=== PATIENT | male | born 1950 | race Two or more races ===

== ENCOUNTER 2017-03-19 04:13 | Inpatient (IN) | payer BC, MEDICARE ==
[2017-03-19] MEDS ORDERED: ONDANSETRON 4 MG/2 ML VIAL IVP STA (04:37)
[2017-03-19] MEDS ORDERED: IPRATROPIUM-ALBUTEROL 3 ML NEB INHALATION STA (04:37)
--- NOTE | 2017-03-19 04:42 | ED ---
General Adult HPI - General Chief complaint: Shortness of Breath Stated complaint: SOB,dialysis pt Time Seen by Provider: 03/19/17 04:15 Source: patient, RN notes reviewed Mode of arrival: ambulatory Limitations: no limitations - History of Present Illness Initial comments: This is a 66-year-old male who presents emergency Department with past medical history significant for chronic renal failure and he does peritoneal dialysis at home. Patient states for the last 4 days he's been getting more more short of breath and feeling weaker and lost his appetite. Patient states she'll eat anything over the last 4 days. Patient denies any chest pain. Patient states he has had a low-grade fever highest being 100. Patient denies any abdominal pain patient denies any vomiting or diarrhea but does state that he is nauseated. Patient states he also was lightheaded and dizzy. Patient denies any headache patient denies numbness or focal weakness. Patient denies any recent injury or trauma. Patient denies any back pain. - Related Data Home Medications Medication Instructions Recorded Confirmed Arginine [l-Arginine] 3,000 mg PO BID 12/01/16 12/01/16 Ascorbic Acid [Vitamin C] 1,000 mg PO BID 12/01/16 12/01/16 Beta-Sitosterol 1 tab PO BID 12/01/16 Calcitriol [Rocaltrol] 0.5 mcg PO Q48H 12/01/16 12/01/16 Carvedilol [Coreg] 25 mg PO BID 12/01/16 12/01/16 Epoetin Anton [Procrit] 20,000 unit INJ DIRECTED 12/01/16 12/06/16 Ferrous Sulfate, Dried [Iron] 159 mg PO DAILY 12/01/16 12/01/16 Furosemide [Lasix] 40 mg PO Q48H 12/01/16 12/01/16 Glimepiride [Amaryl] 2 mg PO BID 12/01/16 12/01/16 Isosorbide Mononitrate ER [Imdur] 30 mg PO BID 12/01/16 12/01/16 Pygeum 1 tab PO BID 12/01/16 hydrALAZINE HCL [Hydralazine HCl] 50 mg PO TID 12/01/16 12/01/16 Previous Rx's Medication Instructions Recorded Hydrocodone/Acetaminophen [[place] 1 - 2 each PO Q4HR PRN #20 tab 12/06/16 5325] Allergies Allergy/AdvReac Type Severity Reaction Status Date / Time naproxen [From Naprosyn] Allergy Swelling Verified 03/19/17 04:23 IN FEET Jhpwbgz-Iew-Ulm Reductase Allergy Unknown Verified 03/19/17 04:23 Inhibitor Review of Systems ROS Statement: Those systems with pertinent positive or pertinent negative responses have been documented in the HPI. ROS Other: All systems not noted in ROS Statement are negative. Past Medical History Past Medical History: Blood Disorder, Diabetes Mellitus, Hyperlipidemia, Hypertension, Myocardial Infarction ([place]), Prostate Disorder, Renal Disease, Vascular Disorder Additional Past Medical History / Comment(s): ANEMIA. KIDNEY FUNCTION 13%. BPH. OFF PLAVIX FOR FEW MONTHS. PAD. HX INJ TO NECK PLAYING FOOTBALL. Last Myocardial Infarction Date:: 2007 History of Any Multi-Drug Resistant Organisms: None Reported Past Surgical History: Heart Catheterization With Stent, Tonsillectomy Additional Past Surgical History / Comment(s): HEART STENTS X3 01/2008. LT LEG (CLEANED OUT MY LEGS) ARTHRECTOMY X2. Past Anesthesia/Blood Transfusion Reactions: Motion Sickness Date of Last Stent Placement:: 01/2008 Past Psychological History: No Psychological Hx Reported Smoking Status: Former smoker Past Alcohol Use History: None Reported Past Drug Use History: None Reported - Past Family History Mother Family Medical History: Cancer Father Family Medical History: Myocardial Infarction ([place]), Pulmonary Embolus General Exam - General Exam Comments Initial Comments: GENERAL: Patient is well-developed and well-nourished. Patient is nontoxic and well- hydrated and is in mild distress. ENT: Neck is soft and supple. No significant lymphadenopathy is noted. Oropharynx is clear. Moist mucous membranes. EYES: The sclera were anicteric and conjunctiva were pink and moist. Extraocular movements were intact and pupils were equal round and reactive to light. Eyelids were unremarkable. PULMONARY: Wheezing more on the left than the right. Patient will crack on the right. CARDIOVASCULAR: There is a regular rate and rhythm without any murmurs gallops or rubs. ABDOMEN: Soft and nontender with normal bowel sounds. No palpable organomegaly was noted. There is no palpable pulsatile mass. SKIN: Skin is clear with no lesions or rashes and otherwise unremarkable. NEUROLOGIC: Patient is alert and oriented x3. Cranial nerves II through XII are grossly intact. Motor and sensory are also intact. Normal speech, volume and content. Symmetrical smile. MUSCULOSKELETAL: Normal extremities with adequate strength and full range of motion. No lower extremity swelling or edema. No calf tenderness. LYMPHATICS: No significant lymphadenopathy is noted PSYCHIATRIC: Normal psychiatric evaluation. Normal interpersonal interactions appears functionally intact in deals appropriately with others. No signs of depression. No signs of anxiety. Limitations: no limitations Course Vital Signs 03/19/17 03/19/17 03/19/17 04:17 04:41 04:54 Temperature 97.6 F Pulse Rate 77 73 74 Respiratory 20 Rate Blood Pressure 159/76 O2 Sat by Pulse 94 L Oximetry 03/19/17 05:55 Temperature Pulse Rate 72 Respiratory 20 Rate Blood Pressure 167/77 O2 Sat by Pulse 95 Oximetry Medical Decision Making - Medical Decision Making EKG shows sinus rhythm at 76 bpm CO interval is 218 QRS is 90 QT intervals 412 QTC is 463. Patient's EKG shows no ST segment elevation or depression or T wave abnormalities are noted X-ray showed an infiltrate in the right lower lobe. Started the patient on Levaquin. I spoke with Dr. Rasmussen he agreed to admit the patient admitted the patient I wrote admitting orders. - Lab Data Result diagrams: 03/19/17 04:30 03/19/17 04:30 Lab Results 03/19/17 03/19/17 03/19/17 Range/Units 04:30 04:30 04:30 WBC 15.1 H (3.8-10.6) k/uL RBC 4.31 (4.30-5.90) m/uL Hgb 12.8 L (13.0-17.5) gm/dL Hct 35.6 L (39.0-53.0) % MCV 82.7 (80.0-100.0) fL MCH 29.8 (25.0-35.0) pg MCHC 36.1 (31.0-37.0) g/dL RDW 14.0 (11.5-15.5) % Plt Count 223 (150-450) k/uL Neutrophils % 76 % Lymphocytes % 17 % Monocytes % 5 % Eosinophils % 1 % Basophils % 0 % Neutrophils # 11.4 H (1.3-7.7) k/uL Lymphocytes # 2.5 (1.0-4.8) k/uL Monocytes # 0.8 (0-1.0) k/uL Eosinophils # 0.2 (0-0.7) k/uL Basophils # 0.1 (0-0.2) k/uL PT (9.0-12.0) sec INR (<1.2) APTT (22.0-30.0) sec Sodium 125 L (137-145) mmol/L Potassium 3.0 L* (3.5-5.1) mmol/L Chloride 81 L (98-107) mmol/L Carbon Dioxide 28 (22-30) mmol/L Anion Gap 16 mmol/L BUN 78 H (9-20) mg/dL Creatinine 5.12 H* (0.66-1.25) mg/dL Est GFR (MDRD) Af Amer 14 (>60 ml/min/1.73 sqM) Est GFR (MDRD) Non-Af 11 (>60 ml/min/1.73 sqM) Glucose 86 (74-99) mg/dL Plasma Lactic Acid Jcarlos (0.7-2.0) mmol/L Calcium 9.1 (8.4-10.2) mg/dL Magnesium 2.7 H (1.6-2.3) mg/dL Total Bilirubin 1.0 (0.2-1.3) mg/dL AST 32 (17-59) U/L ALT 34 (21-72) U/L Alkaline Phosphatase 86 (38-126) U/L Total Creatine Kinase 73 (55-170) U/L CK-MB (CK-2) 2.6 H* (0.0-2.4) ng/mL CK-MB (CK-2) Rel Index 3.6 Troponin I 0.035 H* (0.000-0.034) ng/mL NT-Pro-B Natriuret Pep pg/mL Total Protein 6.9 (6.3-8.2) g/dL Albumin 4.0 (3.5-5.0) g/dL 03/19/17 03/19/17 03/19/17 Range/Units 04:30 04:30 04:45 WBC (3.8-10.6) k/uL RBC (4.30-5.90) m/uL Hgb (13.0-17.5) gm/dL Hct (39.0-53.0) % MCV (80.0-100.0) fL MCH (25.0-35.0) pg MCHC (31.0-37.0) g/dL RDW (11.5-15.5) % Plt Count (150-450) k/uL Neutrophils % % Lymphocytes % % Monocytes % % Eosinophils % % Basophils % % Neutrophils # (1.3-7.7) k/uL Lymphocytes # (1.0-4.8) k/uL Monocytes # (0-1.0) k/uL Eosinophils # (0-0.7) k/uL Basophils # (0-0.2) k/uL PT 9.3 (9.0-12.0) sec INR 0.9 (<1.2) APTT 23.7 (22.0-30.0) sec Sodium (137-145) mmol/L Potassium (3.5-5.1) mmol/L Chloride (98-107) mmol/L Carbon Dioxide (22-30) mmol/L Anion Gap mmol/L BUN (9-20) mg/dL Creatinine (0.66-1.25) mg/dL Est GFR (MDRD) Af Amer (>60 ml/min/1.73 sqM) Est GFR (MDRD) Non-Af (>60 ml/min/1.73 sqM) Glucose (74-99) mg/dL Plasma Lactic Acid Jcarlos 0.7 (0.7-2.0) mmol/L Calcium (8.4-10.2) mg/dL Magnesium (1.6-2.3) mg/dL Total Bilirubin (0.2-1.3) mg/dL AST (17-59) U/L ALT (21-72) U/L Alkaline Phosphatase (38-126) U/L Total Creatine Kinase (55-170) U/L CK-MB (CK-2) (0.0-2.4) ng/mL CK-MB (CK-2) Rel Index Troponin I (0.000-0.034) ng/mL NT-Pro-B Natriuret Pep 2610 pg/mL Total Protein (6.3-8.2) g/dL Albumin (3.5-5.0) g/dL Disposition Clinical Impression: Pneumonia, Influenza Disposition: ADMITTED IP TO THIS [facility] Time of Disposition: 05:32
[2017-03-19 04:46] LABS: Basophils # (A) 0.1 k/uL (0-0.2); Basophils % (A) 0 %; Eosinophils # (A) 0.2 k/uL (0-0.7); Eosinophils % (A) 1 %; HCT 35.6 % (39.0-53.0); HGB 12.8 gm/dL (13.0-17.5); Lymphocytes # (A) 2.5 k/uL (1.0-4.8); Lymphocytes % (A) 17 %; MCH 29.8 pg (25.0-35.0); MCHC 36.1 g/dL (31.0-37.0); MCV 82.7 fL (80.0-100.0); Mean Platelet Volume 8.5; Monocytes # (A) 0.8 k/uL (0-1.0); Monocytes % (A) 5 %; Neutrophils # (A) 11.4 k/uL (1.3-7.7); Neutrophils % (A) 76 %; Platelet Count 223 k/uL (150-450); RBC 4.31 m/uL (4.30-5.90); WBC 15.1 k/uL (3.8-10.6)
[2017-03-19 04:54] LABS: INR 0.9 (<1.2); Partial Thromboplastin Time 23.7 sec (22.0-30.0); Prothrombin Time 9.3 sec (9.0-12.0)
[2017-03-19 04:55] LABS: Calcium 9.1 mg/dL (8.4-10.2); Magnesium 2.7 mg/dL (1.6-2.3); Total Protein 6.9 g/dL (6.3-8.2)
--- NOTE | 2017-03-19 05:18 | XR ---
EXAM: XR Chest, 2 Views CLINICAL HISTORY: Reason: difficulty breathing TECHNIQUE: Frontal and lateral views of the chest. COMPARISON: No relevant prior studies available. FINDINGS: Lungs: Subsegmental linear changes involving the right lower lobe. Pleural space: Unremarkable. No pneumothorax. Heart: Unremarkable. No cardiomegaly. Mediastinum: Unremarkable. Bones/joints: Unremarkable. IMPRESSION: Subsegmental linear atelectasis right lower lobe. Infection in this region cannot entirely be excluded but is considered less likely.
[2017-03-19 05:21] LABS: Creatine Kinase MB 2.6 ng/mL (0.0-2.4); Troponin I 0.035 ng/mL (0.000-0.034)
[2017-03-19] MEDS ORDERED: LEVOFLOXACIN 750MG-D5W PMX 750 MG in DEXTROSE/WATER 1 150ML.BAG IVPB STA (05:30)
[2017-03-19] MEDS ORDERED: LEVOFLOXACIN 750MG-D5W PMX 750 MG in DEXTROSE/WATER 1 150ML.BAG IVPB SCH (05:30)
[2017-03-19] MEDS ORDERED: PNEUMONIA PROTOCOL UTILIZED 1 EACH MISC PO PRN (05:32)
[2017-03-19] MEDS ORDERED: MAG HYDROX/AL HYDROX/SIMETH 30 ML, HYOSCYAMINE ELIXIR 10 ML, CIMETIDINE HCL 300 MG, LID... PO STA ×4 (05:42)
[2017-03-19] MEDS ORDERED: PANTOPRAZOLE 40 MG/10 ML VIAL IVP STA (05:43)
[2017-03-19] MEDS ORDERED: OSELTAMIVIR 75 MG CAP PO STA (06:05)
[2017-03-19] MEDS ORDERED: ACETAMINOPHEN TAB 325 MG TAB PO PRN (06:06)
--- NOTE | 2017-03-19 10:30 | P.NPCON ---
History of Present Illness - Reason for Consult end stage renal disease - History of Present Illness Reason for consultation: End-stage renal disease History of present illness: Patient is a 66-year-old male seen in renal consultation for end-stage renal disease. He is maintained on peritoneal dialysis. Patient follows with Dr. Bradshaw as an outpatient. Patient presented to the hospital with generalized weakness along with poor oral intake which is going on for the last 4-5 days. He also admits to low-grade fever as well as chills. He denies any abdominal pain. Patient has no problems with peritoneal dialysis. Patient states his dialysate is clear. He does admit to nausea. Denies any significant vomiting or diarrhea. He is noted to be positive for influenza B. He's currently maintained on Tamiflu. He still feels quite weak. Denies edema. Hemodynamically stable. Patient states he did not get the flu shot as he doesn't care for it. Vital signs are stable. General: The patient appeared well nourished and normally developed. HEENT: Head exam is unremarkable. Neck is without jugular venous distension. LUNGS: Lungs are clear to auscultation and percussion. Breath sounds decreased. HEART: Rate and Rhythm are regular. First and second heart sounds normal. No murmurs, rubs or gallops. ABDOMEN: Abdominal exam reveals normal bowel sounds. Non-tender and non- distended. No evidence of peritonitis. EXTREMITITES: No clubbing, cyanosis, or edema. Past Medical History Past Medical History: Coronary Artery Disease (CAD), Chest Pain / Angina, Diabetes Mellitus, Hypertension, Myocardial Infarction ([place]), Pneumonia, Prostate Disorder, Renal Disease, Vascular Disorder Additional Past Medical History / Comment(s): Chronic renal failure on home peritoneal dialysis, renal function 13%, anemia, NIDDM type II, PAD, cervical injury r/t football with cervical pain. Last Myocardial Infarction Date:: 2007 History of Any Multi-Drug Resistant Organisms: None Reported Past Surgical History: Heart Catheterization With Stent, Tonsillectomy Additional Past Surgical History / Comment(s): 11/2016 Peritoneal catheter placed, PCI/stents X3 01/2008. LT LEG ARTHRECTOMY X2. Past Anesthesia/Blood Transfusion Reactions: No Reported Reaction, Motion Sickness Date of Last Stent Placement:: 01/2008 Smoking Status: Former smoker - Past Family History Mother Family Medical History: Cancer Additional Family Medical History / Comment(s): Mother had colon cancer. Father Family Medical History: Myocardial Infarction ([place]), Pulmonary Embolus Additional Family Medical History / Comment(s): Father had several MIs and of one at the age of 69yrs. Medications and Allergies Home Medications Medication Instructions Recorded Confirmed Type Calcitriol [Rocaltrol] 0.5 mcg PO MOFR 12/01/16 03/19/17 History Carvedilol [Coreg] 25 mg PO BID 12/01/16 03/19/17 History Glimepiride [Amaryl] 2 mg PO BID 12/01/16 03/19/17 History Isosorbide Mononitrate ER [Imdur] 30 mg PO BID 12/01/16 03/19/17 History hydrALAZINE HCL [Hydralazine HCl] 50 mg PO TID 12/01/16 03/19/17 History Multivitamins, Thera [Multivitamin 1 tab PO DAILY 03/19/17 03/19/17 History (formulary)] Allergies Allergy/AdvReac Type Severity Reaction Status Date / Time naproxen [From Naprosyn] Allergy Swelling Verified 03/19/17 07:20 IN FEET Pycxtfd-Fvh-Dtz Reductase Allergy Unknown Verified 03/19/17 07:20 Inhibitor Physical Exam Vitals: Vital Signs Temp Pulse Resp BP Pulse Ox 03/19/17 09:27 97.6 F 73 20 142/78 95 03/19/17 07:15 97.6 F 78 20 164/80 98 03/19/17 05:55 72 20 167/77 95 03/19/17 04:54 74 03/19/17 04:41 73 03/19/17 04:17 97.6 F 77 20 159/76 94 L Intake and Output 03/18/17 03/19/17 03/19/17 22:59 06:59 14:59 Intake Total 88 Balance 88 Intake: Amount of Fluid Infused ( 88 ml) Other: Weight 89.811 kg Results - Lab Results Most recent lab results Calcium 9.1 mg/dL (8.4-10.2) 03/19/17 04:30 Magnesium 2.7 mg/dL (1.6-2.3) H 03/19/17 04:30 03/19/17 04:30 03/19/17 04:30 Assessment and Plan Plan: Assessment: #1. End-stage renal disease maintained on peritoneal dialysis. #2. Hypovolemic hyponatremia. #3. Hypokalemia due to poor oral intake as well as losses from peritoneal dialysis. Magnesium replete. #4. Influenza B virus maintained on Tamiflu. #5. Diabetes mellitus. Plan: Start PD exchanges with 2 L every 6 hours 1.5% solution. Check phosphorus level. Replace potassium. 60 mEq today. Encouraged oral intake. Repeat electrolytes in the morning. Thank you for the consultation. I will continue to follow the patient is due during his hospital stay.
[2017-03-19] MEDS ORDERED: MAGNESIUM SULFATE-D5W PMX 1 GM in DEXTROSE/WATER 1 100ML.BAG IVPB ONE (10:36)
[2017-03-19] MEDS ORDERED: POTASSIUM CHLORIDE 20 MEQ in WATER FOR INJECTION 1 100ML.BAG IVPB STA (10:51)
[2017-03-19] MEDS: DIALYSIS (PERIT 1.5%) 1,500 ML 22.5 G/1,500 ML BAG INTRAPERIT SCH ×3 (11:32→23:53)
[2017-03-19] MEDS ORDERED: CALCITRIOL 0.25 MCG CAP PO SCH (12:00)
[2017-03-19] MEDS: POTASSIUM CHLORIDE 20 MEQ in SODIUM CHLORIDE 0.9% 100 ML IVPB SCH ×3 (12:04→14:38)
[2017-03-19] MEDS: OSELTAMIVIR 60 MG/10 ML ORAL SYRINGE PO SCH (12:07)
[2017-03-19] MEDS: hydrALAZINE HCL 50 MG TAB PO SCH ×2 (14:39→21:58)
[2017-03-19] MEDS: CARVEDILOL 12.5 MG TAB PO SCH (14:40)
[2017-03-19 15:40] VITALS: BMI 28.4
--- NOTE | 2017-03-19 17:51 | P.HPIM ---
History of Present Illness H&P Date: 03/19/17 Chief Complaint: short of breath and feeling weaker and lost his appetite. Mr. Chaparro is a 66 y/o male with the past medical history of reactive disease, diabetes mellitus, hypertension, prostate disorder, CK 80 on peritoneal dialysis coming in with a chief complaint of generalized weakness along with loss of appetite for the past 2-3 days. Patient states that it started off as a common cold, then he started to have cough that was dry. Complains of low- grade fever with some chills. He complains of some nausea but did not throw up and that is loss of appetite. Patient did not get his flu shot for this season. And he was tested positive for influenza B in the ER. Patient has been started on Tamiflu but denies taking the medication as he thinks it would not be as effective as his symptoms started more than 2-3 days back and now that he is getting better. Did have a chest x-ray which was showing Menghini or atelectasis of the right lower lobe infection industries it could not be excluded. So he was started on levofloxacin. He was seen by nephrology and his peritoneal dialysis has been initiated. Review of Systems REVIEW OF SYSTEMS: PSYCH: No Anxiety or depression NEURO: Generalized weakness but no focal weakness HEMATOLOGIC: No history of easy bleeding and bruising . No recent infections . RESPIRATORY: as per HPI INTEGUMENT: no rashes OPHTHALMOLOGIC: No blurry vision and no eye discharge : No dysuria or hematuria CARDIAC: Mild difficulty in breathing. No chest pain or palpitations. MUSCULOSKELETAL : Myalgia and fatigue GI: Loss of appetite No abdominal pain, Nausea or vomiting. No constipation or diarrhea. Past Medical History Past Medical History: Coronary Artery Disease (CAD), Chest Pain / Angina, Diabetes Mellitus, Hypertension, Myocardial Infarction ([place]), Pneumonia, Prostate Disorder, Renal Disease, Vascular Disorder Additional Past Medical History / Comment(s): Chronic renal failure on home peritoneal dialysis, renal function 13%, anemia, NIDDM type II, PAD, cervical injury r/t football with cervical pain. Last Myocardial Infarction Date:: 2007 History of Any Multi-Drug Resistant Organisms: None Reported Past Surgical History: Heart Catheterization With Stent, Tonsillectomy Additional Past Surgical History / Comment(s): 11/2016 Peritoneal catheter placed, PCI/stents X3 01/2008. LT LEG ARTHRECTOMY X2. Past Anesthesia/Blood Transfusion Reactions: No Reported Reaction, Motion Sickness Date of Last Stent Placement:: 01/2008 Past Psychological History: No Psychological Hx Reported Additional Psychological History / Comment(s): Pt resides with his spouse. He is independent. He performs his own peritoneal dialysis. He has a RN, named Farzana at [facility] which helps manage his dialysis [phone]. Smoking Status: Former smoker Past Alcohol Use History: None Reported Additional Past Alcohol Use History / Comment(s): Pt started smoking in 1963 and was a 3 PPD smoker, QUIT 2007. Past Drug Use History: None Reported - Past Family History Mother Family Medical History: Cancer Additional Family Medical History / Comment(s): Mother had colon cancer. Father Family Medical History: Myocardial Infarction ([place]), Pulmonary Embolus Additional Family Medical History / Comment(s): Father had several MIs and of one at the age of 69yrs. Medications and Allergies Home Medications Medication Instructions Recorded Confirmed Type Calcitriol [Rocaltrol] 0.5 mcg PO MOFR 12/01/16 03/19/17 History Carvedilol [Coreg] 25 mg PO BID 12/01/16 03/19/17 History Glimepiride [Amaryl] 2 mg PO BID 12/01/16 03/19/17 History Isosorbide Mononitrate ER [Imdur] 30 mg PO BID 12/01/16 03/19/17 History hydrALAZINE HCL [Hydralazine HCl] 50 mg PO TID 12/01/16 03/19/17 History Multivitamins, Thera [Multivitamin 1 tab PO DAILY 03/19/17 03/19/17 History (formulary)] Allergies Allergy/AdvReac Type Severity Reaction Status Date / Time naproxen [From Naprosyn] Allergy Swelling Verified 03/19/17 07:20 IN FEET Svubbbb-Rpg-Div Reductase Allergy Unknown Verified 03/19/17 07:20 Inhibitor Physical Exam Vitals: Vital Signs Temp Pulse Resp BP Pulse Ox 03/19/17 11:03 20 03/19/17 09:27 97.6 F 73 20 142/78 95 03/19/17 07:15 97.6 F 78 20 164/80 98 03/19/17 05:55 72 20 167/77 95 03/19/17 04:54 74 03/19/17 04:41 73 03/19/17 04:17 97.6 F 77 20 159/76 94 L Intake and Output 03/18/17 03/19/17 03/19/17 22:59 06:59 14:59 Intake Total 88 Balance 88 Intake: Amount of Fluid Infused ( 88 ml) Other: Weight 89.811 kg GENERAL EXAM GEN. APPEARANCE: sick appearing HEAD EXAM: atraumatic, normocephalic, normal inspection EYE EXAM: normal appearance, PERRL, EOMI. Absent: scleral icterus, conjunctival injection, periorbital swelling ENT EXAM: normal exam, mucous membranes moist NECK EXAM: normal inspection. Absent: tenderness, meningismus, full ROM, lymphadenopathy RESPIRATORY EXAM: Coarse Breath sounds bilaterally CARDIOVASCULAR EXAM: regular rate, normal rhythm, normal heart sounds. Absent : systolic murmur, diastolic murmur, rubs, gallop, clicks GI/ABDOMINAL EXAM: soft, normal bowel sounds. Absent: distended, tenderness, guarding, rebound, rigid EXTREMITIES EXAM: normal inspection, full ROM, normal capillary refill. Absent : tenderness, pedal edema, joint swelling, calf tenderness NEUROLOGICAL EXAM: alert, oriented X3, CN II-XII intact, no motor or sensory deficit PSYCHIATRIC EXAM: normal affect, normal mood SKIN EXAM: warm, dry, intact, normal color. Absent: rash Results CBC & Chem 7: 03/19/17 04:30 03/19/17 04:30 Labs: Abnormal Lab Results - Last 24 Hours (Table) 03/19/17 03/19/17 03/19/17 Range/Units 04:30 04:30 04:30 WBC 15.1 H (3.8-10.6) k/uL Hgb 12.8 L (13.0-17.5) gm/dL Hct 35.6 L (39.0-53.0) % Neutrophils # 11.4 H (1.3-7.7) k/uL Sodium 125 L (137-145) mmol/L Potassium 3.0 L* (3.5-5.1) mmol/L Chloride 81 L (98-107) mmol/L BUN 78 H (9-20) mg/dL Creatinine 5.12 H* (0.66-1.25) mg/dL Magnesium 2.7 H (1.6-2.3) mg/dL CK-MB (CK-2) 2.6 H* (0.0-2.4) ng/mL Troponin I 0.035 H* (0.000-0.034) ng/mL Influenza Type B (PCR) (Not Detectd) 03/19/17 Range/Units 05:35 WBC (3.8-10.6) k/uL Hgb (13.0-17.5) gm/dL Hct (39.0-53.0) % Neutrophils # (1.3-7.7) k/uL Sodium (137-145) mmol/L Potassium (3.5-5.1) mmol/L Chloride (98-107) mmol/L BUN (9-20) mg/dL Creatinine (0.66-1.25) mg/dL Magnesium (1.6-2.3) mg/dL CK-MB (CK-2) (0.0-2.4) ng/mL Troponin I (0.000-0.034) ng/mL Influenza Type B (PCR) Detected H (Not Detectd) Chest x-ray showing - right lower lobe infiltrate Thrombosis Risk Factor Assmnt - Choose All That Apply Any of the Below Risk Factors Present?: Yes Each Factor Represents 1 point: Obesity (BMI >25), Serious lung disease incl. pneumonia (< 1month) Other Risk Factors: Yes Each Risk Factor Represents 2 Points: Age 61-74 years Each Risk Factor Represents 3 Points: Family history of DVT/PE Other congenital or acquired thrombophilia - If yes, enter type in comment: No Thrombosis Risk Factor Assessment Total Risk Factor Score: 7 Thrombosis Risk Factor Assessment Level: High Risk Assessment and Plan Assessment: Right lower lobe pneumonia Influenza B ESRD on peritoneal dialysis Leukocytosis Hypokalemia Elevated troponins - most likely demand ischemia we will repeat troponins Type 2 diabetes mellitus [id number]-[id number] Coronary artery disease Hypertension Prostrated disorder Plan: Patient has been started on levofloxacin for his right lower lobe pneumonia. Patient refuses Tamiflu. Peritoneal dialysis as per nephrology recommendations. We'll resume his home medications and further recommendations to follow depending on the progress of the patient.
[2017-03-19] MEDS: ISOSORBIDE MONONITRATE ER 30 MG TAB.ER.24H PO SCH (21:58)
[2017-03-20] MEDS ORDERED: ONDANSETRON 4 MG/2 ML VIAL IVP PRN (00:05)
[2017-03-20] MEDS: DIALYSIS (PERIT 1.5%) 1,500 ML 22.5 G/1,500 ML BAG INTRAPERIT SCH ×3 (05:35→17:43)
[2017-03-20] MEDS: hydrALAZINE HCL 50 MG TAB PO SCH ×3 (08:06→20:37)
[2017-03-20] MEDS: CARVEDILOL 12.5 MG TAB PO SCH ×2 (08:06→15:03)
[2017-03-20] MEDS: ISOSORBIDE MONONITRATE ER 30 MG TAB.ER.24H PO SCH ×2 (08:06→20:37)
[2017-03-20] MEDS: OSELTAMIVIR 60 MG/10 ML ORAL SYRINGE PO SCH (08:08)
--- NOTE | 2017-03-20 08:52 | XR ---
EXAMINATION TYPE: XR chest 2V DATE OF EXAM: 03/20/2017 COMPARISON: 03/19/2017 HISTORY: Cough, congestion and shortness of breath TECHNIQUE: Frontal and lateral views of the chest are obtained. FINDINGS: There is redemonstration of a linear right lower lobe opacity, slightly progressed from the prior. Again this appears as atelectasis although pneumonia is possible. Remainder the lungs are rodríguez ar. No pleural effusion or pneumothorax. The cardiac silhouette size is within normal limits. The osseous structures are intact. Mild multilevel degenerative changes of the thoracic spine. IMPRESSION: Slight worsening of the right lower lobe linear opacities favored to represent atelectas is although pneumonia is possible in the appropriate clinical setting.
[2017-03-20 10:43] LABS: Calcium 8.9 mg/dL (8.4-10.2); Phosphorus 4.2 mg/dL (2.5-4.5); Potassium 3.7 mmol/L (3.5-5.1)
--- NOTE | 2017-03-20 11:10 | P.PN ---
Subjective Patient is seen in follow-up for end-stage renal disease. He is maintained on peritoneal dialysis. He is currently being treated for influenza B virus with Tamiflu. He's feeling better today. No vomiting or diarrhea. Oral intake is gradually improving. Denies chest pain or shortness of breath. Denies abdominal pain. Vital signs are stable. General: The patient appeared well nourished and normally developed. HEENT: Head exam is unremarkable. Neck is without jugular venous distension. LUNGS: Lungs are clear to auscultation and percussion. Breath sounds decreased. HEART: Rate and Rhythm are regular. First and second heart sounds normal. No murmurs, rubs or gallops. ABDOMEN: Abdominal exam reveals normal bowel sounds. Non-tender and non- distended. No evidence of peritonitis. EXTREMITITES: No clubbing, cyanosis, or edema. Objective - Vital Signs Vital signs: Vital Signs Temp 96.8 F L 03/20/17 07:00 Pulse 77 03/20/17 07:00 Resp 16 03/20/17 07:00 BP 136/70 03/20/17 07:00 Pulse Ox 95 03/20/17 07:00 Intake & Output 03/19/17 03/20/17 03/20/17 18:59 06:59 18:59 Intake Total 688 Balance 688 Weight 89.811 kg Intake: Amount of Fluid Infused ( 88 ml) Intake, IV Titration 300 Amount Magnesium Sulfate-D5w Pmx 100 1 gm In Dextrose/Water 1 100ml.bag @ 100 mls/hr IVPB ONCE ONE Rx#: [id number] Potassium Chloride 20 meq 100 In Sodium Chloride 0.9% 100 ml @ 55 mls/hr IVPB Q2HR HANNA Rx#:[id number] Potassium Chloride 20 meq 100 In Water For Injection 1 100ml.bag @ 50 mls/hr IVPB ONCE STA Rx#: [id number] Oral 300 Other: Voiding Method CAPD CAPD # Voids 0 1 2 # Bowel Movements 0 - Labs CBC & Chem 7: 03/19/17 04:30 03/20/17 08:48 Labs: Abnormal Lab Results - Last 24 Hours (Table) 03/19/17 03/20/17 Range/Units 11:58 08:48 Sodium 121 L (137-145) mmol/L Chloride 82 L (98-107) mmol/L BUN 67 H (9-20) mg/dL Creatinine 5.11 H* (0.66-1.25) mg/dL Glucose 153 H (74-99) mg/dL Troponin I 0.038 H* (0.000-0.034) ng/mL Microbiology - Last 24 Hours (Table) 03/19/17 16:53 Gram Stain - Preliminary Sputum 03/19/17 04:30 Blood Culture - Preliminary Blood No Growth after 24 hours Assessment and Plan Plan: Assessment: #1. End-stage renal disease maintained on peritoneal dialysis. #2. Hypovolemic hyponatremia. Antibiotics also mixed with D5W which will lower the sodium. #3. Hypokalemia due to poor oral intake as well as losses from peritoneal dialysis. Magnesium replete. Improved post replacement. #4. Influenza B virus maintained on Tamiflu. #5. Diabetes mellitus. Plan: Maintain PD exchanges with 2 L every 6 hours 1.5% solution. Encouraged oral intake. Add 1.2 L fluid restriction. Repeat electrolytes in the morning. Repeat sodium level at 5 PM today.
[2017-03-20 11:22] LABS: Basophils % (A) 0 %; Eosinophils # (A) 0.1 k/uL (0-0.7); Eosinophils % (A) 1 %; HCT 31.2 % (39.0-53.0); HGB 11.2 gm/dL (13.0-17.5); Hyperchromasia Slight; Lymphocytes # (A) 1.5 k/uL (1.0-4.8); Lymphocytes % (A) 15 %; MCH 29.6 pg (25.0-35.0); MCHC 35.7 g/dL (31.0-37.0); MCV 82.9 fL (80.0-100.0); Mean Platelet Volume 8.3; Monocytes # (A) 0.6 k/uL (0-1.0); Monocytes % (A) 6 %; Neutrophils # (A) 7.6 k/uL (1.3-7.7); Neutrophils % (A) 76 %; Platelet Count 207 k/uL (150-450); RBC 3.77 m/uL (4.30-5.90); RDW 13.2 % (11.5-15.5); WBC 9.9 k/uL (3.8-10.6)
[2017-03-20] MEDS: MULTIVITAMINS, THERA 1 EACH TAB PO SCH (11:44)
[2017-03-20] MEDS ORDERED: SODIUM CHLORIDE 0.9% 1,000 ML IV SCH (20:30)
--- NOTE | 2017-03-20 21:10 | PN ---
PROGRESS NOTE DATE OF SERVICE: 03/20/2017. BRIEF HISTORY: The patient is seen in his room. Claims that he is still having some shortness of breath, but would like to be discharged home. PHYSICAL EXAM: GENERAL: The patient is awake and alert. He does not seem to be in any acute distress. VITAL SIGNS: Temperature 96.8, pulse 77, respirations 16, blood pressure 136/70, O2 saturation 95%. HEENT: Atraumatic, normocephalic. Pupils equal and reactive to light. Extraocular movements are intact. Buccal mucosa is moist. NECK: Supple without any goiter or lymphadenopathy. JVD is negative. No carotid bruit heard. RESPIRATORY: Lungs positive bilateral wheezing with decreased breath sound in both bases. CARDIOVASCULAR: Heart is regular rate and rhythm without any murmurs or gallop rhythm. ABDOMEN/GI: Abdomen is soft, nontender, nondistended. No guarding or rigidity. Bowel sounds are positive. EXTREMITIES: No edema clubbing or cyanosis. NEUROLOGIC: Cranial nerves 2 through 12 grossly intact. No gross motor or sensory deficit. SKIN: Warm and dry and intact. MUSCULOSKELETAL: No gross joint deformities or tenderness or swelling. The patient moves all 4 extremities. LYMPHATIC: No palpable lymph nodes in axilla or cervical. LABS: CBC, white blood count of 15.1, hemoglobin of 12.8, hematocrit 35.6, and platelet count of 223,000. Chemical profile sodium 129, potassium 3.7, chloride 82, bicarb 24, BUN 67, creatinine 5.1, glucose 153. ASSESSMENT: 1. End-stage renal disease with peritoneal dialysis. 2. Hypoxemia secondary to community-acquired pneumonia. 3. Influenza B virus. 4. Hypovolemic hyponatremia. 5. Hypertension. 6. Diabetes mellitus type 2. 7. Hypertension. 8. Elevated troponin, most likely demand ischemia. PLAN: The patient is being followed by Nephrology. Remains on antibiotics. Peritoneal dialysis is in place. Will continue with levofloxacin. The patient refuses Tamiflu. Continue with DuoNebs and oxygen as needed. We will resume all home medications. Monitor electrolytes, renal function, I and Os. Nephrology following and placing recommendations for hyponatremia. The patient's hypokalemia was treated. Will repeat electrolytes and treat accordingly. MMODL / IJN: [id number] /
[2017-03-21] MEDS: DIALYSIS (PERIT 1.5%) 1,500 ML 22.5 G/1,500 ML BAG INTRAPERIT SCH ×3 (00:30→12:04)
[2017-03-21] MEDS ORDERED: LEVOFLOXACIN 500MG-D5W PMX 500 MG in DEXTROSE/WATER 1 100ML.BAG IVPB SCH (06:00)
[2017-03-21] MEDS: ISOSORBIDE MONONITRATE ER 30 MG TAB.ER.24H PO SCH (07:30)
[2017-03-21] MEDS: hydrALAZINE HCL 50 MG TAB PO SCH (07:30)
[2017-03-21] MEDS: OSELTAMIVIR 60 MG/10 ML ORAL SYRINGE PO SCH (07:30)
[2017-03-21] MEDS: CARVEDILOL 12.5 MG TAB PO SCH (07:30)
[2017-03-21 07:38] VITALS: BP 140/77; PULSE 73; RESP 16; TEMP 97.3
--- NOTE | 2017-03-21 10:24 | P.PN ---
Subjective Patient is seen in follow-up for end-stage renal disease. He is maintained on peritoneal dialysis. He is currently being treated for influenza B virus with Tamiflu. He's feeling better today. No vomiting or diarrhea. Oral intake is gradually improving. Denies drinking excessive amounts of water. Denies chest pain or shortness of breath. Denies abdominal pain. Sodium level was noted to be low at 121 yesterday. She was started on 0.9 saline to be run at 50 mL an hour. Vital signs are stable. General: The patient appeared well nourished and normally developed. HEENT: Head exam is unremarkable. Neck is without jugular venous distension. LUNGS: Lungs are clear to auscultation and percussion. Breath sounds decreased. HEART: Rate and Rhythm are regular. First and second heart sounds normal. No murmurs, rubs or gallops. ABDOMEN: Abdominal exam reveals normal bowel sounds. Non-tender and non- distended. No evidence of peritonitis. EXTREMITITES: No clubbing, cyanosis, or edema. Objective - Vital Signs Vital signs: Vital Signs Temp 97.3 F L 03/21/17 07:00 Pulse 73 03/21/17 07:00 Resp 16 03/21/17 07:00 BP 140/77 03/21/17 07:00 Pulse Ox 96 03/21/17 07:00 Intake & Output 03/20/17 03/21/17 03/21/17 18:59 06:59 18:59 Other: Voiding Method CAPD CAPD CAPD # Voids 2 2 - Labs CBC & Chem 7: 03/20/17 08:48 03/20/17 19:29 Labs: Abnormal Lab Results - Last 24 Hours (Table) 03/20/17 03/20/17 03/20/17 Range/Units 08:48 08:48 19:29 RBC 3.77 L (4.30-5.90) m/uL Hgb 11.2 L (13.0-17.5) gm/dL Hct 31.2 L (39.0-53.0) % Sodium 121 L 121 L (137-145) mmol/L Chloride 82 L (98-107) mmol/L BUN 67 H (9-20) mg/dL Creatinine 5.11 H* (0.66-1.25) mg/dL Glucose 153 H (74-99) mg/dL Microbiology - Last 24 Hours (Table) 03/19/17 04:30 Blood Culture - Preliminary Blood No Growth after 48 hours 03/19/17 16:53 Gram Stain - Preliminary Sputum Assessment and Plan Plan: Assessment: #1. End-stage renal disease maintained on peritoneal dialysis. #2. Hypovolemic hyponatremia. Antibiotics also mixed with D5W which will lower the sodium. #3. Hypokalemia due to poor oral intake as well as losses from peritoneal dialysis. Magnesium replete. Improved post replacement. #4. Influenza B virus maintained on Tamiflu. #5. Diabetes mellitus. Plan: Maintain PD exchanges with 2 L every 6 hours 1.5% solution. Encouraged oral intake. Maintain 1.2 L fluid restriction. Continue normal saline to be run at 50 mL an hour. Follow-up morning labs.
[2017-03-21 10:34] LABS: Basophils % (A) 0 %; Eosinophils # (A) 0.1 k/uL (0-0.7); Eosinophils % (A) 1 %; HCT 30.5 % (39.0-53.0); HGB 10.9 gm/dL (13.0-17.5); Lymphocytes # (A) 1.5 k/uL (1.0-4.8); Lymphocytes % (A) 16 %; MCH 30.5 pg (25.0-35.0); MCHC 35.7 g/dL (31.0-37.0); MCV 85.4 fL (80.0-100.0); Mean Platelet Volume 8.5; Monocytes # (A) 0.6 k/uL (0-1.0); Monocytes % (A) 6 %; Neutrophils # (A) 7.5 k/uL (1.3-7.7); Neutrophils % (A) 76 %; Platelet Count 217 k/uL (150-450); RBC 3.58 m/uL (4.30-5.90); RDW 14.2 % (11.5-15.5); WBC 9.9 k/uL (3.8-10.6)
[2017-03-21 10:44] LABS: Calcium 8.9 mg/dL (8.4-10.2); Potassium 3.5 mmol/L (3.5-5.1)
[2017-03-21] MEDS: MULTIVITAMINS, THERA 1 EACH TAB PO SCH (12:05)
--- NOTE | 2017-04-08 19:03 | DS ---
DISCHARGE SUMMARY DATE OF ADMISSION: 03/19/2017. ADMISSION DIAGNOSES: 1. Right lower lobe pneumonia, influenza B, end-stage renal disease/ hemodialysis. 2. Leukocytosis. 3. Hypokalemia. 4. Elevated troponin, most likely demand ischemia. 5. Diabetes type 2. 6. Coronary artery disease. 7. Hypertension. 8. Anxiety. BRIEF HISTORY: The patient is a 66-year-old male patient who presented to the ED with a complaint of generalized weakness and loss of appetite for 2-3 days complaining of low-grade fever with chills. The patient tested influenza B in the ER. He was started on Tamiflu. Chest x-ray was done in the ED, which showed right lower lobe pneumonia. The patient has past medical history significant of: 1. Diabetes mellitus. 2. Hypertension. 3. Myocardial infarction. 4. Chronic back disorder. 5. Chronic kidney disease/hemodialysis. 6. Peripheral vascular occlusive disease. HOME MEDICATION: Rocaltrol 0.5 Sunday, Sunday, Sunday. Coreg 25 mg b.i.d., Amaryl 2 mg b.i.d. , 30 mg b.i.d., hydralazine 50 mg t.i.d., multivitamin 1 daily, Naprosyn. PHYSICAL EXAMINATION: She was awake, alert, oriented x3. VITAL SIGNS: Temperature 97.6, pulse 97, respiration 20, blood pressure 169/76, O2 saturation 94%. HEENT: Atraumatic, normocephalic. Pupils equal and react to light. Extraocular movements intact. Buccal mucosa moist. NECK: Supple. No goiter, lymphadenopathy. JVD is negative. No carotid bruit heard. LUNGS: Coarse breath sounds bilaterally with rales, rhonchi, and wheezing. HEART: Regular rate and rhythm without murmur or gallop rhythm. ABDOMEN: Soft, nontender, nondistended. Bowel sounds positive. EXTREMITIES: No edema, clubbing, cyanosis. NEUROLOGICAL EXAMINATION: Cranial nerves 2-12 grossly intact. No focal sensory deficit. LABS ON ADMISSION: CBC: White blood count of 15.1, hemoglobin 12.8, hematocrit 35.6, and platelet count of 223. Chemical profile: Sodium 125, potassium 3.2, chloride 81, bicarb 28, BUN 78, creatinine 5.12 BRIEF HOSPITAL COURSE: The patient was admitted to the medical floor, was started on IV levofloxacin for pneumonia. The patient refused Tamiflu. Nephrology consultation was done prior to peritoneal dialysis. The patient's home medications were continued. There was improvement with above measures. Showed no new complications. His oxygenation improved and he is continued on DuoNeb. I and O's were monitored. The patient's hypokalemia was treated. He did not have any further complications. He was discharged on 2017 in a stable condition. DISCHARGE DIAGNOSES: 1. Pneumonia. 2. Hypokalemia. 3. Endstage renal disease on hemodialysis. DISCHARGE MEDICATIONS: 1. Levaquin 250 mg p.o. daily for 7 days. 2. Tamiflu 30 mg p.o. daily. 3. Rocaltrol 0.5 mg every Sunday and Sunday. 4. Coreg 25 mg b.i.d. 5. Amaryl 2 mg b.i.d. 6. Imdur 30 mg b.i.d. 7. Multivitamins 1 daily. 8. Hydralazine 60 mg t.i.d. Patient was advised to follow with primary care physician and Nephrology and was advised to take all medications. MMODL / IJN: [id number] / MTDD
== END 2017-03-21 15:10 | disposition home or self-care (01) | DRG 193 ==
LOC: EC 04:13 → 4MS4W 05:33
PROVIDERS: ADMIT Internal Medicine; ATTEND Internal Medicine
PROC: 3E1M39Z Irrigation of Peritoneal Cavity using Dialysate, Percutaneous Approach (ICD-10-PCS; principal; 2017-03-19)
DX: J10.00 Influenza due to other identified influenza virus with unspecified type of pneumonia (principal); N18.6 End stage renal disease; E11.22 Type 2 diabetes mellitus with diabetic chronic kidney disease; I12.0 Hypertensive chronic kidney disease with stage 5 chronic kidney disease or end stage renal disease; E87.1 Hypo-osmolality and hyponatremia; I24.8 Other forms of acute ischemic heart disease; J18.9 Pneumonia, unspecified organism; E87.6 Hypokalemia; E78.5 Hyperlipidemia, unspecified; R09.02 Hypoxemia; N40.0 Benign prostatic hyperplasia without lower urinary tract symptoms; M54.2 Cervicalgia; D64.9 Anemia, unspecified; I25.10 Atherosclerotic heart disease of native coronary artery without angina pectoris; I25.2 Old myocardial infarction; Z79.84 Long term (current) use of oral hypoglycemic drugs; Z79.899 Other long term (current) drug therapy; Z95.5 Presence of coronary angioplasty implant and graft; Z99.2 Dependence on renal dialysis; Z87.891 Personal history of nicotine dependence; Z88.8 Allergy status to other drugs, medicaments and biological substances
CPT/HCPCS: 36415; 71046; 80048; 80053; 82550; 82553; 83605; 83735; 83880; 84100; 84132; 84295; 84484; 85025; 85610; 85730; 87040; 87070; 87205; 87502; 93005; 94640; 96365; 96366; 96375; 99285

== ENCOUNTER 2020-08-02 08:24 | Day surgery (SDC) | payer MEDICARE ==
[2020-07-30 10:01] VITALS: BMI 30.2
[~2020-08-02 08:24] MED LIST: ACETAMINOPHEN TAB 500 MG TAB PO PRN; HEPARIN SODIUM,PORCINE/PF 5,000 UNIT/0.5 ML SYRINGE SQ PRN; LACTATED RINGERS 1,000 ML IV SCH; LIDOCAINE 1% (10MG/ML) FOR IV START INTRADERMA PRN; ONDANSETRON 4 MG/2 ML VIAL IVP ONE; fentaNYL (PF) 50 MCG/ML 2 ML AMP IV PRN
[2020-08-02 08:54] VITALS: TEMP 97.5
[2020-08-02 09:09] LABS: Glucose,Whole Blood 65 mg/dL (75-99)
[2020-08-02] MEDS ORDERED: DEXTROSE 50% SYRINGE 50 ML IVP ONE (09:10)
[2020-08-02 09:24] LABS: Glucose,Whole Blood 106 mg/dL (75-99)
--- NOTE | 2020-08-02 09:30 | P.GSHP ---
History of Present Illness H&P Date: 08/02/20 Chief Complaint: Renal failure 69-year-old male here today for peritoneal dialysis catheter removal. Patient had this catheter placed 2017. Recently had some issues with peritonitis and poor function. He has converting over to hemodialysis at this point. Past Medical History Past Medical History: Coronary Artery Disease (CAD), Chest Pain / Angina, Diabetes Mellitus, GERD/Reflux, Hypertension, Myocardial Infarction ([place]), Pneumonia, Prostate Disorder, Renal Disease, Vascular Disorder Additional Past Medical History / Comment(s): Chronic renal failure, anemia, PAD, cervical injury r/t football with chronic cervical pain. Last Myocardial Infarction Date:: 2007 History of Any Multi-Drug Resistant Organisms: None Reported Past Surgical History: Heart Catheterization With Stent, Tonsillectomy Additional Past Surgical History / Comment(s): Peritoneal Dialysis catheter placed, PCI/stents X3. Left leg Arthrectomy X2. Past Anesthesia/Blood Transfusion Reactions: No Reported Reaction, Motion Sickness Additional Past Anesthesia/Blood Transfusion Reaction / Comment(s): "Dizzy sometimes when wakes up from anesthesia". Date of Last Stent Placement:: 01/2008 Past Psychological History: No Psychological Hx Reported Smoking Status: Former smoker Past Alcohol Use History: None Reported Additional Past Alcohol Use History / Comment(s): Pt started smoking in 1963 and was a 3 PPD smoker, quit in 2007. Past Drug Use History: None Reported - Past Family History Mother Family Medical History: Cancer Additional Family Medical History / Comment(s): Colon cancer. Father Family Medical History: Myocardial Infarction ([place]), Pulmonary Embolus Additional Family Medical History / Comment(s): Father had several MIs and of one at the age of 69yrs. Medications and Allergies Home Medications Medication Instructions Recorded Confirmed Type Carvedilol [Coreg] 25 mg PO BID 12/01/16 07/30/20 History Glimepiride [Amaryl] 2 mg PO BID 12/01/16 07/30/20 History Isosorbide Mononitrate ER [Imdur] 60 mg PO BID 12/01/16 07/30/20 History hydrALAZINE HCL 50 mg PO TID 12/01/16 07/30/20 History Multivitamins, Thera [Multivitamin 1 tab PO DAILY 03/19/17 07/30/20 History (formulary)] Potassium Chloride 10 meq PO DAILY 07/30/20 07/30/20 History Tamsulosin [Flomax] 0.4 mg PO DAILY 07/30/20 07/30/20 History Zinc 50 mg PO Q48H 07/30/20 07/30/20 History Allergies Allergy/AdvReac Type Severity Reaction Status Date / Time naproxen [From Naprosyn] Allergy Swelling Verified 08/02/20 08:43 IN FEET Qapumfs-Rqq-Acs Reductase Allergy Unknown Verified 08/02/20 08:43 Inhibitor Surgical - Exam Vital Signs Temp Pulse Resp BP Pulse Ox 97.5 F L 72 16 175/82 95 08/02/20 08:53 08/02/20 08:53 08/02/20 08:53 08/02/20 08:53 08/02/20 08:53 Physical exam: General: Well-developed, well-nourished HEENT: Normocephalic, sclerae nonicteric Abdomen: Nontender, nondistended, left-sided peritoneal catheter in place Extremities: No edema Neuro: Alert and oriented Results - Labs Abnormal Lab Results - Last 24 Hours (Table) 08/02/20 08/02/20 Range/Units 08:58 09:23 POC Glucose (mg/dL) 65 L 106 H (75-99) mg/dL Assessment and Plan (1) Renal failure Narrative/Plan: Will proceed with peritoneal dialysis catheter removal at this time. Current Visit: Yes Status: Acute Code(s): N19 - UNSPECIFIED KIDNEY FAILURE SNOMED Code(s): 92775446
[2020-08-02] MEDS ORDERED: MIDAZOLAM 2 MG/2 ML VIAL ONE (09:45)
[2020-08-02] MEDS ORDERED: fentaNYL (PF) 50 MCG/ML 2 ML AMP ONE (09:45)
[2020-08-02] MEDS ORDERED: PROPOFOL 10 MG/ML 20 ML VIAL IV ONE (09:45)
[2020-08-02] MEDS ORDERED: BUPIVACAINE (PF) 0.25% 30 ML VIAL SQ ONE ×2 (10:12)
[2020-08-02] MEDS ORDERED: NALOXONE 0.4 MG/ML 1 ML VIAL IV PRN (10:36)
[2020-08-02 10:37] VITALS: RESP 14
--- NOTE | 2020-08-02 10:38 | P.OP ---
Date of Procedure: 08/02/20 Procedure(s) Performed: PREOPERATIVE DIAGNOSIS: Renal failure POSTOPERATIVE DIAGNOSIS: Same PROCEDURE: PD cath removal SURGEON: Luis Alfredo EBL: 2 mL ANESTHESIA: Sedation and local COMPLICATIONS: None OPERATIVE PROCEDURE: Patient was placed in the supine position. The abdomen was prepped and draped in usual sterile fashion. The previous paramedian incision was re-incised after localizing the skin. The subcutaneous tissues were divided using electrocautery. Blunt dissection around the cuff that was present at the fascia and peritoneum took place. The cuff was fully mobilized. The catheter was removed from the perineal cavity. The outer cuff was dissected from the saphenous fascia using electrocautery. The catheter was cut on the other side of that cuff and the catheter was removed. The fascial defect was closed using a single [id number] 0 Vicryl stitch. The subcutaneous tissues were closed using 3-0 Vicryl sutures and the skin using 4-0 Monocryl sutures. Skin glue and sterile dressings were applied. DISPOSITION: Stable to recovery room
[2020-08-02 10:51] VITALS: BP 157/73; PULSE 74
[2020-08-02 11:00] LABS: Glucose,Whole Blood 88 mg/dL (75-99)
[2020-08-02 11:11] LABS: Glucose,Whole Blood 87 mg/dL (75-99)
== END 2020-08-02 11:26 | disposition home or self-care (01) ==
LOC: OR 08:24
PROVIDERS: ATTEND Surgery
DX: Z49.02 Encounter for fitting and adjustment of peritoneal dialysis catheter (principal); I12.9 Hypertensive chronic kidney disease with stage 1 through stage 4 chronic kidney disease, or unspecified chronic kidney disease; E11.22 Type 2 diabetes mellitus with diabetic chronic kidney disease; N18.9 Chronic kidney disease, unspecified; K21.9 Gastro-esophageal reflux disease without esophagitis; I25.10 Atherosclerotic heart disease of native coronary artery without angina pectoris; I25.2 Old myocardial infarction; D63.1 Anemia in chronic kidney disease; M54.2 Cervicalgia; G89.29 Other chronic pain; Z87.891 Personal history of nicotine dependence; E11.51 Type 2 diabetes mellitus with diabetic peripheral angiopathy without gangrene; Z79.899 Other long term (current) drug therapy; Z88.6 Allergy status to analgesic agent; Z88.8 Allergy status to other drugs, medicaments and biological substances
CPT/HCPCS: 49422; J2250; J0690; J2405; J3010; J2704; J1644

== ENCOUNTER 2020-10-06 03:30 | Inpatient (IN) | payer MEDICARE ==
[2020-10-06] MEDS ORDERED: NALOXONE 0.4 MG/ML 1 ML VIAL IV PRN (03:36)
[2020-10-06] MEDS ORDERED: MORPHINE SULFATE 4 MG/ML SYRINGE IV PRN (03:39)
[2020-10-06] MEDS ORDERED: PNEUMONIA PROTOCOL UTILIZED 1 EACH MISC PO PRN (03:41)
[2020-10-06] MEDS ORDERED: ALBUTEROL NEBULIZED 2.5 MG/3 ML INHALATION PRN (03:41)
[2020-10-06] MEDS ORDERED: DEXTROSE 5%-0.45% NACL 1,000 ML IV SCH (03:45)
--- NOTE | 2020-10-06 03:46 | ED ---
SOB HPI - General Stated Complaint: SOB Time Seen by Provider: 10/06/20 03:35 Source: old records reviewed Mode of arrival: EMS Limitations: altered mental status, physical limitation - History of Present Illness Initial Comments: This is a 70-year-old male DF for evaluation patient presents today for evaluation as a transfer for severe shortness of breath breath with failure p atient is intubated and sedated, unable to provide history history obtained from EMS and patient's transport. MD Complaint: shortness of breath -: unknown Severity: severe Severity scale (1-10): 10 Quality: aching Consistency: constant Improves With: nothing Worsens With: nothing Known History Of: asthma, congestive heart failure, diabetes, recurrent pneumonia Context: recent URI, anxiety, recent illness Associated Symptoms: cough, sputum production, diaphoresis, nausea/vomiting Treatments Prior to Arrival: oxygen, bronchodilator, NIPPV, intubation - Related Data Home Medications Medication Instructions Recorded Confirmed Carvedilol [Coreg] 25 mg PO BID 12/01/16 07/30/20 Glimepiride [Amaryl] 2 mg PO BID 12/01/16 07/30/20 Isosorbide Mononitrate ER [Imdur] 60 mg PO BID 12/01/16 07/30/20 hydrALAZINE HCL 50 mg PO TID 12/01/16 07/30/20 Multivitamins, Thera [Multivitamin 1 tab PO DAILY 03/19/17 07/30/20 (formulary)] Potassium Chloride 10 meq PO DAILY 07/30/20 07/30/20 Tamsulosin [Flomax] 0.4 mg PO DAILY 07/30/20 07/30/20 Zinc 50 mg PO Q48H 07/30/20 07/30/20 Allergies Allergy/AdvReac Type Severity Reaction Status Date / Time ciprofloxacin [From Cipro] Allergy Unknown Verified 10/06/20 03:46 naproxen [From Naprosyn] Allergy Swelling Verified 10/06/20 03:46 IN FEET Ddalarp-Cwc-Mbf Reductase Allergy Unknown Verified 10/06/20 03:46 Inhibitor Review of Systems ROS Statement: Those systems with pertinent positive or pertinent negative responses have been documented in the HPI. ROS Other: All systems not noted in ROS Statement are negative. Past Medical History Past Medical History: Coronary Artery Disease (CAD), Chest Pain / Angina, Diabetes Mellitus, GERD/Reflux, Hypertension, Myocardial Infarction ([place]), Pneumonia, Prostate Disorder, Renal Disease, Vascular Disorder Additional Past Medical History / Comment(s): Chronic renal failure, anemia, PAD, cervical injury r/t football with chronic cervical pain. Last Myocardial Infarction Date:: 2007 History of Any Multi-Drug Resistant Organisms: None Reported Past Surgical History: Heart Catheterization With Stent, Tonsillectomy Additional Past Surgical History / Comment(s): Peritoneal Dialysis catheter placed, PCI/stents X3. Left leg Arthrectomy X2. Past Anesthesia/Blood Transfusion Reactions: No Reported Reaction, Motion Sickness Additional Past Anesthesia/Blood Transfusion Reaction / Comment(s): "Dizzy sometimes when wakes up from anesthesia". Date of Last Stent Placement:: 01/2008 Past Psychological History: No Psychological Hx Reported Smoking Status: Former smoker Past Alcohol Use History: None Reported Additional Past Alcohol Use History / Comment(s): Pt started smoking in 1963 and was a 3 PPD smoker, quit in 2007. Past Drug Use History: None Reported - Past Family History Mother Family Medical History: Cancer Additional Family Medical History / Comment(s): Colon cancer. Father Family Medical History: Myocardial Infarction ([place]), Pulmonary Embolus Additional Family Medical History / Comment(s): Father had several MIs and of one at the age of 69yrs. General Exam - General Exam Comments Initial Comments: Patient is intubated Patient is sedated Limitations: altered mental status, physical limitation General appearance: anxious, obtunded, in distress Head exam: Present: atraumatic, normocephalic, normal inspection Eye exam: Present: normal appearance, PERRL, EOMI. Absent: scleral icterus, conjunctival injection, periorbital swelling ENT exam: Present: normal exam, mucous membranes moist Neck exam: Present: normal inspection. Absent: tenderness, meningismus, lymphadenopathy Respiratory exam: Present: normal lung sounds bilaterally. Absent: respiratory distress, wheezes, rales, rhonchi, stridor Cardiovascular Exam: Present: regular rate, normal rhythm, normal heart sounds. Absent: systolic murmur, diastolic murmur, rubs, gallop, clicks GI/Abdominal exam: Present: soft, normal bowel sounds. Absent: distended, tenderness, guarding, rebound, rigid Extremities exam: Present: normal inspection, full ROM, normal capillary refill. Absent: tenderness, pedal edema, joint swelling, calf tenderness Back exam: Present: normal inspection Neurological exam: Present: alert, oriented X3, CN II-XII intact Psychiatric exam: Present: normal affect, normal mood Skin exam: Present: warm, dry, intact, normal color. Absent: rash Course Vital Signs 10/06/20 03:35 Temperature 97.1 F L Pulse Rate 78 Respiratory 14 Rate Blood Pressure 146/75 O2 Sat by Pulse 99 Oximetry - Reevaluation(s) Reevaluation #1: 10/06/20 03:43 Medical record is reviewed Reevaluation #2: 10/06/20 03:43 Transferring paperwork is thoroughly reviewed Reevaluation #3: 10/06/20 03:44 Did speak with transferring physician regarding patient - Consultations Consultation #1: Spoke with sound regarding admission, they're agreeable Consultation #2: Spoke with Dr. Whelan for ICU who does accept Critical Care Time Critical Care Time: Yes Total Critical Care Time: 31 Disposition Clinical Impression: Renal failure, Pneumonia, CKD (chronic kidney disease), CHF (congestive heart failure), Hypoxia, Respiratory failure, Pulmonary edema, Hyperkalemia Disposition: ADMITTED IP TO THIS HOSP Condition: Critical Is patient prescribed a controlled substance at d/c from ED?: No
--- NOTE | 2020-10-06 03:57 | XR ---
EXAMINATION TYPE: XR chest 1V portable DATE OF EXAM: 10/06/2020 COMPARISON: Today HISTORY: Respiratory failure. TECHNIQUE: Single view FINDINGS: There is bilateral pulmonary airspace infiltrates in the mid and lower lung montesinos. There i s right central venous catheter with tip in the superior vena cava. There are chest leads. There is s ome blunting of the costophrenic angles. There is nasogastric tube in the stomach. IMPRESSION: There is increasing pulmonary edema and the right lung compared to exam 3 hours ago. This could be developing RDS.
[2020-10-06] MEDS ORDERED: DEXTROSE 50% SYRINGE 50 ML IVP STA (04:10)
[2020-10-06] MEDS ORDERED: SODIUM BICARB 8.4% 50 ML SYR (1 MEQ/ML) IV STA (04:10)
[2020-10-06] MEDS ORDERED: INSULIN REGULAR 100 UNIT/ML VIAL (IV) IV ONE (04:10)
[2020-10-06] MEDS ORDERED: PROPOFOL 10 MG/ML 20 ML VIAL IV ONE (04:18)
[2020-10-06 05:05] LABS: Glucose,Whole Blood 415 mg/dL (75-99)
--- NOTE | 2020-10-06 05:47 | XR ---
EXAMINATION TYPE: XR chest 1V portable DATE OF EXAM: 10/06/2020 COMPARISON: 10/06/2020 HISTORY: Respiratory failure TECHNIQUE: Single view FINDINGS: The endotracheal tube is quite high in 14 cm from the paola. There is blunting of the cost ophrenic angles with infiltrate and atelectasis at the lung bases. There is no definite heart failure . There is right central venous catheter with tip in the superior vena cava. There is nasogastric tub e in the stomach. IMPRESSION: Endotracheal tube is too high. There is lower lobe pulmonary infiltrates and pleural flui d unchanged. Heart failure not excluded. Heart and lungs unchanged.
--- NOTE | 2020-10-06 06:12 | XR ---
EXAMINATION TYPE: XR chest 1V portable DATE OF EXAM: 10/06/2020 COMPARISON: Today HISTORY: Tube placement TECHNIQUE: Single view FINDINGS: Endotracheal tube is in good position 4 cm from the paola. There is some pulmonary vascula r congestion. There is infiltrate and pleural fluid at both lung bases. There is nasogastric tube in the stomach. There is right central venous catheter with tip in the superior vena cava. No pneumothor ax. IMPRESSION: Infiltrates and pleural fluid unchanged. Endotracheal tube in good position. Congestive h eart failure is possible.
[2020-10-06 06:27] LABS: ABG Base Excess 0.1 mmol/L; ABG HCO3 27 mmol/L (21-25); ABG PCO2 59 mmHg (35-45); ABG PH 7.27 (7.35-7.45); ABG PO2 80 mmHg (83-108); ABG TCO2 29 mmol/L (19-24); Allen Test Performed? Yes
--- NOTE | 2020-10-06 06:42 | P.HPIM ---
History of Present Illness H&P Date: 10/06/20 Chief Complaint: worsening SOB 70 year old male with complex past medical history with ESRD MWF HD, DM , CAD , HTN patient is intubated and unable to provide any meaningful history history obtained from ED physician and transferring records from [facility] reviewed it seems that patient presented to [facility] for worsening SOB , he was dignosed with CHF and possible penumonia and was transferred to our facility for further care. 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 The left the office and patient had some food to eat and then had worsening shortness of breath became more confused for which his to come to the hospital at [facility] he was found hypoxic hypercapnic and somnolent he was intubated and given breathing treatments and steroids and started on IV antibiotics for possible pneumonia patient also has end-stage renal disease on hemodialysis Sunday Blood work showed leukocytosis, hemoglobin around 12, potassium 5.7, hyponatr emia. Review of Systems ROS unobtainable: due to endotracheal tube Past Medical History Past Medical History: Coronary Artery Disease (CAD), Chest Pain / Angina, Diabetes Mellitus, GERD/Reflux, Hypertension, Myocardial Infarction ([place]), Pneumonia, Prostate Disorder, Renal Disease, Vascular Disorder Additional Past Medical History / Comment(s): Chronic renal failure, anemia, PAD, cervical injury r/t football with chronic cervical pain. Last Myocardial Infarction Date:: 2007 History of Any Multi-Drug Resistant Organisms: None Reported Past Surgical History: Heart Catheterization With Stent, Tonsillectomy Additional Past Surgical History / Comment(s): Peritoneal Dialysis catheter placed, PCI/stents X3. Left leg Arthrectomy X2. Past Anesthesia/Blood Transfusion Reactions: No Reported Reaction, Motion Sickness Additional Past Anesthesia/Blood Transfusion Reaction / Comment(s): "Dizzy sometimes when wakes up from anesthesia". Date of Last Stent Placement:: 01/2008 Past Psychological History: No Psychological Hx Reported Smoking Status: Former smoker Past Alcohol Use History: None Reported Additional Past Alcohol Use History / Comment(s): Pt started smoking in 1963 and was a 3 PPD smoker, quit in 2007. Past Drug Use History: None Reported - Past Family History Mother Family Medical History: Unable to Obtain, Cancer Additional Family Medical History / Comment(s): Colon cancer. Father Family Medical History: Unable to Obtain, Myocardial Infarction ([place]), Pulmonary Embolus Additional Family Medical History / Comment(s): Father had several MIs and of one at the age of 69yrs. Medications and Allergies Home Medications Medication Instructions Recorded Confirmed Type Carvedilol [Coreg] 25 mg PO BID 12/01/16 07/30/20 History Glimepiride [Amaryl] 2 mg PO BID 12/01/16 07/30/20 History Isosorbide Mononitrate ER [Imdur] 60 mg PO BID 12/01/16 07/30/20 History hydrALAZINE HCL 50 mg PO TID 12/01/16 07/30/20 History Multivitamins, Thera [Multivitamin 1 tab PO DAILY 03/19/17 07/30/20 History (formulary)] Potassium Chloride 10 meq PO DAILY 07/30/20 07/30/20 History Tamsulosin [Flomax] 0.4 mg PO DAILY 07/30/20 07/30/20 History Zinc 50 mg PO Q48H 07/30/20 07/30/20 History Allergies Allergy/AdvReac Type Severity Reaction Status Date / Time ciprofloxacin [From Cipro] Allergy Unknown Verified 10/06/20 03:46 naproxen [From Naprosyn] Allergy Swelling Verified 10/06/20 03:46 IN FEET Bimrslp-Usd-Zsu Reductase Allergy Unknown Verified 10/06/20 03:46 Inhibitor Physical Exam Vitals: Vital Signs Temp Pulse Resp BP Pulse Ox 10/06/20 05:00 97.6 F 74 16 113/61 100 10/06/20 04:55 97.3 F L 69 16 113/69 100 10/06/20 03:40 18 10/06/20 03:35 97.1 F L 78 14 146/75 99 Intake and Output 10/05/20 10/05/20 10/06/20 14:59 22:59 06:59 Intake Total 66.437 Output Total 0 Balance 66.437 Intake: Intake, IV Titration 66.437 Amount Dextrose 5%-0.45% NaCl 1, 60 000 ml @ 60 mls/hr IV . [id number] HANNA Rx#:[id number] propofoL 1,000 mg In 6.437 Empty Bag 1 bag @ Titrate IV .Q0M HANNA Rx#: [id number] Output: Urine 0 Other: Weight 99.79 kg Constitutional: intubated and sedated Eyes: Anicteric sclerae, moist conjunctiva, Pupils equal round reactive to light ENMT: NC/AT Neck: no masses No carotid bruits No thyromegaly Lungs: coarse breath sounds with inspiratory rales Clear to percussion Patient is intubated and sedated Cardiovascular: Heart regular in rate and rhythm, No murmurs, gallops, or rubs + bilateral peripheral edema Abdominal: Soft Nontender, no guarding, rebound or rigidity Abdomen moving with respiration Normoactive bowel sounds No hepatomegaly, No splenomegaly No palpable mass No abdominal wall hernia noted Skin: Normal temperature, tone, texture, turgor Extremities: Bilateral edema of the legs Pedal pulses intact and symmetrical Radial pulses intact and symmetrical Psychiatric: intubated and sedated Neuro unable to assess , intubated and sedated Lymphatics: no palpable cervical or supraclavicular , or inguinal lymph nodes Results Labs: Abnormal Lab Results - Last 24 Hours (Table) 10/06/20 10/06/20 Range/Units 05:04 06:20 ABG pH 7.27 L (7.35-7.45) ABG pCO2 59 H (35-45) mmHg ABG pO2 80 L (83-108) mmHg ABG HCO3 27 H (21-25) mmol/L ABG Total CO2 29 H (19-24) mmol/L POC Glucose (mg/dL) 415 H (75-99) mg/dL Assessment and Plan Assessment: acute hypoxic and hypercapnic respiratory failure acute CHF exacerbation ESRD on hemodialysis Sunday hyperkalemia DM CAD plan patient intubated and sedated ventilator care ICU admission 10 u IV insulin plus D50% for hyperkalemia nephro consult for hemodialysis pulmonary consult 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
[2020-10-06] MEDS ORDERED: VANCOMYCIN IV PER PHARMACY 1 EACH MISC MISCELLANE PRN (06:58)
[2020-10-06] MEDS ORDERED: INSULIN ASPART (NovoLOG) 100 UNIT/ML VIAL SQ SCH (07:30)
[2020-10-06] MEDS ORDERED: VANCOMYCIN 1,500 MG in SODIUM CHLORIDE 0.9% 250 ML IVPB ONE (07:30)
[2020-10-06 07:48] LABS: Basophils % (A) 0 %; Eosinophils % (A) 0 %; HCT 38.2 % (39.0-53.0); HGB 11.9 gm/dL (13.0-17.5); Hypochromasia Moderate; Lymphocytes # (A) 0.4 k/uL (1.0-4.8); Lymphocytes % (A) 4 %; MCH 29.9 pg (25.0-35.0); MCHC 31.2 g/dL (31.0-37.0); MCV 95.6 fL (80.0-100.0); Mean Platelet Volume 9.5; Monocytes # (A) 0.3 k/uL (0-1.0); Monocytes % (A) 3 %; Neutrophils # (A) 9.6 k/uL (1.3-7.7); Neutrophils % (A) 92 %; Platelet Count 133 k/uL (150-450); RBC 3.99 m/uL (4.30-5.90); RDW 15.9 % (11.5-15.5); WBC 10.4 k/uL (3.8-10.6)
[2020-10-06 07:59] LABS: Albumin 3.6 g/dL (3.5-5.0); Calcium 9.4 mg/dL (8.4-10.2); Potassium 5.4 mmol/L (3.5-5.1); Total Bilirubin 0.8 mg/dL (0.2-1.3); Total Protein 6.2 g/dL (6.3-8.2)
[2020-10-06] MEDS ORDERED: IPRATROPIUM-ALBUTEROL 3 ML NEB INHALATION SCH (08:00)
[2020-10-06] MEDS ORDERED: PIPERACILLIN-TAZOBACTAM 3.375 GM in SODIUM CHLORIDE 0.9% 100 ML IVPB SCH (08:00)
[2020-10-06] MEDS ORDERED: CISATRACURIUM 2 MG/ML 5 ML VIAL IV ONE (08:31)
[2020-10-06] MEDS ORDERED: ENOXAPARIN 40 MG/0.4 ML SYRINGE SQ SCH (09:00)
[2020-10-06] MEDS: PANTOPRAZOLE 40 MG/10 ML VIAL IV SCH (09:27)
[2020-10-06 09:31] LABS: Glucose,Whole Blood 267 mg/dL (75-99)
[2020-10-06] MEDS: INSULIN ASPART (NovoLOG) 100 UNIT/ML VIAL SQ SCH ×2 (09:31→15:09)
--- NOTE | 2020-10-06 09:40 | P.CNPUL ---
History of Present Illness Consult date: 10/06/20 Requesting physician: Fadi Sanders Reason for consult: hypoxemia, abnormal CXR/CT (Fluid volume overload) Chief complaint: Shortness of breath History of present illness: This is a 70-year-old male patient who has a history of end stage renal disease receiving hemodialysis Sunday, coronary artery disease with previous stent placement, diabetes mellitus, gastroesophageal reflux disease, hypertension, peripheral arterial disease with prior stent placements and atherectomy to the left lower extremity. Yesterday the patient had developed significant shortness of breath and was actually seen in the [facility] with acute respiratory failure requiring intubation and mechanical ventilatory support. He was subsequently transferred here to our emergency room and did require reintubation based on tube placement. Chest x-ray reveals evidence of fluid volume overload. White count 10.4. Hemoglobin 11.9. Platelet count 133. Sodium 130. Potassium 5.4. Bicarb 21. BUN 64. Creatinine 6.29. Glucose 349. ProBNP 55,400. The patient is seen in consultation in the ICU and he remains intubated on mechanical ventilator current settings assist-control 14, tidal volume 500, FiO2 100% and a PEEP of 7. Morning blood gases revealed a pO2 of 80, pCO2 59, pH 7.27. He is sedated on propofol at 45 mcg/kg/m. He has D5.45 at 60 ML's per hour. He was initiated on vancomycin, azithromycin, Zosyn. He is on bronchodilators. Lovenox for DVT prophylaxis. Review of Systems ROS unobtainable: due to endotracheal tube Past Medical History Past Medical History: Coronary Artery Disease (CAD), Chest Pain / Angina, Diabetes Mellitus, GERD/Reflux, Hypertension, Myocardial Infarction ([place]), Pn eumonia, Prostate Disorder, Renal Disease, Vascular Disorder Additional Past Medical History / Comment(s): Chronic renal failure, anemia, PAD, cervical injury r/t football with chronic cervical pain. Last Myocardial Infarction Date:: 2007 History of Any Multi-Drug Resistant Organisms: None Reported Past Surgical History: Heart Catheterization With Stent, Tonsillectomy Additional Past Surgical History / Comment(s): Peritoneal Dialysis catheter placed, PCI/stents X3. Left leg Arthrectomy X2. Past Anesthesia/Blood Transfusion Reactions: No Reported Reaction, Motion Sickness Additional Past Anesthesia/Blood Transfusion Reaction / Comment(s): "Dizzy sometimes when wakes up from anesthesia". Date of Last Stent Placement:: 01/2008 Past Psychological History: No Psychological Hx Reported Smoking Status: Former smoker Past Alcohol Use History: None Reported Additional Past Alcohol Use History / Comment(s): Pt started smoking in 1963 and was a 3 PPD smoker, quit in 2007. Past Drug Use History: None Reported - Past Family History Mother Family Medical History: Unable to Obtain, Cancer Additional Family Medical History / Comment(s): Colon cancer. Father Family Medical History: Unable to Obtain, Myocardial Infarction ([place]), Pulmonary Embolus Additional Family Medical History / Comment(s): Father had several MIs and of one at the age of 69yrs. Medications and Allergies Home Medications Medication Instructions Recorded Confirmed Type Carvedilol [Coreg] 25 mg PO BID 12/01/16 10/06/20 History Glimepiride [Amaryl] 2 mg PO QAM 12/01/16 10/06/20 History Isosorbide Mononitrate ER [Imdur] 60 mg PO BID 12/01/16 10/06/20 History hydrALAZINE HCL 50 mg PO TID 12/01/16 10/06/20 History Tamsulosin [Flomax] 0.4 mg PO DAILY 07/30/20 10/06/20 History Arginine [l-Arginine] 500 mg PO DAILY 10/06/20 10/06/20 History Dialyvite + Zinc 1 tab PO DAILY 10/06/20 10/06/20 History Furosemide [Lasix] 40 mg PO DAILY 10/06/20 10/06/20 History Glimepiride [Amaryl] 1 mg PO HS 10/06/20 10/06/20 History Potassium Chloride [Klor-Con 20] 20 meq PO DAILY 10/06/20 10/06/20 History Renaplex-D 1 tab PO DIRECTED 10/06/20 10/06/20 History Sodium Bicarbonate Tab 650 mg PO TID 10/06/20 10/06/20 History calcitrioL [Calcitriol] 0.5 mcg PO Q48H 10/06/20 10/06/20 History Allergies Allergy/AdvReac Type Severity Reaction Status Date / Time ciprofloxacin [From Cipro] Allergy Unknown Verified 10/06/20 09:18 naproxen [From Naprosyn] Allergy Swelling Verified 10/06/20 09:18 IN FEET nifedipine [From Procardia] Allergy Unknown Verified 10/06/20 09:18 Eogtgok-Kky-Fwh Reductase Allergy Unknown Verified 10/06/20 09:18 Inhibitor Physical Exam Vitals: Vital Signs Temp Pulse Resp BP Pulse Ox 10/06/20 07:00 59 L 14 129/73 100 10/06/20 06:30 66 10 L 133/70 100 10/06/20 06:00 75 14 150/81 98 10/06/20 05:00 97.6 F 74 16 113/61 100 10/06/20 04:55 97.3 F L 69 16 113/69 100 10/06/20 03:40 18 10/06/20 03:35 97.1 F L 78 14 146/75 99 Intake and Output 10/05/20 10/06/20 10/06/20 22:59 06:59 14:59 Intake Total 126.437 125.365 Output Total 0 0 Balance 126.437 125.365 Intake: Intake, IV Titration 126.437 125.365 Amount Dextrose 5%-0.45% NaCl 1, 120 60 000 ml @ 60 mls/hr IV . [id number] HANNA Rx#:[id number] propofoL 1,000 mg In 6.437 65.365 Empty Bag 1 bag @ Titrate IV .Q0M HANNA Rx#: [id number] Output: Urine 0 0 Other: Voiding Method Indwelling Catheter Indwelling Catheter Weight 99.79 kg GENERAL EXAM: Intubated, sedated 70-year-old gentleman, appears comfortable in no apparent distress. HEAD: Normocephalic. EYES: Sluggish reaction of pupils, equal size. NOSE: Clear with pink turbinates. THROAT: Oral endotracheal and gastric tube secured in place. No erythema or exudates. NECK: No masses, no JVD. Left IJ triple-lumen catheter placed CHEST: No chest wall deformity. LUNGS: Equal air entry with crackles in the bilateral bases CVS: S1 and S2 normal with no audible murmur, regular rhythm. ABDOMEN: No hepatosplenomegaly, normal bowel sounds, no guarding or rigidity. SPINE: No scoliosis or deformity SKIN: No rashes CENTRAL NERVOUS SYSTEM: Sedated, tone is normal in all 4 extremities. EXTREMITIES: Right radial arterial line placed. There is peripheral edema. No clubbing, no cyanosis. Peripheral pulses are intact. Results - Laboratory Findings CBC and BMP: 10/06/20 06:07 10/06/20 06:07 ABG ABG pH 7.27 (7.35-7.45) L 10/06/20 06:20 ABG pCO2 59 mmHg (35-45) H 10/06/20 06:20 ABG pO2 80 mmHg (83-108) L 10/06/20 06:20 ABG O2 Saturation 95.0 % (94-97) 10/06/20 06:20 Abnormal lab findings: Abnormal Labs 10/06/20 10/06/20 10/06/20 05:04 06:07 06:07 RBC 3.99 L Hgb 11.9 L Hct 38.2 L RDW 15.9 H Plt Count 133 L Neutrophils # 9.6 H Lymphocytes # 0.4 L ABG pH ABG pCO2 ABG pO2 ABG HCO3 ABG Total CO2 Sodium 130 L Potassium 5.4 H Chloride 94 L Carbon Dioxide 21 L BUN 64 H Creatinine 6.29 H Glucose 349 H POC Glucose (mg/dL) 415 H Total Protein 6.2 L 10/06/20 06:20 RBC Hgb Hct RDW Plt Count Neutrophils # Lymphocytes # ABG pH 7.27 L ABG pCO2 59 H ABG pO2 80 L ABG HCO3 27 H ABG Total CO2 29 H Sodium Potassium Chloride Carbon Dioxide BUN Creatinine Glucose POC Glucose (mg/dL) Total Protein - Diagnostic Findings Chest x-ray: image reviewed Assessment and Plan Assessment: 1 Acute hypoxemic respiratory failure secondary to acute fluid volume overload, congestive heart failure, echocardiogram pending 2 End stage renal disease receiving hemodialysis Sunday, compliant with treatment 3 History of coronary artery disease with previous stent placement, myocardial infarction 4 Diabetes mellitus 5 Hypertension 6 Peripheral arterial disease with previous stent placement, atherectomy of the left lower extremity 7 History of heavy tobacco dependence up to 3 packs per day however quit in 2007 Plan: The patient was seen and evaluated by Dr. Whelan Chest x-ray, ABGs and labs reviewed Increase respiratory rate to 20 Decrease tidal volume 450 Increase PEEP to 12 and titrate down the FiO2 as tolerated Discontinue vancomycin and azithromycin Obtain pro-calcitonin level Dietary consult for tube feeding recommendations Left IJ triple-lumen catheter placed, right radial arterial line placed Plan is for hemodialysis today Echocardiogram pending We will continue to follow and make further recommendations based on his clinical status I, the cosigning physician, performed a history & physical examination of the patient. Lungs sounds with crackles in the bilateral bases. Maintaining good O2 saturations in the 90s on 100% FiO2 via the mechanical ventilator. I discussed the assessment and plan of care with my nurse practitioner, Ashley Robin. I attest to the above consultation as dictated by her. Time with Patient: Greater than 30
--- NOTE | 2020-10-06 09:50 | XR ---
EXAMINATION TYPE: XR chest 1V portable DATE OF EXAM: 10/06/2020 COMPARISON: Chest x-ray 10/06/2020 HISTORY: Central line placement TECHNIQUE: Single frontal view of the chest is obtained. FINDINGS: There has been interval placement of a left jugular central venous catheter, distal tip ov erlying the superior vena cava. No evident pneumothorax. There is improvement in lung aeration, volum e status, visualization of the hemidiaphragms. IMPRESSION: No evident complication status post central venous catheter placement.
[2020-10-06] MEDS: IPRATROPIUM-ALBUTEROL 3 ML NEB INHALATION SCH ×3 (11:13→20:33)
--- NOTE | 2020-10-06 11:41 | P.PN ---
Subjective Progress Note Date: 10/06/20 Principal diagnosis: shortness of breath Patient is a 70 year-old male with a history of diabetes mellitus 2 insulin- dependent, ESRD n HS m/w/f, CAD, and multiple other comorbid conditions who was transferred here from [place] due to CHF with possible pneumonia and shortness of breath. He required intubation. He was noted to have an elevated potassium was treated medically for this. Critical care, nephrology, and cardiology were consulted. He underwent urgent dialysis on the morning of 10/06/20. Chest x-ray: Increased pulmonary edema right lung. Patient seen and examined at bedside. He is currently intubated and sedated. Per nursing patient received intravenous catheter this morning but no other acute events. General: ill appearing, moderate distress, appears older than stated age Derm: warm, dry Head: atraumatic, normocephalic, symmetric Eyes: PERRL, no lid lag, anicteric sclera Mouth: no lip lesion, mucus membranes moist Cardiovascular: S1S2 reg, no murmur, positive posterior tibial pulse bilateral, Lungs: Course bs bilateral, no rhonchi, no rales , no accessory muscle use, on vent Abdominal: soft, nontender to palpation, no guarding, no appreciable organomegaly Ext: no gross muscle atrophy, no edema, no contractures Neuro: sedated on vent, no withdrawal to pain at this time Psych: sedated on vent Acute exacerbation of congestive heart failure, unknown if new or old -Await echo -Fluid optimization with hemodialysis -Cardiology consultation once echo is back -Not chronically on RAYSHAWN inhibitor but will resume Coreg - conitnue zosyn until PNA ruled out, repeat CXR in AM. End-stage renal disease on hemodialysis Sunday/Sunday/Sunday -HD today -Nephrology recommendations -Resume calcitriol and sodium bicarb -Nephrology recommendations Diabetes mellitus type 2 -Hold oral medications -Sliding-scale insulin -Follow blood sugars Coronary artery disease -Insinuated Imdur, beta roberto, not chronically on statin secondary to intolerance Obesity with BMI 29.8 Outpatient structured weight loss Hyperkalemia, improved DVT prophylaxis: Lovenox Discussed with: nursing Anticipated discharge: undetermined Anticipated discharge place: undetermined A total of 35 minutes was spent on the care of this complex patient more than 50% of the time was spent in counseling and care coordination. Objective - Vital Signs Vital signs: Vital Signs Temp 98 F 10/06/20 08:00 Pulse 54 L 10/06/20 11:00 Resp 20 10/06/20 11:00 BP 135/76 10/06/20 09:00 Pulse Ox 100 10/06/20 11:00 Intake & Output 10/05/20 10/06/20 10/06/20 18:59 06:59 18:59 Intake Total 126.437 365.365 Output Total 0 0 Balance 126.437 365.365 Weight 99.79 kg 99.79 kg Intake: IV 240 Dextrose 5%-0.45% NaCl 1, 240 000 ml @ 60 mls/hr IV . [id number] HANNA Rx#:[id number] Intake, IV Titration 126.437 125.365 Amount Dextrose 5%-0.45% NaCl 1, 120 60 000 ml @ 60 mls/hr IV . [id number] HANNA Rx#:[id number] propofoL 1,000 mg In 6.437 65.365 Empty Bag 1 bag @ Titrate IV .Q0M HANNA Rx#: [id number] Output: Urine 0 0 Other: Voiding Method Indwelling Catheter Indwelling Catheter ABP, PAP, CO, CI - Last Documented Arterial Blood Pressure 103/55 - Labs CBC & Chem 7: 10/06/20 06:07 10/06/20 06:07 Labs: Abnormal Lab Results - Last 24 Hours (Table) 10/06/20 10/06/20 10/06/20 Range/Units 05:04 06:07 06:07 RBC 3.99 L (4.30-5.90) m/uL Hgb 11.9 L (13.0-17.5) gm/dL Hct 38.2 L (39.0-53.0) % RDW 15.9 H (11.5-15.5) % Plt Count 133 L (150-450) k/uL Neutrophils # 9.6 H (1.3-7.7) k/uL Lymphocytes # 0.4 L (1.0-4.8) k/uL ABG pH (7.35-7.45) ABG pCO2 (35-45) mmHg ABG pO2 (83-108) mmHg ABG HCO3 (21-25) mmol/L ABG Total CO2 (19-24) mmol/L Sodium 130 L (137-145) mmol/L Potassium 5.4 H (3.5-5.1) mmol/L Chloride 94 L (98-107) mmol/L Carbon Dioxide 21 L (22-30) mmol/L BUN 64 H (9-20) mg/dL Creatinine 6.29 H (0.66-1.25) mg/dL Glucose 349 H (74-99) mg/dL POC Glucose (mg/dL) 415 H (75-99) mg/dL Total Protein 6.2 L (6.3-8.2) g/dL 10/06/20 10/06/20 Range/Units 06:20 09:30 RBC (4.30-5.90) m/uL Hgb (13.0-17.5) gm/dL Hct (39.0-53.0) % RDW (11.5-15.5) % Plt Count (150-450) k/uL Neutrophils # (1.3-7.7) k/uL Lymphocytes # (1.0-4.8) k/uL ABG pH 7.27 L (7.35-7.45) ABG pCO2 59 H (35-45) mmHg ABG pO2 80 L (83-108) mmHg ABG HCO3 27 H (21-25) mmol/L ABG Total CO2 29 H (19-24) mmol/L Sodium (137-145) mmol/L Potassium (3.5-5.1) mmol/L Chloride (98-107) mmol/L Carbon Dioxide (22-30) mmol/L BUN (9-20) mg/dL Creatinine (0.66-1.25) mg/dL Glucose (74-99) mg/dL POC Glucose (mg/dL) 267 H (75-99) mg/dL Total Protein (6.3-8.2) g/dL
[2020-10-06 12:00] LABS: Glucose,Whole Blood 181 mg/dL (75-99)
--- NOTE | 2020-10-06 13:18 | ECHOF ---
Referral Reason:new CHF MEASUREMENTS -------- HEIGHT: 182.9 cm WEIGHT: 99.8 kg BP: 133/70 RVIDd: 2.8 cm (< 3.3) IVSd: 1.5 cm (0.6 - 1.1) LVIDd: 4.9 cm (3.9 - 5.3) LVPWd: 1.5 cm (0.6 - 1.1) IVSs: 1.7 cm LVIDs: 4.2 cm LVPWs: 1.4 cm LA Diam: 3.5 cm (2.7 - 3.8) LAESV Index (A-L): 27.96 ml/m Ao Diam: 3.1 cm (2.0 - 3.7) AV Cusp: 1.7 cm (1.5 - 2.6) MV EXCURSION: 10.065 mm (> 18.000) MV EF SLOPE: 22 mm/s (70 - 150) EPSS: 1.8 cm MV E Edwardo: 0.81 m/s MV DecT: 185 ms MV A Edwardo: 0.64 m/s MV E/A Ratio: 1.28 RAP: 15.00 mmHg RVSP: 30.81 mmHg TAPSE: 19.13 mm FINDINGS -------- Sinus rhythm. This was a technically difficult study with suboptimal views. The left ventricular size is normal. There is moderate concentric left ventricular hypertrophy. O verall left ventricular systolic function is severely impaired with, an EF between 25 - 30 %. Basal inferior LV wall motion is hypokinetic. Basal inferoseptal LV wall motion is hypokinetic. Mid anterior LV wall motion is hypokinetic. Apical anterior LV wall motion is hypokinetic. Apical l ateral LV wall motion is hypokinetic. The right ventricle is normal in size. Normal LA size by volume 22+/-6 ml/m2. The right atrium is normal in size. 5 ml of Lumason was utilized for enhancement of images. Interatrial and interventricular septum intact. There is mild aortic valve sclerosis. Mild mitral regurgitation is present. Trace tricuspid regurgitation present. Right ventricular systolic pressure is normal at < 35 mmHg. The pulmonic valve was not well visualized. The aortic root size is normal. The inferior vena cava is dilated with no significant inspiratory collapse which is consistent estima gayle right atrial pressure of >15 mmHg. There is no pericardial effusion. Pleural Effusion with Fibrin. CONCLUSIONS -------- 1. The left ventricular size is normal. 2. There is moderate concentric left ventricular hypertrophy. 3. Overall left ventricular systolic function is severely impaired with, an EF between 25 - 30 %. 4. Basal inferior LV wall motion is hypokinetic. 5. Basal inferoseptal LV wall motion is hypokinetic. 6. Mid anterior LV wall motion is hypokinetic. 7. Apical anterior LV wall motion is hypokinetic. 8. Apical lateral LV wall motion is hypokinetic. 9. 5 ml of Lumason was utilized for enhancement of images. 10. There is mild aortic valve sclerosis. 11. Mild mitral regurgitation is present. 12. Trace tricuspid regurgitation present. 13. The inferior vena cava is dilated with no significant inspiratory collapse which is consistent es timated right atrial pressure of >15 mmHg. 14. There is no pericardial effusion. 15. Pleural Effusion with Fibrin. FIRER LOW PRESSURE: Christine Soto RDCS
--- NOTE | 2020-10-06 14:54 | CONS ---
CONSULTATION REASON FOR CONSULT: End-stage renal disease. HISTORY OF PRESENT ILLNESS: The patient is a 70-year-old male with end-stage renal disease maintained on hemodialysis on a Sunday, Sunday, Sunday schedule. Patient had apparently been on peritoneal dialysis and was switched over to hemodialysis. He is usually quite compliant and has not missed treatments previously. The patient did have an outpatient treatment on Sunday without any events. He presented to [facility] with shortness of breath and was eventually intubated at [place]. The patient was transferred to [place] subsequently. His cardiac enzymes are not elevated. Blood pressure is not low. Patient does not have any obvious infection. He is maintained on empiric antibiotics for now. Chest x-ray is suggestive of fluid overload. Patient is currently being dialyzed. PAST MEDICAL HISTORY: End-stage renal disease, CKD mineral bone disorder, anemia of chronic disease, hypertension, coronary artery disease, type 2 diabetes, gastroesophageal reflux disease, BPH, a cervical pain from cervical injury previously. PAST SURGICAL HISTORY: Cardiac catheterization PT catheter placement removal, IJ PermCath placement, left leg arterectomy, coronary stents. SOCIAL HISTORY: The patient is a former smoker. No history of drug abuse or alcohol abuse. MEDICATIONS: Medications prior to admission include Coreg Amaryl, Imdur, multivitamins, hydralazine Flomax, potassium, zinc. ALLERGIES: Include Cipro, Naprosyn, statins. EXAMINATION: Patient is currently on the vent. He is sedated. FiO2 is at 80%. Blood pressure 129/73, heart rate 59 per minute he is afebrile. Examination of the heart S1, S2. Examination of the lungs, bilateral breath sounds are heard. Abdomen is soft. Examination of lower extremities shows a no significant edema. GEOCHEMISTRY TEACHER exam cannot be performed. LAB: 1. Show sodium 130, potassium 5.4, chloride 94, CO2 is 21, BUN 64 serum creatinine 6.29, hemoglobin 11.9 g/dL. ASSESSMENT: 1. End-stage renal disease, on hemodialysis on a Sunday, Sunday, Sunday schedule. 2. Gastroesophageal reflux disease. 3. Acute hypoxic respiratory failure currently on the vent. Etiology for fluid overload. Rule out pneumonia. 4. Volume overload. The patient will be dialyzed today. We will arrange for treatment again tomorrow. 5. CKD mineral bone disorder. Continue with Rocaltrol. PLAN: Hemodialysis today and then again in a.m. I will discontinue the sodium bicarb for now. Expect improvement in acidosis with the dialysis. MMODL / IJN: [id number] /
[2020-10-06 15:05] LABS: Glucose,Whole Blood 159 mg/dL (75-99)
--- NOTE | 2020-10-06 15:33 | PCN ---
PROCEDURE NOTE PROCEDURE PERFORMED: Left internal jugular triple-lumen catheter. TRIPLE LUMEN CATHETER PLACEMENT: CASE MANAGEMENT SPECIALIST: Dr. Whelan and Dr. Robin Indication: Hemodynamic monitoring/Intravenous access. A time-out was completed verifying correct patient, procedure, site, positioning, and implant(s) or special equipment if applicable. The patient was placed in a dependent position appropriate for triple lumen catheter placement based on the vein to be cannulated. The patient's left neck was prepped and draped in sterile fashion. 1% Lidocaine was used to anesthetize the surrounding skin area. A triple lumen 9F Cordis catheter was introduced into the internal jugular vein using Seldinger technique. The catheter was threaded smoothly over the guide wire and appropriate blood return was obtained. Each lumen of the catheter was evacuated of air and flushed with sterile saline. The catheter was then sutured in place to the skin and a sterile dressing applied. Perfusion to the extremity distal to the point of catheter insertion was checked and found to be adequate. There was no immediate complication. There was informed consent and universal timeout. We used a posterior approach. There was no immediate complication. There was good blood return from all 3 ports. The catheter was sutured in place. Sterile dressing was applied by the nurse. A chest x-ray was obtained. The tip of catheter was seen in the area of the right atrium. Again no immediate complication. MMODL / IJN: [id number] /
--- NOTE | 2020-10-06 15:37 | PCN ---
PROCEDURE NOTE DATE OF SERVICE: 10/06/2020. ARTERIAL LINE PLACEMENT: Indications: Hemodynamic monitoring. PREOP DIAGNOSIS: Hemodynamic monitoring, hypotension. POSTOP DIAGNOSIS: Hemodynamic monitoring, hypotension. DESCRIPTION OF PROCEDURE: A time-out was completed verifying correct patient, procedure, site, positioning, and implant(s) or special equipment if applicable. Amol's test was performed to ensure adequate perfusion. The patient's right wrist was prepped and draped in sterile fashion. 1% Lidocaine was used to anesthetize the area. An 18G Arrow arterial line was introduced into the radial artery. The catheter was threaded over the guide wire and the needle was removed with appropriate pulsatile blood return. Blood loss was minimal. The catheter was then sutured in place to the skin and a sterile dressing applied. Perfusion to the extremity distal to the point of catheter insertion was checked and found to be adequate. The patient tolerated the procedure well and there were no complications. MMODL / IJN: [id number] /
[2020-10-06] MEDS ORDERED: SODIUM BICARBONATE TAB 650 MG TAB PO SCH (16:00)
[2020-10-06] MEDS: carvediloL 12.5 MG TAB PO SCH (20:49)
[2020-10-06] MEDS: hydrALAZINE HCL 50 MG TAB PO SCH (20:49)
[2020-10-06] MEDS: PIPERACILLIN-TAZOBACTAM 3.375 GM in SODIUM CHLORIDE 0.9% 100 ML IVPB SCH (20:49)
[2020-10-06 22:50] LABS: Prothrombin Time 11.1 sec (9.0-12.0)
[2020-10-07] MEDS: IPRATROPIUM-ALBUTEROL 3 ML NEB INHALATION SCH ×6 (00:07→20:47)
[2020-10-07 00:13] LABS: Glucose,Whole Blood 163 mg/dL (75-99)
[2020-10-07] MEDS: INSULIN ASPART (NovoLOG) 100 UNIT/ML VIAL SQ SCH ×5 (00:18→20:15)
[2020-10-07 04:36] LABS: Albumin 3.2 g/dL (3.5-5.0); Calcium 9.2 mg/dL (8.4-10.2); Magnesium 2.3 mg/dL (1.6-2.3); Phosphorus 5.4 mg/dL (2.5-4.5); Potassium 4.3 mmol/L (3.5-5.1); Total Bilirubin 0.5 mg/dL (0.2-1.3); Total Protein 5.5 g/dL (6.3-8.2)
[2020-10-07 04:38] LABS: Anisocytosis Slight; Basophils % (A) 0 %; Eosinophils % (A) 0 %; HCT 34.2 % (39.0-53.0); HGB 11.1 gm/dL (13.0-17.5); Hypochromasia Slight; Lymphocytes # (A) 1.1 k/uL (1.0-4.8); Lymphocytes % (A) 11 %; MCH 29.7 pg (25.0-35.0); MCHC 32.4 g/dL (31.0-37.0); MCV 91.7 fL (80.0-100.0); Mean Platelet Volume 11.3; Monocytes # (A) 0.4 k/uL (0-1.0); Monocytes % (A) 5 %; Neutrophils # (A) 7.7 k/uL (1.3-7.7); Neutrophils % (A) 82 %; Platelet Count 110 k/uL (150-450); RBC 3.73 m/uL (4.30-5.90); RDW 16.5 % (11.5-15.5); WBC 9.3 k/uL (3.8-10.6)
[2020-10-07 05:14] LABS: Glucose,Whole Blood 158 mg/dL (75-99)
[2020-10-07 05:20] LABS: ABG Base Excess 3.4 mmol/L; ABG HCO3 28 mmol/L (21-25); ABG PCO2 42 mmHg (35-45); ABG PH 7.43 (7.35-7.45); ABG PO2 175 mmHg (83-108); ABG TCO2 29 mmol/L (19-24); Allen Test Performed? Yes
--- NOTE | 2020-10-07 05:54 | XR ---
EXAMINATION TYPE: XR chest 1V portable DATE OF EXAM: 10/07/2020 CLINICAL HISTORY: Difficulty breathing progress study. TECHNIQUE: Single AP portable upright view of the chest is obtained. COMPARISON: Chest x-ray from one day earlier and older studies. FINDINGS: Stable right internal jugular large-bore dialysis catheter. Stable left internal jugular c entral venous catheter. Stable endotracheal and orogastric tubes. Background chronic parenchymal changes without new focal airspace opacity or pneumothorax seen bilate rally. Cardiac silhouette size stable and within normal limits without obstructive change aortic knob . Osseous structures are intact. IMPRESSION: Chronic parenchymal changes without new acute pulmonary process. No significant change fr om one day earlier.
[2020-10-07] MEDS: carvediloL 12.5 MG TAB PO SCH ×2 (06:27→18:49)
[2020-10-07] MEDS: PANTOPRAZOLE 40 MG/10 ML VIAL IV SCH (08:44)
[2020-10-07] MEDS: ENOXAPARIN 30 MG/0.3 ML SYRINGE SQ SCH (08:44)
[2020-10-07] MEDS: hydrALAZINE HCL 50 MG TAB PO SCH ×3 (08:45→21:43)
[2020-10-07] MEDS: PIPERACILLIN-TAZOBACTAM 3.375 GM in SODIUM CHLORIDE 0.9% 100 ML IVPB SCH (08:45)
[2020-10-07] MEDS ORDERED: AZITHROMYCIN 500 MG in SODIUM CHLORIDE 0.9% 250 ML IVPB SCH (09:00)
[2020-10-07] MEDS ORDERED: VANCOMYCIN 1,500 MG in SODIUM CHLORIDE 0.9% 250 ML IVPB ONE (09:00)
--- NOTE | 2020-10-07 09:52 | P.PN ---
Subjective Progress Note Date: 10/07/20 Principal diagnosis: Acute hypoxemic respiratory failure secondary to acute fluid volume overload, congestive heart failure This is a 70-year-old male patient who has a history of end stage renal disease receiving hemodialysis Sunday, coronary artery disease with previous stent placement, diabetes mellitus, gastroesophageal reflux disease, hypertension, peripheral arterial disease with prior stent placements and atherectomy to the left lower extremity. Yesterday the patient had developed significant shortness of breath and was actually seen in the [facility] with acute respiratory failure requiring intubation and mechanical ventilatory support. He was subsequently transferred here to our emergency room and did require reintubation based on tube placement. Chest x-ray reveals evidence of fluid volume overload. White count 10.4. Hemoglobin 11.9. Platelet count 133. Sodium 130. Potassium 5.4. Bicarb 21. BUN 64. Creatinine 6.29. Glucose 349. ProBNP 55,400. The patient is seen in consultation in the ICU and he remains intubated on mechanical ventilator current settings assist-control 14, tidal volume 500, FiO2 100% and a PEEP of 7. Morning blood gases revealed a pO2 of 80, pCO2 59, pH 7.27. He is sedated on propofol at 45 mcg/kg/m. He has D5.45 at 60 ML's per hour. He was initiated on vancomycin, azithromycin, Zosyn. He is on bronchodilators. Lovenox for DVT prophylaxis. The patient is seen today 10/07/2020 in follow-up in the intensive care unit. He remains intubated on mechanical ventilator. Assist-control mode. Respiratory rate of 20, tidal volume 450, FiO2 40% and a PEEP of 12. Morning blood gases revealed a pO2 of 175, pCO2 42, pH 7.42. He is sedated on propofol at 40 mcg/kg/m. His 0.9 normal sitting at KVO. Nepro tube feedings at 20 miles per hour with a goal of 33. He did receive hemodialysis yesterday with 2 L removed. He is currently receiving hemodialysis today with a goal of 2-3 L removed. X-ray is stable with some chronic background parenchymal changes without any new airspace opacities or pneumothorax. Sputum culture pending. Blood cultures reveal no growth to date. White count 9.3. Hemoglobin 11.1. Platelet count 110,000. Sodium 131. Distant 4.3. Creatinine 4.38. AST 26. ALT 20. Pro-calcitonin 1.18. Lipase 948. He remains on DuoNeb inhalations and Zosyn. Lovenox for DVT prophylaxis. Echocardiogram does reveal severely impaired left ventricular systolic function with an ejection fraction 25-30%. Some global hypokinesia. Objective - Vital Signs Vital signs: Vital Signs Temp 97.9 F 10/07/20 04:00 Pulse 51 L 10/07/20 08:00 Resp 20 10/07/20 08:00 BP 108/56 10/07/20 08:00 Pulse Ox 99 10/07/20 08:00 Intake & Output 10/06/20 10/07/20 10/07/20 18:59 06:59 18:59 Intake Total 1265.365 918.714 132.882 Output Total 2300 0 0 Balance -1034.635 918.714 132.882 Weight 99.79 kg 96.5 kg Intake: IV 660 280 20 Dextrose 5%-0.45% NaCl 1, 660 60 000 ml @ 60 mls/hr IV . [id number] [facility]ANNA Rx#:[id number] KVO 120 20 Piperacillin-Tazobactam 3 100 .375 gm In Sodium Chloride 0.9% 100 ml @ 25 mls/hr IVPB Q8HR [facility]ANNA Rx# :[id number] Intake, IV Titration 225.365 273.714 52.882 Amount Dextrose 5%-0.45% NaCl 1, 60 000 ml @ 60 mls/hr IV . [id number] [facility]ANNA Rx#:[id number] propofoL 1,000 mg In 165.365 273.714 52.882 Empty Bag 1 bag @ Titrate IV .Q0M HANNA Rx#: [id number] Tube Feeding 50 230 60 Hemodialysis 300 Other 30 135 Output: Urine 0 0 0 Hemodialysis 2300 Other: Voiding Method Indwelling Catheter Indwelling Catheter Indwelling Catheter ABP, PAP, CO, CI - Last Documented Arterial Blood Pressure 90/54 - Exam GENERAL EXAM: Intubated, sedated 70-year-old gentleman, appears comfortable in no apparent distress. HEAD: Normocephalic. EYES: Sluggish reaction of pupils, equal size. NOSE: Clear with pink turbinates. THROAT: Oral endotracheal and gastric tube secured in place. No erythema or exudates. NECK: No masses, no JVD. Left IJ triple-lumen catheter placed CHEST: No chest wall deformity. LUNGS: Equal air entry with crackles in the bilateral bases CVS: S1 and S2 normal with no audible murmur, regular rhythm. ABDOMEN: No hepatosplenomegaly, normal bowel sounds, no guarding or rigidity. SPINE: No scoliosis or deformity SKIN: No rashes CENTRAL NERVOUS SYSTEM: Sedated, tone is normal in all 4 extremities. EXTREMITIES: Right radial arterial line placed. There is peripheral edema. No clubbing, no cyanosis. Peripheral pulses are intact. - Labs CBC & Chem 7: 10/07/20 04:15 10/07/20 04:15 Labs: Abnormal Lab Results - Last 24 Hours (Table) 10/06/20 10/06/20 10/06/20 Range/Units 06:07 11:59 15:03 RBC (4.30-5.90) m/uL Hgb (13.0-17.5) gm/dL Hct (39.0-53.0) % RDW (11.5-15.5) % Plt Count (150-450) k/uL ABG pO2 (83-108) mmHg ABG HCO3 (21-25) mmol/L ABG Total CO2 (19-24) mmol/L ABG O2 Saturation (94-97) % Sodium (137-145) mmol/L Chloride (98-107) mmol/L BUN (9-20) mg/dL Creatinine (0.66-1.25) mg/dL Glucose (74-99) mg/dL POC Glucose (mg/dL) 181 H 159 H (75-99) mg/dL Phosphorus (2.5-4.5) mg/dL Total Protein (6.3-8.2) g/dL Albumin (3.5-5.0) g/dL Lipase (23-300) U/L Procalcitonin 1.18 H (0.02-0.09) ng/mL 10/07/20 10/07/20 10/07/20 Range/Units 00:11 04:15 04:15 RBC 3.73 L (4.30-5.90) m/uL Hgb 11.1 L (13.0-17.5) gm/dL Hct 34.2 L (39.0-53.0) % RDW 16.5 H (11.5-15.5) % Plt Count 110 L (150-450) k/uL ABG pO2 (83-108) mmHg ABG HCO3 (21-25) mmol/L ABG Total CO2 (19-24) mmol/L ABG O2 Saturation (94-97) % Sodium 131 L (137-145) mmol/L Chloride 97 L (98-107) mmol/L BUN 41 H (9-20) mg/dL Creatinine 4.38 H (0.66-1.25) mg/dL Glucose 158 H (74-99) mg/dL POC Glucose (mg/dL) 163 H (75-99) mg/dL Phosphorus 5.4 H (2.5-4.5) mg/dL Total Protein 5.5 L (6.3-8.2) g/dL Albumin 3.2 L (3.5-5.0) g/dL Lipase 948 H (23-300) U/L Procalcitonin (0.02-0.09) ng/mL 10/07/20 10/07/20 Range/Units 05:03 05:12 RBC (4.30-5.90) m/uL Hgb (13.0-17.5) gm/dL Hct (39.0-53.0) % RDW (11.5-15.5) % Plt Count (150-450) k/uL ABG pO2 175 H (83-108) mmHg ABG HCO3 28 H (21-25) mmol/L ABG Total CO2 29 H (19-24) mmol/L ABG O2 Saturation 100.0 H (94-97) % Sodium (137-145) mmol/L Chloride (98-107) mmol/L BUN (9-20) mg/dL Creatinine (0.66-1.25) mg/dL Glucose (74-99) mg/dL POC Glucose (mg/dL) 158 H (75-99) mg/dL Phosphorus (2.5-4.5) mg/dL Total Protein (6.3-8.2) g/dL Albumin (3.5-5.0) g/dL Lipase (23-300) U/L Procalcitonin (0.02-0.09) ng/mL Microbiology - Last 24 Hours (Table) 10/06/20 06:05 Gram Stain - Preliminary Sputum Sputum Culture - Preliminary 10/06/20 04:15 Blood Culture - Preliminary Blood No Growth after 24 hours 10/06/20 04:05 Blood Culture - Preliminary Blood No Growth after 24 hours Assessment and Plan Assessment: 1 Acute hypoxemic respiratory failure secondary to acute fluid volume overload, acute exacerbation of systolic congestive heart failure. Severely impaired left ventricular systolic function with ejection fraction 25-30%. 2 End stage renal disease receiving hemodialysis Sunday, compliant with treatment 3 History of coronary artery disease with previous stent placement, myocardial infarction 4 Diabetes mellitus 5 Hypertension 6 Peripheral arterial disease with previous stent placement, atherectomy of the left lower extremity 7 History of heavy tobacco dependence up to 3 packs per day however quit in 2007 Plan: The patient was seen and evaluated by Dr. Whelan Echocardiogram, chest x-ray, ABGs and labs reviewed FiO2 decreased to 35%. PEEP decreased to 8. Remains on tube feedings for nutritional support Plan for daily interruption of sedation after hemodialysis today We will continue to follow and make further recommendations based on his clinica l status Critical care time 38 minutes I, the cosigning physician, performed a history & physical examination of the patient. Lungs sounds with crackles in the bilateral bases. Maintaining good O2 saturations in the 90s on 35 % FiO2 via the mechanical ventilator. I discussed the assessment and plan of care with my nurse practitioner, Ashley Robin. I attest to the above note as dictated by her.
[2020-10-07 11:40] LABS: Glucose,Whole Blood 127 mg/dL (75-99)
[2020-10-07] MEDS ORDERED: hydrALAZINE HCL 20 MG/ML 1 ML VIAL IVP STA (14:02)
--- NOTE | 2020-10-07 14:13 | PN ---
PROGRESS NOTE Patient is seen for followup for end-stage renal disease. He was admitted to the hospital with acute hypoxic respiratory failure and has been on the vent. X-ray shows evidence of volume overload. Patient was dialyzed yesterday. We had 2.3 L of fluid removed. We are dialyzing him again today with plans for about 1-2 L as tolerated. FiO2 is down to 35%. There are plans for possible extubation today. PHYSICAL EXAMINATION: On examination today, patient is on the vent. Blood pressure 131/65, heart rate 52 per minute, he is afebrile. Examination of the heart S1, S2. Examination of the lungs, bilateral breath sounds are heard. Abdomen is soft. Examination of lower extremities shows trace edema. 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 LAB: Show sodium 131, potassium 4.3, chloride 97, BUN 41, creatinine 4.38, hemoglobin 11.1 g/dL. ASSESSMENT: 1. End-stage renal disease, on hemodialysis on a Sunday, Sunday, Sunday schedule. 2. Volume overload status post dialysis yesterday and today. We will dialyze the patient again tomorrow as it is his regular outpatient scheduled day. 3. Acute hypoxic respiratory failure secondary to congestive heart failure exacerbation and volume overload. 4. Chronic kidney disease mineral bone disorder. 5. Recent switch from peritoneal dialysis to hemodialysis. PLAN: Hemodialysis today and we will plan for a treatment tomorrow if there is evidence of volume overload. Otherwise, the patient will be dialyzed on Sunday. MMODL / IJN: [id number] /
--- NOTE | 2020-10-07 16:42 | P.PN ---
Subjective Progress Note Date: 10/07/20 (delayed charting seen at 0130) Principal diagnosis: shortness of breath Patient is a 70 year-old male with a history of diabetes mellitus 2 insulin- dependent, ESRD n HS m/w/f, CAD, and multiple other comorbid conditions who was transferred here from [place] due to CHF with possible pneumonia and shortness of breath. He required intubation. He was noted to have an elevated potassium was treated medically for this. Critical care, nephrology, and cardiology were consulted. He had triple lumen an arterial line placed on 10/06/20. He underwent urgent dialysis on the morning of 10/06/20. He again underwent dialysis on the morning of 10/07/20. He was able to be extubated in the afternoon. Chest x-ray: Increased pulmonary edema right lung. Patient seen and examined at bedside. He denies any shortness of breath, nausea, vomiting. He reports he has been applying Naveed wraps to his leg and that he has had a wound on the bottom of his left heel for quite some time. General: ill appearing, no distress, appears older than stated age Derm: warm, dry, small 0.75 cm lesion left heel with drainage, warmth, erythema and good granulation tissue present, hemosiderin this positive noted bilateral legs with thick yellow plaquing, onychomycoses Head: atraumatic, normocephalic, symmetric Eyes: PERRL, no lid lag, anicteric sclera Mouth: no lip lesion, mucus membranes moist Cardiovascular: S1S2 reg, no murmur, positive posterior tibial pulse bilateral, Lungs: Course bs bilateral, no rhonchi, no rales , no accessory muscle use, on vent Abdominal: soft, nontender to palpation, no guarding, no appreciable organomegaly Ext: no gross muscle atrophy, no edema, no contractures Neuro: Moving all 4 extremities independently, cranial nerves II through XII grossly intact, no focal neuro deficits Psych: Alert, oriented, appropriate affect Acute exacerbation of congestive heart failure, EF 25-30% -Fluid optimization with hemodialysis -Cardiology consultation -Not chronically on NAVEED inhibitor, will not start with recent hyperkalemia - Coreg - stop zosyn infection ruled out End-stage renal disease on hemodialysis Sunday/Sunday/Sunday -HD 10/06 and 10/07 -Nephrology recommendations -Resume calcitriol Diabetes mellitus type 2 -Hold oral medications -Sliding-scale insulin -Follow blood sugars Coronary artery disease -Insinuated Imdur, beta roberto, not chronically on statin secondary to intolerance HTN, accelerated - hydralazine - coreg - follow BP Obesity with BMI 29.8 Outpatient structured weight loss Hyperkalemia, improved DVT prophylaxis: Lovenox Discussed with: nursing Anticipated discharge: 2-[address]: Home A total of 35 minutes was spent on the care of this complex patient more than 50% of the time was spent in counseling and care coordination. Objective - Vital Signs Vital signs: Vital Signs Temp 97.6 F 10/07/20 12:44 Pulse 82 10/07/20 16:00 Resp 23 10/07/20 14:00 BP 166/74 10/07/20 14:00 Pulse Ox 98 10/07/20 14:00 Intake & Output 10/06/20 10/07/20 10/07/20 18:59 06:59 18:59 Intake Total 1265.365 918.714 212.882 Output Total 2300 0 1999 Balance -1034.635 918.714 -1787.118 Weight 99.79 kg 96.5 kg Intake: IV 660 280 70 Dextrose 5%-0.45% NaCl 1, 660 60 000 ml @ 60 mls/hr IV . [id number] [facility] Rx#:[id number] KVO 120 70 Piperacillin-Tazobactam 3 100 .375 gm In Sodium Chloride 0.9% 100 ml @ 25 mls/hr IVPB Q8HR [facility] Rx# :[id number] Intake, IV Titration 225.365 273.714 52.882 Amount Dextrose 5%-0.45% NaCl 1, 60 000 ml @ 60 mls/hr IV . [id number] [facility] Rx#:[id number] propofoL 1,000 mg In 165.365 273.714 52.882 Empty Bag 1 bag @ Titrate IV .Q0M [facility]ANNA Rx#: [id number] Tube Feeding 50 230 90 Hemodialysis 300 Other 30 135 Output: Urine 0 0 0 Hemodialysis 2300 2000 Other: Voiding Method Indwelling Catheter Indwelling Catheter Indwelling Catheter ABP, PAP, CO, CI - Last Documented Arterial Blood Pressure 189/65 - Labs CBC & Chem 7: 10/07/20 04:15 10/07/20 04:15 Labs: Abnormal Lab Results - Last 24 Hours (Table) 10/07/20 10/07/20 10/07/20 Range/Units 00:11 04:15 04:15 RBC 3.73 L (4.30-5.90) m/uL Hgb 11.1 L (13.0-17.5) gm/dL Hct 34.2 L (39.0-53.0) % RDW 16.5 H (11.5-15.5) % Plt Count 110 L (150-450) k/uL ABG pO2 (83-108) mmHg ABG HCO3 (21-25) mmol/L ABG Total CO2 (19-24) mmol/L ABG O2 Saturation (94-97) % Sodium 131 L (137-145) mmol/L Chloride 97 L (98-107) mmol/L BUN 41 H (9-20) mg/dL Creatinine 4.38 H (0.66-1.25) mg/dL Glucose 158 H (74-99) mg/dL POC Glucose (mg/dL) 163 H (75-99) mg/dL Phosphorus 5.4 H (2.5-4.5) mg/dL Total Protein 5.5 L (6.3-8.2) g/dL Albumin 3.2 L (3.5-5.0) g/dL Lipase 948 H (23-300) U/L 10/07/20 10/07/20 10/07/20 Range/Units 05:03 05:12 11:38 RBC (4.30-5.90) m/uL Hgb (13.0-17.5) gm/dL Hct (39.0-53.0) % RDW (11.5-15.5) % Plt Count (150-450) k/uL ABG pO2 175 H (83-108) mmHg ABG HCO3 28 H (21-25) mmol/L ABG Total CO2 29 H (19-24) mmol/L ABG O2 Saturation 100.0 H (94-97) % Sodium (137-145) mmol/L Chloride (98-107) mmol/L BUN (9-20) mg/dL Creatinine (0.66-1.25) mg/dL Glucose (74-99) mg/dL POC Glucose (mg/dL) 158 H 127 H (75-99) mg/dL Phosphorus (2.5-4.5) mg/dL Total Protein (6.3-8.2) g/dL Albumin (3.5-5.0) g/dL Lipase (23-300) U/L Microbiology - Last 24 Hours (Table) 10/06/20 06:05 Gram Stain - Preliminary Sputum Sputum Culture - Preliminary 10/06/20 04:15 Blood Culture - Preliminary Blood No Growth after 24 hours 10/06/20 04:05 Blood Culture - Preliminary Blood No Growth after 24 hours
[2020-10-07 18:47] LABS: Glucose,Whole Blood 124 mg/dL (75-99)
[2020-10-07] MEDS ORDERED: ARTIFICIAL TEARS-HYPROMELLOSE DROPS 15 ML BTL BOTH EYES PRN (19:08)
[2020-10-07 20:15] LABS: Glucose,Whole Blood 150 mg/dL (75-99)
[2020-10-07] MEDS: AMMONIUM LACTATE 12% LOTION 225 GM BTL TOPICAL SCH (20:16)
[2020-10-08 04:22] LABS: Anisocytosis Slight; HCT 34.6 % (39.0-53.0); HGB 11.5 gm/dL (13.0-17.5); Hypochromasia Slight; MCH 30.5 pg (25.0-35.0); MCHC 33.2 g/dL (31.0-37.0); MCV 91.8 fL (80.0-100.0); Mean Platelet Volume 10.6; Platelet Count 138 k/uL (150-450); RBC 3.77 m/uL (4.30-5.90); RDW 16.6 % (11.5-15.5)
[2020-10-08 04:39] LABS: Calcium 9.4 mg/dL (8.4-10.2)
[2020-10-08 06:28] LABS: Glucose,Whole Blood 109 mg/dL (75-99)
[2020-10-08] MEDS: INSULIN ASPART (NovoLOG) 100 UNIT/ML VIAL SQ SCH ×4 (06:31→22:00)
[2020-10-08] MEDS: carvediloL 12.5 MG TAB PO SCH ×2 (06:32→16:46)
--- NOTE | 2020-10-08 06:39 | XR ---
EXAMINATION TYPE: XR chest 1V portable DATE OF EXAM: 10/08/2020 CLINICAL HISTORY: Difficulty breathing progress study. TECHNIQUE: Single AP portable upright view of the chest is obtained. COMPARISON: Chest x-ray from one day earlier and older studies. FINDINGS: Stable right internal jugular large-bore dialysis catheter. Stable left internal jugular c entral venous catheter. Interval extubation with removal of endotracheal and orogastric tubes. Background chronic parenchymal changes with increasing bibasilar opacities. Cardiac silhouette size s table and within normal limits with atherosclerotic change thoracic aorta redemonstrated. Osseous str uctures are intact. IMPRESSION: Interval extubation. Worsening bibasilar acute atelectasis and/or developing infiltrates with small to tiny bilateral pleural effusions noted.
[2020-10-08] MEDS: IPRATROPIUM-ALBUTEROL 3 ML NEB INHALATION SCH (07:40)
[2020-10-08] MEDS ORDERED: ACETAMINOPHEN TAB 325 MG TAB PO PRN (10:25)
--- NOTE | 2020-10-08 10:49 | P.PN ---
Subjective Progress Note Date: 10/08/20 Principal diagnosis: Acute hypoxemic respiratory failure secondary to acute fluid volume overload, congestive heart failure This is a 70-year-old male patient who has a history of end stage renal disease receiving hemodialysis Sunday, coronary artery disease with previous stent placement, diabetes mellitus, gastroesophageal reflux disease, hypertension, peripheral arterial disease with prior stent placements and atherectomy to the left lower extremity. Yesterday the patient had developed significant shortness of breath and was actually seen in the [facility] with acute respiratory failure requiring intubation and mechanical ventilatory support. He was subsequently transferred here to our emergency room and did require reintubation based on tube placement. Chest x-ray reveals evidence of fluid volume overload. White count 10.4. Hemoglobin 11.9. Platelet count 133. Sodium 130. Potassium 5.4. Bicarb 21. BUN 64. Creatinine 6.29. Glucose 349. ProBNP 55,400. The patient is seen in consultation in the ICU and he remains intubated on mechanical ventilator current settings assist-control 14, tidal volume 500, FiO2 100% and a PEEP of 7. Morning blood gases revealed a pO2 of 80, pCO2 59, pH 7.27. He is sedated on propofol at 45 mcg/kg/m. He has D5.45 at 60 ML's per hour. He was initiated on vancomycin, azithromycin, Zosyn. He is on bronchodilators. Lovenox for DVT prophylaxis. The patient is seen today 10/07/2020 in follow-up in the intensive care unit. He remains intubated on mechanical ventilator. Assist-control mode. Respiratory rate of 20, tidal volume 450, FiO2 40% and a PEEP of 12. Morning blood gases revealed a pO2 of 175, pCO2 42, pH 7.42. He is sedated on propofol at 40 mcg/kg/m. His 0.9 normal sitting at KVO. Nepro tube feedings at 20 miles per hour with a goal of 33. He did receive hemodialysis yesterday with 2 L removed. He is currently receiving hemodialysis today with a goal of 2-3 L removed. X-ray is stable with some chronic background parenchymal changes without any new airspace opacities or pneumothorax. Sputum culture pending. Blood cultures reveal no growth to date. White count 9.3. Hemoglobin 11.1. Platelet count 110,000. Sodium 131. Distant 4.3. Creatinine 4.38. AST 26. ALT 20. Pro-calcitonin 1.18. Lipase 948. He remains on DuoNeb inhalations and Zosyn. Lovenox for DVT prophylaxis. Echocardiogram does reveal severely impaired left ventricular systolic function with an ejection fraction 25-30%. Some global hypokinesia. The patient is seen today 10/08/2020 in follow-up in the intensive care unit. He is currently sitting up in a chair at the bedside. Awake and alert in no acute distress. Successfully extubated yesterday and currently on room air. 0 .9 normal saline at KVO. He receive hemodialysis again yesterday with another 2 L removed. Chest x-ray showing tiny bilateral effusions with some atelectasis at the bases. Blood cultures reveal no growth. Sputum culture pending. White count 13.0. Hemoglobin 11.5. Platelet count 138. Sodium 134. Potassium 4.0. Creatinine 4.08. Glucose 126. Objective - Vital Signs Vital signs: Vital Signs Temp 97.8 F 10/08/20 08:00 Pulse 81 10/08/20 09:00 Resp 24 10/08/20 09:00 BP 153/77 10/08/20 09:00 Pulse Ox 90 L 10/08/20 09:00 Intake & Output 10/07/20 10/08/20 10/08/20 18:59 06:59 18:59 Intake Total 362.882 810 30 Output Total 2000 0 0 Balance -1637.118 810 30 Weight 90.6 kg Intake: IV 120 110 30 KVO 120 110 30 Intake, IV Titration 52.882 Amount propofoL 1,000 mg In 52.882 Empty Bag 1 bag @ Titrate IV .Q0M [facility] Rx#: [id number] Oral 100 700 Tube Feeding 90 Output: Urine 0 0 0 Hemodialysis 1999 Other: Voiding Method Indwelling Catheter Urinal ABP, PAP, CO, CI - Last Documented Arterial Blood Pressure 166/59 - Exam GENERAL EXAM: Awake, alert pleasant 70-year-old gentleman, appears comfortable in no apparent distress. HEAD: Normocephalic. EYES: Sluggish reaction of pupils, equal size. NOSE: Clear with pink turbinates. THROAT: Oral endotracheal and gastric tube secured in place. No erythema or exudates. NECK: No masses, no JVD. Left IJ triple-lumen catheter placed CHEST: No chest wall deformity. LUNGS: Equal air entry with crackles in the bilateral bases CVS: S1 and S2 normal with no audible murmur, regular rhythm. ABDOMEN: No hepatosplenomegaly, normal bowel sounds, no guarding or rigidity. SPINE: No scoliosis or deformity SKIN: No rashes CENTRAL NERVOUS SYSTEM: Sedated, tone is normal in all 4 extremities. EXTREMITIES: Right radial arterial line placed. There is peripheral edema. No clubbing, no cyanosis. Peripheral pulses are intact. - Labs CBC & Chem 7: 10/08/20 04:12 10/08/20 04:12 Labs: Abnormal Lab Results - Last 24 Hours (Table) 10/07/20 10/07/20 10/07/20 Range/Units 11:38 18:45 20:13 WBC (3.8-10.6) k/uL RBC (4.30-5.90) m/uL Hgb (13.0-17.5) gm/dL Hct (39.0-53.0) % RDW (11.5-15.5) % Plt Count (150-450) k/uL Sodium (137-145) mmol/L BUN (9-20) mg/dL Creatinine (0.66-1.25) mg/dL Glucose (74-99) mg/dL POC Glucose (mg/dL) 127 H 124 H 150 H (75-99) mg/dL 10/08/20 10/08/20 10/08/20 Range/Units 04:12 04:12 06:26 WBC 13.0 H (3.8-10.6) k/uL RBC 3.77 L (4.30-5.90) m/uL Hgb 11.5 L (13.0-17.5) gm/dL Hct 34.6 L (39.0-53.0) % RDW 16.6 H (11.5-15.5) % Plt Count 138 L (150-450) k/uL Sodium 134 L (137-145) mmol/L BUN 31 H (9-20) mg/dL Creatinine 4.08 H (0.66-1.25) mg/dL Glucose 126 H (74-99) mg/dL POC Glucose (mg/dL) 109 H (75-99) mg/dL Microbiology - Last 24 Hours (Table) 10/06/20 04:15 Blood Culture - Preliminary Blood No Growth after 48 hours 10/06/20 04:05 Blood Culture - Preliminary Blood No Growth after 48 hours 10/06/20 06:05 Gram Stain - Preliminary Sputum Sputum Culture - Preliminary Assessment and Plan Assessment: 1 Acute hypoxemic respiratory failure secondary to acute fluid volume overload, acute exacerbation of systolic congestive heart failure. Severely impaired left ventricular systolic function with ejection fraction 25-30%. 2 End stage renal disease receiving hemodialysis Sunday, compliant with treatment 3 History of coronary artery disease with previous stent placement, myocardial infarction 4 Diabetes mellitus 5 Hypertension 6 Peripheral arterial disease with previous stent placement, atherectomy of the left lower extremity 7 History of heavy tobacco dependence up to 3 packs per day however quit in 2007 Plan: The patient was seen and evaluated by Dr. Whelan Chest x-ray and labs reviewed Stable from the pulmonary and critical care standpoint On room air oxygen Discontinue arterial line, DC central line Could be transferred out of the ICU today We will continue to follow I, the cosigning physician, performed a history & physical examination of the patient. Lungs sounds with crackles in the bilateral bases. Maintaining good O2 saturations in the 90s on room air. I discussed the assessment and plan of care with my nurse practitioner, Ashley Robin. I attest to the above note as dictated by her.
[2020-10-08 11:43] VITALS: BMI 27.1
[2020-10-08] MEDS: AMMONIUM LACTATE 12% LOTION 225 GM BTL TOPICAL SCH ×2 (11:44→21:52)
[2020-10-08] MEDS: hydrALAZINE HCL 25 MG TAB PO SCH ×3 (11:45→21:49)
[2020-10-08] MEDS: EZETIMIBE 10 MG TAB PO SCH (11:45)
[2020-10-08] MEDS: ASPIRIN 81 MG PO SCH (11:46)
[2020-10-08] MEDS: ISOSORBIDE MONONITRATE ER 30 MG TAB.ER.24H PO SCH (11:47)
[2020-10-08] MEDS: HYDROcodone/APAP 5-325MG 1 EACH TAB PO PRN ×2 (11:47→21:49)
[2020-10-08] MEDS: ENOXAPARIN 30 MG/0.3 ML SYRINGE SQ SCH (11:48)
[2020-10-08 12:23] LABS: Chol/HDL Ratio 5.12; LDL Cholesterol,Calculated 59.6 mg/dL (0.0-131.0); VLDL Calculation 47.4 mg/dL (5.00-40.00)
[2020-10-08 12:50] LABS: Glucose,Whole Blood 114 mg/dL (75-99)
--- NOTE | 2020-10-08 13:54 | P.PN ---
Subjective Progress Note Date: 10/08/20 (delayed charting seen at 1045) Principal diagnosis: shortness of breath Patient is a 70 year-old male with a history of diabetes mellitus 2 insulin- dependent, ESRD n HS m/w/f, CAD, and multiple other comorbid conditions who was transferred here from [place] due to CHF with possible pneumonia and shortness of breath. He required intubation. He was noted to have an elevated potassium was treated medically initially. Critical care, nephrology, and cardiology were consulted. He had triple lumen an arterial line placed on 10/06/20. He underwent urgent dialysis on the morning of 10/06/20. He again underwent dialysis on the morning of 10/07/20. He was able to be extubated in the afternoon of 10/08. Echo came back with ER 35-30% and cardio was consulted Chest x-ray: Increased pulmonary edema right lung. Patient seen and examined at bedside. States he is feeling fairly well, complaining of back pain. Denies any nausea, vomiting, shortness of breath. General: ill appearing, no distress, appears older than stated age Derm: warm, dry, small 0.75 cm lesion left heel with drainage, warmth, erythema and good granulation tissue present, hemosiderin this positive noted bilateral legs with thick yellow plaquing, onychomycoses Head: atraumatic, normocephalic, symmetric Eyes: PERRL, no lid lag, anicteric sclera Mouth: no lip lesion, mucus membranes moist Cardiovascular: S1S2 reg, no murmur, positive posterior tibial pulse bilateral, Lungs: Course bs bilateral, no rhonchi, no rales , no accessory muscle use, on vent Abdominal: soft, nontender to palpation, no guarding, no appreciable organomegaly Ext: no gross muscle atrophy, no edema, no contractures Neuro: Moving all 4 extremities independently, cranial nerves II through XII grossly intact, no focal neuro deficits Psych: Alert, oriented, appropriate affect Acute exacerbation of congestive heart failure, EF 25-30% -Fluid optimization with hemodialysis today and again tomorrow. -Cardiology recommendations appreciated -Not chronically on RAYSHAWN inhibitor, will not start with recent hyperkalemia - Coreg - stop zosyn infection ruled out. White blood cell count increased slightly on 10/08, chest x-ray with no signs of infiltrate. We'll repeat CBC and monitor for fever profile. End-stage renal disease on hemodialysis Sunday/Sunday/Sunday -HD 10/06, 812, 813, and plans for 10/09. -Nephrology recommendations - calcitriol Diabetes mellitus type 2 -Hold oral medications -Sliding-scale insulin -Follow blood sugars -A1c pending. Coronary artery disease -Insinuated Imdur, beta roberto, not chronically on statin secondary to intolerance HTN, accelerated - hydralazine - coreg - follow BP Obesity with BMI 29.8 Outpatient structured weight loss Hyperkalemia, improved DVT prophylaxis: Lovenox Discussed with: nursing Anticipated discharge: 2-[address]: Home A total of 35 minutes was spent on the care of this complex patient more than 50% of the time was spent in counseling and care coordination. Objective - Vital Signs Vital signs: Vital Signs Temp 97.8 F 10/08/20 13:39 Pulse 87 10/08/20 13:39 Resp 18 10/08/20 13:39 BP 172/60 10/08/20 13:39 Pulse Ox 90 L 10/08/20 09:00 Intake & Output 10/07/20 10/08/20 10/08/20 18:59 06:59 18:59 Intake Total 362.882 810 30 Output Total 2000 0 3000 Balance -1637.118 810 -2970 Weight 90.6 kg Intake: IV 120 110 30 KVO 120 110 30 Intake, IV Titration 52.882 Amount propofoL 1,000 mg In 52.882 Empty Bag 1 bag @ Titrate IV .Q0M [facility] Rx#: [id number] Oral 100 700 Tube Feeding 90 Output: Urine 0 0 0 Hemodialysis 2000 3000 Other: Voiding Method Indwelling Catheter Urinal ABP, PAP, CO, CI - Last Documented Arterial Blood Pressure 166/59 - Labs CBC & Chem 7: 10/08/20 04:12 10/08/20 04:12 Labs: Abnormal Lab Results - Last 24 Hours (Table) 10/07/20 10/07/20 10/08/20 Range/Units 18:45 20:13 04:12 WBC 13.0 H (3.8-10.6) k/uL RBC 3.77 L (4.30-5.90) m/uL Hgb 11.5 L (13.0-17.5) gm/dL Hct 34.6 L (39.0-53.0) % RDW 16.6 H (11.5-15.5) % Plt Count 138 L (150-450) k/uL Sodium (137-145) mmol/L BUN (9-20) mg/dL Creatinine (0.66-1.25) mg/dL Glucose (74-99) mg/dL POC Glucose (mg/dL) 124 H 150 H (75-99) mg/dL Triglycerides (0.0-149.0) mg/dL VLDL Cholesterol, Calc (5.00-40.00) mg/dL HDL Cholesterol (40.0-60.0) mg/dL 10/08/20 10/08/20 10/08/20 Range/Units 04:12 04:12 06:26 WBC (3.8-10.6) k/uL RBC (4.30-5.90) m/uL Hgb (13.0-17.5) gm/dL Hct (39.0-53.0) % RDW (11.5-15.5) % Plt Count (150-450) k/uL Sodium 134 L (137-145) mmol/L BUN 31 H (9-20) mg/dL Creatinine 4.08 H (0.66-1.25) mg/dL Glucose 126 H (74-99) mg/dL POC Glucose (mg/dL) 109 H (75-99) mg/dL Triglycerides 237.0 H (0.0-149.0) mg/dL VLDL Cholesterol, Calc 47.40 H (5.00-40.00) mg/dL HDL Cholesterol 26.0 L (40.0-60.0) mg/dL 10/08/20 Range/Units 12:47 WBC (3.8-10.6) k/uL RBC (4.30-5.90) m/uL Hgb (13.0-17.5) gm/dL Hct (39.0-53.0) % RDW (11.5-15.5) % Plt Count (150-450) k/uL Sodium (137-145) mmol/L BUN (9-20) mg/dL Creatinine (0.66-1.25) mg/dL Glucose (74-99) mg/dL POC Glucose (mg/dL) 114 H (75-99) mg/dL Triglycerides (0.0-149.0) mg/dL VLDL Cholesterol, Calc (5.00-40.00) mg/dL HDL Cholesterol (40.0-60.0) mg/dL Microbiology - Last 24 Hours (Table) 10/06/20 06:05 Gram Stain - Final Sputum Sputum Culture - Final 10/06/20 04:15 Blood Culture - Preliminary Blood No Growth after 48 hours 10/06/20 04:05 Blood Culture - Preliminary Blood No Growth after 48 hours
--- NOTE | 2020-10-08 14:02 | PN ---
PROGRESS NOTE Patient is seen for followup for end-stage renal disease. He is currently seen on hemodialysis, tolerating his treatment well. The patient was extubated yesterday. He is doing fairly well. He is awake and alert, oriented x3. PHYSICAL EXAMINATION: On examination today, blood pressure 153/77, heart rate 81 per minute. He is afebrile. EXAMINATION OF THE HEART: S1 and S2. EXAMINATION OF LUNGS: Bilateral breath sounds are heard. ABDOMEN: Soft, nontender. LOWER EXTREMITIES: Examination of lower extremities shows edema 2+ to 3+ bilaterally with some erythema of the skin noted bilaterally. 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 LABS: Labs show sodium 134, potassium 4.0, chloride 98, BUN 31, creatinine 4.0, hemoglobin 11.5 g/dL. ASSESSMENT: 1. End-stage renal disease, on hemodialysis on a Sunday, Sunday, Sunday schedule. Recently changed from PD to hemodialysis. 2. Volume overload, currently improved. 3. Acute hypoxic respiratory failure secondary to volume overload, now extubated and doing better. 4. Chronic kidney disease mineral bone disorder. 5. Hypertension, partly volume-sensitive. PLAN: Hemodialysis today. We will increase the UF to 3 to 3.5 liters and repeat dialysis again tomorrow. Continue current dose of Rocaltrol. Continue current antihypertensive regimen. MMODL / IJN: [id number] /
--- NOTE | 2020-10-08 15:18 | CONS ---
CONSULTATION Mr. Chaparro is a 70-year-old male who was transferred to our hospital from [facility] with symptoms of respiratory failure. The patient has a history of end-stage renal disease, on hemodialysis, history of coronary artery disease, status post stenting, and a myocardial infarction about 8 years ago. He is not sure where and what artery was addressed at that time. According to him, he has not followed with a glove stitcher since. He had progressive symptoms of dyspnea requiring mechanical ventilation, and he was transferred to [facility]. At this time he is extubated. He is sitting up in the chair. According to the patient, he has some dyspnea on exertion, worse recently. He had fast food prior to the event. He has not missed any of his dialysis. He has chronic peripheral edema but no clear PND. No dizziness. No palpitations. He had an echocardiogram performed following his admission that revealed a severely impaired left ventricular systolic function with an ejection fraction of 25% to 30% with segmental wall motion abnormality and mild mitral with trace tricuspid regurgitation. The patient does not recall a prior history of CHF or knowledge of his ejection fraction, although according to him he had an echocardiogram done recently. He does not know the results or what was done. He denies any chest discomfort. According to him, he had no further cardiac event since the initial presentation. His coronary risk factors are remarkable for the history of hypertension. He stopped smoking at the time of his myocardial infarction. He has a history of diabetes. His lipid profile is not available. MEDICATIONS: His medications as an outpatient include hydralazine 50 mg 3 times a day, Flomax, sodium bicarb, RenaPlex, potassium, isosorbide mononitrate 60 mg twice a day, Amaryl, Lasix 40 mg daily, and Coreg 25 mg twice a day. REVIEW OF SYSTEMS: RESPIRATORY SYSTEM: He had dyspnea on exertion. No recent wheezing or cough. GI SYSTEM: No recent GI bleeding. No peptic ulcer disease. SYSTEM: No dysuria or hematuria. He has minimal urinary output. He is on hemodialysis and was on peritoneal dialysis before. NERVOUS SYSTEM: No stroke or seizure. PHYSICAL EXAMINATION: He is a 70-year-old male, alert, oriented, in no apparent distress, sitting up in the chair. Blood pressure running in the 160s to 170 with a heart rate in the 70s. HEAD: Normocephalic. EYES: Sclerae anicteric. NECK: Good carotid upstroke. IJ catheter noted. LUNGS: Few crackles and rales at the bases. HEART: Regular rate and rhythm. S1, S2. No S3, with systolic ejection murmur 2/6 heard at the left upper sternal border. No diastolic murmur or rub. ABDOMEN: Soft, nontender. Positive bowel sounds. No organomegaly. EXTREMITIES: Chronic skin changes with 1+ edema noted. Dressing noted on the leg. LAB DATA: Lab data revealed BUN and creatinine of 31 and 4.08, potassium 4.0, hemoglobin of 11.5. On admission his NT-proBNP was 55,400. His chest x-ray shows his dialysis catheter. There is a small pleural effusion with mild congestion; has improved compared to his admission. IMPRESSION: 1. Respiratory failure with fluid overload and evidence of congestive heart failure with systolic dysfunction. The duration of his cardiomyopathy is unclear. There are no symptoms of acute ischemic event on presentation. Some of his symptoms could have been exacerbated by salt intake. 2. End-stage renal disease, on hemodialysis. 3. Prior history of peripheral vascular disease with stent of his lower extremities. 4. Status post coronary stenting following the myocardial infarction 8 years ago. 5. History of hypertension. 6. History of diabetes mellitus. 7. Remote history of smoking. RECOMMENDATIONS: From the cardiac standpoint, I will try to obtain his prior record. I will start him on aspirin. Will continue on carvedilol. I will increase the dose of his hydralazine. I will add to his regimen Zetia. Depending on his progress, further recommendations will be made. Thank you for this consult. Will follow with you. MMODL / IJN: [id number] / SOPHIA
[2020-10-08 15:52] LABS: Hemoglobin A1C 4.6 % (4.0-6.0)
[2020-10-08 16:41] LABS: Glucose,Whole Blood 132 mg/dL (75-99)
[2020-10-08 21:58] LABS: Glucose,Whole Blood 155 mg/dL (75-99)
[2020-10-09 04:09] LABS: Anisocytosis Slight; Basophils % (A) 0 %; Eosinophils # (A) 0.1 k/uL (0-0.7); Eosinophils % (A) 2 %; HCT 34.2 % (39.0-53.0); HGB 11.3 gm/dL (13.0-17.5); Hypochromasia Slight; Lymphocytes # (A) 1.3 k/uL (1.0-4.8); Lymphocytes % (A) 14 %; MCH 30.4 pg (25.0-35.0); Mean Platelet Volume 10.6; Monocytes # (A) 0.5 k/uL (0-1.0); Monocytes % (A) 6 %; Neutrophils # (A) 6.8 k/uL (1.3-7.7); Neutrophils % (A) 76 %; Platelet Count 132 k/uL (150-450); RBC 3.71 m/uL (4.30-5.90); RDW 16.4 % (11.5-15.5)
[2020-10-09 04:24] LABS: Calcium 9.3 mg/dL (8.4-10.2); Potassium 3.8 mmol/L (3.5-5.1)
[2020-10-09 07:02] LABS: Glucose,Whole Blood 118 mg/dL (75-99)
[2020-10-09] MEDS ORDERED: PANTOPRAZOLE 40 MG TABLET PO SCH (07:30)
[2020-10-09] MEDS: INSULIN ASPART (NovoLOG) 100 UNIT/ML VIAL SQ SCH ×3 (07:43→17:57)
[2020-10-09] MEDS: ASPIRIN 81 MG PO SCH (08:02)
[2020-10-09] MEDS: ISOSORBIDE MONONITRATE ER 30 MG TAB.ER.24H PO SCH (08:02)
[2020-10-09] MEDS: ENOXAPARIN 30 MG/0.3 ML SYRINGE SQ SCH (08:02)
[2020-10-09] MEDS: carvediloL 12.5 MG TAB PO SCH ×2 (08:02→17:57)
[2020-10-09] MEDS: EZETIMIBE 10 MG TAB PO SCH (08:02)
[2020-10-09] MEDS: hydrALAZINE HCL 25 MG TAB PO SCH ×2 (08:02→17:56)
[2020-10-09] MEDS: AMMONIUM LACTATE 12% LOTION 225 GM BTL TOPICAL SCH (08:03)
--- NOTE | 2020-10-09 08:09 | P.PN ---
Subjective Patient is seen in follow-up for end-stage renal disease. Currently sitting up in chair. No chest pain or shortness of breath. Hemodynamically stable. Vital signs are stable. General: The patient appeared well nourished and normally developed. HEENT: Head exam is unremarkable. Neck is without jugular venous distension. LUNGS: Breath sounds decreased. HEART: Rate and Rhythm are regular. ABDOMEN: Soft, no distention. EXTREMITITES: Chronic changes noted. 1+ edema. Objective - Vital Signs Vital signs: Vital Signs Temp 97.9 F 10/09/20 02:00 Pulse 76 10/09/20 02:00 Resp 18 10/09/20 02:00 BP 148/64 10/09/20 02:00 Pulse Ox 97 10/08/20 20:00 Intake & Output 10/08/20 10/09/20 10/09/20 18:59 06:59 18:59 Intake Total 150 Output Total 3000 0 Balance -2850 0 Weight 90.6 kg 89.1 kg Intake: IV 30 KVO 30 Oral 120 Output: Urine 0 0 Hemodialysis 3000 ABP, PAP, CO, CI - Last Documented Arterial Blood Pressure 166/59 - Labs CBC & Chem 7: 10/09/20 03:58 10/09/20 03:58 Labs: Abnormal Lab Results - Last 24 Hours (Table) 10/08/20 10/08/20 10/08/20 Range/Units 04:12 12:47 16:40 RBC (4.30-5.90) m/uL Hgb (13.0-17.5) gm/dL Hct (39.0-53.0) % RDW (11.5-15.5) % Plt Count (150-450) k/uL Sodium (137-145) mmol/L BUN (9-20) mg/dL Creatinine (0.66-1.25) mg/dL Glucose (74-99) mg/dL POC Glucose (mg/dL) 114 H 132 H (75-99) mg/dL Triglycerides 237.0 H (0.0-149.0) mg/dL VLDL Cholesterol, Calc 47.40 H (5.00-40.00) mg/dL HDL Cholesterol 26.0 L (40.0-60.0) mg/dL 10/08/20 10/09/20 10/09/20 Range/Units 21:56 03:58 03:58 RBC 3.71 L (4.30-5.90) m/uL Hgb 11.3 L (13.0-17.5) gm/dL Hct 34.2 L (39.0-53.0) % RDW 16.4 H (11.5-15.5) % Plt Count 132 L (150-450) k/uL Sodium 135 L (137-145) mmol/L BUN 21 H (9-20) mg/dL Creatinine 3.47 H (0.66-1.25) mg/dL Glucose 122 H (74-99) mg/dL POC Glucose (mg/dL) 155 H (75-99) mg/dL Triglycerides (0.0-149.0) mg/dL VLDL Cholesterol, Calc (5.00-40.00) mg/dL HDL Cholesterol (40.0-60.0) mg/dL 10/09/20 Range/Units 07:00 RBC (4.30-5.90) m/uL Hgb (13.0-17.5) gm/dL Hct (39.0-53.0) % RDW (11.5-15.5) % Plt Count (150-450) k/uL Sodium (137-145) mmol/L BUN (9-20) mg/dL Creatinine (0.66-1.25) mg/dL Glucose (74-99) mg/dL POC Glucose (mg/dL) 118 H (75-99) mg/dL Triglycerides (0.0-149.0) mg/dL VLDL Cholesterol, Calc (5.00-40.00) mg/dL HDL Cholesterol (40.0-60.0) mg/dL Microbiology - Last 24 Hours (Table) 10/06/20 04:15 Blood Culture - Preliminary Blood No Growth after 72 hours 10/06/20 04:05 Blood Culture - Preliminary Blood No Growth after 72 hours 10/06/20 06:05 Gram Stain - Final Sputum Sputum Culture - Final Assessment and Plan Plan: Assessment: 1. End-stage renal disease maintained on hemodialysis on Sunday schedule a permacath. 2. Volume overload. Improved with ultrafiltration. 3. Acute on chronic systolic CHF with ejection fraction of 25-30%. 4. Chronic kidney disease mineral bone disease maintained on calcitriol. 5. Hypertension with chronic kidney disease. Stable. Plan: Hemodialysis today mostly for ultrafiltration. Possible discharge after dialysis today.
--- NOTE | 2020-10-09 09:29 | P.PN ---
Subjective HISTORY OF PRESENTING ILLNESS Patient is a pleasant 70-year-old male with a history of end-stage renal disease on hemodialysis, coronary artery disease status post TX approximately 8 years ago, hypertension, PAD status post stenting of his lower extremities, hyperlipidemia, diabetes mellitus and remote history of smoking and new diagnosis of cardiomyopathy ejection fraction 25-30%. Patient presented with fairly acute onset of shortness breath and required mechanical ventilation and underwent hemodialysis with fluid removal with improvement in his symptoms. He denies any chest pain or pressure. He was initially admitted in the hospital an d initial troponin 0.03. We will check a repeat to ensure no coronary event however has not been having a chest pain or pressure. He is scheduled to undergo hemodialysis today with more fluid taken off. He admits to chronic lower extremity edema and chronic orthopnea. He has been walking around and feels close to his baseline. His hydralazine was increased yesterday and blood pressures have been predominantly in the 110s to 120s systolics. He admits he does not make much urine. REVIEW OF SYSTEMS At the time of my exam: CONSTITUTIONAL: Denies fever or chills. CARDIOVASCULAR: Denies chest pain, shortness of breath, orthopnea, PND or palpitations. RESPIRATORY: Denies cough. GASTROINTESTINAL: Denies abdominal pain, diarrhea, constipation, nausea or vomiting. MUSCULOSKELETAL: Denies myalgias. NEUROLOGIC: Denies numbness, tingling or weakness. ENDOCRINE: Denies fatigue, weight change, polydipsia or polyurina. GENITOURINARY: Denies burning, hematuria or urgency with micturation. HEMATOLOGIC: Denies history of anemia or bleeding. PHYSICAL EXAMINATION Vital signs reviewed. CONSTITUTIONAL: No apparent distress. HEENT: Head is normocephalic. Pupils are equal, round. Sclerae anicteric. Mucous membranes of the mouth are moist. No JVD. No carotid bruit. CHEST EXAMINATION: Lungs are clear to auscultation. No chest wall tenderness is noted on palpation or with deep breathing. HEART EXAMINATION: Regular rate and rhythm. S1, S2 heard. No murmurs, gallops or rub. ABDOMEN: Soft, nontender. Positive bowel sounds. EXTREMITIES: 2+ peripheral pulses, no lower extremity edema and no calf tenderness. NEUROLOGIC EXAMINATION: Patient is awake, alert and oriented x3. ASSESSMENT 1. Acute on chronic systolic heart failure with ejection fraction 25-30% 2. Coronary artery disease with history of TX approximately 8 years ago 3. Minimally elevated troponins, initially 0.03, likely type II mechanism from hypoxia and end-stage renal disease 4. Essential hypertension 5. End-stage renal disease 6. Cardiomyopathy ejection fraction 25-30%, unclear review 7. Previous tobacco abuse 8. PAD PLAN Patient has been doing well with hemodialysis and increased fluid removal. Suspect majority of his presentation is related to volume overload from his end- stage renal disease. He does have cardiomyopathy though and unclear if this is new or old. He is not exhibiting any angina-type symptoms however we will check repeat troponin to ensure no elevation and no silent ischemia, acute coronary syndrome his presentation. If troponin is flat, further ischemic workup may be performed as an outpatient. Continue to optimize heart failure regimen as able. Patient has not been on any RAYSHAWN inhibitor or ARB and may consider changing hydralazine to RAYSHAWN inhibitor however he has been tolerating this regimen well and this may have been from prior hyperkalemia. Continue with current regimen. If troponin flat, patient may be discharged home from cardiology standpoint with outpatient follow-up in 1 week. Objective - Vital Signs Vital signs: Vital Signs Temp 97.9 F 10/09/20 02:00 Pulse 76 10/09/20 02:00 Resp 18 10/09/20 02:00 BP 148/64 10/09/20 02:00 Pulse Ox 97 10/08/20 20:00 Intake & Output 10/08/20 10/09/20 10/09/20 18:59 06:59 18:59 Intake Total 150 Output Total 3000 0 Balance -2850 0 Weight 90.6 kg 89.1 kg Intake: IV 30 KVO 30 Oral 120 Output: Urine 0 0 Hemodialysis 3000 ABP, PAP, CO, CI - Last Documented Arterial Blood Pressure 166/59 - Labs CBC & Chem 7: 10/09/20 03:58 10/09/20 03:58 Labs: Abnormal Lab Results - Last 24 Hours (Table) 10/08/20 10/08/20 10/08/20 Range/Units 04:12 12:47 16:40 RBC (4.30-5.90) m/uL Hgb (13.0-17.5) gm/dL Hct (39.0-53.0) % RDW (11.5-15.5) % Plt Count (150-450) k/uL Sodium (137-145) mmol/L BUN (9-20) mg/dL Creatinine (0.66-1.25) mg/dL Glucose (74-99) mg/dL POC Glucose (mg/dL) 114 H 132 H (75-99) mg/dL Triglycerides 237.0 H (0.0-149.0) mg/dL VLDL Cholesterol, Calc 47.40 H (5.00-40.00) mg/dL HDL Cholesterol 26.0 L (40.0-60.0) mg/dL 10/08/20 10/09/20 10/09/20 Range/Units 21:56 03:58 03:58 RBC 3.71 L (4.30-5.90) m/uL Hgb 11.3 L (13.0-17.5) gm/dL Hct 34.2 L (39.0-53.0) % RDW 16.4 H (11.5-15.5) % Plt Count 132 L (150-450) k/uL Sodium 135 L (137-145) mmol/L BUN 21 H (9-20) mg/dL Creatinine 3.47 H (0.66-1.25) mg/dL Glucose 122 H (74-99) mg/dL POC Glucose (mg/dL) 155 H (75-99) mg/dL Triglycerides (0.0-149.0) mg/dL VLDL Cholesterol, Calc (5.00-40.00) mg/dL HDL Cholesterol (40.0-60.0) mg/dL 10/09/20 Range/Units 07:00 RBC (4.30-5.90) m/uL Hgb (13.0-17.5) gm/dL Hct (39.0-53.0) % RDW (11.5-15.5) % Plt Count (150-450) k/uL Sodium (137-145) mmol/L BUN (9-20) mg/dL Creatinine (0.66-1.25) mg/dL Glucose (74-99) mg/dL POC Glucose (mg/dL) 118 H (75-99) mg/dL Triglycerides (0.0-149.0) mg/dL VLDL Cholesterol, Calc (5.00-40.00) mg/dL HDL Cholesterol (40.0-60.0) mg/dL Microbiology - Last 24 Hours (Table) 10/06/20 04:15 Blood Culture - Preliminary Blood No Growth after 72 hours 10/06/20 04:05 Blood Culture - Preliminary Blood No Growth after 72 hours 10/06/20 06:05 Gram Stain - Final Sputum Sputum Culture - Final
[2020-10-09 09:41] VITALS: TEMP 97.6
--- NOTE | 2020-10-09 12:18 | P.PN ---
Subjective Progress Note Date: 10/09/20 Principal diagnosis: Acute hypoxemic respiratory failure secondary to acute fluid volume overload, congestive heart failure This is a 70-year-old male patient who has a history of end stage renal disease receiving hemodialysis Sunday, coronary artery disease with previous stent placement, diabetes mellitus, gastroesophageal reflux disease, hypertension, peripheral arterial disease with prior stent placements and atherectomy to the left lower extremity. Yesterday the patient had developed significant shortness of breath and was actually seen in the [facility] with acute respiratory failure requiring intubation and mechanical ventilatory support. He was subsequently transferred here to our emergency room and did require reintubation based on tube placement. Chest x-ray reveals evidence of fluid volume overload. White count 10.4. Hemoglobin 11.9. Platelet count 133. Sodium 130. Potassium 5.4. Bicarb 21. BUN 64. Creatinine 6.29. Glucose 349. ProBNP 55,400. The patient is seen in consultation in the ICU and he remains intubated on mechanical ventilator current settings assist-control 14, tidal volume 500, FiO2 100% and a PEEP of 7. Morning blood gases revealed a pO2 of 80, pCO2 59, pH 7.27. He is sedated on propofol at 45 mcg/kg/m. He has D5.45 at 60 ML's per hour. He was initiated on vancomycin, azithromycin, Zosyn. He is on bronchodilators. Lovenox for DVT prophylaxis. The patient is seen today 10/07/2020 in follow-up in the intensive care unit. He remains intubated on mechanical ventilator. Assist-control mode. Respiratory rate of 20, tidal volume 450, FiO2 40% and a PEEP of 12. Morning blood gases revealed a pO2 of 175, pCO2 42, pH 7.42. He is sedated on propofol at 40 mcg/kg/m. His 0.9 normal sitting at KVO. Nepro tube feedings at 20 miles per hour with a goal of 33. He did receive hemodialysis yesterday with 2 L removed. He is currently receiving hemodialysis today with a goal of 2-3 L removed. X-ray is stable with some chronic background parenchymal changes without any new airspace opacities or pneumothorax. Sputum culture pending. Blood cultures reveal no growth to date. White count 9.3. Hemoglobin 11.1. Platelet count 110,000. Sodium 131. Distant 4.3. Creatinine 4.38. AST 26. ALT 20. Pro-calcitonin 1.18. Lipase 948. He remains on DuoNeb inhalations and Zosyn. Lovenox for DVT prophylaxis. Echocardiogram does reveal severely impaired left ventricular systolic function with an ejection fraction 25-30%. Some global hypokinesia. The patient is seen today 10/08/2020 in follow-up in the intensive care unit. He is currently sitting up in a chair at the bedside. Awake and alert in no acute distress. Successfully extubated yesterday and currently on room air. 0 .9 normal saline at KVO. He receive hemodialysis again yesterday with another 2 L removed. Chest x-ray showing tiny bilateral effusions with some atelectasis at the bases. Blood cultures reveal no growth. Sputum culture pending. White count 13.0. Hemoglobin 11.5. Platelet count 138. Sodium 134. Potassium 4.0. Creatinine 4.08. Glucose 126. The patient is seen today 10/09/2020 and follow-up in the intensive care unit. He is currently resting comfortably in bed. Awake and alert in no acute distress. On room air oxygen. No IV fluids. He is receiving hemodialysis today. No worsening shortness of breath, cough or congestion. White count 9.0. Hemoglobin 11.3. Sodium 135. Potassium 3.8. Creatinine 3.47. Troponin 0.122. Objective - Vital Signs Vital signs: Vital Signs Temp 97.6 F 10/09/20 08:00 Pulse 77 10/09/20 08:00 Resp 17 10/09/20 08:00 BP 163/78 10/09/20 08:00 Pulse Ox 98 10/09/20 08:00 Intake & Output 10/08/20 10/09/20 10/09/20 18:59 06:59 18:59 Intake Total 150 Output Total 3000 0 Balance -2850 0 Weight 90.6 kg 89.1 kg Intake: IV 30 KVO 30 Oral 120 Output: Urine 0 0 Hemodialysis 3000 ABP, PAP, CO, CI - Last Documented Arterial Blood Pressure 166/59 - Exam GENERAL EXAM: Awake, alert pleasant 70-year-old gentleman, on room air, appears comfortable in no apparent distress. HEAD: Normocephalic. EYES: Sluggish reaction of pupils, equal size. NOSE: Clear with pink turbinates. THROAT: Oral endotracheal and gastric tube secured in place. No erythema or exudates. NECK: No masses, no JVD. Left IJ triple-lumen catheter placed CHEST: No chest wall deformity. LUNGS: Equal air entry with crackles in the bilateral bases CVS: S1 and S2 normal with no audible murmur, regular rhythm. ABDOMEN: No hepatosplenomegaly, normal bowel sounds, no guarding or rigidity. SPINE: No scoliosis or deformity SKIN: No rashes CENTRAL NERVOUS SYSTEM: Sedated, tone is normal in all 4 extremities. EXTREMITIES: Right radial arterial line placed. There is peripheral edema. No clubbing, no cyanosis. Peripheral pulses are intact. - Labs CBC & Chem 7: 10/09/20 03:58 10/09/20 03:58 Labs: Abnormal Lab Results - Last 24 Hours (Table) 10/08/20 10/08/20 10/08/20 Range/Units 04:12 12:47 16:40 RBC (4.30-5.90) m/uL Hgb (13.0-17.5) gm/dL Hct (39.0-53.0) % RDW (11.5-15.5) % Plt Count (150-450) k/uL Sodium (137-145) mmol/L BUN (9-20) mg/dL Creatinine (0.66-1.25) mg/dL Glucose (74-99) mg/dL POC Glucose (mg/dL) 114 H 132 H (75-99) mg/dL Troponin I (0.000-0.034) ng/mL Triglycerides 237.0 H (0.0-149.0) mg/dL VLDL Cholesterol, Calc 47.40 H (5.00-40.00) mg/dL HDL Cholesterol 26.0 L (40.0-60.0) mg/dL 10/08/20 10/09/20 10/09/20 Range/Units 21:56 03:58 03:58 RBC 3.71 L (4.30-5.90) m/uL Hgb 11.3 L (13.0-17.5) gm/dL Hct 34.2 L (39.0-53.0) % RDW 16.4 H (11.5-15.5) % Plt Count 132 L (150-450) k/uL Sodium 135 L (137-145) mmol/L BUN 21 H (9-20) mg/dL Creatinine 3.47 H (0.66-1.25) mg/dL Glucose 122 H (74-99) mg/dL POC Glucose (mg/dL) 155 H (75-99) mg/dL Troponin I (0.000-0.034) ng/mL Triglycerides (0.0-149.0) mg/dL VLDL Cholesterol, Calc (5.00-40.00) mg/dL HDL Cholesterol (40.0-60.0) mg/dL 10/09/20 10/09/20 Range/Units 03:58 07:00 RBC (4.30-5.90) m/uL Hgb (13.0-17.5) gm/dL Hct (39.0-53.0) % RDW (11.5-15.5) % Plt Count (150-450) k/uL Sodium (137-145) mmol/L BUN (9-20) mg/dL Creatinine (0.66-1.25) mg/dL Glucose (74-99) mg/dL POC Glucose (mg/dL) 118 H (75-99) mg/dL Troponin I 0.122 H* (0.000-0.034) ng/mL Triglycerides (0.0-149.0) mg/dL VLDL Cholesterol, Calc (5.00-40.00) mg/dL HDL Cholesterol (40.0-60.0) mg/dL Microbiology - Last 24 Hours (Table) 10/06/20 04:15 Blood Culture - Preliminary Blood No Growth after 72 hours 10/06/20 04:05 Blood Culture - Preliminary Blood No Growth after 72 hours 10/06/20 06:05 Gram Stain - Final Sputum Sputum Culture - Final Assessment and Plan Assessment: 1 Acute hypoxemic respiratory failure secondary to acute fluid volume overload, acute exacerbation of systolic congestive heart failure. Severely impaired left ventricular systolic function with ejection fraction 25-30%. 2 End stage renal disease receiving hemodialysis Sunday, compliant with treatment 3 History of coronary artery disease with previous stent placement, myocardial infarction 4 Diabetes mellitus 5 Hypertension 6 Peripheral arterial disease with previous stent placement, atherectomy of the left lower extremity 7 History of heavy tobacco dependence up to 3 packs per day however quit in 2007 Plan: The patient was seen and evaluated by Dr. Cleopatra Lira from the pulmonary and critical care standpoint On room air oxygen Possibly home today after dialysis I, the cosigning physician, performed a history & physical examination of the patient. Lungs sounds with crackles in the bilateral bases. Maintaining good O2 saturations in the 90s on room air. I discussed the assessment and plan of care with my nurse practitioner, Ashley Robin. I attest to the above note as dictated by her.
[2020-10-09 12:37] VITALS: BP 133/70
[2020-10-09 17:44] VITALS: PULSE 78; RESP 16
[2020-10-09 17:54] LABS: Glucose,Whole Blood 154 mg/dL (75-99)
--- NOTE | 2020-10-09 18:48 | P.DS ---
Providers Date of admission: 10/06/20 03:37 Expected date of discharge: 10/09/20 Attending physician: Fadi Sanders MD Consults: 10/06/20 03:36 Consult Physician Routine Consulting Provider: Mariano Whelan Consult Reason/Comments: icu Do you want consulting provider notified?: Yes Consult Physician Routine Consulting Provider: Perla Winters Consult Reason/Comments: ckd Do you want consulting provider notified?: Yes 10/07/20 16:35 Consult Physician Routine Consulting Provider: Jarett Fournier Consult Reason/Comments: CHF, hypokanesis Do you want consulting provider notified?: Yes Primary care physician: Landon Bradshaw Hospital Course: Discharge Diagnosis: Acute exacerbation of systolic heart failure End-stage renal disease Hyperkalemia Diabetes mellitus type 2 Coronary artery disease Hypertension Obesity Hospital Course: Patient is a 70 year-old male with a history of diabetes mellitus 2 insulin- dependent, ESRD n HS m/w/f, CAD, and multiple other comorbid conditions who was transferred here from [place] due to CHF with possible pneumonia and shortness of breath. He required intubation. He was noted to have an elevated potassium was treated medically initially. Critical care, nephrology, and cardiology were consulted. He had triple lumen an arterial line placed on 10/06/20. He u nderwent urgent dialysis on the morning of 10/06/20. He again underwent dialysis on the morning of 10/07/20. He was able to be extubated in the afternoon of 10/08. Patient was diuresed again on 10/09 Echo came back with ER 35-30% and cardio was consulted. Per cardiology patient can follow up outpatient. At the time of discharge patient was satting well on room air. Patient was cleared for discharge by cardiology and nephrology. Patient was told to follow-up with his cad intern in 1-2 days. Patient instructed to restrict his fluid intake to 1.5 L. Patient is also counseled on a low-salt diet. Patient seen and examined at bedside.[] Vital signs reviewed and stable. General: [non toxic], [no distress], [appears at stated age] Derm: [warm], [dry] Head: [atraumatic], [normocephalic], [symmetric] Eyes: [EOMI], [no lid lag], [anicteric sclera] Mouth: [no lip lesion], [mucus membranes moist] Cardiovascular: [S1S2 reg], [no murmur], [positive posterior tibial pulse bilateral], Lungs: [CTA bilateral], [no rhonchi, no rales] , [no accessory muscle use] Abdominal: [soft], [ nontender to palpation], [no guarding], [no appreciable organomegaly] Ext: [no gross muscle atrophy], [no edema], [no contractures] Neuro: [ CN II-XI grossly intact], [no focal neuro deficits] Psych: [Alert], [oriented], [appropriate affect] A total of [32] minutes of time were spent preparing this complex discharge summary . Patient Condition at Discharge: Critical Plan - Discharge Summary New Discharge Prescriptions: New hydrALAZINE HCL [Apresoline] 75 mg PO TID #90 tab Aspirin 81 mg PO DAILY #30 chew Ezetimibe [Zetia] 10 mg PO DAILY #30 tab Continue Isosorbide Mononitrate ER [Imdur] 60 mg PO BID Carvedilol [Coreg] 25 mg PO BID Renaplex-D 1 tab PO DIRECTED Arginine [l-Arginine] 500 mg PO DAILY Glimepiride [Amaryl] 2 mg PO QAM #30 tab Tamsulosin [Flomax] 0.4 mg PO DAILY calcitrioL [Calcitriol] 0.5 mcg PO Q48H Dialyvite + Zinc 1 tab PO DAILY Discontinued hydrALAZINE HCL 50 mg PO TID Sodium Bicarbonate Tab 650 mg PO TID Furosemide [Lasix] 40 mg PO DAILY Potassium Chloride [Klor-Con 20] 20 meq PO DAILY Glimepiride [Amaryl] 1 mg PO HS Discharge Medication List Carvedilol [Coreg] 25 mg PO BID 12/01/16 [History] Isosorbide Mononitrate ER [Imdur] 60 mg PO BID 12/01/16 [History] Tamsulosin [Flomax] 0.4 mg PO DAILY 07/30/20 [History] Arginine [l-Arginine] 500 mg PO DAILY 10/06/20 [History] Dialyvite + Zinc 1 tab PO DAILY 10/06/20 [History] Renaplex-D 1 tab PO DIRECTED 10/06/20 [History] calcitrioL [Calcitriol] 0.5 mcg PO Q48H 10/06/20 [History] Aspirin 81 mg PO DAILY #30 chew 10/09/20 [Rx] Ezetimibe [Zetia] 10 mg PO DAILY #30 tab 10/09/20 [Rx] Glimepiride [Amaryl] 2 mg PO QAM #30 tab 10/09/20 [Rx] hydrALAZINE HCL [Apresoline] 75 mg PO TID #90 tab 10/09/20 [Rx] Follow up Appointment(s)/Referral(s): Jarett Fournier DO [STAFF PHYSICIAN] - 1 Week (Office closed due to being a weekend and after hours, patient and spouse told about importance of following up with cardiology assos within one week.) Juan Luis [facility], [NON-STAFF] - 1-2 Days Landon Bradshaw MD [Primary Care Provider] - 1-2 Days Patient Instructions/Handouts: Heart Failure (ER) Discharge Disposition: HOME SELF-CARE
== END 2020-10-09 18:37 | disposition home or self-care (01) | DRG 291 ==
LOC: EC 03:30 → 2SICU 03:37
PROVIDERS: ADMIT Internal Medicine; ATTEND Internal Medicine
PROC: 5A1D70Z Performance of Urinary Filtration, Intermittent, Less than 6 Hours Per Day (ICD-10-PCS; 2020-10-06)
PROC: 02HV33Z Insertion of Infusion Device into Superior Vena Cava, Percutaneous Approach (ICD-10-PCS; 2020-10-06)
PROC: B5181ZA Fluoroscopy of Superior Vena Cava using Low Osmolar Contrast, Guidance (ICD-10-PCS; 2020-10-06)
PROC: B548ZZA Ultrasonography of Superior Vena Cava, Guidance (ICD-10-PCS; 2020-10-06)
PROC: 4A133B1 Monitoring of Arterial Pressure, Peripheral, Percutaneous Approach (ICD-10-PCS; 2020-10-06)
PROC: 4A133J1 Monitoring of Arterial Pulse, Peripheral, Percutaneous Approach (ICD-10-PCS; 2020-10-06)
PROC: 5A1D70Z Performance of Urinary Filtration, Intermittent, Less than 6 Hours Per Day (ICD-10-PCS; 2020-10-07)
PROC: 5A1935Z Respiratory Ventilation, Less than 24 Consecutive Hours (ICD-10-PCS; principal; 2020-10-08)
PROC: 0BH17EZ Insertion of Endotracheal Airway into Trachea, Via Natural or Artificial Opening (ICD-10-PCS; 2020-10-08)
PROC: 5A1D70Z Performance of Urinary Filtration, Intermittent, Less than 6 Hours Per Day (ICD-10-PCS; 2020-10-09)
DX: I13.2 Hypertensive heart and chronic kidney disease with heart failure and with stage 5 chronic kidney disease, or end stage renal disease (principal); J96.01 Acute respiratory failure with hypoxia; N18.6 End stage renal disease; J18.9 Pneumonia, unspecified organism; I50.23 Acute on chronic systolic (congestive) heart failure; J96.02 Acute respiratory failure with hypercapnia; E87.1 Hypo-osmolality and hyponatremia; J98.11 Atelectasis; I42.9 Cardiomyopathy, unspecified; E87.5 Hyperkalemia; E66.9 Obesity, unspecified; I25.10 Atherosclerotic heart disease of native coronary artery without angina pectoris; D63.8 Anemia in other chronic diseases classified elsewhere; N40.0 Benign prostatic hyperplasia without lower urinary tract symptoms; E11.22 Type 2 diabetes mellitus with diabetic chronic kidney disease; E11.51 Type 2 diabetes mellitus with diabetic peripheral angiopathy without gangrene; Z99.2 Dependence on renal dialysis; Z20.822 Contact with and (suspected) exposure to COVID-19; E87.70 Fluid overload, unspecified; J45.909 Unspecified asthma, uncomplicated; E83.9 Disorder of mineral metabolism, unspecified; I25.2 Old myocardial infarction; B35.1 Tinea unguium; E78.5 Hyperlipidemia, unspecified; K21.9 Gastro-esophageal reflux disease without esophagitis; Z68.29 Body mass index [BMI] 29.0-29.9, adult; M54.2 Cervicalgia; Z87.891 Personal history of nicotine dependence; Z80.0 Family history of malignant neoplasm of digestive organs; Z79.899 Other long term (current) drug therapy; Z79.84 Long term (current) use of oral hypoglycemic drugs; Z95.5 Presence of coronary angioplasty implant and graft; Z88.5 Allergy status to narcotic agent; Z88.1 Allergy status to other antibiotic agents; Z87.01 Personal history of pneumonia (recurrent)
CPT/HCPCS: 36600; 71045; 80048; 80053; 80061; 82805; 83036; 83690; 83735; 83880; 84100; 84145; 84484; 85025; 85027; 85610; 87040; 87070; 87205; 90935; 93306; 94002; 94003; 94640; 96374; 96375; 99291

== ENCOUNTER 2020-11-10 10:19 | Day surgery (SDC) | payer MEDICARE ==
[2020-11-05 11:21] VITALS: BMI 29.1
[~2020-11-10 10:19] MED LIST changes: -ACETAMINOPHEN TAB 500 MG TAB PO PRN; +ALPRAZolam 0.25 MG TAB PO PRN; +ALPRAZolam 0.5 MG TAB PO PRN; -HEPARIN SODIUM,PORCINE/PF 5,000 UNIT/0.5 ML SYRINGE SQ PRN; -LACTATED RINGERS 1,000 ML IV SCH; -LIDOCAINE 1% (10MG/ML) FOR IV START INTRADERMA PRN; +NITROGLYCERIN SL TABS 0.4 MG TAB SUBLINGUAL PRN; -ONDANSETRON 4 MG/2 ML VIAL IVP ONE; +SODIUM CHLORIDE 0.9% 1,000 ML in EMPTY BAG 1 BAG IV ONE; -fentaNYL (PF) 50 MCG/ML 2 ML AMP IV PRN
[2020-11-10] MEDS ORDERED: ASPIRIN 81 MG ONE (10:40)
[2020-11-10 10:44] VITALS: RESP 18; TEMP 98.4
[2020-11-10 10:49] LABS: Glucose,Whole Blood 72 mg/dL (75-99)
[2020-11-10 10:52] LABS: Anisocytosis Slight; Basophils # (A) 0.1 k/uL (0-0.2); Basophils % (A) 1 %; Eosinophils # (A) 0.2 k/uL (0-0.7); Eosinophils % (A) 3 %; HCT 37.1 % (39.0-53.0); HGB 12.5 gm/dL (13.0-17.5); Lymphocytes # (A) 1.3 k/uL (1.0-4.8); Lymphocytes % (A) 19 %; MCH 30.8 pg (25.0-35.0); MCHC 33.7 g/dL (31.0-37.0); MCV 91.4 fL (80.0-100.0); Mean Platelet Volume 8.9; Monocytes # (A) 0.4 k/uL (0-1.0); Monocytes % (A) 6 %; Neutrophils # (A) 4.9 k/uL (1.3-7.7); Neutrophils % (A) 68 %; Platelet Count 147 k/uL (150-450); RBC 4.06 m/uL (4.30-5.90); RDW 18.7 % (11.5-15.5); WBC 7.1 k/uL (3.8-10.6)
[2020-11-10 11:25] LABS: Calcium 9.7 mg/dL (8.4-10.2); Potassium 4.4 mmol/L (3.5-5.1)
[2020-11-10] MEDS ORDERED: HEPARIN SODIUM 1,000 UN/ML (10ML VL) ONE (12:28)
[2020-11-10] MEDS ORDERED: VERAPAMIL 2.5 MG/ML 2 ML AMP ONE (12:28)
[2020-11-10] MEDS ORDERED: fentaNYL (PF) 50 MCG/ML 2 ML AMP ONE (12:28)
[2020-11-10] MEDS ORDERED: LIDOCAINE 1% INJ 10MG/ML (20 ML MDV) ONE (12:29)
[2020-11-10] MEDS ORDERED: MIDAZOLAM 2 MG/2 ML VIAL IV ONE (12:51)
[2020-11-10] MEDS ORDERED: fentaNYL (PF) 50 MCG/ML 2 ML AMP IV ONE (12:51)
[2020-11-10] MEDS ORDERED: LIDOCAINE 1% INJ 10MG/ML (20 ML MDV) SQ ONE (12:55)
[2020-11-10] MEDS ORDERED: VERAPAMIL SYRINGE (5 MG/10 ML) INTRAARTER ONE (12:57)
[2020-11-10] MEDS ORDERED: HEPARIN SODIUM 1,000 UN/ML (10ML VL) IV ONE (12:59)
[2020-11-10] MEDS ORDERED: IOPAMIDOL-370 125ML BTL INJ ONE (13:31)
[2020-11-10 16:31] VITALS: BP 164/85
[2020-11-10 17:09] VITALS: PULSE 74
--- NOTE | 2020-11-10 20:35 | P.CARDCATH ---
Description of Procedure: PROCEDURES PERFORMED: Left heart catheterization, bilateral coronary angiography INDICATION: Cardiomyopathy, CAD, preoperative evaluation HISTORY: Patient is a pleasant 70 year old male with history of HTN, CAD, ischemic cardiomyopathy, ESRD previously on PD recently on HD. He had previous hospitalization for heart failure and was found to have worsened EF 30-35% and heart failure symptoms. He has increased diuresis and has felt better however is not able to do much activity. He is able to walk up a flight of stairs now without any angina or dyspnea, improved since diuresis. Given cardiomyopathy, history of CAD and need for future AV fistula surgery for HD, heart catheterization was recommended. CONSENT:I have discussed the risks, benefits and alternative therapies for the above-mentioned procedure and for both sedation/analgesia as well as necessary blood product administration, if indicated, as they pertain to this patient. The patient has indicated understanding and acceptance of the risks and procedures discussed. PROCEDURE: After the risks, benefits and alternatives of the above mentioned procedure explained in detail with the patient, informed consent was obtained. Patient was taken to the catheterization lab and prepped and draped in usual fashion. 1% lidocaine was used to anesthetize the right radial artery. A 6- Grenadian sheath was placed in the right radial artery using modified Seldinger technique. Left coronary angiography was performed with a 5-Grenadian JL 3.5 catheter and right coronary angiography was performed with a 6-Grenadian AR2 catheter in various views. A 5-Grenadian FR5 catheter was inserted into the left ventricle and pressure measurements were obtained. The right radial sheath was removed and a TR band was placed with hemostasis achieved. The patient tolerated the procedure well. Patient was transported back to the post catheterization holding area in stable condition. Conscious Sedation: Patient was monitored under the direct supervision of vision of myself for conscious sedation using Versed and fentanyl for a total duration of 38 minutes HEMODYNAMICS: Ao: 143/76 LV: 141/3, LVEDP 17mmHg SELECTIVE CORONARY ARTERIOGRAPHY: LEFT MAIN: The left main is a large caliber vessel which bifurcates into the LAD and circumflex. There is no significant stenosis. LEFT ANTERIOR DESCENDING CORONARY ARTERY: LAD is a large caliber vessel which wraps around to the apex. There is diffuse proximal calcified 40-50% stenosis, followed by a proximal to mid LAD stent which has mild 20-30% instent stenosis. Diagonal 1 has 60-70% "pinching" at the ostium where the mid LAD stent has been placed. Diagonal 2 is moderate caliber and has 30% stenosis. The mid to distal LAD after diagonal 2 has a tandem 60-70% stenosis. There are extensive left to right collaterals. LEFT CIRCUMFLEX CORONARY ARTERY: Left circumflex is a moderate caliber vessel. There is a ostial circumflex 40-50% stenosis and has an approximately 130 degree takeoff. There is heavy mid circumflex calcification with 20-30% diffuse stenosis. There is a more focal mid to distal circumflex 70-80% stenosis which gives off 2 small caliber OM branches and has left to right collaterals. RIGHT CORONARY ARTERY: The right coronary artery is a large caliber vessel which gives off a PDA and PLV branch and is the dominant vessel. There is 100% stenosis just after the conus takeoff and appears to be an approximately 10-15mm BARK FITTER and then is a large caliber vessel in the mid with competitive flow to the mid RCA. There is diffuse calcification of the mid RCA and what appears to be prior stenting of the mid to distal RCA. FINAL IMPRESSION: 1. CAD as described above with 40-50% proximal LAD, 60-70% mid to distal LAD, 70-80% mid to distal circumflex, 100% RCA stenosis with left to right collaterals. 2. Mildly elevated left sided filling pressures PLAN: 1. Aggressive risk factor modification per most recent ACC/AHA guidelines. 2. Patient was having more heart failure symptoms and angiography does not reveal any critical lesions with short BARK FITTER segment which is well collateralized. Given need for AV fistula placement discussed case with vascular surgeon who discussed ability to place AV fistula without deep sedation and without general anesthesia. Patient now able to do 4 Mets of activity without dyspnea and majority of symptoms appear related to heart failure. Therefore no intervention at this point to allow for needed surgery and then may consider PCI BARK FITTER RCA or circumflex or LAD if continues to have heart failure or angina type symptoms. 3. Follow-up in the office in 1-2 weeks.
== END 2020-11-10 17:08 | disposition home or self-care (01) ==
LOC: CATHCVL 10:19
PROVIDERS: ATTEND Internal Medicine
DX: I25.10 Atherosclerotic heart disease of native coronary artery without angina pectoris (principal); I42.9 Cardiomyopathy, unspecified
CPT/HCPCS: 93458; 80048; 85025; 87635; C1894; J2250; J2001; J3010; J1644; Q9967

== ENCOUNTER 2021-02-03 11:09 | Day surgery (SDC) | payer MEDICARE ==
[2021-02-01 09:37] VITALS: BMI 28.8
[~2021-02-03 11:09] MED LIST changes: -ALPRAZolam 0.25 MG TAB PO PRN; -ALPRAZolam 0.5 MG TAB PO PRN; +DEXAMETHASONE SOD PHOSPHATE 4 MG/ML 1 ML VIAL IV ONE; +LACTATED RINGERS 1,000 ML IV SCH; +LIDOCAINE 1% (10MG/ML) FOR IV START INTRADERMA PRN; +MORPHINE SULFATE 2 MG/ML SYRINGE IV PRN; -NITROGLYCERIN SL TABS 0.4 MG TAB SUBLINGUAL PRN; +ONDANSETRON 4 MG/2 ML VIAL IVP PRN; -SODIUM CHLORIDE 0.9% 1,000 ML in EMPTY BAG 1 BAG IV ONE
[2021-02-03 11:32] VITALS: TEMP 97.6
[2021-02-03 11:43] LABS: Glucose,Whole Blood 114 mg/dL (75-99)
[2021-02-03] MEDS ORDERED: SODIUM CHLORIDE 0.9% 1,000 ML IV ONE (11:46)
[2021-02-03] MEDS ORDERED: MIDAZOLAM 2 MG/2 ML VIAL IVP ONE (11:54)
--- NOTE | 2021-02-03 13:02 | P.HPIHPCON ---
History of Present Illness H&P Date: 02/03/21 Arian is a 70-year-old male with end-stage renal disease currently getting dialysis via a right chest wall catheter who has been evaluated for creation of a fistula. His left upper extremity ultrasound initially showed a marginal size distal forearm cephalic vein at 2.0 mm with an antecubital of 3.2 mm. Given these findings he was initially boarded for a left brachial cephalic vein AV fistula. My evaluation currently at the bedside after a block, his distal forearm cephalic vein is very plump and of appropriate size visualize all the way through his forearm. Given these findings and the appropriate further sizing of the vessel in the more proximal arm we will plan to create a radioceph alic fistula in his left arm. This was discussed with he and his at the bedside they seemingly understand and are willing to proceed as such Consent for Procedure: I have explained the operation/procedure to the patient, including the risks, benefits, side effects, alternative therapies (including not receiving the proposed treatment or service), the likelihood of the patient achieving his/her goals, and potential recuperation problems for the procedure/sedation/analgesia, as well as any blood products, if indicated. I also explained to the patient the risks, benefits and side effects of the alternatives, as well as the risks related to not receiving the proposed procedure, care, treatment, or services. Past Medical History Past Medical History: Coronary Artery Disease (CAD), Chest Pain / Angina, Diabetes Mellitus, Hypertension, Myocardial Infarction ([place]), Pneumonia, Prostate Disorder, Renal Disease, Vascular Disorder Additional Past Medical History / Comment(s): Chronic renal failure, anemia, cervical injury r/t football with chronic cervical pain.HEMODYALSIS TUES,THURS AND SAT Last Myocardial Infarction Date:: 2007 History of Any Multi-Drug Resistant Organisms: None Reported Past Surgical History: Heart Catheterization With Stent, Tonsillectomy Additional Past Surgical History / Comment(s): Peritoneal Dialysis catheter placed, AND REMOVED HEART CATH -stents X3. Left leg Arthrectomy X2. Getting hemo dialysis at this time. Past Anesthesia/Blood Transfusion Reactions: No Reported Reaction, Motion Sickness Additional Past Anesthesia/Blood Transfusion Reaction / Comment(s): "Dizzy sometimes when wakes up from anesthesia". Date of Last Stent Placement:: 01/2008 Smoking Status: Former smoker - Past Family History Mother Family Medical History: Cancer Additional Family Medical History / Comment(s): Colon cancer. Father Family Medical History: Myocardial Infarction ([place]), Pulmonary Embolus Additional Family Medical History / Comment(s): Father had several MIs and of one at the age of 69yrs. Medications and Allergies Home Medications Medication Instructions Recorded Confirmed Type Carvedilol [Coreg] 25 mg PO BID 12/01/16 02/01/21 History Isosorbide Mononitrate ER [Imdur] 30 - 60 mg PO BID 12/01/16 02/01/21 History Tamsulosin [Flomax] 0.4 mg PO DAILY 07/30/20 02/01/21 History Renaplex-D 1 tab PO Q48H 10/06/20 02/01/21 History Glimepiride [Amaryl] 2 mg PO BID 11/05/20 02/01/21 History Vit B Complx C/Folic Acid/Zinc 1 each PO TUTHSA 11/05/20 02/01/21 History [Renaplex Tablet] Zinc Oxide/Herbal No.303 [Livetrol 15 mg PO Q48H 11/05/20 02/01/21 History Capsule] hydrALAZINE HCL [Apresoline] 50 mg PO BID 11/05/20 02/01/21 History Allergies Allergy/AdvReac Type Severity Reaction Status Date / Time ciprofloxacin [From Cipro] Allergy Unknown Verified 02/01/21 09:10 ezetimibe [From Zetia] Allergy Swelling Verified 02/01/21 09:10 naproxen [From Naprosyn] Allergy Swelling Verified 02/01/21 09:10 IN FEET nifedipine [From Procardia] Allergy Unknown Verified 02/01/21 09:10 Ycuneco-VLI-EfD Reductase Allergy Unknown Verified 02/01/21 09:10 Inhibitor [Vsioaik-Vwg-Wkg Reductase Inhibitor] Surgical - Exam Vital Signs Temp Pulse Resp BP Pulse Ox 97.6 F 66 18 194/87 99 02/03/21 11:31 02/03/21 11:31 02/03/21 11:31 02/03/21 11:31 02/03/21 11:31 Gen. is a pleasant and cooperative male in no acute distress. Heart is regular. Lungs are clear bilaterally. Abdomen soft, nontender nondistended. Right chest wall catheter intact. Left upper extremity clean and dry. Palpable radial pulse. Adequate appearing cephalic vein visually Results - Labs Abnormal Lab Results - Last 24 Hours (Table) 02/03/21 Range/Units 11:40 POC Glucose (mg/dL) 114 H (75-99) mg/dL Assessment and Plan Assessment: End-stage renal disease Plan: Plan for left upper extremity radiocephalic fistula under regional with sedation. All questions are answered. Patient seemingly understands and willing to proceed as such
[2021-02-03] MEDS ORDERED: PROPOFOL 10 MG/ML 20 ML VIAL IV ONE (13:05)
[2021-02-03] MEDS ORDERED: ROPIVACAINE 5 MG/ML 30 ML VIAL ONE (13:05)
[2021-02-03] MEDS ORDERED: .fentaNYL (PF) 50 MCG/ML 2 ML AMP ONE (13:05)
[2021-02-03] MEDS ORDERED: MIDAZOLAM 2 MG/2 ML VIAL ONE (13:05)
[2021-02-03] MEDS ORDERED: HEPARIN SODIUM,PORCINE 5,000 UNIT/ML 1 ML VIAL ONE (13:05)
[2021-02-03] MEDS ORDERED: BUPIVACAINE (PF) 0.5% 30 ML VIAL SQ ONE (13:36)
[2021-02-03] MEDS ORDERED: THROMBIN (BOVINE) 5,000 UNIT VIAL TOPICAL ONE (13:37)
[2021-02-03] MEDS ORDERED: GELATIN SPONGE,ABSORB (LARGE) 1 EACH SPONGE MISCELLANE ONE (13:37)
--- NOTE | 2021-02-03 14:52 | P.OP ---
Date of Procedure: 02/03/21 Description of Procedure: Preoperative diagnosis: End-stage renal disease Postoperative diagnosis: Same Procedure: Left upper extremity radiocephalic fistula creation Surgeon: Anika David D.O. Asst.: Pamella Mercado EBL: 15 mL IV fluids: See records Urine output: Not measured Drains: None Complications: None immediately apparent Condition: Stable to recovery Operative indication and findings: Patient is a 70-year-old male with end-stage renal disease and dialysis via chest wall catheter. Initial preoperative mapping showed a slightly smaller size cephalic vein in the wrist however at the visualized portion today after the block it was very plump inadequate to the entire arm therefore was decided to undergo a radiocephalic fistula. Risks and benefits were discussed. He seemingly understood and were willing to proceed. Procedure in detail: [The patient was taken to the operative suite and placed in supine position. The left upper extremity is prepped and draped in usual sterile fashion. A preprocedure timeout was performed, all parties were in agreement. At a point between the radial artery and the cephalic vein incision was made. Is carried down through the subcutaneous tissue to the level of the radial artery. The radial artery was identified and encircled proximally and distally with vessel loops. Attention was then turned towards the cephalic vein. Blunt dissection was performed to the level of cephalic vein. It was dissected free for a certain length and subsequently ligated distally. It was then dilated and flushed with heparinized saline and it was marked. Heparin was given. Flow was occluded through the radial artery. An arteriotomy was performed. The anastomosis was created using 7-0 Prolene. Prior to completion anastomosis the vein was allowed to back bleed as well as the artery. The anastomosis was then completed. Inflow was flushed and then through the fistula prior to releasing flow to the rest of the hand. There is multiphasic signal proximally and distally to the anastomosis and through the fistula. There was adequate thrill throughout the mid arm. The area was then copiously irrigated. Hemostasis was achieved with electrocautery and thrombin and Gelfoam. The deep dermal sutures of 3-0 Vicryl were used to approximate followed by running 4-0 Monocryl in subcu tissue and fashion. The patient was taken back to recovery in stable condition having tolerated the procedure well. Plan - Discharge Summary Discharge Rx Participant: Yes New Discharge Prescriptions: No Action Isosorbide Mononitrate ER [Imdur] 30 - 60 mg PO BID Carvedilol [Coreg] 25 mg PO BID Renaplex-D 1 tab PO Q48H Vit B Complx C/Folic Acid/Zinc [Renaplex Tablet] 1 each PO TUTHSA hydrALAZINE HCL [Apresoline] 50 mg PO BID Glimepiride [Amaryl] 2 mg PO BID Tamsulosin [Flomax] 0.4 mg PO DAILY Zinc Oxide/Herbal No.303 [Livetrol Capsule] 15 mg PO Q48H Discharge Medication List Carvedilol [Coreg] 25 mg PO BID 12/01/16 [History] Isosorbide Mononitrate ER [Imdur] 30 - 60 mg PO BID 12/01/16 [History] Tamsulosin [Flomax] 0.4 mg PO DAILY 07/30/20 [History] Renaplex-D 1 tab PO Q48H 10/06/20 [History] Glimepiride [Amaryl] 2 mg PO BID 11/05/20 [History] Vit B Complx C/Folic Acid/Zinc [Renaplex Tablet] 1 each PO TUTHSA 11/05/20 [History] Zinc Oxide/Herbal No.303 [Livetrol Capsule] 15 mg PO Q48H 11/05/20 [History] hydrALAZINE HCL [Apresoline] 50 mg PO BID 11/05/20 [History] Follow up Appointment(s)/Referral(s): Anika David DO [STAFF PHYSICIAN] - 1 Week Activity/Diet/Wound Care/Special Instructions: May shower starting tomorrow. Resume home medications. Iife-qay-[id number] medications for pain control. No heavy lifting or driving for 48 hours. Otherwise may resume regular activity Discharge Disposition: HOME SELF-CARE
[2021-02-03 15:30] VITALS: BP 166/81; PULSE 75; RESP 16
--- NOTE | 2021-02-03 18:47 | P.ANPRN ---
Procedure Note - Anesthesia - Nerve Block Performed Left Supraclavicular Single Time Out Performed: Yes Date of Procedure: 02/03/21 Procedure Start Time: 11:54 Procedure Stop Time: 12:00 Location of Patient: PreOp Indication: Acute Post-Operative Pain, Requested by Surgeon Sedation Type: Sedate with meaningful contact maintained Preparation: Sterile Prep Position: Supine Needle Types: Pajunk Needle Gauge: 21 Ultrasound used to visualize needle placement: Yes Ultrasound used to observe medication spread: Yes Blood Aspirated: No Pain Paresthesia on Injection Noted: No Resistance on Injection: Normal Image Stored and Saved: Yes Events: Uneventful and Well Tolerated (ropi .5% 20cc)
== END 2021-02-03 15:53 | disposition home or self-care (01) ==
LOC: OR 11:09 → EDSTATUS 12:10 → OR 15:53
PROVIDERS: ATTEND Surgery
DX: N18.6 End stage renal disease (principal); I25.119 Atherosclerotic heart disease of native coronary artery with unspecified angina pectoris; I12.9 Hypertensive chronic kidney disease with stage 1 through stage 4 chronic kidney disease, or unspecified chronic kidney disease; E11.22 Type 2 diabetes mellitus with diabetic chronic kidney disease; N18.9 Chronic kidney disease, unspecified; D63.1 Anemia in chronic kidney disease; N42.9 Disorder of prostate, unspecified; I25.2 Old myocardial infarction; Z99.2 Dependence on renal dialysis; Z98.890 Other specified postprocedural states; Z87.891 Personal history of nicotine dependence; Z97.2 Presence of dental prosthetic device (complete) (partial); Z80.0 Family history of malignant neoplasm of digestive organs; Z82.49 Family history of ischemic heart disease and other diseases of the circulatory system; Z79.84 Long term (current) use of oral hypoglycemic drugs; Z79.899 Other long term (current) drug therapy; Z88.1 Allergy status to other antibiotic agents; Z88.8 Allergy status to other drugs, medicaments and biological substances
CPT/HCPCS: 36821; 64415; 76942; J2250; J1644; J1100; J0690; J2405; J3010; J2795; J2704

== ENCOUNTER 2021-07-06 10:25 | Day surgery (SDC) | payer MEDICARE ==
[2021-07-05 14:09] VITALS: BMI 29.3
[2021-07-06] MEDS ORDERED: SODIUM CHLORIDE 0.9% 500 ML 500 ML IV SCH (11:00)
[2021-07-06 11:20] LABS: Glucose,Whole Blood 128 mg/dL (75-99)
[2021-07-06 11:29] VITALS: RESP 16; TEMP 98.1
[2021-07-06 11:33] LABS: Basophils # (A) 0.1 k/uL (0-0.2); Basophils % (A) 1 %; Eosinophils # (A) 0.2 k/uL (0-0.7); Eosinophils % (A) 2 %; HCT 36.2 % (39.0-53.0); HGB 12.1 gm/dL (13.0-17.5); Lymphocytes # (A) 2.3 k/uL (1.0-4.8); Lymphocytes % (A) 25 %; MCH 34.4 pg (25.0-35.0); MCHC 33.5 g/dL (31.0-37.0); MCV 102.8 fL (80.0-100.0); Macrocytosis Slight; Mean Platelet Volume 9.3; Monocytes # (A) 0.5 k/uL (0-1.0); Monocytes % (A) 6 %; Neutrophils # (A) 5.8 k/uL (1.3-7.7); Neutrophils % (A) 63 %; Platelet Count 165 k/uL (150-450); RBC 3.52 m/uL (4.30-5.90); RDW 15.8 % (11.5-15.5); WBC 9.2 k/uL (3.8-10.6)
[2021-07-06 11:38] LABS: Calcium 9.6 mg/dL (8.4-10.2); Potassium 4.5 mmol/L (3.5-5.1)
--- NOTE | 2021-07-06 13:17 | P.HPIHPCON ---
History of Present Illness H&P Date: 07/06/21 Arian is a 70-year-old male with end-stage renal disease getting dialysis via a right internal jugular tunneled catheter. He had a left radiocephalic fistula created. Multiple attempts have been made to try to axis this however there are issues with that in the size of the vessel proximally is small. Given these findings he was offered a fistulogram with possible intervention. Consent for Procedure: I have explained the operation/procedure to the patient, including the risks, benefits, side effects, alternative therapies (including not receiving the proposed treatment or service), the likelihood of the patient achieving his/her goals, and potential recuperation problems for the procedure/sedation/analgesia, as well as any blood products, if indicated. I also explained to the patient the risks, benefits and side effects of the alternatives, as well as the risks related to not receiving the proposed procedure, care, treatment, or services. Past Medical History Past Medical History: Coronary Artery Disease (CAD), Chest Pain / Angina, Diabetes Mellitus, Dialysis, Hypertension, Myocardial Infarction ([place]), Renal Disease, Vascular Disorder Additional Past Medical History / Comment(s): Chronic renal failure, anemia, hx cervical injury r/t football injury with cervical pain. hemodialysis on , AND SUN , hx migraines, Last Myocardial Infarction Date:: 2007 History of Any Multi-Drug Resistant Organisms: None Reported Past Surgical History: Heart Catheterization With Stent, Tonsillectomy Additional Past Surgical History / Comment(s): Peritoneal Dialysis catheter placed/later removed, cardiac stents X3. Left leg Arthrectomy X2. rt side of neck for hemodialysis, fistula in left arm(not working), isadora cataracts Past Anesthesia/Blood Transfusion Reactions: Previous Problems w/ Anesthesia, Motion Sickness Additional Past Anesthesia/Blood Transfusion Reaction / Comment(s): "Dizzy sometimes when wakes up from anesthesia". Date of Last Stent Placement:: 01/2008 Smoking Status: Former smoker - Past Family History Mother Family Medical History: Cancer Additional Family Medical History / Comment(s): Colon cancer. Father Family Medical History: Myocardial Infarction ([place]), Pulmonary Embolus Additional Family Medical History / Comment(s): Father had several MIs and of one at the age of 69yrs. Medications and Allergies Home Medications Medication Instructions Recorded Confirmed Type Carvedilol [Coreg] 25 mg PO BID PRN 12/01/16 07/06/21 History Isosorbide Mononitrate ER [Imdur] 30 mg PO BID PRN 12/01/16 07/05/21 History Tamsulosin [Flomax] 0.4 mg PO DAILY 07/30/20 07/06/21 History Glimepiride [Amaryl] 2 mg PO BID 11/05/20 07/06/21 History Vit B Complx C/Folic Acid/Zinc 1 each PO TUTHSA 11/05/20 07/06/21 History [Renaplex Tablet] Vitamin E(Dose Unknown) 1 tab PO DAILY 07/05/21 07/06/21 History Allergies Allergy/AdvReac Type Severity Reaction Status Date / Time ciprofloxacin [From Cipro] Allergy Unknown Verified 07/05/21 13:56 ezetimibe [From Zetia] Allergy Swelling Verified 07/05/21 13:56 naproxen [From Naprosyn] Allergy Swelling Verified 07/05/21 13:56 IN FEET nifedipine [From Procardia] Allergy Unknown Verified 07/05/21 13:56 Pdxomqn-MIN-KnL Reductase Allergy Unknown Verified 07/05/21 13:56 Inhibitor [Shhapms-Knr-Ycy Reductase Inhibitor] Surgical - Exam Vital Signs Temp Pulse Resp BP Pulse Ox 98.1 F 88 16 143/65 98 07/06/21 11:27 07/06/21 11:27 07/06/21 11:27 07/06/21 11:27 07/06/21 11:27 Genitals a pleasant cooperative male in no acute distress. H ENT is normal cephalic. Artery appears regular. Lungs are clear. Abdomen soft. Left upper extremity radiocephalic fistula with a good palpable thrill proximally, diminished flow distally, possible large branching. Results - Labs 07/06/21 11:05 07/06/21 11:05 Abnormal Lab Results - Last 24 Hours (Table) 07/06/21 07/06/21 07/06/21 Range/Units 11:05 11:05 11:05 RBC 3.52 L (4.30-5.90) m/uL Hgb 12.1 L (13.0-17.5) gm/dL Hct 36.2 L (39.0-53.0) % MCV 102.8 H (80.0-100.0) fL RDW 15.8 H (11.5-15.5) % Chloride 96 L (98-107) mmol/L BUN 40 H (9-20) mg/dL Creatinine 6.15 H (0.66-1.25) mg/dL Glucose 127 H (74-99) mg/dL POC Glucose (mg/dL) 128 H (75-99) mg/dL Diabetes panel 07/06/21 Range/Units 11:05 Sodium 137 (137-145) mmol/L Potassium 4.5 (3.5-5.1) mmol/L Chloride 96 L (98-107) mmol/L Carbon Dioxide 27 (22-30) mmol/L BUN 40 H (9-20) mg/dL Creatinine 6.15 H (0.66-1.25) mg/dL Glucose 127 H (74-99) mg/dL Calcium 9.6 (8.4-10.2) mg/dL Calcium panel 07/06/21 Range/Units 11:05 Calcium 9.6 (8.4-10.2) mg/dL Pituitary panel 07/06/21 Range/Units 11:05 Sodium 137 (137-145) mmol/L Potassium 4.5 (3.5-5.1) mmol/L Chloride 96 L (98-107) mmol/L Carbon Dioxide 27 (22-30) mmol/L BUN 40 H (9-20) mg/dL Creatinine 6.15 H (0.66-1.25) mg/dL Glucose 127 H (74-99) mg/dL Calcium 9.6 (8.4-10.2) mg/dL Adrenal panel 07/06/21 Range/Units 11:05 Sodium 137 (137-145) mmol/L Potassium 4.5 (3.5-5.1) mmol/L Chloride 96 L (98-107) mmol/L Carbon Dioxide 27 (22-30) mmol/L BUN 40 H (9-20) mg/dL Creatinine 6.15 H (0.66-1.25) mg/dL Glucose 127 H (74-99) mg/dL Calcium 9.6 (8.4-10.2) mg/dL Assessment and Plan Assessment: End-stage renal disease, non-maturing fistula fistula Plan: Plan today to go forward with fistulogram. Wrist and benefits were discussed. They seemingly understand and are willing to proceed. May possibly need OR for branch ligation if deemed necessary.
[2021-07-06] MEDS ORDERED: fentaNYL (PF) 50 MCG/ML 2 ML AMP ONE (14:10)
[2021-07-06] MEDS ORDERED: fentaNYL (PF) 50 MCG/ML 2 ML AMP IV ONE (14:18)
[2021-07-06] MEDS ORDERED: MIDAZOLAM 2 MG/2 ML VIAL IV ONE (14:18)
[2021-07-06] MEDS ORDERED: LIDOCAINE 1% PF 10 MG/ML (5 ML AMP) SQ ONE (14:19)
--- NOTE | 2021-07-06 15:36 | P.OP ---
Date of Procedure: 07/06/21 Description of Procedure: Preoperative diagnosis: End-stage renal disease, difficulty with dialysis access Postoperative diagnosis: Same Procedure: [Ultrasound-guided left cephalic vein access Left upper extremity fistula gram 20 minutes moderate conscious sedation] Surgeon: Anika David D.O. EBL: [Less than 5 mL] IV fluids: [See records] Urine output: [Not measured] Drains: [None] Complications: [None immediately apparent] Condition: [Stable to recovery] Operative indication and findings: The patient is a 70-year-old male with end- stage renal disease is currently been getting dialysis via a tunneled right internal jugular catheter. He had creation of a left radiocephalic fistula. At that time multiple attempts were to use however there seems to be some difficulty with continuing access per the dialysis center. There is some area with size not being greater than 6 mm and for this plans to go forward with a fistula gram. Wrist and benefits were discussed.[] Procedure in detail: [Patient was taken to the specials and placed in supine position. Left upper extremity was prepped and draped in usual sterile fashion. A preprocedure timeout was performed, all parties are in agreement. Using ultrasound cephalic vein was identified. The skin overlying was anesthetized 1% lidocaine plain. Seldinger technique was used to place a 4-Ukrainian micro-access sheath. An angiogram was performed. The cephalic vein branched into 2 vessels at the mid forearm and then rejoined at the level of the upper arm. Visualized portions of the venous system more distally showed no areas of obvious stenosis. The perforating vein was identified as well. Multiple venograms were performed with compression at the medial and lateral segments of the cephalic vein both of which appeared to show adequate flow. Again the continuation of the perforating vein was identified. Compression was then held at the level of the sheath in a retrograde image was performed. It is appear to be some area of non-maturation of the proximal vein itself. There is no evidence of obvious stenosis, just a smaller appearing vein. At this point the sheath was removed and pressure was held until hemostasis was adequate. 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 at that time would likely consider a balloon angioplasty of the inflow if there continues to be visualization of no improvement maturation.] Plan - Discharge Summary Discharge Rx Participant: No New Discharge Prescriptions: No Action Isosorbide Mononitrate ER [Imdur] 30 mg PO BID PRN PRN Reason: Blood Pressure - High Carvedilol [Coreg] 25 mg PO BID PRN PRN Reason: Blood Pressure - High Vit B Complx C/Folic Acid/Zinc [Renaplex Tablet] 1 each PO TUTHSA Glimepiride [Amaryl] 2 mg PO BID Tamsulosin [Flomax] 0.4 mg PO DAILY Vitamin E(Dose Unknown) 1 tab PO DAILY Discharge Medication List Carvedilol [Coreg] 25 mg PO BID PRN 12/01/16 [History] Isosorbide Mononitrate ER [Imdur] 30 mg PO BID PRN 12/01/16 [History] Tamsulosin [Flomax] 0.4 mg PO DAILY 07/30/20 [History] Glimepiride [Amaryl] 2 mg PO BID 11/05/20 [History] Vit B Complx C/Folic Acid/Zinc [Renaplex Tablet] 1 each PO TUTHSA 11/05/20 [History] Vitamin E(Dose Unknown) 1 tab PO DAILY 07/05/21 [History] Follow up Appointment(s)/Referral(s): Anika David DO [STAFF PHYSICIAN] - 07/20/21 8:45 am Patient Instructions/Handouts: Moderate Sedation (DC), Fistulogram (DC) Activity/Diet/Wound Care/Special Instructions: No driving today due to sedation given. Resume normal activity tomorrow. Ok to use fistula left arm (try smaller needles). Report any difficulty in use @ appt with Dr. David.
--- NOTE | 2021-07-06 15:54 | IR ---
EXAMINATION TYPE: IR fistula/abscess/sinus tract DATE OF EXAM: 07/06/2021 COMPARISON: NONE HISTORY: Fluoroscopy time. Fluoroscopy was provided to the referring clinician.
[2021-07-06 16:35] VITALS: BP 126/59; PULSE 82
== END 2021-07-06 16:00 | disposition home or self-care (01) ==
LOC: CATHCVL 10:25
PROVIDERS: ATTEND Surgery
DX: T82.898A Other specified complication of vascular prosthetic devices, implants and grafts, initial encounter (principal); I25.10 Atherosclerotic heart disease of native coronary artery without angina pectoris; I12.0 Hypertensive chronic kidney disease with stage 5 chronic kidney disease or end stage renal disease; E11.22 Type 2 diabetes mellitus with diabetic chronic kidney disease; N18.6 End stage renal disease; D63.1 Anemia in chronic kidney disease; Z99.2 Dependence on renal dialysis; M54.2 Cervicalgia; Z95.5 Presence of coronary angioplasty implant and graft; Z98.42 Cataract extraction status, left eye; Z98.41 Cataract extraction status, right eye; Z98.890 Other specified postprocedural states; Z87.891 Personal history of nicotine dependence; Z80.0 Family history of malignant neoplasm of digestive organs; Z82.49 Family history of ischemic heart disease and other diseases of the circulatory system; Z79.84 Long term (current) use of oral hypoglycemic drugs; Z79.899 Other long term (current) drug therapy; Z88.6 Allergy status to analgesic agent; Z88.1 Allergy status to other antibiotic agents; Z88.8 Allergy status to other drugs, medicaments and biological substances
CPT/HCPCS: 76080; 76937; 80048; 85025; C1769 ×3; C1894; J2250; J2001; J3010

== ENCOUNTER 2021-08-17 11:04 | Day surgery (SDC) | payer MEDICARE ==
[~2021-08-17 11:04] MED LIST changes: -DEXAMETHASONE SOD PHOSPHATE 4 MG/ML 1 ML VIAL IV ONE; -LACTATED RINGERS 1,000 ML IV SCH; -LIDOCAINE 1% (10MG/ML) FOR IV START INTRADERMA PRN; -MORPHINE SULFATE 2 MG/ML SYRINGE IV PRN; -ONDANSETRON 4 MG/2 ML VIAL IVP PRN; +SODIUM CHLORIDE 0.9% 1,000 ML IV SCH
[2021-08-17 11:53] LABS: Glucose,Whole Blood 99 mg/dL (70-110)
[2021-08-17 11:57] VITALS: RESP 16; TEMP 98.1
[2021-08-17 12:23] LABS: Calcium 9.3 mg/dL (8.4-10.2); Potassium 4.4 mmol/L (3.5-5.1)
[2021-08-17 12:25] LABS: Basophils # (A) 0.1 k/uL (0-0.2); Basophils % (A) 1 %; Eosinophils # (A) 0.2 k/uL (0-0.7); Eosinophils % (A) 1 %; HCT 38.5 % (39.0-53.0); HGB 13.1 gm/dL (13.0-17.5); Lymphocytes # (A) 1.7 k/uL (1.0-4.8); Lymphocytes % (A) 14 %; MCV 99.9 fL (80.0-100.0); Mean Platelet Volume 9.6; Monocytes # (A) 0.7 k/uL (0-1.0); Monocytes % (A) 6 %; Neutrophils # (A) 8.9 k/uL (1.3-7.7); Neutrophils % (A) 75 %; Platelet Count 147 k/uL (150-450); RBC 3.86 m/uL (4.30-5.90); RDW 14.2 % (11.5-15.5); WBC 11.9 k/uL (3.8-10.6)
[2021-08-17] MEDS ORDERED: IV FLUID CONTINUATION 900 ML IV ONE (12:41)
[2021-08-17] MEDS ORDERED: LIDOCAINE 1% INJ 10MG/ML (5 ML VIAL-PF) SQ ONE (12:43)
[2021-08-17] MEDS ORDERED: MIDAZOLAM 2 MG/2 ML VIAL IV ONE (12:44)
[2021-08-17] MEDS ORDERED: fentaNYL (PF) 50 MCG/ML 2 ML AMP IV ONE ×2 (12:44)
[2021-08-17] MEDS ORDERED: IOPAMIDOL-250 100ML BTL INTRAARTER ONE (13:50)
--- NOTE | 2021-08-17 14:16 | P.OP ---
Date of Procedure: 08/17/21 Description of Procedure: Preoperative diagnosis: End-stage renal disease, non-maturing fistula Postoperative diagnosis: Same Procedure: [#1 ultrasound guided left cephalic vein access #2 left upper extremity fistulogram #3 left percutaneous transluminal balloon angioplasty 4 x 20 balloon at the radial arterial anastomosis #4 venous coil embolization with 5, 6, 8 mm 35 coils #5 moderate Sedation time 63 minutes] Surgeon: Anika David D.O. EBL: [Less than 10 mL] IV fluids: [See records] Urine output: [Not measured] Drains: [None] Complications: [None immediately apparent] Condition: [Stable to recovery] Operative indication and findings: [Patient is a 71-year-old male in today for evaluation and follow-up of his left upper extremity radiocephalic fistula that has been having issues with maturing. They have started to try to use it and are tolerating a buttonhole technique however the sizing is not improving. Previous imaging shows large collateral branches are for the patient is here today for a fistulogram and intervention. Risks and benefits were discussed. He seemingly understood] Procedure in detail: [Patient was taken to the special suite and placed in supine position. The left upper extremity prepped and draped in usual sterile fashion. A preprocedure timeout was performed, all parties are in agreement. Using ultrasound, the cephalic vein at the lateral forearm was identified. The skin overlying was anesthetized 1% lidocaine plain. Using a micro-access needle the vein was accessed and using Seldinger technique a 6-Macedonian sheath was placed. Catheters and wires were then used to access the proximal graft in the area of the anastomosis. The fistulogram and performed revealing some degree of narrowing at the anastomosis was smaller appearing vessel at this area. Catheters and wires disease crossed and the radial artery and a confirmation angiogram was performed. A 4 x 20 balloon was insufflated at the level of the anastomosis and shortly thereafter with improvement of the visualized portion of the lumen. The catheter was withdrawn into the vein and serial images were performed elucidating larger branches. The branches were accessed and standard delivery of 035 coils were performed. 3 separate branches were coil embolized the first 2 were branches off the cephalic vein using 5 and 6 mm coil. Last was one of the large outflow branches of the cephalic vein where the vein itself bifurcated and rejoined up in the more proximal arm. This appeared was successfully was a good thrill at the level of the wrist at the conclusion of the procedure. The sheaths were removed and the pressure was held until hemostasis is adequate.] Plan - Discharge Summary Discharge Rx Participant: No New Discharge Prescriptions: No Action Isosorbide Mononitrate ER [Imdur] 30 mg PO BID PRN PRN Reason: BP OVER 150/90 carvediloL [Coreg] 25 mg PO BID PRN PRN Reason: BP OVER 150/90 Vit B Complx C/Folic Acid/Zinc [Renaplex Tablet] 1 each PO TUTHSA Glimepiride [Amaryl] 2 mg PO AC-BID Tamsulosin [Flomax] 0.4 mg PO DAILY Vitamin E [Vitamin E (1000 Iu = 450 MG)] 1 cap PO DAILY Discharge Medication List Isosorbide Mononitrate ER [Imdur] 30 mg PO BID PRN 12/01/16 [History] carvediloL [Coreg] 25 mg PO BID PRN 12/01/16 [History] Tamsulosin [Flomax] 0.4 mg PO DAILY 07/30/20 [History] Glimepiride [Amaryl] 2 mg PO AC-BID 11/05/20 [History] Vit B Complx C/Folic Acid/Zinc [Renaplex Tablet] 1 each PO TUTHSA 11/05/20 [History] Vitamin E [Vitamin E (1000 Iu = 450 MG)] 1 cap PO DAILY 08/16/21 [History] Follow up Appointment(s)/Referral(s): Anika David DO [STAFF PHYSICIAN] - 2 Weeks (August 31 at 9:30am) Activity/Diet/Wound Care/Special Instructions: May be that as previous, do not utilize the fistula for 2 weeks. Utilize tunneled catheter at this time. Follow-up in the office. Resume all home medications. Resume home activity. Discharge Disposition: HOME SELF-CARE
--- NOTE | 2021-08-17 14:18 | IR ---
EXAMINATION TYPE: IR fistula/abscess/sinus tract DATE OF EXAM: 08/17/2021 COMPARISON: NONE HISTORY: Fluoroscopy time. Fluoroscopy was provided to the referring clinician.
[2021-08-17 15:45] VITALS: BP 146/65; PULSE 83
== END 2021-08-17 16:01 | disposition home or self-care (01) ==
LOC: CATHCVL 11:04
PROVIDERS: ATTEND Surgery
DX: T82.898A Other specified complication of vascular prosthetic devices, implants and grafts, initial encounter (principal); N18.6 End stage renal disease; Y84.1 Kidney dialysis as the cause of abnormal reaction of the patient, or of later complication, without mention of misadventure at the time of the procedure; N40.0 Benign prostatic hyperplasia without lower urinary tract symptoms; Z88.6 Allergy status to analgesic agent; Z88.8 Allergy status to other drugs, medicaments and biological substances; Z88.0 Allergy status to penicillin; Z79.899 Other long term (current) drug therapy; Z79.84 Long term (current) use of oral hypoglycemic drugs; F17.200 Nicotine dependence, unspecified, uncomplicated
CPT/HCPCS: 36902; 36909; 36907; 80048; 85025; C1894; C1769 ×4; C1725; J2250; J2001; J3010; Q9966

== ENCOUNTER 2021-09-06 21:02 | Inpatient (IN) | payer MEDICARE ==
[2021-09-06] MEDS ORDERED: NITROGLYCERIN OINT 1 INCH/GM PACKET TOPICAL STA (21:36)
--- NOTE | 2021-09-06 22:02 | ED ---
SOB HPI - General Chief Complaint: Shortness of Breath Stated Complaint: Shortness of Breath Time Seen by Provider: 09/06/21 21:09 Source: patient Mode of arrival: EMS Limitations: no limitations - History of Present Illness Initial Comments: This patient is 71-year-old man who arrives here as a transfer from [facility]. The patient states that today he had been at his dialysis session and then sometime around noon or so he began feeling very short of breath. He reportedly was hypertensive. He became in distress and EMS transported him to [facility]. He was treated with BiPAP and nitroglycerin drip and then was feeling better. Transfer was arranged here with the expectation of admission. Review of the studies from the other facility reveal mild elevation of troponin at 0.040, and a repeat draw approximate 3 hours later that was 0.199. Elevated WBC at 17.4. Potassium noted to be 3.5. BUN 57. Creatinine 6.6. BNP 53190 Complaint: shortness of breath -: hour(s) Severity: mild Quality: other (Chest tightness) Consistency: now resolved Improves With: oxygen Worsens With: lying flat Known History Of: other (Dialysis patient) Associated Symptoms: diaphoresis Treatments Prior to Arrival: oxygen, NIPPV, nitroglycerin - Related Data Home Oxygen Therapy: No Home Medications Medication Instructions Recorded Confirmed Isosorbide Mononitrate ER [Imdur] 30 mg PO DAILY PRN 12/01/16 09/06/21 carvediloL [Coreg] 25 mg PO BID PRN 12/01/16 09/06/21 Tamsulosin [Flomax] 0.4 mg PO DAILY 07/30/20 09/06/21 Glimepiride [Amaryl] 2 mg PO BID-W/MEALS 11/05/20 09/06/21 Acetylcysteine [Nac] 500 mg PO DAILY 09/06/21 09/06/21 Cod Liver Oil 1 cap PO DAILY 09/06/21 09/06/21 Isosorbide Mononitrate ER [Imdur] 60 mg PO BID PRN 09/06/21 09/06/21 Lidocaine-Prilocaine Cream [Emla 1 applic TOPICAL TUTHSA PRN 09/06/21 09/06/21 Cream 2.5%/2.5%] Multivitamins, Thera [Multivitamin 1 tab PO DAILY 09/06/21 09/06/21 (formulary)] Renaplex-D 1 tab PO TUTHSA 09/06/21 09/06/21 Vitamin E 400 unit PO DAILY 09/06/21 09/06/21 clindamycin HCL [Cleocin] 300 mg PO TID 09/06/21 09/06/21 hydrALAZINE HCL [Apresoline] 25 mg PO TID PRN 09/06/21 09/06/21 hydrALAZINE HCL [Apresoline] 50 mg PO QID PRN 09/06/21 09/06/21 Allergies Allergy/AdvReac Type Severity Reaction Status Date / Time ciprofloxacin [From Cipro] Allergy Unknown Verified 09/06/21 23:39 ezetimibe [From Zetia] Allergy Swelling Verified 09/06/21 23:39 naproxen [From Naprosyn] Allergy Swelling Verified 09/06/21 23:39 IN FEET nifedipine [From Procardia] Allergy Unknown Verified 09/06/21 23:39 Srfprgk-KAT-KxS Reductase Allergy Unknown Verified 09/06/21 23:39 Inhibitor [Mtwltus-Ptp-Mon Reductase Inhibitor] Review of Systems ROS Statement: Those systems with pertinent positive or pertinent negative responses have been documented in the HPI. ROS Other: All systems not noted in ROS Statement are negative. Constitutional: Denies: fever, chills Respiratory: Reports: dyspnea. Denies: cough, wheezes Cardiovascular: Denies: chest pain, palpitations, edema Gastrointestinal: Denies: abdominal pain, nausea, vomiting Genitourinary: Denies: dysuria, hematuria Musculoskeletal: Denies: back pain Skin: Denies: rash Neurological: Denies: headache, weakness, numbness Past Medical History Past Medical History: Coronary Artery Disease (CAD), Chest Pain / Angina, Diabetes Mellitus, Dialysis, Hypertension, Myocardial Infarction ([place]), Renal Disease, Vascular Disorder Additional Past Medical History / Comment(s): Chronic renal failure: Hemodialysis on , AND SUN. Anemia. hx cervical injury r/t football injury with cervical pain. migraines. Last Myocardial Infarction Date:: 2007 History of Any Multi-Drug Resistant Organisms: None Reported Past Surgical History: Heart Catheterization With Stent, Tonsillectomy Additional Past Surgical History / Comment(s): HAS FISTULA FOR HEMO DIALYSIS. Peritoneal Dialysis catheter placed/later removed, cardiac stents X3. Left leg Arthrectomy X2. rt side of neck for hemodialysis, fistula in left arm(not working). Roc cataracts WITH LENS Past Anesthesia/Blood Transfusion Reactions: Previous Problems w/ Anesthesia, Motion Sickness Additional Past Anesthesia/Blood Transfusion Reaction / Comment(s): "Dizzy sometimes when wakes up from anesthesia". Date of Last Stent Placement:: 01/2008 Past Psychological History: No Psychological Hx Reported Smoking Status: Former smoker Past Alcohol Use History: None Reported Past Drug Use History: None Reported - Past Family History Mother Family Medical History: Cancer Additional Family Medical History / Comment(s): Colon cancer. Father Family Medical History: Myocardial Infarction ([place]), Pulmonary Embolus Additional Family Medical History / Comment(s): Father had several MIs and of one at the age of 69yrs. General Exam Limitations: no limitations General appearance: alert, in no apparent distress Head exam: Present: atraumatic, normocephalic Eye exam: Present: normal appearance. Absent: scleral icterus, conjunctival injection Neck exam: Present: normal inspection Respiratory exam: Present: normal lung sounds bilaterally. Absent: respiratory distress, wheezes, rales, rhonchi, stridor Cardiovascular Exam: Present: regular rate, normal rhythm, normal heart sounds. Absent: systolic murmur, diastolic murmur, rubs, gallop GI/Abdominal exam: Present: soft. Absent: distended, tenderness, guarding, rebound, rigid, mass Extremities exam: Present: normal inspection, normal capillary refill. Absent: pedal edema, calf tenderness Back exam: Present: normal inspection. Absent: CVA tenderness (R), CVA tenderness (L) Neurological exam: Present: alert Skin exam: Present: warm, dry, intact, normal color. Absent: rash Course Vital Signs 09/06/21 09/06/21 21:21 23:06 Temperature 97.6 F Pulse Rate 81 84 Respiratory 24 26 H Rate Blood Pressure 140/82 135/80 O2 Sat by Pulse 100 96 Oximetry Medical Decision Making - Lab Data Result diagrams: 09/06/21 22:50 09/06/21 22:50 Lab Results 09/06/21 09/06/21 09/06/21 Range/Units 22:50 22:50 22:50 WBC 11.1 H (3.8-10.6) k/uL RBC 3.11 L (4.30-5.90) m/uL Hgb 10.2 L (13.0-17.5) gm/dL Hct 30.1 L (39.0-53.0) % MCV 96.9 (80.0-100.0) fL MCH 32.8 (25.0-35.0) pg MCHC 33.9 (31.0-37.0) g/dL RDW 13.9 (11.5-15.5) % Plt Count 191 (150-450) k/uL MPV 9.2 Neutrophils % 79 % Lymphocytes % 13 % Monocytes % 5 % Eosinophils % 1 % Basophils % 1 % Neutrophils # 8.7 H (1.3-7.7) k/uL Lymphocytes # 1.5 (1.0-4.8) k/uL Monocytes # 0.6 (0-1.0) k/uL Eosinophils # 0.1 (0-0.7) k/uL Basophils # 0.1 (0-0.2) k/uL Sodium 134 L (137-145) mmol/L Potassium 4.3 (3.5-5.1) mmol/L Chloride 93 L (98-107) mmol/L Carbon Dioxide 27 (22-30) mmol/L Anion Gap 14 mmol/L BUN 67 H (9-20) mg/dL Creatinine 7.55 H* (0.66-1.25) mg/dL Est GFR (CKD-EPI)AfAm 8 (>60 ml/min/1.73 sqM) Est GFR (CKD-EPI)NonAf 7 (>60 ml/min/1.73 sqM) Glucose 143 H (74-99) mg/dL Calcium 9.1 (8.4-10.2) mg/dL Total Bilirubin 0.5 (0.2-1.3) mg/dL AST 25 (17-59) U/L ALT 14 (4-49) U/L Alkaline Phosphatase 98 (38-126) U/L Troponin I 0.714 H* (0.000-0.034) ng/mL NT-Pro-B Natriuret Pep pg/mL Total Protein 6.4 (6.3-8.2) g/dL Albumin 3.9 (3.5-5.0) g/dL 09/06/21 Range/Units 22:50 WBC (3.8-10.6) k/uL RBC (4.30-5.90) m/uL Hgb (13.0-17.5) gm/dL Hct (39.0-53.0) % MCV (80.0-100.0) fL MCH (25.0-35.0) pg MCHC (31.0-37.0) g/dL RDW (11.5-15.5) % Plt Count (150-450) k/uL MPV Neutrophils % % Lymphocytes % % Monocytes % % Eosinophils % % Basophils % % Neutrophils # (1.3-7.7) k/uL Lymphocytes # (1.0-4.8) k/uL Monocytes # (0-1.0) k/uL Eosinophils # (0-0.7) k/uL Basophils # (0-0.2) k/uL Sodium (137-145) mmol/L Potassium (3.5-5.1) mmol/L Chloride (98-107) mmol/L Carbon Dioxide (22-30) mmol/L Anion Gap mmol/L BUN (9-20) mg/dL Creatinine (0.66-1.25) mg/dL Est GFR (CKD-EPI)AfAm (>60 ml/min/1.73 sqM) Est GFR (CKD-EPI)NonAf (>60 ml/min/1.73 sqM) Glucose (74-99) mg/dL Calcium (8.4-10.2) mg/dL Total Bilirubin (0.2-1.3) mg/dL AST (17-59) U/L ALT (4-49) U/L Alkaline Phosphatase (38-126) U/L Troponin I (0.000-0.034) ng/mL NT-Pro-B Natriuret Pep 51042 pg/mL Total Protein (6.3-8.2) g/dL Albumin (3.5-5.0) g/dL - EKG Data -: EKG Interpreted by Pa EKG shows normal: sinus rhythm, axis (Normal), intervals (NJ interval 224 ms prolonged consistent with first-degree AV block. QRS duration 106 ms, QTC 448 ms, both normal.) Rate: normal (Rate 80 bpm) Interpretation: other (Possible old inferior infarct.) Disposition Clinical Impression: NSTEMI (non-ST elevated myocardial infarction) Disposition: ADMITTED IP TO THIS HOSP Condition: Good Is patient prescribed a controlled substance at d/c from ED?: No Referrals: None,Stated [Primary Care Provider] - 1-2 days
--- NOTE | 2021-09-06 22:04 | XR ---
EXAMINATION TYPE: XR chest 1V portable DATE OF EXAM: 09/06/2021 COMPARISON: NONE HISTORY: Short of breath TECHNIQUE: Single view FINDINGS: Heart is normal. There is some airspace infiltrate right lower lobe. No heart failure. Ther e is right central venous catheter with tip in the superior vena cava. No definite pleural effusion. There are some mild interstitial infiltrate left lung base. IMPRESSION: Right lower lobe pneumonia increased compared to exam earlier today. No heart failure see n.
[2021-09-06 23:07] LABS: Basophils # (A) 0.1 k/uL (0-0.2); Basophils % (A) 1 %; Eosinophils # (A) 0.1 k/uL (0-0.7); Eosinophils % (A) 1 %; HCT 30.1 % (39.0-53.0); HGB 10.2 gm/dL (13.0-17.5); Lymphocytes # (A) 1.5 k/uL (1.0-4.8); Lymphocytes % (A) 13 %; MCH 32.8 pg (25.0-35.0); MCHC 33.9 g/dL (31.0-37.0); MCV 96.9 fL (80.0-100.0); Mean Platelet Volume 9.2; Monocytes # (A) 0.6 k/uL (0-1.0); Monocytes % (A) 5 %; Neutrophils # (A) 8.7 k/uL (1.3-7.7); Neutrophils % (A) 79 %; Platelet Count 191 k/uL (150-450); RBC 3.11 m/uL (4.30-5.90); RDW 13.9 % (11.5-15.5); WBC 11.1 k/uL (3.8-10.6)
[2021-09-06 23:23] LABS: Albumin 3.9 g/dL (3.5-5.0); Calcium 9.1 mg/dL (8.4-10.2); Potassium 4.3 mmol/L (3.5-5.1); Total Bilirubin 0.5 mg/dL (0.2-1.3); Total Protein 6.4 g/dL (6.3-8.2)
[2021-09-07] MEDS: NITROGLYCERIN OINT 1 INCH/GM PACKET TOPICAL SCH ×2 (00:19→06:23)
[2021-09-07] MEDS ORDERED: carvediloL 12.5 MG TAB PO PRN (07:10)
[2021-09-07] MEDS: INSULIN ASPART (NovoLOG) 100 UNIT/ML VIAL SQ SCH ×2 (07:16→13:00)
[2021-09-07] MEDS ORDERED: ASPIRIN 325 MG TAB PO SCH (09:00)
[2021-09-07] MEDS ORDERED: TAMSULOSIN 0.4 MG CAP.ER.24H PO SCH (09:00)
[2021-09-07] MEDS ORDERED: hydrALAZINE HCL 50 MG TAB PO PRN (10:21)
[2021-09-07] MEDS ORDERED: hydrALAZINE HCL 25 MG TAB PO PRN (10:21)
--- NOTE | 2021-09-07 10:26 | P.HPIM ---
History of Present Illness 71-year-old pleasant male was transferred from [facility] where he present to [facility]. Patient denied any chest pain. Patient the patient was found to be pretty high at the hospital although his blood pressure remained fairly stable around 160 systolic here. Patient did undergo dialysis yesterday but only had 2 hours of dialysis. Patient has some pulmonary edema and will undergo hemodialysis today. Patient denied any chest pain had mildly elevated troponins but stable at around 0.7-0.5. Patient does have leukocytosis denied any fever chills denied any cough. Patient chest x-ray is read as infilt rate in the right upper lobe and lower lobe of the lung. Although patient appears to have pulmonary edema rather than pneumonia. Patient also has infected third toe with the wounds in the webspace between third and fourth toes for which patient takes antibiotics and wound care is following the patient. Patient does note the antibiotic he takes for that. Patient was already evaluated by cardiology then recommended hemodialysis and patient can be discharged after that. Patient doesn't have any more shortness of breath at this time patient was on Ventimask yesterday. REVIEW OF SYSTEMS: CONSTITUTIONAL: No fever, no malaise, no fatigue. HEENT: No recent visual problems or hearing problems. Denied any sore throat. CARDIOVASCULAR: No chest pain, orthopnea, PND, no palpitations, no syncope. PULMONARY: no cough, no hemoptysis. GASTROINTESTINAL: No diarrhea, no nausea, no vomiting, no abdominal pain. NEUROLOGICAL: No headaches, no weakness, no numbness. HEMATOLOGICAL: Denies any bleeding or petechiae. GENITOURINARY: Denies any burning micturition, frequency, or urgency. MUSCULOSKELETAL/RHEUMATOLOGICAL: Denies any joint pain, swelling, or any muscle pain. ENDOCRINE: Denies any polyuria or polydipsia. The rest of the 14-point review of systems is negative. PHYSICAL EXAMINATION: GENERAL: The patient is alert and oriented x3, not in any acute distress. Well developed, well nourished. HEENT: Pupils are round and equally reacting to light. EOMI. No scleral icterus. No conjunctival pallor. Normocephalic, atraumatic. No pharyngeal erythema. No thyromegaly. CARDIOVASCULAR: S1 and S2 present. No murmurs, rubs, or gallops. PULMONARY: Chest is clear to auscultation, no wheezing or crackles. ABDOMEN: Soft, nontender, nondistended, normoactive bowel sounds. No palpable organomegaly. MUSCULOSKELETAL: No joint swelling or deformity. EXTREMITIES: No cyanosis, clubbing, or pedal edema. NEUROLOGICAL: Gross neurological examination did not reveal any focal deficits. SKIN: No rashes. Assessment and plan -Shortness of breath secondary to pulmonary edema patient will undergo hemodialysis today after that patient will be discharged -Hypertension, hypertensive urgency expected to improve with hemodialysis. Patient blood pressure improved significantly at this time -Right lower extremity wound in the third toe for which patient is on antibiotics which she'll continue patient will follow with vascular surgery and creatinine -End-stage renal disease dialysis dependent patient will undergo hemodialysis today -Benign prostatic hypertrophy -Type 2 diabetes mellitus for which patient is on glimepiride which she will continue, blood sugars are well controlled at this time. -Coronary artery disease -Peripheral vascular disease Past Medical History Past Medical History: Coronary Artery Disease (CAD), Chest Pain / Angina, Diabetes Mellitus, Dialysis, Hypertension, Myocardial Infarction ([place]), Renal Disease, Vascular Disorder Additional Past Medical History / Comment(s): Chronic renal failure: Hemodialysis on , AND SUN. Anemia. hx cervical injury r/t football injury with cervical pain. migraines. Last Myocardial Infarction Date:: 2007 History of Any Multi-Drug Resistant Organisms: None Reported Past Surgical History: Heart Catheterization With Stent, Tonsillectomy Additional Past Surgical History / Comment(s): HAS FISTULA FOR HEMO DIALYSIS. Peritoneal Dialysis catheter placed/later removed, cardiac stents X3. Left leg Arthrectomy X2. rt side of neck for hemodialysis, fistula in left arm(not working). Roc cataracts WITH LENS Past Anesthesia/Blood Transfusion Reactions: Previous Problems w/ Anesthesia, Motion Sickness Additional Past Anesthesia/Blood Transfusion Reaction / Comment(s): "Dizzy sometimes when wakes up from anesthesia". Date of Last Stent Placement:: 01/2008 Past Psychological History: No Psychological Hx Reported Additional Psychological History / Comment(s): . Smoking Status: Former smoker Past Alcohol Use History: None Reported Additional Past Alcohol Use History / Comment(s): quit 2007 Past Drug Use History: None Reported - Past Family History Mother Family Medical History: Cancer Additional Family Medical History / Comment(s): Colon cancer. Father Family Medical History: Myocardial Infarction ([place]), Pulmonary Embolus Additional Family Medical History / Comment(s): Father had several MIs and of one at the age of 69yrs. Medications and Allergies Home Medications Medication Instructions Recorded Confirmed Type Isosorbide Mononitrate ER [Imdur] 30 mg PO DAILY PRN 12/01/16 09/06/21 History carvediloL [Coreg] 25 mg PO BID PRN 12/01/16 09/06/21 History Tamsulosin [Flomax] 0.4 mg PO DAILY 07/30/20 09/06/21 History Glimepiride [Amaryl] 2 mg PO BID-W/MEALS 11/05/20 09/06/21 History Acetylcysteine [Nac] 500 mg PO DAILY 09/06/21 09/06/21 History Cod Liver Oil 1 cap PO DAILY 09/06/21 09/06/21 History Isosorbide Mononitrate ER [Imdur] 60 mg PO BID PRN 09/06/21 09/06/21 History Lidocaine-Prilocaine Cream [Emla 1 applic TOPICAL TUTHSA PRN 09/06/21 09/06/21 History Cream 2.5%/2.5%] Multivitamins, Thera [Multivitamin 1 tab PO DAILY 09/06/21 09/06/21 History (formulary)] Renaplex-D 1 tab PO TUTHSA 09/06/21 09/06/21 History Vitamin E 400 unit PO DAILY 09/06/21 09/06/21 History clindamycin HCL [Cleocin] 300 mg PO TID 09/06/21 09/06/21 History hydrALAZINE HCL [Apresoline] 25 mg PO TID PRN 09/06/21 09/06/21 History hydrALAZINE HCL [Apresoline] 50 mg PO QID PRN 09/06/21 09/06/21 History Allergies Allergy/AdvReac Type Severity Reaction Status Date / Time ciprofloxacin [From Cipro] Allergy Unknown Verified 09/06/21 23:39 ezetimibe [From Zetia] Allergy Swelling Verified 09/06/21 23:39 naproxen [From Naprosyn] Allergy Swelling Verified 09/06/21 23:39 IN FEET nifedipine [From Procardia] Allergy Unknown Verified 09/06/21 23:39 Gfvsiey-RDA-KuG Reductase Allergy Unknown Verified 09/06/21 23:39 Inhibitor [Vwxfhik-Adw-Ntg Reductase Inhibitor] Physical Exam Vitals: Vital Signs Temp Pulse Resp BP Pulse Ox 09/07/21 07:49 97.8 F 89 16 172/93 97 09/07/21 07:17 98 09/07/21 06:25 90 24 161/88 96 09/07/21 02:05 79 20 143/82 99 09/06/21 23:06 84 26 H 135/80 96 09/06/21 21:21 97.6 F 81 24 140/82 100 Intake and Output 09/06/21 09/07/21 09/07/21 22:59 06:59 14:59 Other: Weight 90.718 kg 90.718 kg Results CBC & Chem 7: 09/06/21 22:50 09/06/21 22:50 Labs: Abnormal Lab Results - Last 24 Hours (Table) 09/06/21 09/06/21 09/06/21 Range/Units 22:50 22:50 22:50 WBC 11.1 H (3.8-10.6) k/uL RBC 3.11 L (4.30-5.90) m/uL Hgb 10.2 L (13.0-17.5) gm/dL Hct 30.1 L (39.0-53.0) % Neutrophils # 8.7 H (1.3-7.7) k/uL Sodium 134 L (137-145) mmol/L Chloride 93 L (98-107) mmol/L BUN 67 H (9-20) mg/dL Creatinine 7.55 H* (0.66-1.25) mg/dL Glucose 143 H (74-99) mg/dL Troponin I 0.714 H* (0.000-0.034) ng/mL 09/07/21 09/07/21 Range/Units 02:38 07:19 WBC (3.8-10.6) k/uL RBC (4.30-5.90) m/uL Hgb (13.0-17.5) gm/dL Hct (39.0-53.0) % Neutrophils # (1.3-7.7) k/uL Sodium (137-145) mmol/L Chloride (98-107) mmol/L BUN (9-20) mg/dL Creatinine (0.66-1.25) mg/dL Glucose (74-99) mg/dL Troponin I 0.748 H* 0.507 H* (0.000-0.034) ng/mL Thrombosis Risk Factor Assmnt - Choose All That Apply Any of the Below Risk Factors Present?: Yes Each Factor Represents 1 point: Swollen legs (current) Other Risk Factors: Yes Each Risk Factor Represents 2 Points: Age 61-74 years Thrombosis Risk Factor Assessment Total Risk Factor Score: 3 Thrombosis Risk Factor Assessment Level: Moderate Risk
--- NOTE | 2021-09-07 10:29 | P.DS ---
Providers Date of admission: 09/06/21 23:10 Attending physician: Magy Rosenbaum Consults: 09/06/21 23:10 Consult Physician Routine Consulting Provider: Bari Beckman Consult Reason/Comments: CHF. Elevated troponin Do you want consulting provider notified?: Yes 09/06/21 23:33 Consult Physician Routine Consulting Provider: Perla Winters Consult Reason/Comments: Dialysis patient Do you want consulting provider notified?: Yes Primary care physician: Stated None Hospital Course: Refer to my history of present illness for further details Patient Condition at Discharge: Good Plan - Discharge Summary Discharge Rx Participant: No New Discharge Prescriptions: No Action Isosorbide Mononitrate ER [Imdur] 30 mg PO DAILY PRN PRN Reason: HIGH BLOOD PRESSURE carvediloL [Coreg] 25 mg PO BID PRN PRN Reason: HIGH BLOOD PRESSURE Glimepiride [Amaryl] 2 mg PO BID-W/MEALS Cod Liver Oil 1 cap PO DAILY Renaplex-D 1 tab PO TUTHSA Lidocaine-Prilocaine Cream [Emla Cream 2.5%/2.5%] 1 applic TOPICAL TUTHSA PRN PRN Reason: DIALYSIS Isosorbide Mononitrate ER [Imdur] 60 mg PO BID PRN PRN Reason: HIGH BLOOD PRESSURE hydrALAZINE HCL [Apresoline] 50 mg PO QID PRN PRN Reason: HIGH BLOOD PRESSURE Tamsulosin [Flomax] 0.4 mg PO DAILY Vitamin E 400 unit PO DAILY Multivitamins, Thera [Multivitamin (formulary)] 1 tab PO DAILY hydrALAZINE HCL [Apresoline] 25 mg PO TID PRN PRN Reason: HIGH BLOOD PRESSURE clindamycin HCL [Cleocin] 300 mg PO TID Acetylcysteine [Nac] 500 mg PO DAILY Discharge Medication List Isosorbide Mononitrate ER [Imdur] 30 mg PO DAILY PRN 12/01/16 [History] carvediloL [Coreg] 25 mg PO BID PRN 12/01/16 [History] Tamsulosin [Flomax] 0.4 mg PO DAILY 07/30/20 [History] Glimepiride [Amaryl] 2 mg PO BID-W/MEALS 11/05/20 [History] Acetylcysteine [Nac] 500 mg PO DAILY 09/06/21 [History] Cod Liver Oil 1 cap PO DAILY 09/06/21 [History] Isosorbide Mononitrate ER [Imdur] 60 mg PO BID PRN 09/06/21 [History] Lidocaine-Prilocaine Cream [Emla Cream 2.5%/2.5%] 1 applic TOPICAL TUTHSA PRN 09/06/21 [History] Multivitamins, Thera [Multivitamin (formulary)] 1 tab PO DAILY 09/06/21 [History] Renaplex-D 1 tab PO TUTHSA 09/06/21 [History] Vitamin E 400 unit PO DAILY 09/06/21 [History] clindamycin HCL [Cleocin] 300 mg PO TID 09/06/21 [History] hydrALAZINE HCL [Apresoline] 25 mg PO TID PRN 09/06/21 [History] hydrALAZINE HCL [Apresoline] 50 mg PO QID PRN 09/06/21 [History] Follow up Appointment(s)/Referral(s): None,Stated [Primary Care Provider] - 1-2 days
[2021-09-07] MEDS ORDERED: CLINDAMYCIN 150 MG CAP PO SCH (10:30)
--- NOTE | 2021-09-07 11:17 | P.CONS ---
History of Present Illness - Reason for Consult Consult date: 09/07/21 wound care - History of Present Illness This is a 71-year-old patient being seen in the ER for a nonhealing ulceration to the right foot fourth digit. Patient has 2 ulcerations one to the dorsal aspect of the fourth digit and one to the lateral aspect of the fourth digit. Ulcerations have fat layer exposure, significant amount of slough and nonviable tissue present to both, the periwound shows maceration. Minimal granulation noted within the wound beds. The dorsum of the right foot has erythema noted. Patient states that he did not have any trauma to the toe resulting in an open ulceration. He is scheduled to come to the wound care center in a week. He has not put any dressings to the site. Patient states that it doesn't drain significantly. Patient states that he has had this happen in the past and it j ust went away on its own. Patient's past medical history significant for coronary artery disease, diabetes mellitus, chronic kidney disease with dialysis, hypertension, myocardial infarction, peripheral vascular disease. Review Of Systems: Constitutional: No fever, no chills, no night sweats. No weight change. No weakness, fatigue or lethargy. No daytime sleepiness. Integumentary:reports wounds, no lesions. No rash or pruritus. No unusual bruising. No change in hair or nails. Physical exam: General Appearance: Alert, cooperative, no distress, appears stated age. Skin: See HPI all other Skin color, texture, tugor normal, no rashes or lesions. Neurologic: Alert oriented x3 Assessment: 1. Nonhealing ulceration of the right foot fourth digit with fat layer exposure 2. Diabetic foot ulcer Plan: 1.Apply honey gel, dry gauze, rolled gauze and secure with paper tape. Change Sunday. Patient is scheduled in the wound care center on 09/16 at 8 AM. Thank you for the consultation any questions contact the wound care center DNP note has been reviewed and discussed with Dr. Ramirez and the impression and plan of care has been directed as dictated. Past Medical History Past Medical History: Coronary Artery Disease (CAD), Chest Pain / Angina, Diabetes Mellitus, Dialysis, Hypertension, Myocardial Infarction ([place]), Renal Disease, Vascular Disorder Additional Past Medical History / Comment(s): Chronic renal failure: Hemodialysis on , AND SAT. Anemia. hx cervical injury r/t football injury with cervical pain. migraines. Last Myocardial Infarction Date:: 2007 History of Any Multi-Drug Resistant Organisms: None Reported Past Surgical History: Heart Catheterization With Stent, Tonsillectomy Additional Past Surgical History / Comment(s): HAS FISTULA FOR HEMO DIALYSIS. Peritoneal Dialysis catheter placed/later removed, cardiac stents X3. Left leg Arthrectomy X2. rt side of neck for hemodialysis, fistula in left arm(not working). Roc cataracts WITH LENS Past Anesthesia/Blood Transfusion Reactions: Previous Problems w/ Anesthesia, Motion Sickness Additional Past Anesthesia/Blood Transfusion Reaction / Comm: "Dizzy sometimes when wakes up from anesthesia". Date of Last Stent Placement:: 01/2008 Past Psychological History: No Psychological Hx Reported Additional Psychological History / Comment(s): . Smoking Status: Former smoker Past Alcohol Use History: None Reported Additional Past Alcohol Use History / Comment(s): quit 2007 Past Drug Use History: None Reported - Past Family History Mother Family Medical History: Cancer Additional Family Medical History / Comment(s): Colon cancer. Father Family Medical History: Myocardial Infarction ([place]), Pulmonary Embolus Additional Family Medical History / Comment(s): Father had several MIs and of one at the age of 69yrs. Medications and Allergies Home Medications Medication Instructions Recorded Confirmed Type Isosorbide Mononitrate ER [Imdur] 30 mg PO DAILY PRN 12/01/16 09/06/21 History carvediloL [Coreg] 25 mg PO BID PRN 12/01/16 09/06/21 History Tamsulosin [Flomax] 0.4 mg PO DAILY 07/30/20 09/06/21 History Glimepiride [Amaryl] 2 mg PO BID-W/MEALS 11/05/20 09/06/21 History Acetylcysteine [Nac] 500 mg PO DAILY 09/06/21 09/06/21 History Cod Liver Oil 1 cap PO DAILY 09/06/21 09/06/21 History Isosorbide Mononitrate ER [Imdur] 60 mg PO BID PRN 09/06/21 09/06/21 History Lidocaine-Prilocaine Cream [Emla 1 applic TOPICAL TUTHSA PRN 09/06/21 09/06/21 History Cream 2.5%/2.5%] Multivitamins, Thera [Multivitamin 1 tab PO DAILY 09/06/21 09/06/21 History (formulary)] Renaplex-D 1 tab PO TUTHSA 09/06/21 09/06/21 History Vitamin E 400 unit PO DAILY 09/06/21 09/06/21 History clindamycin HCL [Cleocin] 300 mg PO TID 09/06/21 09/06/21 History hydrALAZINE HCL [Apresoline] 25 mg PO TID PRN 09/06/21 09/06/21 History hydrALAZINE HCL [Apresoline] 50 mg PO QID PRN 09/06/21 09/06/21 History Allergies Allergy/AdvReac Type Severity Reaction Status Date / Time ciprofloxacin [From Cipro] Allergy Unknown Verified 09/06/21 23:39 ezetimibe [From Zetia] Allergy Swelling Verified 09/06/21 23:39 naproxen [From Naprosyn] Allergy Swelling Verified 09/06/21 23:39 IN FEET nifedipine [From Procardia] Allergy Unknown Verified 09/06/21 23:39 Fxdzfjm-THB-CfU Reductase Allergy Unknown Verified 09/06/21 23:39 Inhibitor [Lyicngz-Ujd-Cqq Reductase Inhibitor] Physical Exam Vitals: Vital Signs Temp Pulse Resp BP Pulse Ox 09/07/21 07:49 97.8 F 89 16 172/93 97 09/07/21 07:17 98 09/07/21 06:25 90 24 161/88 96 09/07/21 02:05 79 20 143/82 99 09/06/21 23:06 84 26 H 135/80 96 09/06/21 21:21 97.6 F 81 24 140/82 100 Intake and Output 09/06/21 09/07/21 09/07/21 22:59 06:59 14:59 Other: Weight 90.718 kg 90.718 kg Results CBC & Chem 7: 09/06/21 22:50 09/06/21 22:50 Labs: Abnormal Lab Results - Last 24 Hours (Table) 09/06/21 09/06/21 09/06/21 Range/Units 22:50 22:50 22:50 WBC 11.1 H (3.8-10.6) k/uL RBC 3.11 L (4.30-5.90) m/uL Hgb 10.2 L (13.0-17.5) gm/dL Hct 30.1 L (39.0-53.0) % Neutrophils # 8.7 H (1.3-7.7) k/uL Sodium 134 L (137-145) mmol/L Chloride 93 L (98-107) mmol/L BUN 67 H (9-20) mg/dL Creatinine 7.55 H* (0.66-1.25) mg/dL Glucose 143 H (74-99) mg/dL Troponin I 0.714 H* (0.000-0.034) ng/mL 09/07/21 09/07/21 Range/Units 02:38 07:19 WBC (3.8-10.6) k/uL RBC (4.30-5.90) m/uL Hgb (13.0-17.5) gm/dL Hct (39.0-53.0) % Neutrophils # (1.3-7.7) k/uL Sodium (137-145) mmol/L Chloride (98-107) mmol/L BUN (9-20) mg/dL Creatinine (0.66-1.25) mg/dL Glucose (74-99) mg/dL Troponin I 0.748 H* 0.507 H* (0.000-0.034) ng/mL Assessment and Plan (1) Non-pressure chronic ulcer of other part of right foot with fat layer exposed Current Visit: Yes Status: Acute Code(s): L97.512 - NON-PRS CHRONIC ULCER OTH PRT RIGHT FOOT W FAT LAYER EXPOSED SNOMED Code(s): 840198735 (2) Diabetes mellitus with foot ulcer Current Visit: Yes Status: Acute Code(s): E11.621 - TYPE 2 DIABETES MELLITUS WITH FOOT ULCER; L97.509 - NON-PRESSURE CHRONIC ULCER OTH PRT UNSP FOOT W UNSP SEVERITY SNOMED Code(s): 16015885
--- NOTE | 2021-09-07 12:14 | XR ---
EXAMINATION TYPE: XR foot limited RT DATE OF EXAM: 09/07/2021 CLINICAL HISTORY: Osteomyelitis fourth digit right foot TECHNIQUE: Frontal, lateral and oblique images of the right foot are obtained. COMPARISON: None. FINDINGS: There is cortical irregularity involving the head of the fourth proximal phalanx. The findi ngs are suspicious for osteomyelitis. No additional bony destructive process seen. Vascular desiccati on is noted. IMPRESSION: Findings felt to reflect osteomyelitis noted. Correlate clinically.
[2021-09-07 12:22] VITALS: BMI 28.7
[2021-09-07 13:00] LABS: Glucose,Whole Blood 146 mg/dL (70-110)
[2021-09-07 13:02] VITALS: PULSE 70; RESP 18
--- NOTE | 2021-09-07 14:47 | P.NPCON ---
History of Present Illness - Reason for Consult end stage renal disease - History of Present Illness Patient is a 71-year-old male with end-stage renal disease maintained on hemodialysis on a Sunday schedule. Patient was admitted to the hospital from dialysis yesterday due to shortness of breath. He was noted to have extremely elevated blood pressures. Patient also complained of some chest discomfort. No chest pain currently No history of fever cough nausea vomiting or diarrhea Chest x-ray shows evidence of CHF and volume overload Troponin is mildly elevated. No plans for intervention from cardiology standpoint. Patient has an infected wound in the right foot for which he has been on antibiotics. He does follow with vascular surgery. Review of Systems As per HPI, other systems negative Past Medical History Past Medical History: Coronary Artery Disease (CAD), Chest Pain / Angina, Diabetes Mellitus, Dialysis, Hypertension, Myocardial Infarction ([place]), Renal Disease, Vascular Disorder Additional Past Medical History / Comment(s): Chronic renal failure: Hemodialysis on , AND SUN. Anemia. hx cervical injury r/t football injury with cervical pain. migraines. Last Myocardial Infarction Date:: 2007 History of Any Multi-Drug Resistant Organisms: None Reported Past Surgical History: Heart Catheterization With Stent, Tonsillectomy Additional Past Surgical History / Comment(s): HAS FISTULA FOR HEMO DIALYSIS. Peritoneal Dialysis catheter placed/later removed, cardiac stents X3. Left leg Arthrectomy X2. rt side of neck for hemodialysis, fistula in left arm(not working). Roc cataracts WITH LENS Past Anesthesia/Blood Transfusion Reactions: Previous Problems w/ Anesthesia, Motion Sickness Additional Past Anesthesia/Blood Transfusion Reaction / Comment(s): "Dizzy sometimes when wakes up from anesthesia". Date of Last Stent Placement:: 01/2008 Past Psychological History: No Psychological Hx Reported Additional Psychological History / Comment(s): . Smoking Status: Former smoker Past Alcohol Use History: None Reported Additional Past Alcohol Use History / Comment(s): quit 2007 Past Drug Use History: None Reported - Past Family History Mother Family Medical History: Cancer Additional Family Medical History / Comment(s): Colon cancer. Father Family Medical History: Myocardial Infarction ([place]), Pulmonary Embolus Additional Family Medical History / Comment(s): Father had several MIs and of one at the age of 69yrs. Medications and Allergies Home Medications Medication Instructions Recorded Confirmed Type Isosorbide Mononitrate ER [Imdur] 30 mg PO DAILY PRN 12/01/16 09/06/21 History carvediloL [Coreg] 25 mg PO BID PRN 12/01/16 09/06/21 History Tamsulosin [Flomax] 0.4 mg PO DAILY 07/30/20 09/06/21 History Glimepiride [Amaryl] 2 mg PO BID-W/MEALS 11/05/20 09/06/21 History Acetylcysteine [Nac] 500 mg PO DAILY 09/06/21 09/06/21 History Cod Liver Oil 1 cap PO DAILY 09/06/21 09/06/21 History Isosorbide Mononitrate ER [Imdur] 60 mg PO BID PRN 09/06/21 09/06/21 History Lidocaine-Prilocaine Cream [Emla 1 applic TOPICAL TUTHSA PRN 09/06/21 09/06/21 History Cream 2.5%/2.5%] Multivitamins, Thera [Multivitamin 1 tab PO DAILY 09/06/21 09/06/21 History (formulary)] Renaplex-D 1 tab PO TUTHSA 09/06/21 09/06/21 History Vitamin E 400 unit PO DAILY 09/06/21 09/06/21 History clindamycin HCL [Cleocin] 300 mg PO TID 09/06/21 09/06/21 History hydrALAZINE HCL [Apresoline] 25 mg PO TID PRN 09/06/21 09/06/21 History hydrALAZINE HCL [Apresoline] 50 mg PO QID PRN 09/06/21 09/06/21 History Allergies Allergy/AdvReac Type Severity Reaction Status Date / Time ciprofloxacin [From Cipro] Allergy Unknown Verified 09/06/21 23:39 ezetimibe [From Zetia] Allergy Swelling Verified 09/06/21 23:39 naproxen [From Naprosyn] Allergy Swelling Verified 09/06/21 23:39 IN FEET nifedipine [From Procardia] Allergy Unknown Verified 09/06/21 23:39 Cncysrt-CGC-HtW Reductase Allergy Unknown Verified 09/06/21 23:39 Inhibitor [Rshigsf-Hku-Vol Reductase Inhibitor] Physical Exam Vitals: Vital Signs Temp Pulse Resp BP Pulse Ox 09/07/21 13:00 70 18 09/07/21 07:49 97.8 F 89 16 172/93 97 09/07/21 07:17 98 09/07/21 06:25 90 24 161/88 96 09/07/21 02:05 79 20 143/82 99 09/06/21 23:06 84 26 H 135/80 96 09/06/21 21:21 97.6 F 81 24 140/82 100 Intake and Output 09/06/21 09/07/21 09/07/21 22:59 06:59 14:59 Other: Weight 90.718 kg 90.718 kg 90.718 kg Patient is comfortable awake, not in any acute distress Alert oriented 3 Examination of the heart S1 and S2 Examination lungs bilateral breath sounds are heard [place] abdomen is soft nontender Examination lower extremities shows 1+ edema bilaterally right foot shows evidence of ulcer between the third and fourth toes. [employer] exam grossly intact Results - Lab Results Most recent lab results Calcium 9.1 mg/dL (8.4-10.2) 09/06/21 22:50 09/06/21 22:50 09/06/21 22:50 Assessment and Plan Assessment: 1. End-stage renal disease on hemodialysis on a Sunday schedule via left arm AV fistula 2. Volume overload 3. Dyspnea secondary to volume overload 4. Uncontrolled hypertension associated with volume overload 5. Right lower extremity wound being followed by vascular surgery and status post antibiotics. Plan: Hemodialysis today with goal UF 2-3 L as tolerated. Patient can be discharged from nephrology standpoint post hemodialysis. He will follow-up as outpatient for his treatment tomorrow.
[2021-09-07 16:32] VITALS: BP 163/87; TEMP 98.1
--- NOTE | 2021-09-07 19:41 | CONS ---
CONSULTATION The patient is a 71-year-old gentleman with end-stage renal disease on hemodialysis. He was transferred from [facility]. Apparently he was having his hemodialysis in [place] and was found to be hypertensive and troponin was mildly elevated at 0.04 and three hours later it was 0.1. They felt concerned and transferred him here. After arrival his blood pressure was normal. His troponin is 0.7. The patient is resting comfortably without symptoms. His initial troponin was 0.7, repeat one is 0.5. He has no chest pain. He is resting comfortably without symptoms. His last ejection fraction on echocardiogram was in the 25-30% range. In October of 2020 the patient had a heart catheterization which revealed a 40-50% LAD disease, 60-70% mid LAD disease and also distal circumflex disease. Stenosis of RCA was 100% with [id number] collaterals. The patient does have what seems to be CAD with a combination of ischemic and nonischemic cardiomyopathy. He has been doing fairly well on medical therapy. He is resting comfortably at the time of my evaluation. PAST MEDICAL HISTORY: 1. End-stage renal disease, on hemodialysis. 2. CAD with multivessel disease but advised medical therapy after cardiac cath in October of last year. 3. Hypertension. 4. Ischemic cardiomyopathy with ejection fraction in the 25-30% range. 5. History of type 2 diabetes, on insulin/oral agents. PHYSICAL EXAMINATION: On examination, blood pressure is 140/80, pulse rate is about 80 per minute, regular. HEENT unremarkable. Fundus was not examined by me. Neck is supple. There is JVD 1 cm. No carotid bruit. Heart exam reveals S1, S2 with a short systolic murmur. Lungs reveal bilateral fine rales. Abdomen is soft, nontender. Lower extremities reveal diminished pulses. Mild edema. Central nervous system grossly no focal deficits. EKG revealed a sinus mechanism with nonspecific inferolateral ST and T-wave changes. His previous EKG also had some nonspecific ST-T changes. IMPRESSION: 1. Elevated troponin, probably related to multiple factors including CAD. The patient is on dialysis, end-stage renal disease. 2. End-stage renal disease on dialysis. 3. Diabetes mellitus. 4. Hypertension. 5. Ischemic cardiomyopathy. RECOMMENDATIONS: I am recommending no aggressive intervention from a cardiac standpoint. I would recommend that we proceed with dialysis that was interrupted and had only for two hours yesterday. I would proceed with dialysis, that will help his breathing and also help his blood pressure come down. We will resume all his cardiac medications. No aggressive intervention from a cardiac standpoint. I would recommend that we place him on subcu heparin 5000 q.12 hours. I discussed my thoughts in detail with the patient. Thank you very much for the consult. JAMIE / EDIL: [id number] /
[2021-09-07] MEDS ORDERED: HEPARIN SODIUM,PORCINE/PF 5,000 UNIT/0.5 ML SYRINGE SQ SCH (21:00)
[2021-09-08] MEDS ORDERED: NON FORMULARY DRUG (Acetylcysteine [Nac] 500 MG Capsule) PO SCH (09:00)
--- NOTE | 2021-09-13 05:05 | CDI ---
Documentation Clarification Form Date: 09/09/2021 08:42:00 AM From: Jimena Thacker Admit Date: 09/06/2021 11:10:00 PM Patient Name: Arian Chaparro Visit Number: [id number] Discharge Date: 09/07/2021 04:45:00 PM ATTENTION: The Clinical Documentation Specialists (CDI) and [facility] Coding Staff appreciate your assistance in clarifying documentation. Please respond to the clarification below the line at the bottom and electronically sign. The CDI & [facility] Coding staff will review the response and follow-up if needed. Please note: Queries are made part of the Legal Health Record. If you have any questions, please contact the author of this message via ITS. Dr. Tomi Naylor The patients principal diagnosis the diagnosis that was chiefly responsible for the admission - has not been clearly identified and clarification is requested. The patient presented with SOB. Chest tightness, diaphoresis, elevated troponins. Nephrology documents volume overload. ER documents hypertensive urgency. H and P documents pulmonary edema. Please clarify the acute reason for patient's admit. History/Risk factors: chronic ESRD on dialysis Clinical Indicators: Lab findings: elevated troponins Radiology findings: No heart failure Vital Signs: 97.6 F, 81 bpm, 24, 140/82, 100% 2 NC Treatment: Hemodialysis Consults: Nephrology Volume overload, Cardiology elevated troponins, Dr. Ramirez [employer] CLERK chronic ulcer right foot In your professional opinion, can you please clarify which acute diagnosis, after study, was the reason chiefly responsible for the admission? [ x ] Volume Overload [ ] Pulmonary Edema [ ] hypertensive urgency [ ] Other, please specify [ ] Unable to determine MTDD
== END 2021-09-07 16:45 | disposition home or self-care (01) | DRG 640 ==
LOC: EC 21:02 → 3SCARD 23:10
PROVIDERS: ADMIT Hospitalist; ATTEND Hospitalist
PROC: 5A1D70Z Performance of Urinary Filtration, Intermittent, Less than 6 Hours Per Day (ICD-10-PCS; principal; 2021-09-07)
DX: E87.79 Other fluid overload (principal); N18.6 End stage renal disease; J81.1 Chronic pulmonary edema; I42.8 Other cardiomyopathies; I12.0 Hypertensive chronic kidney disease with stage 5 chronic kidney disease or end stage renal disease; I16.0 Hypertensive urgency; E11.22 Type 2 diabetes mellitus with diabetic chronic kidney disease; E11.51 Type 2 diabetes mellitus with diabetic peripheral angiopathy without gangrene; E11.621 Type 2 diabetes mellitus with foot ulcer; R77.8 Other specified abnormalities of plasma proteins; I25.10 Atherosclerotic heart disease of native coronary artery without angina pectoris; I25.2 Old myocardial infarction; S14.109S Unspecified injury at unspecified level of cervical spinal cord, sequela; I25.5 Ischemic cardiomyopathy; I50.9 Heart failure, unspecified; L97.512 Non-pressure chronic ulcer of other part of right foot with fat layer exposed; N40.0 Benign prostatic hyperplasia without lower urinary tract symptoms; Z79.4 Long term (current) use of insulin; Z79.84 Long term (current) use of oral hypoglycemic drugs; Z79.899 Other long term (current) drug therapy; Z87.891 Personal history of nicotine dependence; Z95.5 Presence of coronary angioplasty implant and graft; Z99.2 Dependence on renal dialysis; M54.2 Cervicalgia; G89.29 Other chronic pain; Z88.6 Allergy status to analgesic agent; Z88.1 Allergy status to other antibiotic agents; Z88.8 Allergy status to other drugs, medicaments and biological substances; Z83.2 Family history of diseases of the blood and blood-forming organs and certain disorders involving the immune mechanism; Z80.0 Family history of malignant neoplasm of digestive organs
CPT/HCPCS: 36415; 71045; 80053; 80061; 83880; 84484; 85025; 90935; 93005; 94760; 99285

== ENCOUNTER 2021-11-09 05:59 | Day surgery (SDC) | payer MEDICARE ==
[~2021-11-09 05:59] MED LIST changes: -SODIUM CHLORIDE 0.9% 1,000 ML IV SCH; +SODIUM CHLORIDE 0.9% 1,000 ML in EMPTY BAG 1 BAG IV ONE
[2021-11-09 07:08] LABS: Glucose,Whole Blood 114 mg/dL (70-110)
[2021-11-09 07:26] LABS: Basophils % (A) 1 %; Eosinophils # (A) 0.2 k/uL (0-0.7); Eosinophils % (A) 4 %; HCT 27.4 % (39.0-53.0); Lymphocytes # (A) 1.2 k/uL (1.0-4.8); Lymphocytes % (A) 23 %; MCH 32.9 pg (25.0-35.0); MCV 99.9 fL (80.0-100.0); Macrocytosis Slight; Mean Platelet Volume 9.1; Monocytes # (A) 0.3 k/uL (0-1.0); Monocytes % (A) 6 %; Neutrophils # (A) 3.5 k/uL (1.3-7.7); Neutrophils % (A) 65 %; Platelet Count 129 k/uL (150-450); RBC 2.74 m/uL (4.30-5.90); RDW 14.5 % (11.5-15.5); WBC 5.3 k/uL (3.8-10.6)
[2021-11-09 07:32] LABS: Calcium 9.1 mg/dL (8.4-10.2); Potassium 4.4 mmol/L (3.5-5.1)
[2021-11-09 07:35] VITALS: RESP 16; TEMP 98
[2021-11-09] MEDS ORDERED: SODIUM CHLORIDE 0.9% 1,000 ML IV ONE (07:38)
[2021-11-09] MEDS ORDERED: MIDAZOLAM 2 MG/2 ML VIAL IV ONE (08:00)
[2021-11-09] MEDS ORDERED: LIDOCAINE 1% INJ 10MG/ML (30 ML VIAL-PF) SQ ONE (08:05)
[2021-11-09] MEDS ORDERED: VERAPAMIL SYRINGE (5 MG/10 ML) INTRAARTER ONE (08:06)
[2021-11-09] MEDS ORDERED: IOPAMIDOL-250 100ML BTL INTRAARTER ONE (08:41)
[2021-11-09 13:03] VITALS: BP 101/59; PULSE 73
--- NOTE | 2021-11-09 15:08 | P.OP ---
Date of Procedure: 11/09/21 Description of Procedure: Preoperative diagnosis: [Peripheral arterial disease, nonhealing right lower extremity wound, end-stage renal disease, cardiac disease] Postoperative diagnosis: Same Procedure: [#1 ultrasound guided right radial artery access #2 aortogram with runoffs #3 33 minutes of moderate conscious sedation] Surgeon: Anika David D.O. EBL: [Less than 5 mL] IV fluids: [See records] Urine output: [Not measured] Drains: [None] Complications: [None immediately apparent] Condition: Stable to recovery[] Operative indication and findings: The patient is a 71-year-old male with multiple medical comorbidities including a nonhealing right lower extremity wound. He also has currently a LifeVest that he is wearing. He is uncertain of the plan going forward regarding his cardiac issue. At this time we discussed going forward with an angiogram as a diagnostic procedure to evaluate for p ossibilities for revascularization once his cardiac issues are further evaluated. Risks and benefits were discussed. He seemingly understood and was willing to proceed[] Procedure in detail: [The patient was taken to the operative suite and placed in supine position. Bilateral groins and right wrist were prepped and draped in usual sterile fashion. A preprocedure timeout was performed and all parties were in agreement. Using ultrasound, the right radial artery was identified. The skin overlying was anesthetized 1% lidocaine plain. Using ultrasound access was obtained of the radial artery. Seldinger technique was used to place a #sheath and verapamil was instilled. catheters and wires were used access aorta. An aortogram was performed showing patent visualized portions of the celiac and superior mesenteric artery. Renal arteries are visualized however no significant filling of the parenchyma. There is heavy dense calcification of the bilateral iliac system. Iliac arteries appear patent without significant disease. The catheter was advanced and the runoffs were performed. The heavy dense calcification throughout was again visualized. Bilateral common femoral arteries appear patent without significant areas of stenosis again with high- grade calcification disease. The profundus arteries are significantly calcified without significant disease. The superficial femoral artery on the right is patent again with dense calcifications but no obvious areas of occlusion. On the left, the superficial femoral artery appears densely calcified with intermittent areas of high-grade stenosis or occlusion. Popliteal artery. Patent bilaterally. On the right the below-knee popliteal artery appears patent. The anterior tibial artery has a high-grade stenosis proximally and reconstitutes however dwindles and occludes in the proximal portion. The tibial peroneal trunk appears to have a short segment occlusion with reconstitution. The peroneal artery appears patent to the mid calf. The posterior tibial artery occludes shortly after its takeoff. There are multiple large collateral vessels. On the left the below-knee popliteal artery appears patent. The anterior tibial artery occludes shortly after its takeoff. The tibial peroneal trunk has disease however the peroneal and posterior tibial artery appear patent down past the midcalf. The posterior tibial artery appears patent at the level of the ankle. On the right, no named vessels are visualized past the mid calf. Plan - Discharge Summary Discharge Rx Participant: No New Discharge Prescriptions: No Action Isosorbide Mononitrate ER [Imdur] 30 mg PO DAILY PRN PRN Reason: HIGH BLOOD PRESSURE carvediloL [Coreg] 25 mg PO BID PRN PRN Reason: HIGH BLOOD PRESSURE Glimepiride [Amaryl] 2 mg PO BID-W/MEALS Isosorbide Mononitrate ER [Imdur] 60 mg PO BID PRN PRN Reason: HIGH BLOOD PRESSURE hydrALAZINE HCL [Apresoline] 100 mg PO DAILY PRN PRN Reason: HIGH BLOOD PRESSURE Tamsulosin [Flomax] 0.4 mg PO DAILY Aspirin 81 mg PO DAILY Discharge Medication List Isosorbide Mononitrate ER [Imdur] 30 mg PO DAILY PRN 12/01/16 [History] carvediloL [Coreg] 25 mg PO BID PRN 12/01/16 [History] Tamsulosin [Flomax] 0.4 mg PO DAILY 07/30/20 [History] Glimepiride [Amaryl] 2 mg PO BID-W/MEALS 11/05/20 [History] Isosorbide Mononitrate ER [Imdur] 60 mg PO BID PRN 09/06/21 [History] hydrALAZINE HCL [Apresoline] 100 mg PO DAILY PRN 09/06/21 [History] Aspirin 81 mg PO DAILY 11/09/21 [History] Follow up Appointment(s)/Referral(s): Anika David DO [STAFF PHYSICIAN] - 11/23/21 9:45 am Patient Instructions/Handouts: Angiogram (DC), Procedural Sedation (ED) Activity/Diet/Wound Care/Special Instructions: No flexing/bending/pushing/pulling/lifting greater than 5 pounds x5 days No submersion of right wrist in pools/hot tubs/bath tubs x3 days No driving x3 days Fall risk/safety precautions No changes with medications Follow up Discharge Disposition: HOME SELF-CARE
--- NOTE | 2021-11-10 07:27 | IR ---
EXAMINATION TYPE: IR angio abdominal w runoff DATE OF EXAM: 11/10/2021 CLINICAL HISTORY: Peripheral vascular disease TECHNIQUE: Fluoroscopy. COMPARISON: None. FINDINGS: Fluoroscopic guidance was provided during abdominal angiogram with lower extremity runoff procedure performed by Dr. David. A total of 4.5 minutes of fluoroscopic time was utilized during th e procedure and 392 spot images are acquired. Pleased referred to procedure note for further details. IMPRESSION: As Above.
== END 2021-11-09 13:28 | disposition home or self-care (01) ==
LOC: CATHCVL 05:59
PROVIDERS: ATTEND Surgery
DX: E11.52 Type 2 diabetes mellitus with diabetic peripheral angiopathy with gangrene (principal); I96 Gangrene, not elsewhere classified; E11.621 Type 2 diabetes mellitus with foot ulcer; N18.6 End stage renal disease; E11.22 Type 2 diabetes mellitus with diabetic chronic kidney disease; I25.2 Old myocardial infarction; Z95.5 Presence of coronary angioplasty implant and graft; Z98.890 Other specified postprocedural states; H53.9 Unspecified visual disturbance; F17.200 Nicotine dependence, unspecified, uncomplicated; Z79.84 Long term (current) use of oral hypoglycemic drugs; Z79.899 Other long term (current) drug therapy
CPT/HCPCS: 36200; 75625; 75716; 76937; 80048; 85025; C1769 ×5; C1894; J2250; J2001; Q9966

== ENCOUNTER 2022-01-11 11:13 | Day surgery (SDC) | payer MEDICARE ==
[2022-01-10 10:11] VITALS: BMI 23.6
[~2022-01-11 11:13] MED LIST changes: +ALPRAZolam 0.25 MG TAB PO PRN; +ASPIRIN 325 MG TAB PO PRN
[2022-01-11 12:08] LABS: Glucose,Whole Blood 137 mg/dL (70-110)
[2022-01-11 12:34] LABS: Calcium 9.1 mg/dL (8.4-10.2); Potassium 4.3 mmol/L (3.5-5.1)
[2022-01-11 12:45] LABS: Basophils # (A) 0.1 k/uL (0-0.2); Basophils % (A) 1 %; Eosinophils # (A) 0.3 k/uL (0-0.7); Eosinophils % (A) 3 %; HCT 30.2 % (39.0-53.0); HGB 10.5 gm/dL (13.0-17.5); Lymphocytes # (A) 1.3 k/uL (1.0-4.8); Lymphocytes % (A) 17 %; MCH 32.8 pg (25.0-35.0); MCHC 34.7 g/dL (31.0-37.0); Mean Platelet Volume 9.2; Monocytes # (A) 0.3 k/uL (0-1.0); Monocytes % (A) 4 %; Neutrophils # (A) 5.7 k/uL (1.3-7.7); Neutrophils % (A) 73 %; Platelet Count 169 k/uL (150-450); RDW 14.3 % (11.5-15.5); WBC 7.8 k/uL (3.8-10.6)
[2022-01-11 12:53] LABS: MCV 94.6 fL (80.0-100.0)
[2022-01-11] MEDS ORDERED: fentaNYL (PF) 50 MCG/ML 2 ML AMP ONE (12:56)
[2022-01-11] MEDS ORDERED: HEPARIN SODIUM 1,000 UN/ML (10ML VL) ONE (12:57)
[2022-01-11] MEDS ORDERED: MIDAZOLAM 2 MG/2 ML VIAL IVP ONE (13:10)
[2022-01-11] MEDS ORDERED: fentaNYL (PF) 50 MCG/ML 2 ML AMP IVP ONE (13:10)
[2022-01-11] MEDS ORDERED: IOPAMIDOL-250 100ML BTL INTRAARTER ONE (13:32)
[2022-01-11] MEDS ORDERED: hydrALAZINE HCL 20 MG/ML 1 ML VIAL ONE (13:46)
[2022-01-11] MEDS ORDERED: hydrALAZINE HCL 20 MG/ML 1 ML VIAL IV ONE (13:50)
--- NOTE | 2022-01-11 13:51 | IR ---
EXAMINATION TYPE: IR angio lower extremity BI DATE OF EXAM: 01/11/2022 COMPARISON: NONE HISTORY: Fluoroscopy time. Fluoroscopy was provided to the referring clinician.
--- NOTE | 2022-01-11 14:24 | P.OP ---
Date of Procedure: 01/11/22 Description of Procedure: Preoperative diagnosis: [Peripheral arterial disease, end-stage renal disease] Postoperative diagnosis: Same Procedure: [Ultrasound-guided left common femoral artery access Left iliofemoral angiogram Right lower extremity angiogram from common iliac artery Moderate conscious sedation time 17 minutes] Surgeon: Anika David D.O. EBL: [Less than 5 mL] IV fluids: [See records] Urine output: [See records] Drains: [None] Complications: [None] Condition: [Stable] Operative indication and findings: [Patient is a 71-year-old male who previously had a gangrenous toe which was excised. He was initially scheduled for an angiogram but refused cardiac workup and evaluation therefore this was postponed due to his LifeVest. He was found to be cleared subsequently and has been going to wound care. Upon seeing him in the hospital today he states that the wound has healed may have discharged him from wound care. Since he is here and he has continued peripheral arterial disease noted on previous imaging was decided continue forward with an angiogram with possible interventions.] Procedure in detail: [The bilateral groins are prepped and draped in usual sterile fashion. A preprocedure timeout was performed, all parties are in agreement. Using ultrasound, the left common femoral artery was identified. The vessel had a calcific rim but a soft saw was chosen for access. A permanent image was stored. Micro-rectus needle was used to access the artery and Seldinger technique was used with a 5-Thai sheath. Catheters and wires were utilized to access the right system. There was significant difficulty in even gaining access with a small catheter due to the significant calcific disease. A left iliofemoral angiogram was initially obtained showing heavily calcified vessels without any significant stenosis. A right lower extremity angiogram was performed again showing extensive heavily calcified vessels without any significant stenosis through the iliac vessels. There did appear to be disease at the superficial femoral artery and significant areas of stenosis but adequate wash through in this area. At some point, the catheter and wire would not even advance any further than the iliac vessels. Multiple attempts and different catheters were utilized, given the difficulty at this point the procedure was concluded. It was decided that the wound had healed therefore the overall outcome and being aggressive and debulking was thought to possibly cause more harm than good therefore no further attempts were taken. This was discussed with the patient and his . They seemingly understood. The sheath was pulled and manual pressure was held until hemostasis was adequate] Plan - Discharge Summary Discharge Rx Participant: Yes New Discharge Prescriptions: No Action Isosorbide Mononitrate ER [Imdur] 30 mg PO DAILY PRN PRN Reason: HIGH BLOOD PRESSURE carvediloL [Coreg] 25 mg PO BID Glimepiride [Amaryl] 2 mg PO BID-W/MEALS Isosorbide Mononitrate ER [Imdur] 60 mg PO BID Tamsulosin [Flomax] 0.4 mg PO DAILY hydrALAZINE HCL [Hydralazine HCl] 100 mg PO BID Discharge Medication List Isosorbide Mononitrate ER [Imdur] 30 mg PO DAILY PRN 12/01/16 [History] carvediloL [Coreg] 25 mg PO BID 12/01/16 [History] Tamsulosin [Flomax] 0.4 mg PO DAILY 07/30/20 [History] Glimepiride [Amaryl] 2 mg PO BID-W/MEALS 11/05/20 [History] Isosorbide Mononitrate ER [Imdur] 60 mg PO BID 09/06/21 [History] hydrALAZINE HCL [Hydralazine HCl] 100 mg PO BID 01/10/22 [History] Follow up Appointment(s)/Referral(s): Anika David DO [STAFF PHYSICIAN] - 1 Week Activity/Diet/Wound Care/Special Instructions: Continue medications as ordered. Continue activity as tolerated. Discharge Disposition: HOME SELF-CARE
[2022-01-11] MEDS ORDERED: ISOSORBIDE MONONITRATE ER 30 MG TAB.ER.24H PO STA (15:27)
[2022-01-11 16:42] VITALS: PULSE 80; RESP 18
[2022-01-11 17:04] LABS: Glucose,Whole Blood 163 mg/dL (70-110)
[2022-01-11 17:08] VITALS: TEMP 98.7
[2022-01-11 17:21] VITALS: BP 169/80
== END 2022-01-11 21:11 | disposition home or self-care (01) ==
LOC: CATHCVL 11:13 → 6NMEDSUR 13:32 → CATHCVL 21:11
PROVIDERS: ATTEND Surgery
DX: I73.9 Peripheral vascular disease, unspecified (principal); N18.6 End stage renal disease; E11.22 Type 2 diabetes mellitus with diabetic chronic kidney disease; E11.51 Type 2 diabetes mellitus with diabetic peripheral angiopathy without gangrene; Z79.84 Long term (current) use of oral hypoglycemic drugs; Z79.899 Other long term (current) drug therapy
CPT/HCPCS: 36246; 75710; 76937; 80048; 85025; 99152; C1769 ×3; C1894 ×3; J2250; J0360; J3010; Q9966

== ENCOUNTER 2023-04-17 08:45 | Day surgery (SDC) | payer MEDICARE ==
[2023-04-13 10:56] VITALS: BMI 28.5
[~2023-04-17 08:45] MED LIST changes: -ALPRAZolam 0.25 MG TAB PO PRN; -ASPIRIN 325 MG TAB PO PRN; +LACTATED RINGERS 1,000 ML IV SCH; +LIDOCAINE 1% (10MG/ML) FOR IV START INTRADERMA PRN; -SODIUM CHLORIDE 0.9% 1,000 ML in EMPTY BAG 1 BAG IV ONE; +fentaNYL (PF) 50 MCG/ML 2 ML AMP IV PRN
[2023-04-17 09:15] VITALS: TEMP 97.2
[2023-04-17 09:32] LABS: Glucose,Whole Blood 139 mg/dL (70-110)
[2023-04-17] MEDS: SODIUM CHLORIDE 0.9% 500 ML 500 ML IV ONE (09:34)
--- NOTE | 2023-04-17 09:44 | P.HPIHPCON ---
History of Present Illness H&P Date: 04/17/23 Patient is a 72-year-old male with end-stage renal disease getting dialysis via a left upper extremity radiocephalic fistula. He has been doing well without any issues but on physical exam there is evidence of a branch with a thrill therefore the branch will be ligated. Risk and benefits were discussed include but not limited to bleeding, infection, injury to the vessel, thrombosis of graft. He seems understand and is willing to proceed. Consent for Procedure: I have explained the operation/procedure to the patient, including the risks, benefits, side effects, alternative therapies (including not receiving the proposed treatment or service), the likelihood of the patient achieving his/her goals, and potential recuperation problems for the procedure/sedation/analgesia, as well as any blood products, if indicated. I also explained to the patient the risks, benefits and side effects of the alternatives, as well as the risks related to not receiving the proposed procedure, care, treatment, or services. Past Medical History Past Medical History: Coronary Artery Disease (CAD), Chest Pain / Angina, Diabetes Mellitus, Dialysis, Hyperlipidemia, Hypertension, Myocardial Infarction ([place]), Renal Disease, Vascular Disorder Additional Past Medical History / Comment(s): Chronic renal failure: Hemodialysis on , AND [facility]-left arm fistula. Anemia. hx cervical injury r/t football injury with cervical pain. migraines. neuropathy feet, Last Myocardial Infarction Date:: 2007 History of Any Multi-Drug Resistant Organisms: None Reported Past Surgical History: Heart Catheterization With Stent, Tonsillectomy Additional Past Surgical History / Comment(s): Peritoneal Dialysis catheter placed/later removed, cardiac stents X3. Left leg Arthrectomy X2. had rt side of neck for hemodialysis then removed, fistula now in left arm for hemodialysis, Roc cataracts WITH LENS, right 4th toe removed Past Anesthesia/Blood Transfusion Reactions: Previous Problems w/ Anesthesia, Motion Sickness, Postoperative Nausea & Vomiting (PONV) Additional Past Anesthesia/Blood Transfusion Reaction / Comment(s): "Dizzy sometimes when wakes up from anesthesia". Date of Last Stent Placement:: 01/2008 Smoking Status: Former smoker - Past Family History Mother Family Medical History: Cancer Additional Family Medical History / Comment(s): Colon cancer. Father Family Medical History: Myocardial Infarction ([place]), Pulmonary Embolus Additional Family Medical History / Comment(s): Father had several MIs and of one at the age of 69yrs. Medications and Allergies Home Medications Medication Instructions Recorded Confirmed Type Isosorbide Mononitrate ER [Imdur] 30 mg PO BID PRN 12/01/16 04/13/23 History carvediloL [Coreg] 25 mg PO BID 12/01/16 04/13/23 History Tamsulosin [Flomax] 0.4 mg PO DAILY 07/30/20 04/13/23 History Glimepiride [Amaryl] 2 mg PO BID-W/MEALS 11/05/20 04/13/23 History hydrALAZINE HCL [Hydralazine HCl] 25 - 100 mg PO BID PRN 01/10/22 04/13/23 History Alpha Lipoic Acid 200 mg PO DAILY 04/13/23 04/13/23 History Arginine [l-Arginine] 850 mg PO DAILY 04/13/23 04/13/23 History Artichoke Leaves 1 dose PO DAILY 04/13/23 04/13/23 History Ascorbic Acid [Vitamin C] 1,000 mg PO DAILY 04/13/23 04/13/23 History Astragalus Root Supplement 1 dose PO DAILY 04/13/23 04/13/23 History Berberine Supplement 1 dose PO DAILY 04/13/23 04/13/23 History Biotin [Oyda-Eqmx-Ncbjs] 10,000 mcg PO DAILY 04/13/23 04/13/23 History Ceyenne Pepper 500 mg PO DAILY 04/13/23 04/13/23 History Cider Vinegar [Apple Cider Vinegar] 200 mg PO DAILY 04/13/23 04/13/23 History Cilantro Supp 425 mg PO DAILY 04/13/23 04/13/23 History Fish Oil/Dha/Epa [Fish Oil 1,200 1 each PO DAILY 04/13/23 04/13/23 History mg Fish Oil] Gabrielle Root Supplement 550 mg PO DAILY 04/13/23 04/13/23 History Glutamine [l-Glutamine] 500 mg PO DAILY 04/13/23 04/13/23 History Raman Thomas 565 mg pe PO DAILY 04/13/23 04/13/23 History Milk Thistle 150 mg PO DAILY 04/13/23 04/13/23 History N-Acetyl Cysteine 500 mg PO DAILY 04/13/23 04/13/23 History Red Yeast Rice 600 mg PO BID 04/13/23 04/13/23 History Ribos Supplement 750 mg PO DAILY 04/13/23 04/13/23 History Rutin/Quercetin/Bioflav/Bilber 250 mg PO DAILY 04/13/23 04/13/23 History [Bilberry Extract] Selenium 200 mcg PO DAILY 04/13/23 04/13/23 History Stinging Nettle Root 500 mg PO DAILY 04/13/23 04/13/23 History Tart Herron Supplement 1 dose PO DAILY 04/13/23 04/13/23 History Triple Magnesium Complex 400 mg PO DAILY 04/13/23 04/13/23 History Turmeric Root Extract [Turmeric] 1,440 mg PO DAILY 04/13/23 04/13/23 History Ubidecarenone [Co Q-10] 100 mg PO DAILY 04/13/23 04/13/23 History Vitamin A Acetate [Vitamin A] 3,000 mcg PO DAILY 04/13/23 04/13/23 History Vitamin B Complex 1 each PO DAILY 04/13/23 04/13/23 History Vitamin D3/Vitamin K2 (Mk4) 1 each PO DAILY 04/13/23 04/13/23 History [Vitamin K2 Plus D3 Tablet] Vitamin E (Dl,Tocopheryl Acet) 450 mg PO DAILY 04/13/23 04/13/23 History [Vitamin E (1000 Iu = 450 MG)] Zinc Gluconate [Zinc] 50 mg PO DAILY 04/13/23 04/13/23 History cod liver oiL [Cod Liver Oil] 1 each PO DAILY 04/13/23 04/13/23 History levOCARNitine [l-Carnitine] 500 mg PO DAILY 04/13/23 04/13/23 History resveratroL [Resveratrol] 100 mg PO DAILY 04/13/23 04/13/23 History Allergies Allergy/AdvReac Type Severity Reaction Status Date / Time ciprofloxacin [From Cipro] Allergy Unknown Verified 04/17/23 09:20 ezetimibe [From Zetia] Allergy Swelling Verified 04/17/23 09:20 naproxen [From Naprosyn] Allergy Swelling Verified 04/17/23 09:20 IN FEET nifedipine [From Procardia] Allergy Unknown Verified 04/17/23 09:20 Hmzhmnp-VKP-NvR Reductase Allergy Unknown Verified 04/17/23 09:20 Inhibitor [Yacgniv-Xiu-Grm Reductase Inhibitor] Surgical - Exam Vital Signs Temp Pulse Resp BP Pulse Ox 97.2 F L 68 18 175/75 99 04/17/23 09:09 04/17/23 09:09 04/17/23 09:09 04/17/23 09:09 04/17/23 09:09 Pleasant cooperative male in no acute distress. Heart appears regular. Lungs are clear. Left upper extremity AV fistula with palpable thrill. Results - Labs Abnormal Lab Results - Last 24 Hours (Table) 04/17/23 Range/Units 09:30 POC Glucose (mg/dL) 139 H (70-110) mg/dL Assessment and Plan Assessment: End-stage renal disease AV fistula branch Plan: Plan for ligation of sidebranch to allow for improvement of flow through the fistula. Risks and benefits discussed. Patient understands.
[2023-04-17] MEDS ORDERED: PROPOFOL 10 MG/ML 20 ML VIAL IV ONE (09:45)
[2023-04-17] MEDS ORDERED: fentaNYL (PF) 50 MCG/ML 2 ML AMP ONE (09:45)
[2023-04-17] MEDS ORDERED: MIDAZOLAM 2 MG/2 ML VIAL ONE (09:45)
[2023-04-17] MEDS: ONDANSETRON 4 MG/2 ML VIAL IVP ONE (09:49)
[2023-04-17] MEDS: METOCLOPRAMIDE 5 MG/ML 2 ML VIAL IVP ONE (09:49)
[2023-04-17] MEDS: FAMOTIDINE 20 MG/2 ML VIAL IVP ONE (09:49)
[2023-04-17] MEDS: LIDOCAINE 1% INJ 10MG/ML (20 ML MDV) SQ ONE (10:17)
--- NOTE | 2023-04-17 10:27 | P.OP ---
Date of Procedure: 04/17/23 Description of Procedure: Preoperative diagnosis: End-stage renal disease, AV fistula sidebranch Postoperative diagnosis: Same Procedure: Ligation of left upper extremity AV fistula sidebranch Surgeon: Anika David D.O. EBL: Less than 5 cc IV fluids: See records Urine output: Not measured Drains: None Complications: None immediately apparent Condition: Stable to recovery Operative indication and findings: Patient is a 72-year-old male with end-stage renal disease who gets dialysis via left upper extremity radiocephalic fistula. At last evaluation was found to have a sidebranch with a strong thrill that when compressed because augmentation through the fistula therefore was recommended to undergo ligation. Risk and benefits were discussed. He seemingly understood and was willing to proceed. Procedure in detail: Patient was taken to the operative suite and placed in supine position. Left upper extremity was prepped and draped in usual sterile fashion. A preprocedural timeout was performed, all parties were in agreement. Previously the ultrasound was utilized to identify the area of the sidebranch. Incision was made after proper anesthetization of the skin and carried down to the level of the sidebranch. It was encircled and test clamped which caused improved thrill through the AV fistula therefore was doubly ligated with 3-0 silk tie. The area was then copiously irrigated. There was improvement of the thrill. The incision was then reapproximated interrupted sutures with 3-0 Vicryl followed by running 4-0 Monocryl and subcutaneous fashion and placement of skin glue. Patient was allowed awaken from anesthesia and transferred to recovery in stable condition. Plan - Discharge Summary Discharge Rx Participant: No New Discharge Prescriptions: No Action Isosorbide Mononitrate ER [Imdur] 30 mg PO BID PRN PRN Reason: per b/p parameters carvediloL [Coreg] 25 mg PO BID Glimepiride [Amaryl] 2 mg PO BID-W/MEALS Zinc Gluconate [Zinc] 50 mg PO DAILY Ceyenne Pepper 500 mg PO DAILY Artichoke Leaves 1 dose PO DAILY Selenium 200 mcg PO DAILY Glutamine [l-Glutamine] 500 mg PO DAILY resveratroL [Resveratrol] 100 mg PO DAILY Vitamin A Acetate [Vitamin A] 3,000 mcg PO DAILY Ubidecarenone [Co Q-10] 100 mg PO DAILY Biotin [Luyl-Mviv-Fzvsh] 10,000 mcg PO DAILY Vitamin B Complex 1 each PO DAILY Triple Magnesium Complex 400 mg PO DAILY Tart Herron Supplement 1 dose PO DAILY Stinging Nettle Root 500 mg PO DAILY N-Acetyl Cysteine 500 mg PO DAILY Gabrielle Root Supplement 550 mg PO DAILY Rutin/Quercetin/Bioflav/Bilber [Bilberry Extract] 250 mg PO DAILY [place] Thomas 565 mg pe PO DAILY Tamsulosin [Flomax] 0.4 mg PO DAILY hydrALAZINE HCL [Hydralazine HCl] 25 - 100 mg PO BID PRN PRN Reason: per b/p parameters Cilantro Supp 425 mg PO DAILY Astragalus Root Supplement 1 dose PO DAILY Turmeric Root Extract [Turmeric] 1,440 mg PO DAILY Alpha Lipoic Acid 200 mg PO DAILY Vitamin D3/Vitamin K2 (Mk4) [Vitamin K2 Plus D3 Tablet] 1 each PO DAILY Cider Vinegar [Apple Cider Vinegar] 200 mg PO DAILY cod liver oiL [Cod Liver Oil] 1 each PO DAILY Red Yeast Rice 600 mg PO BID Milk Thistle 150 mg PO DAILY Fish Oil/Dha/Epa [Fish Oil 1,200 mg Fish Oil] 1 each PO DAILY Ribos Supplement 750 mg PO DAILY Berberine Supplement 1 dose PO DAILY Ascorbic Acid [Vitamin C] 1,000 mg PO DAILY Vitamin E (Dl,Tocopheryl Acet) [Vitamin E (1000 Iu = 450 MG)] 450 mg PO DAILY Arginine [l-Arginine] 850 mg PO DAILY levOCARNitine [l-Carnitine] 500 mg PO DAILY Discharge Medication List Isosorbide Mononitrate ER [Imdur] 30 mg PO BID PRN 12/01/16 [History] carvediloL [Coreg] 25 mg PO BID 12/01/16 [History] Tamsulosin [Flomax] 0.4 mg PO DAILY 07/30/20 [History] Glimepiride [Amaryl] 2 mg PO BID-W/MEALS 11/05/20 [History] hydrALAZINE HCL [Hydralazine HCl] 25 - 100 mg PO BID PRN 01/10/22 [History] Alpha Lipoic Acid 200 mg PO DAILY 04/13/23 [History] Arginine [l-Arginine] 850 mg PO DAILY 04/13/23 [History] Artichoke Leaves 1 dose PO DAILY 04/13/23 [History] Ascorbic Acid [Vitamin C] 1,000 mg PO DAILY 04/13/23 [History] Astragalus Root Supplement 1 dose PO DAILY 04/13/23 [History] Berberine Supplement 1 dose PO DAILY 04/13/23 [History] Biotin [Wdig-Qjal-Vlnmx] 10,000 mcg PO DAILY 04/13/23 [History] Ceyenne Pepper 500 mg PO DAILY 04/13/23 [History] Cider Vinegar [Apple Cider Vinegar] 200 mg PO DAILY 04/13/23 [History] Cilantro Supp 425 mg PO DAILY 04/13/23 [History] Fish Oil/Dha/Epa [Fish Oil 1,200 mg Fish Oil] 1 each PO DAILY 04/13/23 [History] Gabrielle Root Supplement 550 mg PO DAILY 04/13/23 [History] Glutamine [l-Glutamine] 500 mg PO DAILY 04/13/23 [History] [place] Thomas 565 mg pe PO DAILY 04/13/23 [History] Milk Thistle 150 mg PO DAILY 04/13/23 [History] N-Acetyl Cysteine 500 mg PO DAILY 04/13/23 [History] Red Yeast Rice 600 mg PO BID 04/13/23 [History] Ribos Supplement 750 mg PO DAILY 04/13/23 [History] Rutin/Quercetin/Bioflav/Bilber [Bilberry Extract] 250 mg PO DAILY 04/13/23 [History] Selenium 200 mcg PO DAILY 04/13/23 [History] Stinging Nettle Root 500 mg PO DAILY 04/13/23 [History] Tart Herron Supplement 1 dose PO DAILY 04/13/23 [History] Triple Magnesium Complex 400 mg PO DAILY 04/13/23 [History] Turmeric Root Extract [Turmeric] 1,440 mg PO DAILY 04/13/23 [History] Ubidecarenone [Co Q-10] 100 mg PO DAILY 04/13/23 [History] Vitamin A Acetate [Vitamin A] 3,000 mcg PO DAILY 04/13/23 [History] Vitamin B Complex 1 each PO DAILY 04/13/23 [History] Vitamin D3/Vitamin K2 (Mk4) [Vitamin K2 Plus D3 Tablet] 1 each PO DAILY 04/13/23 [History] Vitamin E (Dl,Tocopheryl Acet) [Vitamin E (1000 Iu = 450 MG)] 450 mg PO DAILY 04/13/23 [History] Zinc Gluconate [Zinc] 50 mg PO DAILY 04/13/23 [History] cod liver oiL [Cod Liver Oil] 1 each PO DAILY 04/13/23 [History] levOCARNitine [l-Carnitine] 500 mg PO DAILY 04/13/23 [History] resveratroL [Resveratrol] 100 mg PO DAILY 04/13/23 [History] Follow up Appointment(s)/Referral(s): Anika David DO [STAFF PHYSICIAN] - 4 Weeks Patient Instructions/Handouts: *Surgery [facility] - (Anesthesia) Discharge Instructions Outpatient Surgery Activity/Diet/Wound Care/Special Instructions: Resume activity as previous. Resume bathing as previous. Resume home medication as previous. [id number] medication as needed for pain. Discharge Disposition: HOME SELF-CARE
[2023-04-17 10:30] VITALS: RESP 16
[2023-04-17 10:40] LABS: Glucose,Whole Blood 123 mg/dL (70-110)
[2023-04-17 11:07] VITALS: BP 155/65; PULSE 64
== END 2023-04-17 11:01 | disposition home or self-care (01) ==
LOC: OR 08:45
PROVIDERS: ATTEND Surgery
DX: E11.22 Type 2 diabetes mellitus with diabetic chronic kidney disease (principal); N18.6 End stage renal disease; I25.10 Atherosclerotic heart disease of native coronary artery without angina pectoris; I25.2 Old myocardial infarction; Z79.84 Long term (current) use of oral hypoglycemic drugs; Z79.899 Other long term (current) drug therapy; Z99.2 Dependence on renal dialysis; Z88.0 Allergy status to penicillin; Z88.8 Allergy status to other drugs, medicaments and biological substances
CPT/HCPCS: 84132; 37607; J2250; J2765; J0690; J2405; J2001; J3010; J3490; J2704

== ENCOUNTER 2023-06-09 15:30 | Inpatient (IN) | payer MEDICARE ==
[2023-06-09] MEDS ORDERED: PNEUMONIA PROTOCOL UTILIZED 1 EACH MISC PO PRN (16:30)
--- NOTE | 2023-06-09 16:30 | ED ---
General Adult HPI - General Chief complaint: Fall Stated complaint: Pneumonia,tranfser Time Seen by Provider: 06/09/23 15:34 Source: patient, RN/MD (Transferring physician), RN notes reviewed, old records reviewed (From [facility]) Mode of arrival: EMS Limitations: no limitations - History of Present Illness Initial comments: Patient is a 72-year-old male presenting to the emergency department to transfer from [facility]. Patient did have a fall 1 or 2 weeks ago and hurt his right ribs. Original x-rays were negative. Patient went back with some shortness of breath. CT scan showed left lower lobe infiltrate. Patient was transferred secondary to history of end-stage renal disease on hemodialysis. Last dialysis was this morning. - Related Data Home Medications Medication Instructions Recorded Confirmed Isosorbide Mononitrate ER [Imdur] 30 mg PO BID PRN 12/01/16 04/13/23 carvediloL [Coreg] 25 mg PO BID 12/01/16 04/13/23 Tamsulosin [Flomax] 0.4 mg PO DAILY 07/30/20 04/13/23 Glimepiride [Amaryl] 2 mg PO BID-W/MEALS 11/05/20 04/13/23 hydrALAZINE HCL [Hydralazine HCl] 25 - 100 mg PO BID PRN 01/10/22 04/13/23 Alpha Lipoic Acid 200 mg PO DAILY 04/13/23 04/13/23 Arginine [l-Arginine] 850 mg PO DAILY 04/13/23 04/13/23 Artichoke Leaves 1 dose PO DAILY 04/13/23 04/13/23 Ascorbic Acid [Vitamin C] 1,000 mg PO DAILY 04/13/23 04/13/23 Astragalus Root Supplement 1 dose PO DAILY 04/13/23 04/13/23 Berberine Supplement 1 dose PO DAILY 04/13/23 04/13/23 Biotin [Nirj-Zexx-Ukxdg] 10,000 mcg PO DAILY 04/13/23 04/13/23 Ceyenne Pepper 500 mg PO DAILY 04/13/23 04/13/23 Cider Vinegar [Apple Cider Vinegar] 200 mg PO DAILY 04/13/23 04/13/23 Cilantro Supp 425 mg PO DAILY 04/13/23 04/13/23 Fish Oil/Dha/Epa [Fish Oil 1,200 1 each PO DAILY 04/13/23 04/13/23 mg Fish Oil] Gabrielle Root Supplement 550 mg PO DAILY 04/13/23 04/13/23 Glutamine [l-Glutamine] 500 mg PO DAILY 04/13/23 04/13/23 Raman Thomas 565 mg pe PO DAILY 04/13/23 04/13/23 Milk Thistle 150 mg PO DAILY 04/13/23 04/13/23 N-Acetyl Cysteine 500 mg PO DAILY 04/13/23 04/13/23 Red Yeast Rice 600 mg PO BID 04/13/23 04/13/23 Ribos Supplement 750 mg PO DAILY 04/13/23 04/13/23 Rutin/Quercetin/Bioflav/Bilber 250 mg PO DAILY 04/13/23 04/13/23 [Bilberry Extract] Selenium 200 mcg PO DAILY 04/13/23 04/13/23 Stinging Nettle Root 500 mg PO DAILY 04/13/23 04/13/23 Tart Herron Supplement 1 dose PO DAILY 04/13/23 04/13/23 Triple Magnesium Complex 400 mg PO DAILY 04/13/23 04/13/23 Turmeric Root Extract [Turmeric] 1,440 mg PO DAILY 04/13/23 04/13/23 Ubidecarenone [Co Q-10] 100 mg PO DAILY 04/13/23 04/13/23 Vitamin A Acetate [Vitamin A] 3,000 mcg PO DAILY 04/13/23 04/13/23 Vitamin B Complex 1 each PO DAILY 04/13/23 04/13/23 Vitamin D3/Vitamin K2 (Mk4) 1 each PO DAILY 04/13/23 04/13/23 [Vitamin K2 Plus D3 Tablet] Vitamin E (Dl,Tocopheryl Acet) 450 mg PO DAILY 04/13/23 04/13/23 [Vitamin E (1000 Iu = 450 MG)] Zinc Gluconate [Zinc] 50 mg PO DAILY 04/13/23 04/13/23 cod liver oiL [Cod Liver Oil] 1 each PO DAILY 04/13/23 04/13/23 levOCARNitine [l-Carnitine] 500 mg PO DAILY 04/13/23 04/13/23 resveratroL [Resveratrol] 100 mg PO DAILY 04/13/23 04/13/23 Allergies Allergy/AdvReac Type Severity Reaction Status Date / Time ciprofloxacin [From Cipro] Allergy Unknown Verified 04/17/23 09:20 ezetimibe [From Zetia] Allergy Swelling Verified 04/17/23 09:20 naproxen [From Naprosyn] Allergy Swelling Verified 04/17/23 09:20 IN FEET nifedipine [From Procardia] Allergy Unknown Verified 04/17/23 09:20 Kgtdhbo-NAB-PbK Reductase Allergy Unknown Verified 04/17/23 09:20 Inhibitor [Qoxwwbl-Xbe-Pgy Reductase Inhibitor] Review of Systems ROS Statement: Those systems with pertinent positive or pertinent negative responses have been documented in the HPI. ROS Other: All systems not noted in ROS Statement are negative. Constitutional: Denies: fever Eyes: Denies: eye pain ENT: Denies: ear pain Respiratory: Reports: as per HPI, cough, dyspnea Gastrointestinal: Denies: abdominal pain Past Medical History Past Medical History: Coronary Artery Disease (CAD), Chest Pain / Angina, Diabetes Mellitus, Dialysis, Hyperlipidemia, Hypertension, Myocardial Infarction ([place]), Renal Disease, Vascular Disorder Additional Past Medical History / Comment(s): Chronic renal failure: Hemodialysis on , AND SAT-left arm fistula. Anemia. hx cervical injury r/t football injury with cervical pain. migraines. neuropathy feet, Last Myocardial Infarction Date:: 2007 History of Any Multi-Drug Resistant Organisms: None Reported Past Surgical History: Heart Catheterization With Stent, Tonsillectomy Additional Past Surgical History / Comment(s): Peritoneal Dialysis catheter placed/later removed, cardiac stents X3. Left leg Arthrectomy X2. had rt side of neck for hemodialysis then removed, fistula now in left arm for hemodialysis, Roc cataracts WITH LENS, right 4th toe removed Past Anesthesia/Blood Transfusion Reactions: Previous Problems w/ Anesthesia, Motion Sickness, Postoperative Nausea & Vomiting (PONV) Additional Past Anesthesia/Blood Transfusion Reaction / Comment(s): "Dizzy sometimes when wakes up from anesthesia". Date of Last Stent Placement:: 01/2008 Past Psychological History: No Psychological Hx Reported Smoking Status: Former smoker - Past Family History Mother Family Medical History: Cancer Additional Family Medical History / Comment(s): Colon cancer. Father Family Medical History: Myocardial Infarction ([place]), Pulmonary Embolus Additional Family Medical History / Comment(s): Father had several MIs and of one at the age of 69yrs. General Exam Limitations: no limitations General appearance: alert, in no apparent distress Head exam: Present: atraumatic Eye exam: Present: normal appearance Neck exam: Present: normal inspection. Absent: tenderness Respiratory exam: Present: rales (Minimal left base) Cardiovascular Exam: Present: regular rate, normal rhythm GI/Abdominal exam: Present: soft. Absent: tenderness Extremities exam: Present: normal inspection Neurological exam: Present: alert Psychiatric exam: Present: normal affect, normal mood Skin exam: Present: normal color Course Vital Signs 06/09/23 15:41 Temperature 97.8 F Pulse Rate 84 Respiratory 18 Rate Blood Pressure 148/78 O2 Sat by Pulse 94 L Oximetry Medical Decision Making - Medical Decision Making Was pt. sent in by a medical professional or institution (, PA, METROLOGY MANAGER, urgent care, hospital, or correction...) When possible be specific @ -Patient was sent from [facility] transferred for level of care Did you speak to anyone other than the patient for history (EMS, parent, family, police, friend...)? What history was obtained from this source @ -I did speak with transferring physician Did you review nursing and triage notes (agree or disagree)? Why? @ -I reviewed and agree with nursing and triage notes Were old charts reviewed (outside hosp., previous admission, EMS record, old EKG, old radiological studies, urgent care reports/EKG's, correction records)? Report findings @ -Chart reviewed from [facility] Differential Diagnosis (chest pain, altered mental status, abdominal pain women, abdominal pain men, vaginal bleeding, weakness, fever, dyspnea, syncope, headache, dizziness, GI bleed, back pain, seizure, CVA, palpatations, mental health, musculoskeletal)? @ -Differential Dyspnea: Coronary syndrome, arrhythmia, tamponade, asthma, COPD, pulmonary embolism, pneumonia, pneumothorax, pulmonary effusion, anaphylaxis, diabetic ketoacidosis, flailed chest, pulmonary contusion, diaphragmatic rupture, anemia, neuromuscular, this is not meant to be an all-inclusive list. EKG interpreted by me (3pts min.). @ -As above X-rays interpreted by me (1pt min.). @ -None done CT interpreted by me (1pt min.). @ -None done U/S interpreted by me (1pt. min.). @ -None done What testing was considered but not performed or refused? (CT, X-rays, U/S, labs)? Why? @ -None What meds were considered but not given or refused? Why? @ -None Did you discuss the management of the patient with other professionals (professionals i.e. , PA, METROLOGY MANAGER, lab, RT, psych nurse, social media coordinator, core assembly supervisor, teacher, interface control officer, bilingual case manager)? Give summary @ -Case was discussed with transferring physician. Case also discussed with on-call trauma surgeon Dr. Andrea who does not feel patient needs to be trauma admission secondary to fall occurring 10-14days ago. Patient has not been admitted for concern for rib fractures. He states he can be consulted if needed. Also discussed with [facility] physician with Dr. Gaytan who will admit covering hospital call Was smoking cessation discussed for >3mins.? @ -No Was critical care preformed (if so, how long)? @ -No Were there social determinants of health that impacted care today? How? (Homelessness, low income, unemployed, alcoholism, drug addiction, transportation, low edu. Level, literacy, decrease access to med. care, long term, rehab)? @ -No Was there de-escalation of care discussed even if they declined (Discuss DNR or withdrawal of care, Hospice)? DNR status @ -No What co-morbidities impacted this encounter? (DM, HTN, Smoking, COPD, CAD, Cancer, CVA, ARF, Chemo, Hep., AIDS, mental health diagnosis, sleep apnea, morbid obesity)? @ -End-stage renal disease on hemodialysis Was patient admitted / discharged? Hospital course, mention meds given and route, prescriptions, significant lab abnormalities, going to OR and other pertinent info. @ -Patient updated on results. Patient will be admitted with IV antibiotics. Patient has already received Rocephin and azithromycin. Blood cultures and lactic acid were ordered from transferring facility. Admission orders written. Undiagnosed new problem with uncertain prognosis? @ -No Drug Therapy requiring intensive monitoring for toxicity (Heparin, Nitro, Insulin, Cardizem)? @ -No Were any procedures done? @ -No Diagnosis/symptom? @ -Pneumonia Acute, or Chronic, or Acute on Chronic? @ -Acute Uncomplicated (without systemic symptoms) or Complicated (systemic symptoms)? @ -Default Side effects of treatment? @ -No Exacerbation, Progression, or Severe Exacerbation? @ -No Poses a threat to life or bodily function? How? (Chest pain, [place], [place], pneumonia, PE, COPD, DKA, ARF, appy, cholecystitis, CVA, Diverticulitis, Homicidal, Suicidal, threat to staff... and all critical care pts) @ -Potential for pulmonary dysfunction Disposition Clinical Impression: Pneumonia Disposition: ADMITTED IP TO THIS HOSP Is patient prescribed a controlled substance at d/c from ED?: No Referrals: None,Stated [Primary Care Provider] - 1-2 days Time of Disposition: 16:30
[2023-06-09] MEDS ORDERED: MORPHINE SULFATE 4 MG/ML SYRINGE IVP PRN (16:32)
[2023-06-09] MEDS ORDERED: NALOXONE 0.4 MG/ML 1 ML VIAL IV PRN (16:32)
[2023-06-09] MEDS: AZITHROMYCIN 500 MG TAB PO SCH (17:29)
[2023-06-09] MEDS ORDERED: hydrALAZINE HCL 25 MG TAB PO PRN (20:18)
[2023-06-09] MEDS ORDERED: hydrALAZINE HCL 50 MG TAB PO PRN (20:18)
[2023-06-09] MEDS: ISOSORBIDE MONONITRATE ER 30 MG TAB.ER.24H PO SCH (21:33)
[2023-06-09] MEDS: carvediloL 12.5 MG TAB PO SCH (21:34)
[2023-06-09] MEDS: HYDROcodone/APAP 5-325MG 1 EACH TAB PO PRN (21:56)
[2023-06-10 05:47] LABS: Glucose,Whole Blood 119 mg/dL (70-110)
[2023-06-10] MEDS: GLIMEPIRIDE 2 MG TAB PO SCH (06:48)
[2023-06-10 07:47] LABS: HGB 10.2 gm/dL (13.0-17.5); MCH 31.3 pg (25.0-35.0); MCHC 31.7 g/dL (31.0-37.0); MCV 98.6 fL (80.0-100.0); Macrocytosis Slight; Mean Platelet Volume 9.6; Platelet Count 193 k/uL (150-450); RBC 3.25 m/uL (4.30-5.90); RDW 14.9 % (11.5-15.5)
[2023-06-10 08:33] LABS: Neutrophils % (M) 76 %; Nucleated Red Blood Cells 0 /100 WBC (0-0); Total Cells Counted 100
[2023-06-10] MEDS: TAMSULOSIN 0.4 MG CAP.ER.24H PO SCH (08:51)
--- NOTE | 2023-06-10 10:23 | P.NPCON ---
History of Present Illness - Reason for Consult end stage renal disease - History of Present Illness Reason for consultation: End-stage renal disease History of present illness: Patient is a 72-year-old male seen in renal consultation for end-stage renal disease. He is maintained on hemodialysis on Sunday schedule via left upper extremity AV fistula. Last dialysis was yesterday. Patient states he fell about a week and a half ago and was seen in the emergency room at a different facility. Patient states he fell and hurt his ribs on the right side. Patient states he was told there were no fractures and was sent home. Patient came back to the hospital due to shortness of breath. Patient was noted to have a left lower lobe infiltrate and is currently receiving antibiotics. He denies fever or chills. Denies chest pain. Denies vomiting or diarrhea. Patient does have history of diabetes. Also has history of coronary artery disease with cardiac stents. Denies family history of renal disease. Hemodynamically stable. Vital signs are stable. General: No acute distress. HEENT: Head exam is unremarkable. LUNGS: No audible rhonchi or wheezes. HEART: Rate and Rhythm are regular. ABDOMEN: Nontender. EXTREMITITES: No edema. Past Medical History Past Medical History: Coronary Artery Disease (CAD), Chest Pain / Angina, Diabetes Mellitus, Dialysis, Hyperlipidemia, Hypertension, Myocardial Infarction ([place]), Renal Disease, Vascular Disorder Additional Past Medical History / Comment(s): Chronic renal failure: Hemodialysis on , AND SAT-left arm fistula. Anemia. hx cervical injury r/t football injury with cervical pain. migraines. neuropathy feet, Last Myocardial Infarction Date:: 2007 History of Any Multi-Drug Resistant Organisms: None Reported Past Surgical History: Heart Catheterization With Stent, Tonsillectomy Additional Past Surgical History / Comment(s): Peritoneal Dialysis catheter placed/later removed, cardiac stents X3. Left leg Arthrectomy X2. had rt side of neck for hemodialysis then removed, fistula now in left arm for hemodialysis, Roc cataracts WITH LENS, right 4th toe removed Past Anesthesia/Blood Transfusion Reactions: Previous Problems w/ Anesthesia, Motion Sickness, Postoperative Nausea & Vomiting (PONV) Additional Past Anesthesia/Blood Transfusion Reaction / Comment(s): "Dizzy sometimes when wakes up from anesthesia". Date of Last Stent Placement:: 01/2008 Past Psychological History: No Psychological Hx Reported Additional Psychological History / Comment(s): . Smoking Status: Former smoker Past Alcohol Use History: Rare Additional Past Alcohol Use History / Comment(s): quit 2007, smoked since 11 yrs. old, up to 3ppd Past Drug Use History: None Reported - Past Family History Mother Family Medical History: Cancer Additional Family Medical History / Comment(s): Colon cancer. Father Family Medical History: Myocardial Infarction ([place]), Pulmonary Embolus Additional Family Medical History / Comment(s): Father had several MIs and of one at the age of 69yrs. Medications and Allergies Home Medications Medication Instructions Recorded Confirmed Type Isosorbide Mononitrate ER [Imdur] 30 mg PO BID 12/01/16 06/09/23 History carvediloL [Coreg] 25 mg PO BID 12/01/16 06/09/23 History Tamsulosin [Flomax] 0.4 mg PO DAILY 07/30/20 06/09/23 History Glimepiride [Amaryl] 2 mg PO BID-W/MEALS 11/05/20 06/09/23 History Ascorbic Acid [Vitamin C] 1,000 mg PO DAILY 04/13/23 06/09/23 History Nitroglycerin Sl Tabs [Nitrostat] 0.4 mg SUBLINGUAL Q5M PRN 06/09/23 06/09/23 History hydrALAZINE HCL [Apresoline] 25 mg PO TID PRN 06/09/23 06/09/23 History hydrALAZINE HCL [Apresoline] 50 mg PO TID PRN 06/09/23 06/09/23 History Allergies Allergy/AdvReac Type Severity Reaction Status Date / Time ciprofloxacin [From Cipro] Allergy Unknown Verified 06/09/23 17:18 ezetimibe [From Zetia] Allergy Swelling Verified 06/09/23 17:18 naproxen [From Naprosyn] Allergy Swelling Verified 06/09/23 17:18 IN FEET nifedipine [From Procardia] Allergy Unknown Verified 06/09/23 17:18 Khrwagf-TEJ-XmO Reductase Allergy "heart Verified 06/09/23 17:18 Inhibitor problems" [Jhfjhev-Fyf-Jvm Reductase Inhibitor] Physical Exam Vitals: Vital Signs Temp Pulse Pulse Resp BP BP Pulse Ox 06/10/23 08:06 97.8 F 68 16 171/70 97 06/10/23 01:48 98.4 F 71 20 146/65 93 L 06/09/23 21:31 98.2 F 78 20 174/77 98 06/09/23 19:59 70 18 151/70 97 06/09/23 15:41 97.8 F 84 18 148/78 94 L Intake and Output 06/09/23 06/10/23 06/10/23 22:59 06:59 14:59 Intake Total 950 Balance 950 Intake: Oral 950 Other: # Voids 1 Weight 85 kg Results - Lab Results 06/10/23 06:30 Assessment and Plan Plan: Assessment: 1. End-stage renal disease maintained on hemodialysis on Sunday schedule via left upper extremity AV fistula at [facility]. 2. Pneumonia maintained on antibiotics. 3. Hypertension with chronic kidney disease. 4. Coronary disease with cardiac stents. 5. Diabetes mellitus. 6. Anemia of chronic kidney disease. 7. Status post fall with rib injury. Plan: Hemodialysis Sunday. Check iron studies. Check phosphorus level. Add scheduled hydralazine. Thank you for the consultation. I will continue to follow the patient with you during his hospital stay.
[2023-06-10] MEDS ORDERED: NITROGLYCERIN SL TABS 0.4 MG TAB SUBLINGUAL PRN (10:42)
[2023-06-10 11:28] LABS: Glucose,Whole Blood 132 mg/dL (70-110)
--- NOTE | 2023-06-10 12:35 | P.GSCN ---
History of Present Illness Consult date: 06/10/23 History of present illness: Patient transferred from outside facility for dialysis. He has history of fall over 3 weeks ago. He denies any current rib or chest pain. He is sitting in up in chair and tolerating regular diet. STUDIES: Chest xray without rib fractures. PLAN: 1. No acute surgical intervention. 2. Discharge when medically stable. Past Medical History Past Medical History: Coronary Artery Disease (CAD), Chest Pain / Angina, Diabetes Mellitus, Dialysis, Hyperlipidemia, Hypertension, Myocardial Infarction ([place]), Renal Disease, Vascular Disorder Additional Past Medical History / Comment(s): Chronic renal failure: Hemodialysis on , AND SAT-left arm fistula. Anemia. hx cervical injury r/t football injury with cervical pain. migraines. neuropathy feet, Last Myocardial Infarction Date:: 2007 History of Any Multi-Drug Resistant Organisms: None Reported Past Surgical History: Heart Catheterization With Stent, Tonsillectomy Additional Past Surgical History / Comment(s): Peritoneal Dialysis catheter placed/later removed, cardiac stents X3. Left leg Arthrectomy X2. had rt side of neck for hemodialysis then removed, fistula now in left arm for hemodialysis, Roc cataracts WITH LENS, right 4th toe removed Past Anesthesia/Blood Transfusion Reactions: Previous Problems w/ Anesthesia, Motion Sickness, Postoperative Nausea & Vomiting (PONV) Additional Past Anesthesia/Blood Transfusion Reaction / Comm: "Dizzy sometimes when wakes up from anesthesia". Date of Last Stent Placement:: 01/2008 Past Psychological History: No Psychological Hx Reported Additional Psychological History / Comment(s): . Smoking Status: Former smoker Past Alcohol Use History: Rare Additional Past Alcohol Use History / Comment(s): quit 2007, smoked since 11 yrs. old, up to 3ppd Past Drug Use History: None Reported - Past Family History Mother Family Medical History: Cancer Additional Family Medical History / Comment(s): Colon cancer. Father Family Medical History: Myocardial Infarction ([place]), Pulmonary Embolus Additional Family Medical History / Comment(s): Father had several MIs and of one at the age of 69yrs. Medications and Allergies Home Medications Medication Instructions Recorded Confirmed Type Isosorbide Mononitrate ER [Imdur] 30 mg PO BID 12/01/16 06/09/23 History carvediloL [Coreg] 25 mg PO BID 12/01/16 06/09/23 History Tamsulosin [Flomax] 0.4 mg PO DAILY 07/30/20 06/09/23 History Glimepiride [Amaryl] 2 mg PO BID-W/MEALS 11/05/20 06/09/23 History Ascorbic Acid [Vitamin C] 1,000 mg PO DAILY 04/13/23 06/09/23 History Nitroglycerin Sl Tabs [Nitrostat] 0.4 mg SUBLINGUAL Q5M PRN 06/09/23 06/09/23 History hydrALAZINE HCL [Apresoline] 25 mg PO TID PRN 06/09/23 06/09/23 History hydrALAZINE HCL [Apresoline] 50 mg PO TID PRN 06/09/23 06/09/23 History Allergies Allergy/AdvReac Type Severity Reaction Status Date / Time ciprofloxacin [From Cipro] Allergy Unknown Verified 06/09/23 17:18 ezetimibe [From Zetia] Allergy Swelling Verified 06/09/23 17:18 naproxen [From Naprosyn] Allergy Swelling Verified 06/09/23 17:18 IN FEET nifedipine [From Procardia] Allergy Unknown Verified 06/09/23 17:18 Vuvdqnc-WIY-UrA Reductase Allergy "heart Verified 06/09/23 17:18 Inhibitor problems" [Kvcvldx-Znc-Pah Reductase Inhibitor] Surgical - Exam Vital Signs Temp Pulse Resp BP Pulse Ox 97.8 F 84 18 148/78 94 L 06/09/23 15:41 06/09/23 15:41 06/09/23 15:41 06/09/23 15:41 06/09/23 15:41 Results - Labs 06/10/23 06:30 Abnormal Lab Results - Last 24 Hours (Table) 06/10/23 06/10/23 06/10/23 Range/Units 05:45 06:30 11:26 RBC 3.25 L (4.30-5.90) m/uL Hgb 10.2 L (13.0-17.5) gm/dL Hct 32.0 L (39.0-53.0) % POC Glucose (mg/dL) 119 H 132 H (70-110) mg/dL
--- NOTE | 2023-06-10 15:12 | P.CNPUL ---
History of Present Illness Consult date: 06/10/23 Reason for consult: dyspnea, pneumonia History of present illness: On today's evaluation of 06/10/2023, the patient is being seen in consultation for shortness of breath. The patient was transferred from [facility]. The patient was feeling weak and tired and at same time was experiencing some shortness of breath. Also reported some fever. Currently is afebrile and hemodynamically stable. He is on room air oxygen. He is ambulating in the hallway. The viral screen was negative for influenza COVID-19 and RSV. I also reviewed the chest x-ray and there is no evidence of any acute cardiopulmonary process. There may be some left basilar infiltration. The patient has end- stage renal disease and the patient is being dialyzed 3 times a week. He has not missed any of his dialysis sessions. There was count of 10 with a hemog lobin 10.2 and a platelet count of 193. Lactic acid level is at 1.2. His white cell count is at 10 with a hemoglobin 10.2 and a platelet count of 193. The patient is on IV Rocephin and Zithromax. No altered mentation. No hypotension. No other significant events otherwise for now. The patient is known to have multiple medical problems and comorbidities. The patient is known to have CAD, diabetes mellitus and the patient has end-stage renal disease on hemodialysis, in addition to history of hypertension hyperlipidemia and peripheral vascular disease. He has also history of migraines and peripheral neuropathy. Has undergone previous cardiac catheterization and stenting. The patient has a AV fistula in his left upper extremity Review of Systems Constitutional: Reports weakness Eyes: denies as per HPI, denies blurred vision, denies bulging eye, denies decreased vision, denies diplopia, denies discharge, denies dry eye, denies irritation, denies itching, denies pain, denies photophobia, denies loss of peripheral vision, denies loss of vision, denies tunnel vision/blind spots Ears: deny: decreased hearing, ear discharge, earache, tinnitus Breasts: absent: as per HPI, gynecomastia Cardiovascular: Reports decreased exercise tolerance, Reports dyspnea on exertion Respiratory: Reports cough, Reports dyspnea Gastrointestinal: Reports as per HPI Genitourinary: Reports as per HPI Musculoskeletal: Reports as per HPI, Reports frequent falls Musculoskeletal: absent: ankle pain, ankle stiffness, ankle swelling, as per HPI, elbow pain, elbow stiffness, elbow swelling, foot pain, foot stiffness, foot swelling, hand pain, hand stiffness, hand swelling, hip pain, hip stiffness, hip swelling, knee pain, knee stiffness, knee swelling, shoulder pain, shoulder stiffness, shoulder swelling, wrist pain, wrist stiffness, wrist swelling Neurological: Reports as per HPI Psychiatric: Reports as per HPI Endocrine: Reports as per HPI Allergic/Immunologic: Reports as per HPI Past Medical History Past Medical History: Coronary Artery Disease (CAD), Chest Pain / Angina, Diabetes Mellitus, Dialysis, Hyperlipidemia, Hypertension, Myocardial Infarction ([place]), Renal Disease, Vascular Disorder Additional Past Medical History / Comment(s): Chronic renal failure: Hemodialysis on , AND [facility]-left arm fistula. Anemia. hx cervical injury r/t football injury with cervical pain. migraines. neuropathy feet, Last Myocardial Infarction Date:: 2007 History of Any Multi-Drug Resistant Organisms: None Reported Past Surgical History: Heart Catheterization With Stent, Tonsillectomy Additional Past Surgical History / Comment(s): Peritoneal Dialysis catheter p laced/later removed, cardiac stents X3. Left leg Arthrectomy X2. had rt side of neck for hemodialysis then removed, fistula now in left arm for hemodialysis, Roc cataracts WITH LENS, right 4th toe removed Past Anesthesia/Blood Transfusion Reactions: Previous Problems w/ Anesthesia, Motion Sickness, Postoperative Nausea & Vomiting (PONV) Additional Past Anesthesia/Blood Transfusion Reaction / Comment(s): "Dizzy sometimes when wakes up from anesthesia". Date of Last Stent Placement:: 01/2008 Past Psychological History: No Psychological Hx Reported Additional Psychological History / Comment(s): . Smoking Status: Former smoker Past Alcohol Use History: Rare Additional Past Alcohol Use History / Comment(s): quit 2007, smoked since 11 yrs. old, up to 3ppd Past Drug Use History: None Reported - Past Family History Mother Family Medical History: Cancer Additional Family Medical History / Comment(s): Colon cancer. Father Family Medical History: Myocardial Infarction ([place]), Pulmonary Embolus Additional Family Medical History / Comment(s): Father had several MIs and of one at the age of 69yrs. Medications and Allergies Home Medications Medication Instructions Recorded Confirmed Type Isosorbide Mononitrate ER [Imdur] 30 mg PO BID 12/01/16 06/09/23 History carvediloL [Coreg] 25 mg PO BID 12/01/16 06/09/23 History Tamsulosin [Flomax] 0.4 mg PO DAILY 07/30/20 06/09/23 History Glimepiride [Amaryl] 2 mg PO BID-W/MEALS 11/05/20 06/09/23 History Ascorbic Acid [Vitamin C] 1,000 mg PO DAILY 04/13/23 06/09/23 History Nitroglycerin Sl Tabs [Nitrostat] 0.4 mg SUBLINGUAL Q5M PRN 06/09/23 06/09/23 History hydrALAZINE HCL [Apresoline] 25 mg PO TID PRN 06/09/23 06/09/23 History hydrALAZINE HCL [Apresoline] 50 mg PO TID PRN 06/09/23 06/09/23 History Allergies Allergy/AdvReac Type Severity Reaction Status Date / Time ciprofloxacin [From Cipro] Allergy Unknown Verified 06/09/23 17:18 ezetimibe [From Zetia] Allergy Swelling Verified 06/09/23 17:18 naproxen [From Naprosyn] Allergy Swelling Verified 06/09/23 17:18 IN FEET nifedipine [From Procardia] Allergy Unknown Verified 06/09/23 17:18 Inzixks-YVC-UxR Reductase Allergy "heart Verified 06/09/23 17:18 Inhibitor problems" [Ghamgwk-Zez-Jpd Reductase Inhibitor] Physical Exam Vitals: Vital Signs Temp Pulse Pulse Resp BP BP Pulse Ox 06/10/23 08:06 97.8 F 68 16 171/70 97 06/10/23 01:48 98.4 F 71 20 146/65 93 L 06/09/23 21:31 98.2 F 78 20 174/77 98 06/09/23 19:59 70 18 151/70 97 06/09/23 15:41 97.8 F 84 18 148/78 94 L Intake and Output 06/09/23 06/10/23 06/10/23 22:59 06:59 14:59 Intake Total 950 Balance 950 Intake: Oral 950 Other: # Voids 1 Weight 85 kg General: ill appearing, no distress, appears older than stated age,, comfortable currently on room air oxygen. Examination of the skin revealed no evidence of significant rashes, suspicious appearing nevi or other concerning lesions. Head: atraumatic, normocephalic, symmetric Eyes: PERRL, no lid lag, anicteric sclera Mouth: no lip lesion, mucus membranes moist Cardiovascular: S1S2 reg, no murmur, positive posterior tibial pulse bilateral, Lungs: Course bs bilateral, no rhonchi, no rales , no accessory muscle use, on vent Abdominal: soft, nontender to palpation, no guarding, no appreciable organomegaly Ext: no gross muscle atrophy, no edema, no contractures, the patient has a functional AV fistula. Neuro: Moving all 4 extremities independently, cranial nerves II through XII grossly intact, no focal neuro deficits Psych: Alert, oriented, appropriate affect Results - Laboratory Findings CBC and BMP: 06/10/23 06:30 Abnormal lab findings: Abnormal Labs 06/10/23 06/10/23 05:45 06:30 RBC 3.25 L Hgb 10.2 L Hct 32.0 L POC Glucose (mg/dL) 119 H - Diagnostic Findings Chest x-ray: image reviewed Assessment and Plan Plan: Acute febrile illness along with generalized weakness and some limited shortness of breath without any significant leukocytosis or hemodynamic instability. The patient is currently on Rocephin and Zithromax. Limited infiltration of the left lung base. Viral screen has been negative. The patient is being monitored closely. No significant hypoxemia. End-stage renal disease on hemodialysis 3 times a week Coronary artery disease with previous coronary intervention and stenting CHF with systolic heart failure and a ejection fraction of 25 to 30% Diabetes mellitus type 2 Hypertension History of recent fall approximately 10 days ago and the patient has some right-sided rib chest wall pain without any other complications on today's chest x-ray. Peripheral neuropathy Chronic migraines Anemia of chronic disease related to renal failure Peripheral vascular disease Cataracts Plan Suspect left lower lobe pneumonia. Continue Rocephin and Zithromax. Monitor ox ygenation. Resume home medications. Overall condition is stable but hemodynamic stable. The patient is on room air oxygen. Will continue to follow. The viral screen has been negative.
[2023-06-10] MEDS: hydrALAZINE HCL 25 MG TAB PO SCH (15:42)
--- NOTE | 2023-06-10 16:34 | P.HPIM ---
History of Present Illness H&P Date: 06/10/23 Chief Complaint: Fall/pneumonia 72-year-old male, history of CAD, diabetes mellitus, end-stage renal disease/HD, hypertension, hyperlipidemia, PVD, presenting to the emergency department to transfer from [facility]. Patient did have a fall 1 or 2 weeks ago and hurt his right ribs. Original x- rays were negative. Patient went back with some shortness of breath. CT scan showed left lower lobe infiltrate. Patient was transferred secondary to history of end-stage renal disease on hemodialysis. Last dialysis was this morning. The viral screen was negative for influenza COVID-19 and RSV. Chest x-ray reveals no evidence of any acute cardiopulmonary process. There may be some left basilar infiltration. There was count of 10 with a hemoglobin 10.2 and a platelet count of 193. Lactic acid level is at 1.2. His white cell count is at 10 with a hemoglobin 10.2 and a platelet count of 193. The patient is on IV Rocephin and Zithromax. Review of Systems REVIEW OF SYSTEMS: CONSTITUTIONAL: No fever, no malaise, no fatigue. HEENT: No recent visual problems or hearing problems. Denied any sore throat. CARDIOVASCULAR: No chest pain, orthopnea, PND, no palpitations, no syncope. PULMONARY: No shortness of breath, no cough, no hemoptysis. GASTROINTESTINAL: No diarrhea, no nausea, no vomiting, no abdominal pain. NEUROLOGICAL: No headaches, no weakness, no numbness. HEMATOLOGICAL: Denies any bleeding or petechiae. GENITOURINARY: Denies any burning micturition, frequency, or urgency. MUSCULOSKELETAL/RHEUMATOLOGICAL: Denies any joint pain, swelling, or any muscle pain. ENDOCRINE: Denies any polyuria or polydipsia. The rest of the 14-point review of systems is negative. Past Medical History Past Medical History: Coronary Artery Disease (CAD), Chest Pain / Angina, Diabe brant Mellitus, Dialysis, Hyperlipidemia, Hypertension, Myocardial Infarction ([place]), Renal Disease, Vascular Disorder Additional Past Medical History / Comment(s): Chronic renal failure: Hemodialysis on ,[facility] AND [facility]-left arm fistula. Anemia. hx cervical injury r/t football injury with cervical pain. migraines. neuropathy feet, Last Myocardial Infarction Date:: 2007 History of Any Multi-Drug Resistant Organisms: None Reported Past Surgical History: Heart Catheterization With Stent, Tonsillectomy Additional Past Surgical History / Comment(s): Peritoneal Dialysis catheter placed/later removed, cardiac stents X3. Left leg Arthrectomy X2. had rt side of neck for hemodialysis then removed, fistula now in left arm for hemodialysis, Roc cataracts WITH LENS, right 4th toe removed Past Anesthesia/Blood Transfusion Reactions: Previous Problems w/ Anesthesia, Motion Sickness, Postoperative Nausea & Vomiting (PONV) Additional Past Anesthesia/Blood Transfusion Reaction / Comment(s): "Dizzy sometimes when wakes up from anesthesia". Date of Last Stent Placement:: 01/2008 Past Psychological History: No Psychological Hx Reported Additional Psychological History / Comment(s): . Smoking Status: Former smoker Past Alcohol Use History: Rare Additional Past Alcohol Use History / Comment(s): quit 2007, smoked since 11 yrs. old, up to 3ppd Past Drug Use History: None Reported - Past Family History Mother Family Medical History: Cancer Additional Family Medical History / Comment(s): Colon cancer. Father Family Medical History: Myocardial Infarction ([place]), Pulmonary Embolus Additional Family Medical History / Comment(s): Father had several MIs and of one at the age of 69yrs. Medications and Allergies Home Medications Medication Instructions Recorded Confirmed Type Isosorbide Mononitrate ER [Imdur] 30 mg PO BID 12/01/16 06/09/23 History carvediloL [Coreg] 25 mg PO BID 12/01/16 06/09/23 History Tamsulosin [Flomax] 0.4 mg PO DAILY 07/30/20 06/09/23 History Glimepiride [Amaryl] 2 mg PO BID-W/MEALS 11/05/20 06/09/23 History Ascorbic Acid [Vitamin C] 1,000 mg PO DAILY 04/13/23 06/09/23 History Nitroglycerin Sl Tabs [Nitrostat] 0.4 mg SUBLINGUAL Q5M PRN 06/09/23 06/09/23 History hydrALAZINE HCL [Apresoline] 25 mg PO TID PRN 06/09/23 06/09/23 History hydrALAZINE HCL [Apresoline] 50 mg PO TID PRN 06/09/23 06/09/23 History Allergies Allergy/AdvReac Type Severity Reaction Status Date / Time ciprofloxacin [From Cipro] Allergy Unknown Verified 06/09/23 17:18 ezetimibe [From Zetia] Allergy Swelling Verified 06/09/23 17:18 naproxen [From Naprosyn] Allergy Swelling Verified 06/09/23 17:18 IN FEET nifedipine [From Procardia] Allergy Unknown Verified 06/09/23 17:18 Zeghivv-WKG-OnP Reductase Allergy "heart Verified 06/09/23 17:18 Inhibitor problems" [Bqkkmdd-Tdj-Orj Reductase Inhibitor] Physical Exam Vitals: Vital Signs Temp Pulse Pulse Resp BP BP Pulse Ox 06/10/23 08:06 97.8 F 68 16 171/70 97 06/10/23 01:48 98.4 F 71 20 146/65 93 L 06/09/23 21:31 98.2 F 78 20 174/77 98 06/09/23 19:59 70 18 151/70 97 06/09/23 15:41 97.8 F 84 18 148/78 94 L Intake and Output 06/09/23 06/10/23 06/10/23 22:59 06:59 14:59 Intake Total 950 Balance 950 Intake: Oral 950 Other: # Voids 1 Weight 85 kg General appearance: alert, in no apparent distress Head exam: Present: atraumatic Eye exam: Present: normal appearance Neck exam: Present: normal inspection. Absent: tenderness Respiratory exam: Present: rales (Minimal left base) Cardiovascular Exam: Present: regular rate, normal rhythm GI/Abdominal exam: Present: soft. Absent: tenderness Extremities exam: Present: normal inspection Neurological exam: Present: alert Psychiatric exam: Present: normal affect, normal mood Skin exam: Present: normal color Results CBC & Chem 7: 06/10/23 06:30 Labs: Abnormal Lab Results - Last 24 Hours (Table) 06/10/23 06/10/23 Range/Units 05:45 06:30 RBC 3.25 L (4.30-5.90) m/uL Hgb 10.2 L (13.0-17.5) gm/dL Hct 32.0 L (39.0-53.0) % POC Glucose (mg/dL) 119 H (70-110) mg/dL Thrombosis Risk Factor Assmnt - Choose All That Apply Any of the Below Risk Factors Present?: Yes Each Factor Represents 1 point: Obesity (BMI >25) Each Risk Factor Represents 2 Points: Age 61-74 years Thrombosis Risk Factor Assessment Total Risk Factor Score: 3 Thrombosis Risk Factor Assessment Level: Moderate Risk Assessment and Plan Assessment: 1. Community-acquired pneumonia -Checks x-ray reveals limited infiltration of left lung base; will screen has been negative -- Patient has been placed on IV Rocephin and azithromycin -Pulmonary service on board 2. Fall with right-sided chest wall pain; x-rays negative for any complications -- Consult PT/OT for evaluation 2. End-stage renal disease/HD; patient undergoes hemodialysis 3 times a week; patient reports he has not missed any dialysis sessions -- Nephrology consulted 3. CAD/CHF; patient does have history of cardiac catheterization with stenting -- Last echocardiogram reveals an EF of 25 to 30% -- Stable on Coreg and Imdur 4. Diabetes mellitus type 2/neuropathy; Amaryl 2 mg twice daily 5. Hypertension; Coreg 25 mg twice daily; hydralazine 25 mg p.o. 3 times daily; Imdur 30 mg twice daily 6. Peripheral vascular disease; not on any aspirin or statin therapy 7. Anemia of chronic disease; stable at baseline 8. BPH; Flomax 0.4 mg daily DVT prophylaxis SCDs/subcu heparin CODE STATUS; full code
[2023-06-10 16:48] LABS: Glucose,Whole Blood 163 mg/dL (70-110)
--- NOTE | 2023-06-10 16:51 | XR ---
EXAM: XR chest 1V portable CLINICAL INDICATION:Male, 72 years old with history of Chest Trauma; [facility] COMPARISON: Outside CTA thorax 06/09/2023. Remote chest x-ray 09/06/2021 TECHNIQUE: Chest single view. FINDINGS: Lines/tubes/devices: None. Cardiomediastinum: Cardiac silhouette appears upper normal in size. Unremarkable mediastinal silhouette. Vasculature: No increased pulmonary vasculature. Lungs/pleura: Scattered chronic parenchymal changes. Consolidative opacity in the left lung base, with or without s mall effusion. Right costophrenic angle is relatively sharp. Ill-defined slightly increased opacity i n the right lung base may represent chronic changes/scarring. No pneumothorax is evident. Bones/soft tissues: Osseous structures appear grossly unchanged. Degenerative changes without evidence for acute bony pat hology. Regional soft tissues appear unremarkable. IMPRESSION: Consolidation in the left lung base, likely pneumonia. Continued clinical correlation and follow-up t o resolution.
[2023-06-10] MEDS: HEPARIN SODIUM,PORCINE 5,000 UNIT/ML 1 ML VIAL SQ SCH (20:23)
[2023-06-10 20:56] LABS: Glucose,Whole Blood 198 mg/dL (70-110)
[2023-06-11 05:45] LABS: Glucose,Whole Blood 89 mg/dL (70-110)
[2023-06-11 08:04] LABS: % Iron Saturation 40.41 (15.00-50.00); Phosphorus 4.8 mg/dL (2.4-5.1)
[2023-06-11] MEDS: ASCORBIC ACID 500 MG TAB PO SCH (08:04)
[2023-06-11 08:07] LABS: Glucose,Whole Blood 141 mg/dL (70-110)
[2023-06-11 08:39] LABS: HCT 30.1 % (39.6-50.0); HGB 9.7 g/dL (13.0-17.0); MCH 31.9 pg (27.0-32.0); MCHC 32.2 g/dL (32.0-37.0); Mean Platelet Volume 11.4 FL (9.5-12.2); NRBC Per 100 WBC 0 X 10*3/uL (0.00-0.01); Platelet Count 198 X 10*3/uL (140-440); RBC 3.04 X 10*6/uL (4.40-5.60); RDW 14.2 % (11.5-14.5); WBC 10.17 X 10*3/uL (4.50-10.00)
[2023-06-11 09:02] LABS: Blood Urea Nitrogen 56.2 mg/dL (9.0-27.0); Calcium 9.6 mg/dL (8.7-10.3); Chloride 91 mmol/L (96-109); Glucose 84 mg/dL (70-110); Sodium 137 mmol/L (135-145)
[2023-06-11 09:12] LABS: Basophils # (A) 0.09 X 10*3/uL (0.00-0.10); Basophils % (A) 0.9 %; Eosinophils # (A) 0.35 X 10*3/uL (0.04-0.35); Eosinophils % (A) 3.4 %; Lymphocytes # (A) 1.73 X 10*3/uL (0.90-5.00); Monocytes # (A) 0.49 X 10*3/uL (0.20-1.00); Monocytes % (A) 4.8 %; Neutrophils # (A) 7.18 X 10*3/uL (1.80-7.70); Neutrophils % (A) 70.7 %; RBC Morphology Normal (Normal)
--- NOTE | 2023-06-11 11:36 | P.PN ---
Subjective patient is seen for follow-up for end-stage renal disease. He is maintained on a Sunday schedule. No significant chest pain. Shortness of breath has improved. Scheduled for hemodialysis in a.m. Objective - Vital Signs Vital signs: Vital Signs Temp 97.7 F 06/11/23 07:14 Pulse 64 06/11/23 08:08 Resp 18 06/11/23 08:30 BP 178/74 06/11/23 08:08 Pulse Ox 97 06/11/23 08:08 FiO2 Intake & Output 06/10/23 06/11/23 06/11/23 18:59 06:59 18:59 Intake Total 400 480 Balance 400 480 Intake: Oral 400 480 Other: # Voids 1 - Exam patient is awake, comfortable, no acute distress Alert oriented 3 Examination of the heart S1 and S2 Examination of the lungs bilateral breath sounds are heard Abdomen is soft nontender Examination of lower extremities shows trace edema bilaterally - Labs CBC & Chem 7: 06/11/23 04:45 06/11/23 04:45 Labs: Abnormal Lab Results - Last 24 Hours (Table) 06/10/23 06/10/23 06/10/23 Range/Units 06:30 16:47 20:54 WBC (4.50-10.00) X 10*3/uL RBC (4.40-5.60) X 10*6/uL Hgb (13.0-17.0) g/dL Hct (39.6-50.0) % MCV (80.0-97.0) FL Immature Gran # (0.00-0.04) X 10*3/uL Chloride (96-109) mmol/L Anion Gap (4.00-12.00) mmol/L BUN (9.0-27.0) mg/dL Creatinine (0.6-1.5) mg/dL Est GFR (CKD-EPI) (>=60) BUN/Creatinine Ratio (12.00-20.00) Ratio POC Glucose (mg/dL) 163 H 198 H (70-110) mg/dL Iron 59 L (65-175) UG/DL TIBC 146 L (228-460) UG/DL Transferrin 104.0 L (204.0-354.0) mg/dL Ferritin 5253.0 H (22.0-322.0) ng/mL 06/11/23 06/11/23 06/11/23 Range/Units 04:45 04:45 08:06 WBC 10.17 H (4.50-10.00) X 10*3/uL RBC 3.04 L (4.40-5.60) X 10*6/uL Hgb 9.7 L (13.0-17.0) g/dL Hct 30.1 L (39.6-50.0) % MCV 99.0 H (80.0-97.0) FL Immature Gran # 0.33 H (0.00-0.04) X 10*3/uL Chloride 91 L (96-109) mmol/L Anion Gap 20.00 H (4.00-12.00) mmol/L BUN 56.2 H (9.0-27.0) mg/dL Creatinine 7.3 A* (0.6-1.5) mg/dL Est GFR (CKD-EPI) 7 L (>=60) BUN/Creatinine Ratio 7.70 L (12.00-20.00) Ratio POC Glucose (mg/dL) 141 H (70-110) mg/dL Iron (65-175) UG/DL TIBC (228-460) UG/DL Transferrin (204.0-354.0) mg/dL Ferritin (22.0-322.0) ng/mL Assessment and Plan Assessment: 1. End-stage renal disease maintained on hemodialysis on Sunday schedule via left upper extremity AV fistula at [facility]. 2. Pneumonia maintained on antibiotics. 3. Hypertension with chronic kidney disease. 4. Coronary disease with cardiac stents. 5. Diabetes mellitus. 6. Anemia of chronic kidney disease. 7. Status post fall with rib injury Plan: hemodialysis in a.m. Continue antibiotics
--- NOTE | 2023-06-11 11:44 | P.PAINPG ---
Objective - Vital Signs Vital signs: Vital Signs Temp 97.7 F 06/11/23 07:14 Pulse 64 06/11/23 08:08 Resp 16 06/11/23 08:08 BP 178/74 06/11/23 08:08 Pulse Ox 97 06/11/23 08:08 FiO2 Intake & Output 06/10/23 06/11/23 06/11/23 18:59 06:59 18:59 Intake Total 400 480 Balance 400 480 Intake: Oral 400 480 Other: # Voids 1 - Labs CBC & Chem 7: 06/11/23 04:45 06/11/23 04:45 Labs: Abnormal Lab Results - Last 24 Hours (Table) 06/10/23 06/10/23 06/10/23 Range/Units 06:30 11:26 16:47 WBC (4.50-10.00) X 10*3/uL RBC (4.40-5.60) X 10*6/uL Hgb (13.0-17.0) g/dL Hct (39.6-50.0) % MCV (80.0-97.0) FL Chloride (96-109) mmol/L Anion Gap (4.00-12.00) mmol/L BUN (9.0-27.0) mg/dL Creatinine (0.6-1.5) mg/dL Est GFR (CKD-EPI) (>=60) BUN/Creatinine Ratio (12.00-20.00) Ratio POC Glucose (mg/dL) 132 H 163 H (70-110) mg/dL Iron 59 L (65-175) UG/DL TIBC 146 L (228-460) UG/DL Transferrin 104.0 L (204.0-354.0) mg/dL Ferritin 5253.0 H (22.0-322.0) ng/mL 06/10/23 06/11/23 06/11/23 Range/Units 20:54 04:45 04:45 WBC 10.17 H (4.50-10.00) X 10*3/uL RBC 3.04 L (4.40-5.60) X 10*6/uL Hgb 9.7 L (13.0-17.0) g/dL Hct 30.1 L (39.6-50.0) % MCV 99.0 H (80.0-97.0) FL Chloride 91 L (96-109) mmol/L Anion Gap 20.00 H (4.00-12.00) mmol/L BUN 56.2 H (9.0-27.0) mg/dL Creatinine 7.3 A* (0.6-1.5) mg/dL Est GFR (CKD-EPI) 7 L (>=60) BUN/Creatinine Ratio 7.70 L (12.00-20.00) Ratio POC Glucose (mg/dL) 198 H (70-110) mg/dL Iron (65-175) UG/DL TIBC (228-460) UG/DL Transferrin (204.0-354.0) mg/dL Ferritin (22.0-322.0) ng/mL 06/11/23 Range/Units 08:06 WBC (4.50-10.00) X 10*3/uL RBC (4.40-5.60) X 10*6/uL Hgb (13.0-17.0) g/dL Hct (39.6-50.0) % MCV (80.0-97.0) FL Chloride (96-109) mmol/L Anion Gap (4.00-12.00) mmol/L BUN (9.0-27.0) mg/dL Creatinine (0.6-1.5) mg/dL Est GFR (CKD-EPI) (>=60) BUN/Creatinine Ratio (12.00-20.00) Ratio POC Glucose (mg/dL) 141 H (70-110) mg/dL Iron (65-175) UG/DL TIBC (228-460) UG/DL Transferrin (204.0-354.0) mg/dL Ferritin (22.0-322.0) ng/mL PQRS Measure Charge Sheet Comment: HISTORY OF PRESENT ILLNESS: A 72 yr old inpatient male as a referral from Dr Travis Slater presents today w severe and chronic R sided rib pain secondary to fractures from fall approximately 10 days ago for evaluation. Pt has been diagnosed w L lobular pneumonia and is currently on IV Rocephin and Azithromycin. Pt states pain level is provoked at 8 /10 in intensity, constant, localized in the R side of chest, predominantly axial, sore in character without shooting pain. Pain is provoked by any movement. Pain is alleviated by medications (Independence 5/325mg q4h, MS 4mg IVP q4h, Narcan), repositioning and rest. Pt states his pain is manageable w the current medication regimen at this time. PMH: OA, CAD, Angina, Diabetes Mellitus, Dialysis, Hyperlipidemia, HTN, VA (2007), ESRD on Hemodialysis (T/ R, Sun), PVD PSH: LUE Fistula, Heart Catheterization w Stent x3 (2007), Tonsillectomy, LLE Arthrectomy x2, BL Cataract Extraction w Lens Implants, R 4th Toe Amputation SH: Former tobacco user, Rare ETOH use (Quit 2007), No illicit drug use FH: Mo- Colon Ca. Fa- VA/ PE/ at age 70. All: See list Meds: See list REVIEW OF ORGAN SYSTEMS: CONSTITUTIONAL: No fevers or chills. No recent weight los s. NEUROLOGICAL: + numbness and tingling along the distal extremities. No seizure disorders or headaches. MUSCULOSKELETAL: + pain PSYCHIATRIC: Denies current depression or suicidal thoughts. Physical Examinations : Constitutional : Cooperative , not in acute distress . +Diffuse R sided chest TTP Neurologic : Cranial nerve II to XII intact. No focal neurological deficits. Psychiatric : alert & oriented x 3. Matching mood & appropriate affect. Judgment & insight intact. Musculoskeletal : Cervical Spine Motor strength in the deltoid and biceps: Normal right side. Normal Left side Motor strength biceps and the wrist extensors: Normal right side . Normal left side Motor strength in the triceps muscle: Normal right side. Normal left side Deep tendon reflexes: Normal at the biceps. Normal at Brachioradialis. Normal at triceps Vertebral body tenderness to deep palpation over Cervical facet loading test: positive bilaterally Spurling test: positive bilaterally Neck distraction test: positive bilaterally Melchor sign: positive bilaterally Lumbar spine Motor strength lower extremities ,thigh and legs 5/5 Right side , 5/5 Left side Deep tendon reflexes : Normal Knee Jerk. Normal Ankle Jerk Vertebral body tenderness over Pedersen Test positive Lumbar facet Loading Test: positive Right / positive Left Range of motion of the lumbar spine Flexion 30 degrees, extension 10 degrees Straight Leg Raise test: Left/ Right positive at degree Stewart test: positive right / positive left. Severe tenderness over the Sacroiliac joint on the Right / Left sides Gaenslen test: positive bilaterally Seated flexion test: positive bilaterally. Sacral spine : Severe tenderness over the Sacroiliac joint: right side / left side Range of motion: Flexion of the lumbar spine <60 degrees Range of motion: Extension of the lumbar spine <20 degrees Gaenslen's Test positive Stewart test: positive right side / left side Thigh Thrust Test Sacral Thrust Test Imaging: CXR from 06/09/23 reviewed Assessment/ Plan : R Rib fractures s/p fall approximately 10 days ago, L lobular pneumonia Current regimen is managing pain at this time. Discussed increased exertion may provoke pain. Will re examine pt if intractable pain persists. All questions answered. I have spent greater than 30 minutes on patient care today. Dr Monet was available by phone for the evaluation of this patient. The time was used to review the medical records including relevant urine studies and Prescription history (MAPs), review of the available imaging, evaluation and examination of the patient, coordination of care with the medical staff and if applicable referring physicians, as well as creation of the medical record - Pain Location Right Chest Non-Pharmacological Interventions: Darkened Room, Emotional/Spiritual Support, Environmental Control Pharmacological Interventions: PRN Medication Pain Comment: denies pain at this time PQRS Narrative: Smoking Status Former smoker Blood Pressure [Right Arm] 157/70 Blood Pressure [Supine] 178/74 Blood Pressure 151/70 Pain Intensity [Right Chest] 0 Pain Intensity 8 Pain Scale Used Non Verbal Pain Indicator Scale Used Numeric (1 - 10) Home Medications: Ambulatory Orders Isosorbide Mononitrate ER [Imdur] 30 mg PO BID 12/01/16 carvediloL [Coreg] 25 mg PO BID 12/01/16 Tamsulosin [Flomax] 0.4 mg PO DAILY 07/30/20 Glimepiride [Amaryl] 2 mg PO BID-W/MEALS 11/05/20 Ascorbic Acid [Vitamin C] 1,000 mg PO DAILY 04/13/23 Nitroglycerin Sl Tabs [Nitrostat] 0.4 mg SUBLINGUAL Q5M PRN 06/09/23 hydrALAZINE HCL [Apresoline] 25 mg PO TID PRN 06/09/23 hydrALAZINE HCL [Apresoline] 50 mg PO TID PRN 06/09/23 Controlled Substance Measures - Controlled Substance Measures Is patient prescribed a controlled substance at discharge?: No
[2023-06-11 11:56] LABS: Glucose,Whole Blood 170 mg/dL (70-110)
--- NOTE | 2023-06-11 12:42 | P.PN ---
Subjective Progress Note Date: 06/11/23 CHIEF COMPLAINT: Fall 3 weeks ago with right rib pain HISTORY OF PRESENT ILLNESS: Patient currently sitting in bedside chair. He is not complaining of any pain at this time. Patient was seen by pain management service. Afebrile. WBC 10.17 Hgb 9.7 creatinine 7.3 PHYSICAL EXAM: VITAL SIGNS: Reviewed GENERAL: Well-developed in no acute distress. HEENT: No sclera icterus. Extraocular movements grossly intact. Moist buccal mucosa. Head is atraumatic, normocephalic. Hears conversational speech. No nasal drainage. NECK: Supple without lymphadenopathy. CHEST: Non-labored respirations and equal bilateral excursions. CARDIOVASCULAR: Palpable 2+ radial pulses. ABDOMEN: Soft. Nondistended. Nontender. MUSCULOSKELETAL: No clubbing or cyanosis. NEUROLOGIC: No focal or lateralizing signs. Cranial nerves II through XII grossly intact. PSYCH: Appropriate affect. Alert and oriented to person, place and time. SKIN: Well perfused. Good skin turgor. ASSESSMENT: 1. Fall 3 weeks ago with right rib pain 2. End-stage renal disease on hemodialysis 3. Suspected left lower lobe pneumonia PLAN: -Continue supportive care -Continue pain management -No surgical intervention planned. Trauma service will sign off. Please call with any questions or concerns -Dialysis per nephrology service Physician Lab[facility] [place] note has been reviewed by physician. Signing provider agrees with the documented findings, assessment, and plan of care. Objective - Vital Signs Vital signs: Vital Signs Temp 97.7 F 06/11/23 07:14 Pulse 64 06/11/23 08:08 Resp 18 06/11/23 08:30 BP 178/74 06/11/23 08:08 Pulse Ox 97 06/11/23 08:08 FiO2 Intake & Output 06/10/23 06/11/23 06/11/23 18:59 06:59 18:59 Intake Total 400 480 Balance 400 480 Intake: Oral 400 480 Other: # Voids 1 - Labs CBC & Chem 7: 06/11/23 04:45 06/11/23 04:45 Labs: Abnormal Lab Results - Last 24 Hours (Table) 06/10/23 06/10/23 06/10/23 Range/Units 06:30 16:47 20:54 WBC (4.50-10.00) X 10*3/uL RBC (4.40-5.60) X 10*6/uL Hgb (13.0-17.0) g/dL Hct (39.6-50.0) % MCV (80.0-97.0) FL Immature Gran # (0.00-0.04) X 10*3/uL Chloride (96-109) mmol/L Anion Gap (4.00-12.00) mmol/L BUN (9.0-27.0) mg/dL Creatinine (0.6-1.5) mg/dL Est GFR (CKD-EPI) (>=60) BUN/Creatinine Ratio (12.00-20.00) Ratio POC Glucose (mg/dL) 163 H 198 H (70-110) mg/dL Iron 59 L (65-175) UG/DL TIBC 146 L (228-460) UG/DL Transferrin 104.0 L (204.0-354.0) mg/dL Ferritin 5253.0 H (22.0-322.0) ng/mL 06/11/23 06/11/23 06/11/23 Range/Units 04:45 04:45 08:06 WBC 10.17 H (4.50-10.00) X 10*3/uL RBC 3.04 L (4.40-5.60) X 10*6/uL Hgb 9.7 L (13.0-17.0) g/dL Hct 30.1 L (39.6-50.0) % MCV 99.0 H (80.0-97.0) FL Immature Gran # 0.33 H (0.00-0.04) X 10*3/uL Chloride 91 L (96-109) mmol/L Anion Gap 20.00 H (4.00-12.00) mmol/L BUN 56.2 H (9.0-27.0) mg/dL Creatinine 7.3 A* (0.6-1.5) mg/dL Est GFR (CKD-EPI) 7 L (>=60) BUN/Creatinine Ratio 7.70 L (12.00-20.00) Ratio POC Glucose (mg/dL) 141 H (70-110) mg/dL Iron (65-175) UG/DL TIBC (228-460) UG/DL Transferrin (204.0-354.0) mg/dL Ferritin (22.0-322.0) ng/mL 06/11/23 Range/Units 11:55 WBC (4.50-10.00) X 10*3/uL RBC (4.40-5.60) X 10*6/uL Hgb (13.0-17.0) g/dL Hct (39.6-50.0) % MCV (80.0-97.0) FL Immature Gran # (0.00-0.04) X 10*3/uL Chloride (96-109) mmol/L Anion Gap (4.00-12.00) mmol/L BUN (9.0-27.0) mg/dL Creatinine (0.6-1.5) mg/dL Est GFR (CKD-EPI) (>=60) BUN/Creatinine Ratio (12.00-20.00) Ratio POC Glucose (mg/dL) 170 H (70-110) mg/dL Iron (65-175) UG/DL TIBC (228-460) UG/DL Transferrin (204.0-354.0) mg/dL Ferritin (22.0-322.0) ng/mL
--- NOTE | 2023-06-11 16:13 | P.PN ---
Subjective Progress Note Date: 06/11/23 On today's evaluation of 06/10/2023, the patient is being seen in consultation for shortness of breath. The patient was transferred from [facility]. The patient was feeling weak and tired and at same time was experiencing some shortness of breath. Also reported some fever. Currently is afebrile and hemodynamically stable. He is on room air oxygen. He is ambulating in the hallway. The viral screen was negative for influenza COVID-19 and RSV. I also reviewed the chest x-ray and there is no evidence of any acute cardiopulmonary process. There may be some left basilar infiltration. The patient has end- stage renal disease and the patient is being dialyzed 3 times a week. He has not missed any of his dialysis sessions. There was count of 10 with a hemoglobin 10.2 and a platelet count of 193. Lactic acid level is at 1.2. His white cell count is at 10 with a hemoglobin 10.2 and a platelet count of 193. The patient is on IV Rocephin and Zithromax. No altered mentation. No hy potension. No other significant events otherwise for now. The patient is known to have multiple medical problems and comorbidities. The patient is known to have CAD, diabetes mellitus and the patient has end-stage renal disease on hemodialysis, in addition to history of hypertension hyperlipidemia and peripheral vascular disease. He has also history of migraines and peripheral neuropathy. Has undergone previous cardiac catheterization and stenting. The patient has a AV fistula in his left upper extremity The patient is seen today June 11, 2023 in follow-up on the regular medical floor. He is currently resting comfortably in bed. Awake and alert in no acute distress. Maintaining good O2 saturations in the 90s on room air. He remains on ceftriaxone and azithromycin. Continued on hemodialysis on Saturdays. White count 10.1. Hemoglobin 9.7. Platelets 198. Sodium 137. Potassium 4.0. Bicarb 26. BUN 56. Creatinine 7.3. Glucose 84. Heparin for DVT prophylaxis. Objective - Vital Signs Vital signs: Vital Signs Temp 97.7 F 06/11/23 07:14 Pulse 64 06/11/23 08:08 Resp 18 06/11/23 08:30 BP 178/74 06/11/23 08:08 Pulse Ox 97 06/11/23 12:38 FiO2 Intake & Output 06/10/23 06/11/23 06/11/23 18:59 06:59 18:59 Intake Total 400 480 300 Balance 400 480 300 Intake: Oral 400 480 300 Other: # Voids 1 - Exam General: Alert, pleasant 72-year-old male, ill appearing, no distress, comfortable currently on room air oxygen. Examination of the skin revealed no evidence of significant rashes, suspicious appearing nevi or other concerning lesions. Head: atraumatic, normocephalic, symmetric Eyes: PERRL, no lid lag, anicteric sclera Mouth: no lip lesion, mucus membranes moist Cardiovascular: S1S2 reg, no murmur, positive posterior tibial pulse bilateral, Lungs: Course bs bilateral, no rhonchi, no rales , no accessory muscle use, on vent Abdominal: soft, nontender to palpation, no guarding, no appreciable organomegaly Ext: no gross muscle atrophy, no edema, no contractures, the patient has a func tional AV fistula. Neuro: Moving all 4 extremities independently, cranial nerves II through XII grossly intact, no focal neuro deficits Psych: Alert, oriented, appropriate affect - Labs CBC & Chem 7: 06/11/23 04:45 06/11/23 04:45 Labs: Abnormal Lab Results - Last 24 Hours (Table) 06/10/23 06/10/23 06/10/23 Range/Units 06:30 16:47 20:54 WBC (4.50-10.00) X 10*3/uL RBC (4.40-5.60) X 10*6/uL Hgb (13.0-17.0) g/dL Hct (39.6-50.0) % MCV (80.0-97.0) FL Immature Gran # (0.00-0.04) X 10*3/uL Chloride (96-109) mmol/L Anion Gap (4.00-12.00) mmol/L BUN (9.0-27.0) mg/dL Creatinine (0.6-1.5) mg/dL Est GFR (CKD-EPI) (>=60) BUN/Creatinine Ratio (12.00-20.00) Ratio POC Glucose (mg/dL) 163 H 198 H (70-110) mg/dL Iron 59 L (65-175) UG/DL TIBC 146 L (228-460) UG/DL Transferrin 104.0 L (204.0-354.0) mg/dL Ferritin 5253.0 H (22.0-322.0) ng/mL 06/11/23 06/11/23 06/11/23 Range/Units 04:45 04:45 08:06 WBC 10.17 H (4.50-10.00) X 10*3/uL RBC 3.04 L (4.40-5.60) X 10*6/uL Hgb 9.7 L (13.0-17.0) g/dL Hct 30.1 L (39.6-50.0) % MCV 99.0 H (80.0-97.0) FL Immature Gran # 0.33 H (0.00-0.04) X 10*3/uL Chloride 91 L (96-109) mmol/L Anion Gap 20.00 H (4.00-12.00) mmol/L BUN 56.2 H (9.0-27.0) mg/dL Creatinine 7.3 A* (0.6-1.5) mg/dL Est GFR (CKD-EPI) 7 L (>=60) BUN/Creatinine Ratio 7.70 L (12.00-20.00) Ratio POC Glucose (mg/dL) 141 H (70-110) mg/dL Iron (65-175) UG/DL TIBC (228-460) UG/DL Transferrin (204.0-354.0) mg/dL Ferritin (22.0-322.0) ng/mL 06/11/23 Range/Units 11:55 WBC (4.50-10.00) X 10*3/uL RBC (4.40-5.60) X 10*6/uL Hgb (13.0-17.0) g/dL Hct (39.6-50.0) % MCV (80.0-97.0) FL Immature Gran # (0.00-0.04) X 10*3/uL Chloride (96-109) mmol/L Anion Gap (4.00-12.00) mmol/L BUN (9.0-27.0) mg/dL Creatinine (0.6-1.5) mg/dL Est GFR (CKD-EPI) (>=60) BUN/Creatinine Ratio (12.00-20.00) Ratio POC Glucose (mg/dL) 170 H (70-110) mg/dL Iron (65-175) UG/DL TIBC (228-460) UG/DL Transferrin (204.0-354.0) mg/dL Ferritin (22.0-322.0) ng/mL Assessment and Plan Assessment: Acute febrile illness along with generalized weakness and some limited shortness of breath without any significant leukocytosis or hemodynamic instability. The patient is currently on Rocephin and Zithromax. Limited infiltration of the left lung base. Viral screen has been negative. The patient is being monitored closely. No significant hypoxemia. End-stage renal disease on hemodialysis 3 times a week, Sunday schedule Coronary artery disease with previous coronary intervention and stenting CHF with systolic heart failure and a ejection fraction of 25 to 30% Diabetes mellitus type 2 Hypertension History of recent fall approximately 10 days ago and the patient has some right- sided rib chest wall pain without any other complications on today's chest x- ray. Peripheral neuropathy Chronic migraines Anemia of chronic disease related to renal failure Peripheral vascular disease Cataracts Plan: The patient was seen and evaluated Labs and medications reviewed Stable and on room air Remains on antibiotics Heparin for DVT prophylaxis Probable discharge in the a.m. We will continue to follow I have personally seen and examined the patient, performed the documentation and the assessment and plan as written. Number of minutes spent on the visit: 10.
[2023-06-11 16:51] LABS: Glucose,Whole Blood 116 mg/dL (70-110)
[2023-06-11 21:50] LABS: Glucose,Whole Blood 138 mg/dL (70-110)
[2023-06-12] MEDS: ACETAMINOPHEN TAB 325 MG TAB PO PRN (02:07)
[2023-06-12 06:16] LABS: Glucose,Whole Blood 144 mg/dL (70-110)
--- NOTE | 2023-06-12 06:39 | PN ---
PROGRESS NOTE DATE OF SERVICE: 06/11/2023 SUBJECTIVE: This is a 72-year-old gentleman who was referred from [facility], initially had a fall and sent back from [place]. Subsequently, he presented with fever and symptoms of pneumonia. His CT scan showed left lower lobe infiltrate. The patient was referred to [facility], started on antibiotics, dialysis due tomorrow. No chest pain, no palpitations, no fever. Pulmonary is following the patient closely. OBJECTIVE: VITAL SIGNS: Pulse 64, blood pressure 178/74, and respirations 16. CHEST: Few scattered rhonchi and crackles. ABDOMEN: Soft. NERVOUS SYSTEM: No focal deficits. LABORATORY DATA: Reviewed. ASSESSMENT: 1. Acute left lower lobe pneumonia, possibly community-acquired. 2. Fall with right-sided chest wall pain. 3. End-stage renal disease, on hemodialysis. 4. CAD, CHF. 5. Diabetes mellitus, type 2. 6. Multiple complex medical issues. RECOMMENDATIONS: Recommended to continue current medications, continue symptomatic treatment. Otherwise, continue with antibiotics. Otherwise, total, I would recommend a 5 day course of antibiotics. Closely follow with Pulmonary after hemodialysis. Possible discharge home tomorrow. Once again, total 5 days course of antibiotics. MMODL / IJN: [id number] /
[2023-06-12 08:54] LABS: Basophils # (A) 0.07 X 10*3/uL (0.00-0.10); Basophils % (A) 0.7 %; Eosinophils # (A) 0.29 X 10*3/uL (0.04-0.35); HCT 28.5 % (39.6-50.0); HGB 9.2 g/dL (13.0-17.0); Lymphocytes % (A) 13.4 %; MCH 31.2 pg (27.0-32.0); MCHC 32.3 g/dL (32.0-37.0); MCV 96.6 FL (80.0-97.0); Mean Platelet Volume 10.8 FL (9.5-12.2); Monocytes # (A) 0.58 X 10*3/uL (0.20-1.00); NRBC Per 100 WBC 0 X 10*3/uL (0.00-0.01); Neutrophils # (A) 7.08 X 10*3/uL (1.80-7.70); Neutrophils % (A) 73.2 %; Platelet Count 211 X 10*3/uL (140-440); RBC 2.95 X 10*6/uL (4.40-5.60); RDW 14.2 % (11.5-14.5); WBC 9.68 X 10*3/uL (4.50-10.00)
[2023-06-12 09:19] LABS: BUN/Creat Ratio 8.08 Ratio (12.00-20.00); Blood Urea Nitrogen 69.5 mg/dL (9.0-27.0); Glucose 126 mg/dL (70-110)
[2023-06-12 09:20] LABS: Carbon Dioxide 22.7 mmol/L (21.6-31.8); Chloride 90 mmol/L (96-109); Potassium 4.3 mmol/L (3.5-5.5); Sodium 134 mmol/L (135-145)
[2023-06-12 12:15] LABS: Glucose,Whole Blood 102 mg/dL (70-110)
--- NOTE | 2023-06-12 12:17 | P.PN ---
Subjective patient is seen for follow-up for end-stage renal disease. patient is seen on hemodialysis. He is tolerating his treatment well. Blood pressure is high therefore ultrafiltration goal will be increased. Objective - Vital Signs Vital signs: Vital Signs Temp 97.6 F 06/12/23 07:04 Pulse 63 06/12/23 07:04 Resp 16 06/12/23 07:04 BP 156/75 06/12/23 07:04 Pulse Ox 97 06/12/23 07:04 FiO2 Intake & Output 06/11/23 06/12/23 06/12/23 18:59 06:59 18:59 Intake Total 500 Balance 500 Intake: Oral 500 Other: # Voids 0 4 - Exam patient is awake, comfortable, no acute distress Alert oriented 3 Examination of the heart S1 and S2 Examination of the lungs bilateral breath sounds are heard Abdomen is soft nontender Examination of lower extremities shows trace edema bilaterally - Labs CBC & Chem 7: 06/12/23 06:01 06/12/23 06:01 Labs: Abnormal Lab Results - Last 24 Hours (Table) 06/11/23 06/11/23 06/12/23 Range/Units 16:49 21:49 06:01 RBC 2.95 L (4.40-5.60) X 10*6/uL Hgb 9.2 L (13.0-17.0) g/dL Hct 28.5 L (39.6-50.0) % Immature Gran # 0.36 H (0.00-0.04) X 10*3/uL Sodium (135-145) mmol/L Chloride (96-109) mmol/L Anion Gap (4.00-12.00) mmol/L BUN (9.0-27.0) mg/dL Creatinine (0.6-1.5) mg/dL Est GFR (CKD-EPI) (>=60) BUN/Creatinine Ratio (12.00-20.00) Ratio Glucose (70-110) mg/dL POC Glucose (mg/dL) 116 H 138 H (70-110) mg/dL 06/12/23 06/12/23 Range/Units 06:01 06:15 RBC (4.40-5.60) X 10*6/uL Hgb (13.0-17.0) g/dL Hct (39.6-50.0) % Immature Gran # (0.00-0.04) X 10*3/uL Sodium 134 L (135-145) mmol/L Chloride 90 L (96-109) mmol/L Anion Gap 21.30 H (4.00-12.00) mmol/L BUN 69.5 H (9.0-27.0) mg/dL Creatinine 8.6 A* (0.6-1.5) mg/dL Est GFR (CKD-EPI) 6 L (>=60) BUN/Creatinine Ratio 8.08 L (12.00-20.00) Ratio Glucose 126 H (70-110) mg/dL POC Glucose (mg/dL) 144 H (70-110) mg/dL Assessment and Plan Assessment: 1. End-stage renal disease maintained on hemodialysis on Sunday schedule via left upper extremity AV fistula at [facility]. 2. Pneumonia maintained on antibiotics. 3. Hypertension with chronic kidney disease. 4. Coronary disease with cardiac stents. 5. Diabetes mellitus. 6. Anemia of chronic kidney disease. 7. Status post fall with rib injury Plan: hemodialysis today with increase UF to about 3 L as tolerated Continue antibiotics
--- NOTE | 2023-06-12 14:17 | P.PN ---
Subjective Progress Note Date: 06/12/23 On today's evaluation of 06/10/2023, the patient is being seen in consultation for shortness of breath. The patient was transferred from [facility]. The patient was feeling weak and tired and at same time was experiencing some shortness of breath. Also reported some fever. Currently is afebrile and hemodynamically stable. He is on room air oxygen. He is ambulating in the hallway. The viral screen was negative for influenza COVID-19 and RSV. I also reviewed the chest x-ray and there is no evidence of any acute cardiopulmonary process. There may be some left basilar infiltration. The patient has end- stage renal disease and the patient is being dialyzed 3 times a week. He has not missed any of his dialysis sessions. There was count of 10 with a hemoglobin 10.2 and a platelet count of 193. Lactic acid level is at 1.2. His white cell count is at 10 with a hemoglobin 10.2 and a platelet count of 193. The patient is on IV Rocephin and Zithromax. No altered mentation. No hy potension. No other significant events otherwise for now. The patient is known to have multiple medical problems and comorbidities. The patient is known to have CAD, diabetes mellitus and the patient has end-stage renal disease on hemodialysis, in addition to history of hypertension hyperlipidemia and peripheral vascular disease. He has also history of migraines and peripheral neuropathy. Has undergone previous cardiac catheterization and stenting. The patient has a AV fistula in his left upper extremity The patient is seen today June 11, 2023 in follow-up on the regular medical floor. He is currently resting comfortably in bed. Awake and alert in no acute distress. Maintaining good O2 saturations in the 90s on room air. He remains on ceftriaxone and azithromycin. Continued on hemodialysis on Saturdays. White count 10.1. Hemoglobin 9.7. Platelets 198. Sodium 137. Potassium 4.0. Bicarb 26. BUN 56. Creatinine 7.3. Glucose 84. Heparin for DVT prophylaxis. The patient is seen today June 12, 2023 in follow-up on the regular medical floor. He is awake and alert in no acute distress. Resting comfortably in bed. He was leaving hemodialysis today. He is maintaining good O2 saturations in the 90s on room air. Chest x-ray shows no acute pulmonary process. There is a limited left lung base atelectasis. He remains on ceftriaxone. Heparin for DVT prophylaxis. White count 9.6. Hemoglobin 9.2. Platelets 211. Sodium 134. Potassium 4.3. Bicarb 23. BUN 69. Creatinine 8.6. Glucose 126. Objective - Vital Signs Vital signs: Vital Signs Temp 98.2 F 06/12/23 14:00 Pulse 69 06/12/23 14:00 Resp 17 06/12/23 14:00 BP 133/65 06/12/23 14:00 Pulse Ox 96 06/12/23 14:00 FiO2 Intake & Output 06/11/23 06/12/23 06/12/23 18:59 06:59 18:59 Intake Total 500 500 Output Total 3100 Balance 500 -2600 Intake: Oral 500 Hemodialysis 500 Output: Hemodialysis 3100 Other: # Voids 0 4 - Exam General: Alert, pleasant 72-year-old male, no distress, comfortable, on room air oxygen. Examination of the skin revealed no evidence of significant rashes, suspicious appearing nevi or other concerning lesions. Head: atraumatic, normocephalic, symmetric Eyes: PERRL, no lid lag, anicteric sclera Mouth: no lip lesion, mucus membranes moist Cardiovascular: S1S2 reg, no murmur, positive posterior tibial pulse bilateral, Lungs: Course bs bilateral, no rhonchi, no rales , no accessory muscle use, on vent Abdominal: soft, nontender to palpation, no guarding, no appreciable organomegaly Ext: no gross muscle atrophy, no edema, no contractures, the patient has a functional AV fistula. Neuro: Moving all 4 extremities independently, cranial nerves II through XII grossly intact, no focal neuro deficits Psych: Alert, oriented, appropriate affect - Labs CBC & Chem 7: 06/12/23 06:01 06/12/23 06:01 Labs: Abnormal Lab Results - Last 24 Hours (Table) 06/11/23 06/11/23 06/12/23 Range/Units 16:49 21:49 06:01 RBC 2.95 L (4.40-5.60) X 10*6/uL Hgb 9.2 L (13.0-17.0) g/dL Hct 28.5 L (39.6-50.0) % Immature Gran # 0.36 H (0.00-0.04) X 10*3/uL Sodium (135-145) mmol/L Chloride (96-109) mmol/L Anion Gap (4.00-12.00) mmol/L BUN (9.0-27.0) mg/dL Creatinine (0.6-1.5) mg/dL Est GFR (CKD-EPI) (>=60) BUN/Creatinine Ratio (12.00-20.00) Ratio Glucose (70-110) mg/dL POC Glucose (mg/dL) 116 H 138 H (70-110) mg/dL 06/12/23 06/12/23 Range/Units 06:01 06:15 RBC (4.40-5.60) X 10*6/uL Hgb (13.0-17.0) g/dL Hct (39.6-50.0) % Immature Gran # (0.00-0.04) X 10*3/uL Sodium 134 L (135-145) mmol/L Chloride 90 L (96-109) mmol/L Anion Gap 21.30 H (4.00-12.00) mmol/L BUN 69.5 H (9.0-27.0) mg/dL Creatinine 8.6 A* (0.6-1.5) mg/dL Est GFR (CKD-EPI) 6 L (>=60) BUN/Creatinine Ratio 8.08 L (12.00-20.00) Ratio Glucose 126 H (70-110) mg/dL POC Glucose (mg/dL) 144 H (70-110) mg/dL Assessment and Plan Assessment: Acute febrile illness along with generalized weakness and some limited shortness of breath without any significant leukocytosis or hemodynamic instability. The patient is currently on Rocephin and completed Zithromax. Limited infiltration of the left lung base. Viral screen has been negative. The patient is being monitored closely. No significant hypoxemia. End-stage renal disease on hemodialysis 3 times a week, Sunday schedule Coronary artery disease with previous coronary intervention and stenting CHF with systolic heart failure and a ejection fraction of 25 to 30% Diabetes mellitus type 2 Hypertension History of recent fall approximately 10 days ago and the patient has some right- sided rib chest wall pain without any other complications on chest x-ray. Peripheral neuropathy Chronic migraines Anemia of chronic disease related to renal failure Peripheral vascular disease Cataracts Plan: The patient was seen and evaluated Chest x-ray, labs and medications reviewed Stable and on room air Cleared for discharge from the pulmonary standpoint I have personally seen and examined the patient, performed the documentation and the assessment and plan as written. Number of minutes spent on the visit: 10.
[2023-06-12 14:39] VITALS: BP 133/65; PULSE 69; RESP 17; TEMP 98.2
--- NOTE | 2023-06-12 15:54 | XR ---
EXAMINATION TYPE: XR chest 1V portable DATE OF EXAM: 06/12/2023 Comparison: 06/10/2023 Clinical History: 72-year-old male pneumonia Findings: Heart borderline enlarged. Mild hyperinflation. Mild interstitial density. Focal retrocardiac and lef t basilar opacity persists. Impression: Mild cardiomegaly and COPD. Ongoing focal left lower lobe pneumonia. Ensure complete clearance on fol low-up.
== END 2023-06-12 16:46 | disposition home or self-care (01) | DRG 193 ==
LOC: EC 15:30 → 4SSUR 16:30
PROVIDERS: ADMIT Internal Medicine; ATTEND Internal Medicine
PROC: 5A1D70Z Performance of Urinary Filtration, Intermittent, Less than 6 Hours Per Day (ICD-10-PCS; principal; 2023-06-12)
DX: J18.9 Pneumonia, unspecified organism (principal); N18.6 End stage renal disease; I13.2 Hypertensive heart and chronic kidney disease with heart failure and with stage 5 chronic kidney disease, or end stage renal disease; I50.20 Unspecified systolic (congestive) heart failure; D63.1 Anemia in chronic kidney disease; E11.22 Type 2 diabetes mellitus with diabetic chronic kidney disease; E11.40 Type 2 diabetes mellitus with diabetic neuropathy, unspecified; E11.51 Type 2 diabetes mellitus with diabetic peripheral angiopathy without gangrene; E78.5 Hyperlipidemia, unspecified; G43.909 Migraine, unspecified, not intractable, without status migrainosus; I25.10 Atherosclerotic heart disease of native coronary artery without angina pectoris; N40.0 Benign prostatic hyperplasia without lower urinary tract symptoms; W19.XXXA Unspecified fall, initial encounter; Z96.1 Presence of intraocular lens; I25.2 Old myocardial infarction; Z11.52 Encounter for screening for COVID-19; Z79.84 Long term (current) use of oral hypoglycemic drugs; Z79.899 Other long term (current) drug therapy; Z95.5 Presence of coronary angioplasty implant and graft; Z99.2 Dependence on renal dialysis; Z87.891 Personal history of nicotine dependence; Z88.8 Allergy status to other drugs, medicaments and biological substances; Z88.1 Allergy status to other antibiotic agents
CPT/HCPCS: 36415; 71045; 80048; 82728; 83540; 83550; 83605; 84100; 85025; 87636; 90935; 94760; 96365; 96366; 99285

== ENCOUNTER 2024-02-28 08:11 | Observation (INO) | payer MEDICARE ==
--- NOTE | 2024-02-28 09:16 | ED ---
General Adult HPI - General Chief complaint: Recheck/Abnormal Lab/Rx Stated complaint: SOB Time Seen by Provider: 02/28/24 08:49 Source: patient, RN notes reviewed Mode of arrival: ambulatory Limitations: no limitations - History of Present Illness Initial comments: Patient is a 73-year-old male present to the emergency department with concerns for unable to have dialysis done. Patient has dialysis graft left forearm. An attempt to access today did swell up in 2 locations and they were unable to do anymore and sent patient to the emergency department. Last dialysis was Sunday and he did not have it done yesterday as it was a holiday. Patient states he is starting to have some mild increase fluid and shortness of breath and is concerned about waiting for dialysis. - Related Data Home Medications Medication Instructions Recorded Confirmed Isosorbide Mononitrate ER [Imdur] 30 mg PO BID 12/01/16 06/09/23 carvediloL [Coreg] 25 mg PO BID 12/01/16 06/09/23 Tamsulosin [Flomax] 0.4 mg PO DAILY 07/30/20 06/09/23 Glimepiride [Amaryl] 2 mg PO BID-W/MEALS 11/05/20 06/09/23 Ascorbic Acid [Vitamin C] 1,000 mg PO DAILY 04/13/23 06/09/23 Nitroglycerin Sl Tabs [Nitrostat] 0.4 mg SUBLINGUAL Q5M PRN 06/09/23 06/09/23 hydrALAZINE HCL [Apresoline] 25 mg PO TID PRN 06/09/23 06/09/23 hydrALAZINE HCL [Apresoline] 50 mg PO TID PRN 06/09/23 06/09/23 Previous Rx's Medication Instructions Recorded Acetaminophen Tab [Tylenol] 650 mg PO Q6HR PRN tab 06/12/23 cefuroxime axetiL [Ceftin] 500 mg PO BID 5 Days #10 tab 06/12/23 Allergies Allergy/AdvReac Type Severity Reaction Status Date / Time ciprofloxacin [From Cipro] Allergy Unknown Verified 02/28/24 08:19 ezetimibe [From Zetia] Allergy Swelling Verified 02/28/24 08:19 naproxen [From Naprosyn] Allergy Swelling Verified 02/28/24 08:19 IN FEET nifedipine [From Procardia] Allergy Unknown Verified 02/28/24 08:19 Wjdgpne-MDU-CbR Reductase Allergy "heart Verified 02/28/24 08:19 Inhibitor problems" [Rbfgpfv-Lsi-Faq Reductase Inhibitor] Review of Systems ROS Statement: Those systems with pertinent positive or pertinent negative responses have been documented in the HPI. ROS Other: All systems not noted in ROS Statement are negative. Constitutional: Denies: fever Eyes: Denies: eye pain Respiratory: Reports: as per HPI Cardiovascular: Reports: edema. Denies: chest pain Endocrine: Denies: fatigue Gastrointestinal: Denies: abdominal pain Past Medical History Past Medical History: Coronary Artery Disease (CAD), Chest Pain / Angina, Diabetes Mellitus, Dialysis, Hyperlipidemia, Hypertension, Myocardial Infarction (DC), Renal Disease, Vascular Disorder Additional Past Medical History / Comment(s): Chronic renal failure: Hemodialysis on , AND SAT-left arm fistula. Anemia. hx cervical injury r/t football injury with cervical pain. migraines. neuropathy feet, Last Myocardial Infarction Date:: 2007 History of Any Multi-Drug Resistant Organisms: None Reported Past Surgical History: Heart Catheterization With Stent, Tonsillectomy Additional Past Surgical History / Comment(s): Peritoneal Dialysis catheter placed/later removed, cardiac stents X3. Left leg Arthrectomy X2. had rt side of neck for hemodialysis then removed, fistula now in left arm for hemodialysis, Roc cataracts WITH LENS, right 4th toe removed Past Anesthesia/Blood Transfusion Reactions: Previous Problems w/ Anesthesia, Motion Sickness, Postoperative Nausea & Vomiting (PONV) Additional Past Anesthesia/Blood Transfusion Reaction / Comment(s): "Dizzy sometimes when wakes up from anesthesia". Date of Last Stent Placement:: 01/2008 Past Psychological History: No Psychological Hx Reported Smoking Status: Former smoker Past Alcohol Use History: Rare Past Drug Use History: None Reported - Past Family History Mother Family Medical History: Cancer Additional Family Medical History / Comment(s): Colon cancer. Father Family Medical History: Myocardial Infarction (DC), Pulmonary Embolus Additional Family Medical History / Comment(s): Father had several MIs and of one at the age of 69yrs. General Exam Limitations: no limitations General appearance: alert, in no apparent distress Head exam: Present: normocephalic ENT exam: Present: normal oropharynx Neck exam: Present: normal inspection Respiratory exam: Present: normal lung sounds bilaterally. Absent: respiratory distress Cardiovascular Exam: Present: regular rate, normal rhythm GI/Abdominal exam: Present: soft. Absent: tenderness Extremities exam: Present: normal inspection Neurological exam: Present: alert Psychiatric exam: Present: normal affect, normal mood Skin exam: Present: normal color Course Vital Signs 02/28/24 08:15 Temperature 98.3 F Pulse Rate 72 Respiratory 18 Rate Blood Pressure 175/81 O2 Sat by Pulse 96 Oximetry Medical Decision Making - Medical Decision Making Was pt. sent in by a medical professional or institution (, CHRISTIAN, ETHANOL OPERATOR, urgent care, hospital, or senior care...) When possible be specific @ -Patient was sent from dialysis Did you speak to anyone other than the patient for history (EMS, parent, family, police, friend...)? What history was obtained from this source @ -No Did you review nursing and triage notes (agree or disagree)? Why? @ -I reviewed and agree with nursing and triage notes Were old charts reviewed (outside hosp., previous admission, EMS record, old EKG, old radiological studies, urgent care reports/EKG's, senior care records)? Report findings @ -No old charts were reviewed Differential Diagnosis (chest pain, altered mental status, abdominal pain women, abdominal pain men, vaginal bleeding, weakness, fever, dyspnea, syncope, headache, dizziness, GI bleed, back pain, seizure, CVA, palpatations, mental health, musculoskeletal)? @ -Differential Dyspnea: Coronary syndrome, arrhythmia, tamponade, asthma, COPD, pulmonary embolism, pneumonia, pneumothorax, pulmonary effusion, anaphylaxis, diabetic ketoacidosis, flailed chest, pulmonary contusion, diaphragmatic rupture, anemia, neuromuscular, this is not meant to be an all-inclusive list. EKG interpreted by me (3pts min.). @ -As above X-rays interpreted by me (1pt min.). @ -None done CT interpreted by me (1pt min.). @ -None done U/S interpreted by me (1pt. min.). @ -None done What testing was considered but not performed or refused? (CT, X-rays, U/S, labs)? Why? @ -None What meds were considered but not given or refused? Why? @ -None Did you discuss the management of the patient with other professionals (professionals i.e. , CHRISTIAN, ETHANOL OPERATOR, lab, RT, psych nurse, social media marketing analyst, fruit room hand, teacher, homicide squad commanding officer, major case detective)? Give summary @ -Case discussed with dialysis nurse as well as Dr. Mercedes. Patient will need to be admitted to obtain dialysis. Case also discussed with Dr. Tomas who will admit covering hospital call Was smoking cessation discussed for >3mins.? @ -No Was critical care preformed (if so, how long)? @ -No Were there social determinants of health that impacted care today? How? (Homelessness, low income, unemployed, alcoholism, drug addiction, transportation, low edu. Level, literacy, decrease access to med. care, penitentiary, rehab)? @ -No Was there de-escalation of care discussed even if they declined (Discuss DNR or withdrawal of care, Hospice)? DNR status @ -No What co-morbidities impacted this encounter? (DM, HTN, Smoking, COPD, CAD, Cancer, CVA, ARF, Chemo, Hep., AIDS, mental health diagnosis, sleep apnea, morbid obesity)? @ -End-stage renal disease Was patient admitted / discharged? Hospital course, mention meds given and route, prescriptions, significant lab abnormalities, going to OR and other pertinent info. @ -Patient presents with missing now 2 days of dialysis. Patient to be admitted to obtain dialysis. Admission orders written. Patient updated. Undiagnosed new problem with uncertain prognosis? @ -No Drug Therapy requiring intensive monitoring for toxicity (Heparin, Nitro, Insulin, Cardizem)? @ -No Were any procedures done? @ -No Diagnosis/symptom? @ -Renal failure Acute, or Chronic, or Acute on Chronic? @ -Acute on chronic Uncomplicated (without systemic symptoms) or Complicated (systemic symptoms)? @ -Complicated with some early symptoms of dyspnea Side effects of treatment? @ -No Exacerbation, Progression, or Severe Exacerbation? @ -No Poses a threat to life or bodily function? How? (Chest pain, USA, DC, pneumonia, PE, COPD, DKA, ARF, appy, cholecystitis, CVA, Diverticulitis, Homicidal, Suicidal, threat to staff... and all critical care pts) @ -No Disposition Clinical Impression: Renal failure Disposition: ADMITTED IP TO THIS HOSP Is patient prescribed a controlled substance at d/c from ED?: No Referrals: None,Stated [Primary Care Provider] - 1-2 days Time of Disposition: 11:37
[2024-02-28] MEDS ORDERED: NALOXONE 0.4 MG/ML 1 ML VIAL IV PRN (11:34)
[2024-02-28 12:36] LABS: African American GFR (CKD) 10 (>60 ml/min/1.73 sqM); Anion Gap 14 mmol/L; Anisocytosis Slight; Basophils % (A) 0 %; Blood Urea Nitrogen 60 mg/dL (9-20); Calcium 9.8 mg/dL (8.4-10.2); Carbon Dioxide 25 mmol/L (22-30); Chloride 91 mmol/L (98-107); Eosinophils # (A) 0.2 k/uL (0-0.7); Eosinophils % (A) 3 %; Glucose 124 mg/dL (74-99); HCT 31.4 % (39.0-53.0); HGB 10.6 gm/dL (13.0-17.5); Lymphocytes # (A) 0.6 k/uL (1.0-4.8); Lymphocytes % (A) 8 %; MCH 31.6 pg (25.0-35.0); MCHC 33.9 g/dL (31.0-37.0); MCV 93.4 fL (80.0-100.0); Mean Platelet Volume 8.8; Monocytes # (A) 0.3 k/uL (0-1.0); Monocytes % (A) 4 %; Neutrophils # (A) 6.4 k/uL (1.3-7.7); Neutrophils % (A) 85 %; Non-African American GFR(CKD) 9 (>60 ml/min/1.73 sqM); Phosphorus 2.5 mg/dL (2.5-4.5); Platelet Count 109 k/uL (150-450); RBC 3.36 m/uL (4.30-5.90); RDW 17.9 % (11.5-15.5); Sodium 130 mmol/L (137-145); WBC 7.6 k/uL (3.8-10.6)
--- NOTE | 2024-02-28 12:39 | P.NPCON ---
History of Present Illness - Reason for Consult end stage renal disease - History of Present Illness Patient is a 73-year-old male with end-stage renal disease on hemodialysis on a Sunday schedule at [facility]. Patient is admitted to the hospital as his access infiltrated twice this morning at dialysis. Patient is also complaining of shortness of breath. He has not had issues with his access previously. No history of cough fever chills nausea vomiting or abdominal pain. No labs are available at this time. Past Medical History Past Medical History: Coronary Artery Disease (CAD), Chest Pain / Angina, Diabetes Mellitus, Dialysis, Hyperlipidemia, Hypertension, Myocardial Infarction (AL), Renal Disease, Vascular Disorder Additional Past Medical History / Comment(s): Chronic renal failure: Hemodialysis on , AND SAT-left arm fistula. Anemia. hx cervical injury r/t football injury with cervical pain. migraines. neuropathy feet, Last Myocardial Infarction Date:: 2007 History of Any Multi-Drug Resistant Organisms: None Reported Past Surgical History: Heart Catheterization With Stent, Tonsillectomy Additional Past Surgical History / Comment(s): Peritoneal Dialysis catheter placed/later removed, cardiac stents X3. Left leg Arthrectomy X2. had rt side of neck for hemodialysis then removed, fistula now in left arm for hemodialysis, Roc cataracts WITH LENS, right 4th toe removed Past Anesthesia/Blood Transfusion Reactions: Previous Problems w/ Anesthesia, Motion Sickness, Postoperative Nausea & Vomiting (PONV) Additional Past Anesthesia/Blood Transfusion Reaction / Comment(s): "Dizzy sometimes when wakes up from anesthesia". Date of Last Stent Placement:: 01/2008 Past Psychological History: No Psychological Hx Reported Smoking Status: Former smoker Past Alcohol Use History: Rare Past Drug Use History: None Reported - Past Family History Mother Family Medical History: Cancer Additional Family Medical History / Comment(s): Colon cancer. Father Family Medical History: Myocardial Infarction (AL), Pulmonary Embolus Additional Family Medical History / Comment(s): Father had several MIs and of one at the age of 69yrs. Medications and Allergies Home Medications Medication Instructions Recorded Confirmed Type Isosorbide Mononitrate ER [Imdur] 30 mg PO BID 12/01/16 02/28/24 History carvediloL [Coreg] 25 mg PO BID 12/01/16 02/28/24 History Glimepiride [Amaryl] 2 mg PO AC-BID 11/05/20 02/28/24 History Nitroglycerin Sl Tabs [Nitrostat] 0.4 mg SUBLINGUAL Q5M PRN 06/09/23 02/28/24 History hydrALAZINE HCL [Apresoline] 25 mg PO TID 06/09/23 02/28/24 History hydrALAZINE HCL [Apresoline] 50 mg PO TID 06/09/23 02/28/24 History HYDROcodone/APAP 7.5-325MG [Waterproof 1 tab PO BID PRN 02/28/24 02/28/24 History 7.5-325] Allergies Allergy/AdvReac Type Severity Reaction Status Date / Time ciprofloxacin [From Cipro] Allergy Unknown Verified 02/28/24 12:13 ezetimibe [From Zetia] Allergy Swelling Verified 02/28/24 12:13 naproxen [From Naprosyn] Allergy Swelling Verified 02/28/24 12:13 IN FEET nifedipine [From Procardia] Allergy Unknown Verified 02/28/24 12:13 Rfaglaa-DHS-GjV Reductase Allergy "heart Verified 02/28/24 12:13 Inhibitor problems" [Suusjuq-Sba-Nob Reductase Inhibitor] Physical Exam Vitals: Vital Signs Temp Pulse Resp BP Pulse Ox 02/28/24 11:58 98.4 F 67 18 172/84 97 02/28/24 08:15 98.3 F 72 18 175/81 96 Intake and Output 02/27/24 02/28/24 02/28/24 22:59 06:59 14:59 Other: Weight 81.647 kg Patient is awake, comfortable, no acute distress Examination of the heart S1 and S2 Examination of the lungs bilateral breath sounds are heard Abdomen is soft nontender Examination of lower extremity shows trace edema bilaterally PIGMENT WEIGHER exam grossly intact AV fistula left forearm appears intact no significant bruising noted. Assessment and Plan Assessment: 1. End-stage renal disease on hemodialysis on Sunday schedule via left forearm AV fistula 2. Malfunctioning AV fistula this morning with infiltration x 2. We will reattempt dialysis today. 3. CKD mineral bone disorder 4. Volume overload 5. Hypertension partly volume sensitive expect improvement with dialysis and ultrafiltration. Plan: Hemodialysis today Follow-up on labs Resume home antihypertensive medications and phosphate binders Thank you for the consultation. We will continue to follow the patient with you during his hospitalization.
[2024-02-28] MEDS ORDERED: PROCHLORPERAZINE 5 MG TAB PO PRN (13:12)
[2024-02-28] MEDS ORDERED: HYDROcodone/APAP 7.5-325MG 1 EACH TAB PO PRN (13:13)
[2024-02-28] MEDS ORDERED: NITROGLYCERIN SL TABS 0.4 MG TAB SUBLINGUAL PRN (13:13)
[2024-02-28] MEDS ORDERED: DEXTROSE 50% SYRINGE 50 ML IVP PRN ×2 (13:28)
--- NOTE | 2024-02-28 13:31 | P.HPIM ---
History of Present Illness H&P Date: 02/28/24 Patient is a 73-year-old male with past medical history of CAD, HFrEF EF 25 to 30%, DM, ESRD on HD, anemia of chronic disease, HTN, HLD, PAD, who presented to the ER from his outpatient hemodialysis center due to inability to assess his graft, last EGD 02/25/2024, could not get his scheduled Sunday dialysis on 02/26 due to holiday. He otherwise feels at baseline, admits having chills but no fever, denies chest pain, shortness of breath, abdominal pain, nausea, vomiting. Pertinent positives and negatives as discussed in HPI, a complete review of systems was performed and all other systems are negative. Patient seen and examined at bedside. Vital signs reviewed General: nontoxic, no distress, appears at stated age Derm: warm, dry Head: atraumatic, normocephalic, symmetric Eyes: EOMI, no lid lag, anicteric sclera, pupils equal round reactive to light ENT: Nose and ears atraumatic Neck: No thyromegaly, supple Mouth: no lip lesion, mucus membranes moist Cardiovascular: S1S2 reg, no murmur, no edema Lungs: clear to auscultation bilateral, no rhonchi, no rales, no wheeze, no accessory muscle use Abdominal: soft, nontender to palpation, no guarding, no appreciable organom egaly Ext: Bilateral lower extremity venous stasis changes, swelling, tenderness Neuro: CN II-XII grossly intact Psych: Alert, oriented, appropriate affect Assessment/Plan: Malfunctioning AV fistula ESRD on HD Acute hyperkalemia Hyponatremia Anemia of chronic disease -Nephrology consulted, attempt hemodialysis 1/2 -Recheck potassium -Status post IV insulin for hyperkalemia -Will check BMP in the morning -Hemoglobin stable CAD with stents: Not on antiplatelets, not on statin, needs to follow-up with primary care physician and primary cardiology regarding this HFrEF EF 25 to 30%, not in exacerbation HTN: Continue Coreg 25 mg twice daily, Imdur 30 mg, hydralazine 75 3 times daily Type II DM, continue glimepiride, SSI, Accu-Cheks PVD Peripheral neuropathy Chronic migraines The patient is admitted with an anticipated [greater] than 2 midnight stay as [inpatient/observation] status for evaluation of malfunctioning AV fistula, hyperkalemia CODE STATUS: Full code DVT prophylaxis: Heparin Anticipated discharge date: 24 to [address]: Home A total of 40 minutes was spent on the care of this complex patient more than 50% of the time was spent in counseling and care coordination. Past Medical History Past Medical History: Coronary Artery Disease (CAD), Chest Pain / Angina, Diabetes Mellitus, Dialysis, Hyperlipidemia, Hypertension, Myocardial Infarction ([place]), Renal Disease, Vascular Disorder Additional Past Medical History / Comment(s): Chronic renal failure: Hemodialysis on , AND SAT-left arm fistula. Anemia. hx cervical injury r/t football injury with cervical pain. migraines. neuropathy feet, Last Myocardial Infarction Date:: 2007 History of Any Multi-Drug Resistant Organisms: None Reported Past Surgical History: Heart Catheterization With Stent, Tonsillectomy Additional Past Surgical History / Comment(s): Peritoneal Dialysis catheter placed/later removed, cardiac stents X3. Left leg Arthrectomy X2. had rt side of neck for hemodialysis then removed, fistula now in left arm for hemodialysis, Roc cataracts WITH LENS, right 4th toe removed Past Anesthesia/Blood Transfusion Reactions: Previous Problems w/ Anesthesia, Motion Sickness, Postoperative Nausea & Vomiting (PONV) Additional Past Anesthesia/Blood Transfusion Reaction / Comment(s): "Dizzy sometimes when wakes up from anesthesia". Date of Last Stent Placement:: 01/2008 Past Psychological History: No Psychological Hx Reported Smoking Status: Former smoker Past Alcohol Use History: Rare Past Drug Use History: None Reported - Past Family History Mother Family Medical History: Cancer Additional Family Medical History / Comment(s): Colon cancer. Father Family Medical History: Myocardial Infarction ([place]), Pulmonary Embolus Additional Family Medical History / Comment(s): Father had several MIs and of one at the age of 69yrs. Medications and Allergies Home Medications Medication Instructions Recorded Confirmed Type Isosorbide Mononitrate ER [Imdur] 30 mg PO BID 12/01/16 02/28/24 History carvediloL [Coreg] 25 mg PO BID 12/01/16 02/28/24 History Glimepiride [Amaryl] 2 mg PO AC-BID 11/05/20 02/28/24 History Nitroglycerin Sl Tabs [Nitrostat] 0.4 mg SUBLINGUAL Q5M PRN 06/09/23 02/28/24 History hydrALAZINE HCL [Apresoline] 25 mg PO TID 06/09/23 02/28/24 History hydrALAZINE HCL [Apresoline] 50 mg PO TID 06/09/23 02/28/24 History HYDROcodone/APAP 7.5-325MG [[place] 1 tab PO BID PRN 02/28/24 02/28/24 History 7.5-325] Allergies Allergy/AdvReac Type Severity Reaction Status Date / Time ciprofloxacin [From Cipro] Allergy Unknown Verified 02/28/24 12:13 ezetimibe [From Zetia] Allergy Swelling Verified 02/28/24 12:13 naproxen [From Naprosyn] Allergy Swelling Verified 02/28/24 12:13 IN FEET nifedipine [From Procardia] Allergy Unknown Verified 02/28/24 12:13 Bssrofg-LTT-DjL Reductase Allergy "heart Verified 02/28/24 12:13 Inhibitor problems" [Zeojauz-Gef-Koe Reductase Inhibitor] Physical Exam Vitals: Vital Signs Temp Pulse Resp BP Pulse Ox 02/28/24 11:58 98.4 F 67 18 172/84 97 02/28/24 08:15 98.3 F 72 18 175/81 96 Intake and Output 02/27/24 02/28/24 02/28/24 22:59 06:59 14:59 Other: Weight 81.647 kg Results CBC & Chem 7: 02/28/24 12:09 02/28/24 12:09 Labs: Abnormal Lab Results - Last 24 Hours (Table) 02/28/24 02/28/24 Range/Units 12:09 12:09 RBC 3.36 L (4.30-5.90) m/uL Hgb 10.6 L (13.0-17.5) gm/dL Hct 31.4 L (39.0-53.0) % RDW 17.9 H (11.5-15.5) % Plt Count 109 L (150-450) k/uL Lymphocytes # 0.6 L (1.0-4.8) k/uL Sodium 130 L (137-145) mmol/L Potassium 7.0 H* (3.5-5.1) mmol/L Chloride 91 L (98-107) mmol/L BUN 60 H (9-20) mg/dL Creatinine 5.89 H (0.66-1.25) mg/dL Glucose 124 H (74-99) mg/dL
[2024-02-28] MEDS: SODIUM BICARB 8.4% 50 ML SYR (1 MEQ/ML) IV ONE (13:34)
[2024-02-28] MEDS: DEXTROSE 50% SYRINGE 50 ML IVP ONE (13:37)
[2024-02-28] MEDS: INSULIN REGULAR 100 UNIT/ML VIAL (IV) IV ONE (13:40)
[2024-02-28] MEDS: CALCIUM GLUCONATE IN NACL 1 GM in SALINE 1 100ML.BAG IVPB ONE (13:41)
[2024-02-28] MEDS: SODIUM ZIRCONIUM CYCLOSILICATE 10 GM PACKET PO ONE (13:43)
[2024-02-28 18:32] LABS: Glucose,Whole Blood 95 mg/dL (70-110)
[2024-02-28] MEDS: INSULIN ASPART (NovoLOG) 100 UNIT/ML VIAL SQ SCH (18:35)
[2024-02-28] MEDS: hydrALAZINE HCL 50 MG TAB PO SCH (18:42)
[2024-02-28] MEDS: hydrALAZINE HCL 25 MG TAB PO SCH (20:59)
[2024-02-28] MEDS: carvediloL 12.5 MG TAB PO SCH (21:06)
[2024-02-28] MEDS: ACETAMINOPHEN TAB 325 MG TAB PO PRN (21:07)
[2024-02-28] MEDS: GLIMEPIRIDE 2 MG TAB PO SCH (21:09)
[2024-02-28 21:28] LABS: Glucose,Whole Blood 139 mg/dL (70-110)
[2024-02-28] MEDS: ISOSORBIDE MONONITRATE ER 30 MG TAB.ER.24H PO SCH (21:32)
[2024-02-28] MEDS: HEPARIN SODIUM,PORCINE 5,000 UNIT/ML 1 ML VIAL SQ SCH (22:23)
[2024-02-29 06:46] LABS: Glucose,Whole Blood 105 mg/dL (70-110)
[2024-02-29 07:52] LABS: Glucose,Whole Blood 103 mg/dL (70-110)
[2024-02-29 09:02] LABS: BUN/Creat Ratio 6.97 Ratio (12.00-20.00); Blood Urea Nitrogen 25.8 mg/dL (9.0-27.0); Calcium 9.6 mg/dL (8.7-10.3); Carbon Dioxide 27.9 mmol/L (21.6-31.8); Chloride 91 mmol/L (96-109); Glucose 90 mg/dL (70-110); Potassium 4.8 mmol/L (3.5-5.5); Sodium 134 mmol/L (135-145)
[2024-02-29 09:09] LABS: Basophils # (A) 0.05 X 10*3/uL (0.00-0.10); Basophils % (A) 0.7 %; Eosinophils # (A) 0.06 X 10*3/uL (0.04-0.35); Eosinophils % (A) 0.8 %; HCT 31.3 % (39.6-50.0); MCH 29.9 pg (27.0-32.0); MCHC 31.9 g/dL (32.0-37.0); MCV 93.4 FL (80.0-97.0); Mean Platelet Volume 11.8 FL (9.5-12.2); Monocytes # (A) 0.49 X 10*3/uL (0.20-1.00); Monocytes % (A) 6.9 %; NRBC Per 100 WBC 0 X 10*3/uL (0.00-0.01); Neutrophils # (A) 6.01 X 10*3/uL (1.80-7.70); Neutrophils % (A) 84.2 %; Platelet Count 111 X 10*3/uL (140-440); RBC 3.35 X 10*6/uL (4.40-5.60); RDW 18.7 % (11.5-14.5); WBC 7.14 X 10*3/uL (4.50-10.00)
[2024-02-29 11:58] LABS: Glucose,Whole Blood 149 mg/dL (70-110)
[2024-02-29 16:04] VITALS: BP 151/70; PULSE 62; RESP 19; TEMP 99.8
--- NOTE | 2024-02-29 16:10 | P.DS ---
Providers Date of admission: 02/28/24 11:35 Attending physician: Hiro Barkley Consults: 02/28/24 09:29 Consult Physician Urgent Consulting Provider: Perla Winters Consult Reason/Comments: dialysis Do you want consulting provider notified?: Already Contacted Primary care physician: Stated None Hospital Course: 73-year-old male with a past medical history of CAD heart failure ESRD on dialysis who presented to the ER on February 27 from outpatient dialysis due to inability to access his graft. He was able to have his graft accessed and had a session of dialysis and was discharged home. Of note he has a routine dialysis session arranged outpatient on March 01 Assessment: #) ESRD. Continue iHD T, , Sa as arranged by outpatient nephologist cad with stent- not on any antiplatlets. should have this topic revisited by his PCP. HFrEF not in acute excerbation Patient Condition at Discharge: Fair Plan - Discharge Summary New Discharge Prescriptions: Continue Isosorbide Mononitrate ER [Imdur] 30 mg PO BID carvediloL [Coreg] 25 mg PO BID Glimepiride [Amaryl] 2 mg PO AC-BID hydrALAZINE HCL [Apresoline] 25 mg PO TID HYDROcodone/APAP 7.5-325MG [[place] 7.5-325] 1 tab PO BID PRN PRN Reason: Pain hydrALAZINE HCL [Apresoline] 50 mg PO TID Nitroglycerin Sl Tabs [Nitrostat] 0.4 mg SUBLINGUAL Q5M PRN PRN Reason: Chest Pain Discharge Medication List Isosorbide Mononitrate ER [Imdur] 30 mg PO BID 12/01/16 [History] carvediloL [Coreg] 25 mg PO BID 12/01/16 [History] Glimepiride [Amaryl] 2 mg PO AC-BID 11/05/20 [History] Nitroglycerin Sl Tabs [Nitrostat] 0.4 mg SUBLINGUAL Q5M PRN 06/09/23 [History] hydrALAZINE HCL [Apresoline] 25 mg PO TID 06/09/23 [History] hydrALAZINE HCL [Apresoline] 50 mg PO TID 06/09/23 [History] HYDROcodone/APAP 7.5-325MG [[place] 7.5-325] 1 tab PO BID PRN 02/28/24 [History] Follow up Appointment(s)/Referral(s): None,Stated [Primary Care Provider] - 1-2 days
--- NOTE | 2024-02-29 18:35 | P.PN ---
Subjective Patient was seen for follow-up for end-stage renal disease. Patient was dialyzed yesterday. He tolerated his treatment well. No issues with left arm AV fistula. Serum potassium improved to 4.8. Objective - Vital Signs Vital signs: Vital Signs Temp 99.8 F H 02/29/24 16:00 Pulse 62 02/29/24 16:00 Resp 19 02/29/24 16:00 BP 151/70 02/29/24 16:00 Pulse Ox 99 02/29/24 16:00 FiO2 Intake & Output 02/28/24 02/29/24 02/29/24 18:59 06:59 18:59 Intake Total 500 Output Total 6500 Balance -6000 Weight 81.647 kg Intake: Hemodialysis 500 Output: Hemodialysis 3500 Hemodialysis Net Amount 3000 - Exam Patient is awake, comfortable, no acute distress Examination of the heart S1 and S2 Examination of the lungs bilateral breath sounds are heard and decreased at the bases Abdomen is soft nontender Examination of lower extremities shows chronic skin changes and chronic edema MEDICAL SALES CONSULTANT exam grossly intact - Labs CBC & Chem 7: 02/29/24 03:04 02/29/24 03:04 Labs: Abnormal Lab Results - Last 24 Hours (Table) 02/28/24 02/29/24 02/29/24 Range/Units 21:27 03:04 03:04 RBC 3.35 L (4.40-5.60) X 10*6/uL Hgb 10.0 L (13.0-17.0) g/dL Hct 31.3 L (39.6-50.0) % MCHC 31.9 L (32.0-37.0) g/dL RDW 18.7 H (11.5-14.5) % Plt Count 111 L (140-440) X 10*3/uL Lymphocytes # 0.50 L (0.90-5.00) X 10*3/uL Sodium 134 L (135-145) mmol/L Chloride 91 L (96-109) mmol/L Anion Gap 15.10 H (4.00-12.00) mmol/L Creatinine 3.7 H (0.6-1.5) mg/dL Est GFR (CKD-EPI) 17 L (>=60) BUN/Creatinine Ratio 6.97 L (12.00-20.00) Ratio POC Glucose (mg/dL) 139 H (70-110) mg/dL 02/29/24 Range/Units 11:57 RBC (4.40-5.60) X 10*6/uL Hgb (13.0-17.0) g/dL Hct (39.6-50.0) % MCHC (32.0-37.0) g/dL RDW (11.5-14.5) % Plt Count (140-440) X 10*3/uL Lymphocytes # (0.90-5.00) X 10*3/uL Sodium (135-145) mmol/L Chloride (96-109) mmol/L Anion Gap (4.00-12.00) mmol/L Creatinine (0.6-1.5) mg/dL Est GFR (CKD-EPI) (>=60) BUN/Creatinine Ratio (12.00-20.00) Ratio POC Glucose (mg/dL) 149 H (70-110) mg/dL Assessment and Plan Assessment: 1. End-stage renal disease on hemodialysis on Sunday schedule via left forearm AV fistula 2. Infiltration of AV fistula as outpatient however there were no issues with access yesterday. 3. CKD mineral bone disorder 4. Volume overload 5. Hypertension partly volume sensitive expect improvement with dialysis and ultrafiltration. Plan: Patient can be discharged. He will have hemodialysis again in a.m. which can be done as outpatient if he is discharged today.
== END 2024-02-29 17:50 | disposition home or self-care (01) ==
LOC: EC 08:11 → 6NMEDSUR 11:35
PROVIDERS: ADMIT Student in an Organized Health Care Education/Training Program; ATTEND Student in an Organized Health Care Education/Training Program
DX: T82.510A Breakdown (mechanical) of surgically created arteriovenous fistula, initial encounter (principal); Y71.2 Prosthetic and other implants, materials and accessory cardiovascular devices associated with adverse incidents; I13.2 Hypertensive heart and chronic kidney disease with heart failure and with stage 5 chronic kidney disease, or end stage renal disease; I50.22 Chronic systolic (congestive) heart failure; N18.6 End stage renal disease; N25.0 Renal osteodystrophy; I25.10 Atherosclerotic heart disease of native coronary artery without angina pectoris; E11.22 Type 2 diabetes mellitus with diabetic chronic kidney disease; E78.5 Hyperlipidemia, unspecified; I25.2 Old myocardial infarction; D63.1 Anemia in chronic kidney disease; E11.51 Type 2 diabetes mellitus with diabetic peripheral angiopathy without gangrene; E87.5 Hyperkalemia; E87.1 Hypo-osmolality and hyponatremia; G43.909 Migraine, unspecified, not intractable, without status migrainosus; E11.42 Type 2 diabetes mellitus with diabetic polyneuropathy; Z87.891 Personal history of nicotine dependence; Z95.5 Presence of coronary angioplasty implant and graft; Z99.2 Dependence on renal dialysis; Z79.84 Long term (current) use of oral hypoglycemic drugs; Z79.899 Other long term (current) drug therapy; Z88.1 Allergy status to other antibiotic agents; Z88.6 Allergy status to analgesic agent
CPT/HCPCS: 96372; 96374; 99285; 90935; 80048 ×2; 84100; 84132; 85025 ×2; 83036; G0378 ×2; J1644; J0613

== ENCOUNTER 2024-08-19 08:15 | Inpatient (IN) | payer MEDICARE ==
--- NOTE | 2024-08-19 09:10 | ED ---
General Adult HPI - General Chief complaint: Fall Stated complaint: Fall, abd pain Time Seen by Provider: 08/19/24 08:55 Source: patient, RN notes reviewed, old records reviewed Mode of arrival: ambulatory Limitations: no limitations - History of Present Illness Initial comments: 74-year-old male with a trip and fall while at dialysis. Patient fell onto his left flank and left abdomen. He said moderate to severe pain at the site since the fall. Patient had noted increased swelling of the abdomen and flank after the fall. He denies blood thinners. Denies chest pain or dyspnea. Denies any preceding symptoms - Related Data Home Medications Medication Instructions Recorded Confirmed Isosorbide Mononitrate ER [Imdur] 30 mg PO BID 12/01/16 02/28/24 carvediloL [Coreg] 25 mg PO BID 12/01/16 02/28/24 Glimepiride [Amaryl] 2 mg PO AC-BID 11/05/20 02/28/24 Nitroglycerin Sl Tabs [Nitrostat] 0.4 mg SUBLINGUAL Q5M PRN 06/09/23 02/28/24 hydrALAZINE HCL [Apresoline] 25 mg PO TID 06/09/23 02/28/24 hydrALAZINE HCL [Apresoline] 50 mg PO TID 06/09/23 02/28/24 HYDROcodone/APAP 7.5-325MG [[place] 1 tab PO BID PRN 02/28/24 02/28/24 7.5-325] Allergies Allergy/AdvReac Type Severity Reaction Status Date / Time ciprofloxacin [From Cipro] Allergy Unknown Verified 08/19/24 12:11 ezetimibe [From Zetia] Allergy Swelling Verified 08/19/24 12:11 naproxen [From Naprosyn] Allergy Swelling Verified 08/19/24 12:11 IN FEET nifedipine [From Procardia] Allergy Unknown Verified 08/19/24 12:11 Jlzhvsm-ZFL-UdC Reductase Allergy "heart Verified 08/19/24 12:11 Inhibitor problems" [Uywdzjw-Mxt-Wti Reductase Inhibitor] Review of Systems ROS Statement: Those systems with pertinent positive or pertinent negative responses have been documented in the HPI. ROS Other: All systems not noted in ROS Statement are negative. Past Medical History Past Medical History: Coronary Artery Disease (CAD), Chest Pain / Angina, Diabetes Mellitus, Dialysis, Hyperlipidemia, Hypertension, Myocardial Infarction ([place]), Renal Disease, Vascular Disorder Additional Past Medical History / Comment(s): Chronic renal failure: Hemodialys is on TUES,THURS AND SAT-left arm fistula. Anemia. hx cervical injury r/t football injury with cervical pain. migraines. neuropathy feet, Last Myocardial Infarction Date:: 2007 History of Any Multi-Drug Resistant Organisms: None Reported Past Surgical History: Heart Catheterization With Stent, Tonsillectomy Additional Past Surgical History / Comment(s): Peritoneal Dialysis catheter placed/later removed, cardiac stents X3. Left leg Arthrectomy X2. had rt side of neck for hemodialysis then removed, fistula now in left arm for hemodialysis, Roc cataracts WITH LENS, right 4th toe removed Past Anesthesia/Blood Transfusion Reactions: Previous Problems w/ Anesthesia, M otion Sickness, Postoperative Nausea & Vomiting (PONV) Additional Past Anesthesia/Blood Transfusion Reaction / Comment(s): "Dizzy sometimes when wakes up from anesthesia". Date of Last Stent Placement:: 01/2008 Past Psychological History: No Psychological Hx Reported Smoking Status: Former smoker Past Alcohol Use History: Rare Past Drug Use History: None Reported - Past Family History Mother Family Medical History: Cancer Additional Family Medical History / Comment(s): Colon cancer. Father Family Medical History: Myocardial Infarction ([place]), Pulmonary Embolus Additional Family Medical History / Comment(s): Father had several MIs and of one at the age of 69yrs. General Exam Limitations: no limitations General appearance: alert, in distress Head exam: Present: atraumatic, normocephalic Eye exam: Present: normal appearance, PERRL ENT exam: Present: normal exam Respiratory exam: Present: normal lung sounds bilaterally. Absent: respiratory distress, wheezes Cardiovascular Exam: Present: regular rate, normal rhythm GI/Abdominal exam: Present: distended, tenderness, guarding, rigid Extremities exam: Present: normal inspection, normal capillary refill Neurological exam: Present: alert, oriented X3, CN II-XII intact. Absent: motor sensory deficit Psychiatric exam: Present: normal affect, normal mood Skin exam: Present: warm, dry, intact Course Vital Signs 08/19/24 08/19/24 08/19/24 08:55 10:23 10:45 Temperature 97.9 F Pulse Rate 56 L 64 51 L Respiratory 22 18 22 Rate Blood Pressure 108/66 92/64 89/47 O2 Sat by Pulse 98 96 98 Oximetry 08/19/24 08/19/24 08/19/24 11:04 11:46 12:05 Temperature 97.6 F Pulse Rate 55 L 59 L 56 L Respiratory 20 20 20 Rate Blood Pressure 94/47 93/52 89/49 O2 Sat by Pulse 98 94 L 95 Oximetry - Reevaluation(s) Reevaluation #1: 08/19/24 09:00 Patient was evaluated immediately upon placement into room 28. Medical Decision Making - Medical Decision Making Was pt. sent in by a medical professional or institution (, PA, FURNITURE ASSEMBLY SUPERVISOR, urgent care, hospital, or fpc...) When possible be specific @ -No Did you speak to anyone other than the patient for history (EMS, parent, family, police, friend...)? What history was obtained from this source @ -No Did you review nursing and triage notes (agree or disagree)? Why? @ -I reviewed and agree with nursing and triage notes Were old charts reviewed (outside hosp., previous admission, EMS record, old EKG, old radiological studies, urgent care reports/EKG's, fpc records)? Report findings @ -No old charts were reviewed Differential Abdominal Pain Men: Appendicitis, cholecystitis, diverticulosis, ischemic bowel, pancreatitis, hepatitis, UTI, gastroenteritis, AAA, incarcerated hernia, bowel obstruction, constipation, inflammatory bowel, hepatitis, peptic ulcer disease, splenic infa rction, perforated viscus, testicular torsion, this is not meant to be an all- inclusive list EKG interpreted by me (3pts min.). @ -Sinus bradycardia first-degree AV block rate of 55, ND interval 244, QRS duration 114, QTc [address] segment elevation T wave inversion in the inferior and lateral precordial leads. X-rays interpreted by me (1pt min.). @ -None done CT interpreted by me (1pt min.). @CT with contrast shows large abdominal wall and flank hematoma with contrast extravasation. U/S interpreted by me (1pt. min.). @ -None done What testing was considered but not performed or refused? (CT, X-rays, U/S, labs)? Why? @ -None What meds were considered but not given or refused? Why? @ -None Did you discuss the management of the patient with other professionals (professionals i.e. , PA, FURNITURE ASSEMBLY SUPERVISOR, lab, RT, psych nurse, social services designee, associate principal, teacher, custodial officer, case management social worker)? Give summary @ -[Case discussed with Dr. Ward covering for trauma, will be admitted with nephrology and internal medicine on consult. Nephrology contacted regarding contrast administration Was smoking cessation discussed for >3mins.? @ -No Was critical care preformed (if so, how long)? @Yes, 35 minutes Were there social determinants of health that impacted care today? How? (Homelessness, low income, unemployed, alcoholism, drug addiction, transportation, low edu. Level, literacy, decrease access to med. care, long term, rehab)? @ -No Was there de-escalation of care discussed even if they declined (Discuss DNR or withdrawal of care, Hospice)? DNR status @ -No What co-morbidities impacted this encounter? (DM, HTN, Smoking, COPD, CAD, Cancer, CVA, ARF, Chemo, Hep., AIDS, mental health diagnosis, sleep apnea, morbid obesity)? @ -End-stage renal disease Was patient admitted / discharged? Hospital course, mention meds given and route, prescriptions, significant lab abnormalities, going to OR and other pertinent info. @ -74-year-old male with ground-level fall, left-sided abdominal pain. Patient has an indurated mass on exam in the left upper quadrant and left flank. There is no ecchymosis. Patient evaluated and taken immediately to CT. There is a large abdominal wall hematoma. Patient placed in an abdominal binder, ice packs are applied. His hemoglobin is 7.3 with recent from several months ago of 10. He is ordered 2 units of packed RBCs and given TXA. Patient admitted to a [facility] hospital bed with serial hemoglobin checks. Undiagnosed new problem with uncertain prognosis? @ -No Drug Therapy requiring intensive monitoring for toxicity (Heparin, Nitro, Insulin, Cardizem)? @ -No Were any procedures done? @ -No Diagnosis/symptom? @Acute blood loss anemia, abdominal wall hematoma status post fall Acute, or Chronic, or Acute on Chronic? @ -[Acute Uncomplicated (without systemic symptoms) or Complicated (systemic symptoms)? @ -Complicated Side effects of treatment? @ -[No Exacerbation, Progression, or Severe Exacerbation? @ -No Poses a threat to life or bodily function? How? (Chest pain, [place], [place], pneumonia, PE, COPD, DKA, ARF, appy, cholecystitis, CVA, Diverticulitis, Homicidal, Suicidal, threat to staff... and all critical care pts) @ -[Yes, hemorrhagic shock - Lab Data Result diagrams: 08/19/24 09:51 08/19/24 09:51 Lab Results 08/19/24 08/19/24 08/19/24 Range/Units 09:51 09:51 09:51 WBC 5.30 (4.50-10.00) 10*3/uL RBC 2.33 L (4.40-5.60) 10*6/uL Hgb 7.3 L (13.0-17.0) g/dL Hct 22.3 L (39.6-50.0) % MCV 95.7 (80.0-97.0) fL MCH 31.3 (27.0-32.0) pg MCHC 32.7 (32.0-37.0) g/dL Plt Count 67 L (140-440) 10*3/uL MPV 10.9 (9.5-12.2) fL Immature Gran % (Auto) 0.4 % Neutrophils % 73.8 % Lymphocytes % 15.8 % Monocytes % 6.4 % Eosinophils % 3.0 % Basophils % 0.6 % Immature Gran # 0.02 (0.00-0.04) 10*3/uL Neutrophils # 3.91 (1.80-7.70) 10*3/uL Lymphocytes # 0.84 L (0.90-5.00) 10*3/uL Monocytes # 0.34 (0.20-1.00) 10*3/uL Eosinophils # 0.16 (0.04-0.35) 10*3/uL Basophils # 0.03 (0.00-0.10) 10*3/uL PT 13.2 H (10.0-12.5) sec INR 1.2 H (<1.2) APTT 26.9 (22.0-30.0) sec Sodium 131 L (137-145) mmol/L Potassium 4.5 (3.5-5.1) mmol/L Chloride 98 (98-107) mmol/L Carbon Dioxide 22 (22-30) mmol/L Anion Gap 11 mmol/L BUN 53 H (9-20) mg/dL Creatinine 5.44 H (0.66-1.25) mg/dL Est GFR (CKD-EPI)AfAm 11 (>60 ml/min/1.73 sqM) Est GFR (CKD-EPI)NonAf 10 (>60 ml/min/1.73 sqM) Glucose 107 H (74-99) mg/dL Plasma Lactic Acid Jcarlos (0.7-2.0) mmol/L Calcium 8.9 (8.4-10.2) mg/dL Total Bilirubin 1.1 (0.2-1.3) mg/dL AST 16 L (17-59) U/L ALT 13 (4-49) U/L Alkaline Phosphatase 94 (38-126) U/L Total Protein 5.1 L (6.3-8.2) g/dL Albumin 3.0 L (3.5-5.0) g/dL Lipase 44 (23-300) U/L Blood Type Blood Type Confirm Blood Type Recheck Bld Type Recheck Status Antibody Screen Crossmatch Spec Expiration Date 08/19/24 08/19/24 08/19/24 Range/Units 09:51 10:35 10:40 WBC (4.50-10.00) 10*3/uL RBC (4.40-5.60) 10*6/uL Hgb (13.0-17.0) g/dL Hct (39.6-50.0) % MCV (80.0-97.0) fL MCH (27.0-32.0) pg MCHC (32.0-37.0) g/dL Plt Count (140-440) 10*3/uL MPV (9.5-12.2) fL Immature Gran % (Auto) % Neutrophils % % Lymphocytes % % Monocytes % % Eosinophils % % Basophils % % Immature Gran # (0.00-0.04) 10*3/uL Neutrophils # (1.80-7.70) 10*3/uL Lymphocytes # (0.90-5.00) 10*3/uL Monocytes # (0.20-1.00) 10*3/uL Eosinophils # (0.04-0.35) 10*3/uL Basophils # (0.00-0.10) 10*3/uL PT (10.0-12.5) sec INR (<1.2) APTT (22.0-30.0) sec Sodium (137-145) mmol/L Potassium (3.5-5.1) mmol/L Chloride (98-107) mmol/L Carbon Dioxide (22-30) mmol/L Anion Gap mmol/L BUN (9-20) mg/dL Creatinine (0.66-1.25) mg/dL Est GFR (CKD-EPI)AfAm (>60 ml/min/1.73 sqM) Est GFR (CKD-EPI)NonAf (>60 ml/min/1.73 sqM) Glucose (74-99) mg/dL Plasma Lactic Acid Jcarlos 0.8 (0.7-2.0) mmol/L Calcium (8.4-10.2) mg/dL Total Bilirubin (0.2-1.3) mg/dL AST (17-59) U/L ALT (4-49) U/L Alkaline Phosphatase (38-126) U/L Total Protein (6.3-8.2) g/dL Albumin (3.5-5.0) g/dL Lipase (23-300) U/L Blood Type O Negative Blood Type Confirm O Negative Blood Type Recheck No Previous Record Bld Type Recheck Status CABO Indicated Antibody Screen NEGATIVE Crossmatch See Detail Spec Expiration Date 08/22/2024 - 2339 Critical Care Time Critical Care Time: Yes Total Critical Care Time: 35 Disposition Clinical Impression: Fall, Abdominal wall hematoma, Acute blood loss anemia Disposition: ADMITTED IP TO THIS [facility] Condition: Serious Is patient prescribed a controlled substance at d/c from ED?: No Referrals: None,Stated [Primary Care Provider] - 1-2 days Time of Disposition: 12:15
[2024-08-19] MEDS: fentaNYL (PF) 50 MCG/ML 2 ML AMP IVP STA (09:28)
[2024-08-19 10:01] LABS: Basophils # (A) 0.03 10*3/uL (0.00-0.10); Basophils % (A) 0.6 %; Eosinophils # (A) 0.16 10*3/uL (0.04-0.35); HCT 22.3 % (39.6-50.0); HGB 7.3 g/dL (13.0-17.0); Lymphocytes # (A) 0.84 10*3/uL (0.90-5.00); Lymphocytes % (A) 15.8 %; MCH 31.3 pg (27.0-32.0); MCHC 32.7 g/dL (32.0-37.0); MCV 95.7 fL (80.0-97.0); Mean Platelet Volume 10.9 fL (9.5-12.2); Monocytes # (A) 0.34 10*3/uL (0.20-1.00); Monocytes % (A) 6.4 %; Neutrophils # (A) 3.91 10*3/uL (1.80-7.70); Neutrophils % (A) 73.8 %; RBC 2.33 10*6/uL (4.40-5.60); RDW 15.4 % (11.5-14.5)
[2024-08-19 10:15] LABS: INR 1.2 (<1.2); Partial Thromboplastin Time 26.9 sec (22.0-30.0); Prothrombin Time 13.2 sec (10.0-12.5)
[2024-08-19 10:18] LABS: ALT 13 U/L (4-49); AST 16 U/L (17-59); African American GFR (CKD) 11 (>60 ml/min/1.73 sqM); Alkaline Phosphatase 94 U/L (38-126); Anion Gap 11 mmol/L; Blood Urea Nitrogen 53 mg/dL (9-20); Calcium 8.9 mg/dL (8.4-10.2); Carbon Dioxide 22 mmol/L (22-30); Chloride 98 mmol/L (98-107); Glucose 107 mg/dL (74-99); Lipase 44 U/L (23-300); Non-African American GFR(CKD) 10 (>60 ml/min/1.73 sqM); Potassium 4.5 mmol/L (3.5-5.1); Sodium 131 mmol/L (137-145); Total Bilirubin 1.1 mg/dL (0.2-1.3); Total Protein 5.1 g/dL (6.3-8.2)
[2024-08-19 10:31] LABS: Platelet Count 67 10*3/uL (140-440)
[2024-08-19] MEDS: TRANEXAMIC 1,000 MG/100ML-NACL 1,000 MG in SALINE 1 100ML.BAG IV STA (10:49)
--- NOTE | 2024-08-19 10:53 | CT ---
EXAMINATION TYPE: CT abdomen pelvis w con DATE OF EXAM: 08/19/2024 9:32 AM COMPARISON: None. CLINICAL INDICATION: Male, 74 years old with history of abdominal pain; ABDOMINAL PAIN ON LEFT SIDE A FTER FALL THIS AM. PT STATES LUMP ON HIS LEFT SIDE IS NEW TECHNIQUE: CT of the abdomen and pelvis after administration of IV contrast. Delayed images through t he kidneys and coronal/sagittal reconstructions performed. Contrast used:80 ml mL of Isovue 300 with IV Contrast, Oral contrast used: without Oral Contrast CT DLP: 1245.6 mGycm, Automated exposure control for dose reduction was used. FINDINGS: The heart is borderline in size without pericardial effusion. Three-vessel coronary artery calcificat ions are present. Some mild hazy densities at the lung bases. No pleural effusion. Some reticulonodul ar densities at the posterior lung bases. Slight nodular contour of the liver suggesting underlying cirrhosis. No focal liver lesion. Portal ve nous system is patent. No biliary ductal dilatation seen. There is a 3.2 cm gallstone. Mildly hydropic gallbladder 4.27 m white probably due to fasting state. Nonspecific 8 mm calcification at the pancreatic head does not seem to follow the course of the duct. Adrenal glands and pancreas within normal limits. Spleen borderline in size at 13.7 cm measured on coronal series. The [place] kidneys are atrophic. Moderate atherosclerotic calcifications abdominal aorta and iliac arteries. Some prominent retroperitoneal lymph nodes measuring up to 9 mm short axis probably reactive/post inf lammatory. Mild abdominal pelvic ascites is present. No dilated small bowel free air. Mild to moderate overall snowboarding. Solid stool distends the rectum up to 6.9 cm wide. Bladder nondistended. Mild pelvic free fluid. Some prominent bilateral inguinal lymph nodes, borderli ne enlarged at 1.6 cm probably reactive/post inflammatory. Large mass anterior left abdominal wall markedly indenting the abdominal wall musculature and measuri ng 22.3 cm craniocaudal by 22.3 cm wide by 12.2 cm thick. Multiple foci of contrast blushes are prese nt within the low well-defined feeding artery is identified. Second suspected subcutaneous hematoma along the lower left flank measuring 7.9 x 4.8 x 4.8 cm also s howing a prominent contrast blush Bones: Mild degenerative change of both hips. Moderate to severe degenerative disc disease L4-L5 and L5-S1 with moderate hypertrophic facet arthropathy lower lumbar spine. IMPRESSION: 1. Large mass anterior left abdominal wall with pronounced mass effect. Findings favored to represent a large intramuscular hematoma of the abdominal wall measuring up to 22.3 x 22.3 x 12.2 cm. Multiple foci of contrast blush are present within the hematoma suggesting some active bleeding. 2. A second subcutaneous hematoma lower left flank measuring 7.9 x 4.8 x 4.8 cm also shows a contrast blush. 3. Cirrhosis and mild ascites suggesting portal venous hypertension. 4. Atrophic kidneys suggesting advanced chronic kidney disease. 5. A 3.2 cm gallstone. Critical findings called to Dr. Khoury in the ER at 10:50 AM. [facility], Workstation: [facility], 08/19/2024 10:51 AM
[2024-08-19] MEDS: TRANEXAMIC ACID 1,000 MG in SODIUM CHLORIDE 0.9% 250 ML IV ONE ×2 (11:03→11:04)
[2024-08-19] MEDS ORDERED: NALOXONE 0.4 MG/ML 1 ML VIAL IV PRN (12:10)
--- NOTE | 2024-08-19 13:59 | P.CONS ---
History of Present Illness - Reason for Consult Hemorrhagic shock - History of Present Illness 74-year-old came in after trip and fall at the dialysis unit. Patient has large hematoma. Patient was hypotensive received 2 units of blood transfusion patient hemoglobin on admission was 7.3. Patient is with altered and complaining of chills secondary to hypotension patient is not on any blood thinners at this time. CT of the abdomen showed a large mass which is a hematoma and also showed cirrhosis with mild ascites and atrophic kidneys REVIEW OF SYSTEMS: All other systems are negative except those mentioned in the HPI PHYSICAL EXAMINATION: GENERAL: The patient is drowsy and oriented x3, not in any acute distress. Well developed, well nourished. HEENT: Pupils are round and equally reacting to light. EOMI. No scleral icterus. No conjunctival pallor. Normocephalic, atraumatic. No pharyngeal erythema. No thyromegaly. CARDIOVASCULAR: S1 and S2 present. No murmurs, rubs, or gallops. PULMONARY: Chest is clear to auscultation, no wheezing or crackles. ABDOMEN: Patient has an abdominal binder has a large hematoma in the anterior abdominal wall, normoactive bowel sounds. No palpable organomegaly. MUSCULOSKELETAL: No joint swelling or deformity. EXTREMITIES: No cyanosis, clubbing, or pedal edema. NEUROLOGICAL: Gross neurological examination did not reveal any focal deficits. SKIN: No rashes. Assessment and plan -Hemorrhagic shock: Secondary to fall acute blood loss and abdominal wall hematoma. Patient received PRBC transfusion 2 units supportive care, IV hydration if needed, hematoma management as per primary service there is general surgery patient received tranexamic acid. End-stage renal disease hemodialysis dependent, nephrology was consulted - Hyponatremia probably secondary to hypovolemia due to end-stage renal disease - Coronary disease - Hypertension - Hyperlipidemia - Peripheral vascular disease For above-mentioned chronic medical problems patient will be resumed on appropriate home medications antihypertensive medications are being held because of hemorrhagic shock DVT prophylaxis: SCDs for now Past Medical History Past Medical History: Coronary Artery Disease (CAD), Chest Pain / Angina, Diabetes Mellitus, Dialysis, Hyperlipidemia, Hypertension, Myocardial Infarction ([place]), Renal Disease, Vascular Disorder Additional Past Medical History / Comment(s): Chronic renal failure: Hemodialysis on ,[facility] AND [place]-left arm fistula. Anemia. hx cervical injury r/t football injury with cervical pain. migraines. neuropathy feet, Last Myocardial Infarction Date:: 2007 History of Any Multi-Drug Resistant Organisms: None Reported Past Surgical History: Heart Catheterization With Stent, Tonsillectomy Additional Past Surgical History / Comment(s): Peritoneal Dialysis catheter placed/later removed, cardiac stents X3. Left leg Arthrectomy X2. had rt side of neck for hemodialysis then removed, fistula now in left arm for hemodialysis, Roc cataracts WITH LENS, right 4th toe removed Past Anesthesia/Blood Transfusion Reactions: Previous Problems w/ Anesthesia, Motion Sickness, Postoperative Nausea & Vomiting (PONV) Additional Past Anesthesia/Blood Transfusion Reaction / Comm: "Dizzy sometimes when wakes up from anesthesia". Date of Last Stent Placement:: 01/2008 Past Psychological History: No Psychological Hx Reported Smoking Status: Former smoker Past Alcohol Use History: Rare Past Drug Use History: None Reported - Past Family History Mother Family Medical History: Cancer Additional Family Medical History / Comment(s): Colon cancer. Father Family Medical History: Myocardial Infarction ([place]), Pulmonary Embolus Additional Family Medical History / Comment(s): Father had several MIs and of one at the age of 69yrs. Medications and Allergies Home Medications Medication Instructions Recorded Confirmed Type Isosorbide Mononitrate ER [Imdur] 30 mg PO BID 12/01/16 08/19/24 History carvediloL [Coreg] 25 mg PO BID 12/01/16 08/19/24 History Nitroglycerin Sl Tabs [Nitrostat] 0.4 mg SUBLINGUAL Q5M PRN 06/09/23 08/19/24 History hydrALAZINE HCL [Apresoline] 25 - 50 mg PO TID PRN 06/09/23 08/19/24 History HYDROcodone/APAP 10-325MG [[place] 1 tab PO BID PRN 08/19/24 08/19/24 History 10-325] Allergies Allergy/AdvReac Type Severity Reaction Status Date / Time ciprofloxacin [From Cipro] Allergy Unknown Verified 08/19/24 12:11 ezetimibe [From Zetia] Allergy Swelling Verified 08/19/24 12:11 naproxen [From Naprosyn] Allergy Swelling Verified 08/19/24 12:11 IN FEET nifedipine [From Procardia] Allergy Unknown Verified 08/19/24 12:11 Jzpzwrq-WXN-RyX Reductase Allergy "heart Verified 06/24/25 12:11 Inhibitor problems" [Pnkembt-Rwq-Zvo Reductase Inhibitor] Physical Exam Vitals: Vital Signs Temp Pulse Resp BP Pulse Ox 08/19/24 12:38 97.8 F 56 L 20 97/46 98 08/19/24 12:18 97.8 F 58 L 24 91/49 98 08/19/24 12:05 97.6 F 56 L 20 89/49 95 08/19/24 11:46 59 L 20 93/52 94 L 08/19/24 11:04 55 L 20 94/47 98 08/19/24 10:45 51 L 22 89/47 98 08/19/24 10:23 64 18 92/64 96 08/19/24 08:55 97.9 F 56 L 22 108/66 98 Intake and Output 08/18/24 08/19/24 08/19/24 22:59 06:59 14:59 Intake Total 0 Balance 0 Intake: Blood Product 0 Rc As-1 Unit 0 [id number] Other: Weight 81.647 kg Results CBC & Chem 7: 08/19/24 09:51 08/19/24 09:51 Labs: Abnormal Lab Results - Last 24 Hours (Table) 08/19/24 08/19/24 08/19/24 Range/Units 09:51 09:51 09:51 RBC 2.33 L (4.40-5.60) 10*6/uL Hgb 7.3 L (13.0-17.0) g/dL Hct 22.3 L (39.6-50.0) % Plt Count 67 L (140-440) 10*3/uL Lymphocytes # 0.84 L (0.90-5.00) 10*3/uL PT 13.2 H (10.0-12.5) sec INR 1.2 H (<1.2) Sodium 131 L (137-145) mmol/L BUN 53 H (9-20) mg/dL Creatinine 5.44 H (0.66-1.25) mg/dL Glucose 107 H (74-99) mg/dL AST 16 L (17-59) U/L Total Protein 5.1 L (6.3-8.2) g/dL Albumin 3.0 L (3.5-5.0) g/dL Crossmatch 08/19/24 Range/Units 10:40 RBC (4.40-5.60) 10*6/uL Hgb (13.0-17.0) g/dL Hct (39.6-50.0) % Plt Count (140-440) 10*3/uL Lymphocytes # (0.90-5.00) 10*3/uL PT (10.0-12.5) sec INR (<1.2) Sodium (137-145) mmol/L BUN (9-20) mg/dL Creatinine (0.66-1.25) mg/dL Glucose (74-99) mg/dL AST (17-59) U/L Total Protein (6.3-8.2) g/dL Albumin (3.5-5.0) g/dL Crossmatch See Detail
[2024-08-19] MEDS: fentaNYL (PF) 50 MCG/ML 2 ML AMP IVP PRN (14:51)
[2024-08-19] MEDS: DESMOPRESSIN ACETATE 24 MCG in SODIUM CHLORIDE 0.9% 50 ML IVPB ONE (18:34)
[2024-08-19] MEDS: DARBEPOETIN ALFA 60 MCG/0.3 ML SYRINGE SQ SCH (18:56)
[2024-08-19] MEDS ORDERED: MORPHINE SULFATE 2 MG/ML SYRINGE IVP PRN (20:49)
[2024-08-19] MEDS ORDERED: HYDROcodone/APAP 7.5-325MG 1 EACH TAB PO PRN (20:49)
--- NOTE | 2024-08-19 20:54 | P.GSHP ---
History of Present Illness H&P Date: 08/19/24 74-year-old male presented after a trip and fall at his dialysis unit. He is complaining of pain on the left side of his flank and he is noted to have a large hematoma at that site. Initial hemoglobin is noted to be 7.3 with mild hypotension. He does have history of cirrhosis with mild ascites and he is end- stage renal disease with atrophic kidneys. CT was performed for further evaluation with finding of large hematoma with active extravasation. Initial ER management is placement of abdominal binder for compression, patient was given 2 units of packed red blood cells. I did discuss with the emergency department the possibility of transferring the patient for interventional radiology, I was not informed that extravasation was from arterial source. Patient was admitted to the trauma service. On my evaluation, patient is resting comfortably. No tachycardia noted. Past Medical History Past Medical History: Coronary Artery Disease (CAD), Chest Pain / Angina, Diabetes Mellitus, Dialysis, Hyperlipidemia, Hypertension, Myocardial Infarction (CT), Renal Disease, Vascular Disorder Additional Past Medical History / Comment(s): Chronic renal failure: Hemodialysis on , AND [facility]-left arm fistula. Anemia. hx cervical injury r/t football injury with cervical pain. migraines. neuropathy feet, Last Myocardial Infarction Date:: 2007 History of Any Multi-Drug Resistant Organisms: None Reported Past Surgical History: Heart Catheterization With Stent, Tonsillectomy Additional Past Surgical History / Comment(s): Peritoneal Dialysis catheter placed/later removed, cardiac stents X3. Left leg Arthrectomy X2. had rt side of neck for hemodialysis then removed, fistula now in left arm for hemodialysis, Roc cataracts WITH LENS, right 4th toe removed Past Anesthesia/Blood Transfusion Reactions: Previous Problems w/ Anesthesia, Motion Sickness, Postoperative Nausea & Vomiting (PONV) Additional Past Anesthesia/Blood Transfusion Reaction / Comment(s): "Dizzy so metimes when wakes up from anesthesia". Date of Last Stent Placement:: 01/2008 Past Psychological History: No Psychological Hx Reported Smoking Status: Former smoker Past Alcohol Use History: Rare Past Drug Use History: None Reported - Past Family History Mother Family Medical History: Cancer Additional Family Medical History / Comment(s): Colon cancer. Father Family Medical History: Myocardial Infarction (CT), Pulmonary Embolus Additional Family Medical History / Comment(s): Father had several MIs and of one at the age of 69yrs. Medications and Allergies Home Medications Medication Instructions Recorded Confirmed Type Isosorbide Mononitrate ER [Imdur] 30 mg PO BID 12/01/16 08/19/24 History carvediloL [Coreg] 25 mg PO BID 12/01/16 08/19/24 History Nitroglycerin Sl Tabs [Nitrostat] 0.4 mg SUBLINGUAL Q5M PRN 06/09/23 08/19/24 History hydrALAZINE HCL [Apresoline] 25 - 50 mg PO TID PRN 06/09/23 08/19/24 History HYDROcodone/APAP 10-325MG [[place] 1 tab PO BID PRN 08/19/24 08/19/24 History 10-325] Allergies Allergy/AdvReac Type Severity Reaction Status Date / Time ciprofloxacin [From Cipro] Allergy Unknown Verified 08/19/24 12:11 ezetimibe [From Zetia] Allergy Swelling Verified 08/19/24 12:11 naproxen [From Naprosyn] Allergy Swelling Verified 08/19/24 12:11 IN FEET nifedipine [From Procardia] Allergy Unknown Verified 08/19/24 12:11 Ejizvoj-LGR-WwZ Reductase Allergy "heart Verified 08/19/24 12:11 Inhibitor problems" [Xiakumj-Vba-Nsi Reductase Inhibitor] Surgical - Exam Osteopathic Statement: *. No significant issues noted on an osteopathic structural exam other than those noted in the History and Physical/Consult. Vital Signs Temp Pulse Resp BP Pulse Ox 97.9 F 56 L 22 108/66 98 08/19/24 08:55 08/19/24 08:55 08/19/24 08:55 08/19/24 08:55 08/19/24 08:55 - General no distress - Eyes normal ocular movement - ENT no hearing loss - Neck trachea midline - Respiratory normal respiratory effort - Abdomen Soft, nontender in abdominal area, tenderness to the left flank at site of hematoma - Psychiatric oriented to time, oriented to person, oriented to place Results - Labs 08/19/24 09:51 08/19/24 09:51 Abnormal Lab Results - Last 24 Hours (Table) 08/19/24 08/19/24 08/19/24 Range/Units 09:51 09:51 09:51 RBC 2.33 L (4.40-5.60) 10*6/uL Hgb 7.3 L (13.0-17.0) g/dL Hct 22.3 L (39.6-50.0) % Plt Count 67 L (140-440) 10*3/uL Lymphocytes # 0.84 L (0.90-5.00) 10*3/uL PT 13.2 H (10.0-12.5) sec INR 1.2 H (<1.2) Sodium 131 L (137-145) mmol/L BUN 53 H (9-20) mg/dL Creatinine 5.44 H (0.66-1.25) mg/dL Glucose 107 H (74-99) mg/dL AST 16 L (17-59) U/L Total Protein 5.1 L (6.3-8.2) g/dL Albumin 3.0 L (3.5-5.0) g/dL Crossmatch 08/19/24 Range/Units 10:40 RBC (4.40-5.60) 10*6/uL Hgb (13.0-17.0) g/dL Hct (39.6-50.0) % Plt Count (140-440) 10*3/uL Lymphocytes # (0.90-5.00) 10*3/uL PT (10.0-12.5) sec INR (<1.2) Sodium (137-145) mmol/L BUN (9-20) mg/dL Creatinine (0.66-1.25) mg/dL Glucose (74-99) mg/dL AST (17-59) U/L Total Protein (6.3-8.2) g/dL Albumin (3.5-5.0) g/dL Crossmatch See Detail Diabetes panel 08/19/24 Range/Units 09:51 Sodium 131 L (137-145) mmol/L Potassium 4.5 (3.5-5.1) mmol/L Chloride 98 (98-107) mmol/L Carbon Dioxide 22 (22-30) mmol/L BUN 53 H (9-20) mg/dL Creatinine 5.44 H (0.66-1.25) mg/dL Glucose 107 H (74-99) mg/dL Calcium 8.9 (8.4-10.2) mg/dL AST 16 L (17-59) U/L ALT 13 (4-49) U/L Alkaline Phosphatase 94 (38-126) U/L Total Protein 5.1 L (6.3-8.2) g/dL Albumin 3.0 L (3.5-5.0) g/dL Calcium panel 08/19/24 Range/Units 09:51 Calcium 8.9 (8.4-10.2) mg/dL Albumin 3.0 L (3.5-5.0) g/dL Pituitary panel 08/19/24 Range/Units 09:51 Sodium 131 L (137-145) mmol/L Potassium 4.5 (3.5-5.1) mmol/L Chloride 98 (98-107) mmol/L Carbon Dioxide 22 (22-30) mmol/L BUN 53 H (9-20) mg/dL Creatinine 5.44 H (0.66-1.25) mg/dL Glucose 107 H (74-99) mg/dL Calcium 8.9 (8.4-10.2) mg/dL Adrenal panel 08/19/24 Range/Units 09:51 Sodium 131 L (137-145) mmol/L Potassium 4.5 (3.5-5.1) mmol/L Chloride 98 (98-107) mmol/L Carbon Dioxide 22 (22-30) mmol/L BUN 53 H (9-20) mg/dL Creatinine 5.44 H (0.66-1.25) mg/dL Glucose 107 H (74-99) mg/dL Calcium 8.9 (8.4-10.2) mg/dL Total Bilirubin 1.1 (0.2-1.3) mg/dL AST 16 L (17-59) U/L ALT 13 (4-49) U/L Alkaline Phosphatase 94 (38-126) U/L Total Protein 5.1 L (6.3-8.2) g/dL Albumin 3.0 L (3.5-5.0) g/dL Assessment and Plan Plan: 74-year-old male with recent fall and finding of hematoma of the left flank. This appears intramuscular based on CT imaging. There is blush noted with contrast imaging. I was not made aware with discussion and transition of care that this was an arterial blush. After evaluating the patient, he is stable after 2 units of packed red blood cell with no evidence of tachycardia and mild hypotension that appears to be improving. I discussed possibility of transfer with the patient and he currently prefers to stay at this facility. I did recommend that if there is concern for continued bleeding that transfer to facility with interventional radiology vascular service would be recommended. Apply compression with abdominal binder to the abdomen. Will recheck hemoglobin after 2 units PRBCs have been completed. Medicine consult and nephrology consult placed.
[2024-08-19 21:46] LABS: Basophils # (A) 0.03 10*3/uL (0.00-0.10); Basophils % (A) 0.3 %; Eosinophils # (A) 0.01 10*3/uL (0.04-0.35); Eosinophils % (A) 0.1 %; HCT 22.8 % (39.6-50.0); HGB 7.7 g/dL (13.0-17.0); Lymphocytes # (A) 0.97 10*3/uL (0.90-5.00); MCH 31.8 pg (27.0-32.0); MCHC 33.8 g/dL (32.0-37.0); MCV 94.2 fL (80.0-97.0); Mean Platelet Volume 11.5 fL (9.5-12.2); Monocytes # (A) 0.59 10*3/uL (0.20-1.00); Monocytes % (A) 6.1 %; Neutrophils # (A) 8.03 10*3/uL (1.80-7.70); Neutrophils % (A) 83.2 %; RBC 2.42 10*6/uL (4.40-5.60); RDW 15.6 % (11.5-14.5); WBC 9.66 10*3/uL (4.50-10.00)
[2024-08-19 21:47] LABS: Platelet Count 91 10*3/uL (140-440)
[2024-08-19] MEDS: FUROSEMIDE 10 MG/ML 10 ML VIAL IV STA (23:25)
[2024-08-19] MEDS: PANTOPRAZOLE 40 MG/10 ML VIAL IVP SCH (23:25)
[2024-08-19] MEDS: PIPERACILLIN-TAZOBACTAM 3.375 GM in SODIUM CHLORIDE 0.9% 100 ML IVPB SCH (23:35)
[2024-08-19] MEDS: ONDANSETRON 4 MG/2 ML VIAL IVP PRN (23:40)
[2024-08-20 00:30] LABS: Glucose,Whole Blood 192 mg/dL (70-110)
--- NOTE | 2024-08-20 02:34 | XR ---
EXAM: XR Chest, 1 View CLINICAL HISTORY: ITS.REASON XR Reason: increased O2 demand, aspiration? TECHNIQUE: Frontal view of the chest. COMPARISON: No relevant prior studies available. FINDINGS: Lungs: No consolidation or mass. Slightly prominent interstitial markings. Pleural space: No acute findings. Heart: Mild cardiomegaly. Bones/joints: No acute findings. Impression: Slightly prominent interstitial markings.
[2024-08-20 03:04] VITALS: TEMP 97.8
[2024-08-20 04:59] LABS: Basophils # (A) 0.03 10*3/uL (0.00-0.10); Basophils % (A) 0.3 %; Eosinophils # (A) 0.01 10*3/uL (0.04-0.35); Eosinophils % (A) 0.1 %; HCT 23.7 % (39.6-50.0); HGB 7.7 g/dL (13.0-17.0); Lymphocytes % (A) 10.9 %; MCH 30.3 pg (27.0-32.0); MCHC 32.5 g/dL (32.0-37.0); MCV 93.3 fL (80.0-97.0); Mean Platelet Volume 11.7 fL (9.5-12.2); Monocytes # (A) 0.71 10*3/uL (0.20-1.00); Monocytes % (A) 6.5 %; RBC 2.54 10*6/uL (4.40-5.60); RDW 15.6 % (11.5-14.5); WBC 10.97 10*3/uL (4.50-10.00)
[2024-08-20 05:06] LABS: Platelet Count 91 10*3/uL (140-440)
[2024-08-20 05:07] LABS: African American GFR (CKD) 8 (>60 ml/min/1.73 sqM); Anion Gap 20 mmol/L; Blood Urea Nitrogen 66 mg/dL (9-20); Calcium 9.1 mg/dL (8.4-10.2); Carbon Dioxide 16 mmol/L (22-30); Chloride 96 mmol/L (98-107); Glucose 136 mg/dL (74-99); Non-African American GFR(CKD) 7 (>60 ml/min/1.73 sqM); Potassium 5.5 mmol/L (3.5-5.1); Sodium 132 mmol/L (137-145)
[2024-08-20 06:07] VITALS: BP 106/46; RESP 23
[2024-08-20 06:13] VITALS: PULSE 74
--- NOTE | 2024-08-20 06:36 | P.CNPUL ---
History of Present Illness Consult date: 08/20/24 Requesting physician: Teodoro Nazario Reason for consult: other (Hypoxia) Chief complaint: Fall History of present illness: Patient is a 74-year-old male with past medical history significant for hy pertension, hyperlipidemia, coronary artery disease, ischemic cardiomyopathy, and end-stage renal disease. He is maintained on hemodialysis on a Sunday, , Sunday schedule. Patient was at hemodialysis yesterday when he had a fall. He hit the door jam with his left side. Reportedly did not lose consciousness. Denies head trauma. Denies anticoagulant/blood thinners. Developed severe abdominal pain/flank pain and swelling on the left. Came to the emergency department for evaluation yesterday morning. Contrast CT of abdomen/pelvis showing large mass anterior left abdominal wall with pronounced mass effect favoring large intramuscular hematoma of the abdominal wall measuring 22.3 x 22.3 x 12.2 cm. Multiple foci of contrast blush present within the hematoma suggesting some active bleeding. There is a second subcutaneous hematoma the lower left flank measuring 7.9 x 4.8 x 4.8 cm also showing contrast exacerbation and active bleeding. Some incidental intra-abdominal findings including cirrhosis and mild ascites, atrophic kidneys, and a 3.2 cm gallstone. Trauma team was activated and patient was seen by trauma surgeon. No immediate surgical intervention was recommended. Possible consideration for transfer to tertiary care center for arterial embolization if bleeding does not stop. Patient did receive DDAVP. Also 3 units of PRBCs were ordered. I received a call about this patient in regards to his oxygen demands which have increased. He is currently on 15 L high flow nasal cannula. SpO2 is 90%. He is tachypneic. Reportedly had a nonbloody bilious emesis earlier, the nurses are concerned that he may have aspirated. He was placed on Zosyn. Chest x-ray reviewed, no focal consolidations consistent with pneumonia. Stable cardiac silhouette with some mild central vascular congestion. Lethargic in appearance. He is receiving third unit of packed red blood. 80 mg of IV Lasix was given. Patient is anuric at baseline. CMP sodium 131, potassium 4.5, chloride 98, serum bicarb 22, BUN 53, creatinine 5.44, glucose 107. LFTs unremarkable. PT 13.2, INR 1.2, APTT 26.9. Lipase 44. Lactic 0.8. Most recent CBC with a hemoglobin of 7.7 g/dL following 2 units of packed red blood . Previous hemoglobin was 7.3 g/dL. Abdomen is firm and distended on the left. Painful with manipulation. There is a left flank bruising. Current blood pressure is 70/40s mmHg. Heart rate is nontachycardic. I think this patient would be best monitored in the intensive care unit considering his active bleeding. Review of Systems Constitutional: Reports fatigue, Denies chills, Denies fever, Denies poor appetite, Denies weight gain, Denies weight loss Ears, nose, mouth and throat: Denies epistaxis, Denies nasal congestion, Denies nasal discharge, Denies post-nasal drip, Denies sinus pain, Denies sinus pressure, Denies sore throat Cardiovascular: Denies chest pain, Denies leg edema, Denies lightheadedness, Denies orthopnea, Denies palpitations, Denies paroxysmal nocturnal dyspnea, Denies syncope Respiratory: Reports dyspnea, Denies congestion, Denies cough, Denies hemoptysis, Denies pain on inspiration Gastrointestinal: Reports nausea, Reports vomiting, Denies abdominal pain, Denies constipation, Denies diarrhea, Denies hematemesis Genitourinary: Denies dysuria, Denies hematuria Musculoskeletal: Denies limitation of motion Integumentary: Reports unusual bruising (Left flank) Neurological: Denies confusion, Denies head injury, Denies headaches, Denies numbness, Denies paralysis, Denies paresthesias, Denies syncope Psychiatric: Denies anxiety, Denies depression Past Medical History Past Medical History: Coronary Artery Disease (CAD), Chest Pain / Angina, Diabetes Mellitus, Dialysis, Hyperlipidemia, Hypertension, Myocardial Infarction ([place]), Renal Disease, Vascular Disorder Additional Past Medical History / Comment(s): Chronic renal failure: Hemodialysis on , AND SAT-left arm fistula. Anemia. hx cervical injury r/t football injury with cervical pain. migraines. neuropathy feet, Last Myocardial Infarction Date:: 2007 History of Any Multi-Drug Resistant Organisms: None Reported Past Surgical History: Heart Catheterization With Stent, Tonsillectomy Additional Past Surgical History / Comment(s): Peritoneal Dialysis catheter placed/later removed, cardiac stents X3. Left leg Arthrectomy X2. had rt side of neck for hemodialysis then removed, fistula now in left arm for hemodialysis, Roc cataracts WITH LENS, right 4th toe removed Past Anesthesia/Blood Transfusion Reactions: Previous Problems w/ Anesthesia, Motion Sickness, Postoperative Nausea & Vomiting (PONV) Additional Past Anesthesia/Blood Transfusion Reaction / Comment(s): "Dizzy sometimes when wakes up from anesthesia". Date of Last Stent Placement:: 01/2008 Past Psychological History: No Psychological Hx Reported Additional Psychological History / Comment(s): . Smoking Status: Former smoker Past Alcohol Use History: Rare Additional Past Alcohol Use History / Comment(s): quit 2007, smoked since 11 yrs. old, up to 3ppd Past Drug Use History: None Reported - Past Family History Mother History Unknown: Yes Family Medical History: Cancer Additional Family Medical History / Comment(s): Colon cancer. Father History Unknown: Yes Family Medical History: Myocardial Infarction ([place]), Pulmonary Embolus Additional Family Medical History / Comment(s): Father had several MIs and of one at the age of 69yrs. Medications and Allergies Home Medications Medication Instructions Recorded Confirmed Type Isosorbide Mononitrate ER [Imdur] 30 mg PO BID 12/01/16 08/19/24 History carvediloL [Coreg] 25 mg PO BID 12/01/16 08/19/24 History Nitroglycerin Sl Tabs [Nitrostat] 0.4 mg SUBLINGUAL Q5M PRN 06/09/23 08/19/24 History hydrALAZINE HCL [Apresoline] 25 - 50 mg PO TID PRN 06/09/23 08/19/24 History HYDROcodone/APAP 10-325MG [Mccune 1 tab PO BID PRN 08/19/24 08/19/24 History 10-325] Allergies Allergy/AdvReac Type Severity Reaction Status Date / Time ciprofloxacin [From Cipro] Allergy Unknown Verified 08/19/24 12:11 ezetimibe [From Zetia] Allergy Swelling Verified 08/19/24 12:11 naproxen [From Naprosyn] Allergy Swelling Verified 08/19/24 12:11 IN FEET nifedipine [From Procardia] Allergy Unknown Verified 08/19/24 12:11 Cskhqvi-MDA-NqO Reductase Allergy "heart Verified 08/19/24 12:11 Inhibitor problems" [Dynpill-Okh-Bnc Reductase Inhibitor] Physical Exam Vitals: Vital Signs Temp Pulse Pulse Resp BP BP Pulse Ox 08/19/24 23:55 97.5 F L 72 28 H 91/53 91 L 08/19/24 23:45 97.4 F L 69 28 H 91/53 90 L 08/19/24 23:32 91 L 08/19/24 22:39 97.6 F 71 16 104/61 97 08/19/24 22:18 70 18 102/51 100 08/19/24 21:00 70 18 105/50 95 08/19/24 19:26 97.6 F 68 16 98/48 94 L 08/19/24 18:30 97.5 F L 66 20 91/46 94 L 08/19/24 17:28 72 20 80/55 96 08/19/24 16:04 97.5 F L 76 20 121/57 95 08/19/24 15:45 97.1 F L 68 20 104/52 94 L 08/19/24 15:25 97.8 F 66 20 106/54 95 08/19/24 15:12 97.6 F 66 20 121/58 96 08/19/24 15:07 98.1 F 67 20 101/57 95 08/19/24 14:25 63 20 112/54 98 08/19/24 12:38 97.8 F 56 L 20 97/46 98 08/19/24 12:18 97.8 F 58 L 24 91/49 98 08/19/24 12:05 97.6 F 56 L 20 89/49 95 08/19/24 11:46 59 L 20 93/52 94 L 08/19/24 11:04 55 L 20 94/47 98 08/19/24 10:45 51 L 22 89/47 98 08/19/24 10:23 64 18 92/64 96 08/19/24 08:55 97.9 F 56 L 22 108/66 98 Intake and Output 08/19/24 08/19/24 08/20/24 14:59 22:59 06:59 Intake Total 0 620 0 Balance 0 620 0 Intake: Blood Product 0 620 0 Unit 0 Rc As-1 Unit 0 310 [id number] Rc As-1 Unit 310 [id number] Other: Weight 81.647 kg 81.647 kg GENERAL EXAM: Lethargic, 74-year-old male on 15 L high flow cannula tachypneic. Cool and clammy. HEAD: Normocephalic and atraumatic EYES: Normal reaction of pupils, equal size. NOSE: Clear with pink turbinates. THROAT: No erythema or exudates. NECK: No masses, no JVD. CHEST: No chest wall deformity. LUNGS: Equal air entry with diminished lung sounds heard bilaterally.. Conversational dyspnea speaking in short phrases. CVS: S1 and S2 normal with no audible murmur, regular rhythm. No extra heart sounds ABDOMEN: Large left abdominal mass with pelvic binder in place. There is flank bruising/ecchymosis. SPINE: No scoliosis or deformity SKIN: No rashes CENTRAL NERVOUS SYSTEM: No focal deficits, tone is normal in all 4 extremities. EXTREMITIES: Left forearm fistula with positive bruit and thrill. There is mild nonpitting bilateral lower extremity edema with chronic venous stasis changes. No clubbing or cyanosis. Peripheral pulses are intact. Results - Laboratory Findings CBC and BMP: 08/20/24 04:29 08/20/24 04:29 PT/INR, D-dimer PT 13.2 sec (10.0-12.5) H 08/19/24 09:51 INR 1.2 (<1.2) H 08/19/24 09:51 Abnormal lab findings: Abnormal Labs 08/19/24 08/19/24 08/19/24 09:51 09:51 09:51 RBC 2.33 L Hgb 7.3 L Hct 22.3 L Plt Count 67 L Neutrophils # Lymphocytes # 0.84 L Eosinophils # PT 13.2 H INR 1.2 H Sodium 131 L BUN 53 H Creatinine 5.44 H Glucose 107 H AST 16 L Total Protein 5.1 L Albumin 3.0 L Crossmatch 08/19/24 08/19/24 10:40 21:04 RBC 2.42 L Hgb 7.7 L Hct 22.8 L Plt Count 91 L Neutrophils # 8.03 H Lymphocytes # Eosinophils # 0.01 L PT INR Sodium BUN Creatinine Glucose AST Total Protein Albumin Crossmatch See Detail - Diagnostic Findings Chest x-ray: image reviewed Assessment and Plan Assessment: Traumatic fall resulting in intramuscular hematoma of abdominal wall measuring 22.3 x 22.3 x 12.2 cm. Multiple foci of contrast blush present within the hematoma suggesting active bleeding from arterial source. Additional, subcutaneous hematoma of the left lower flank measuring 7.9 x 4.8 x 4.8 cm showing contrast extravasation and active bleeding. Acute blood loss anemia, secondary to above, receiving his third unit of packed red blood cells currently. Hypotension and hypovolemic shock, secondary to above Acute hypoxemic respiratory failure, currently on a 15 L high flow nasal cannul a, apparently had witnessed aspiration event and patient was placed on empiric Zosyn. Chest x-ray does not show any focal infiltrates consistent with pneumonia. There is some mild central vascular congestion/pulmonary edema End-stage renal disease, maintained on Sunday, , Sunday schedule History of severe cardiomyopathy, echocardiogram from 2020 estimated left ventricular ejection fraction of 25 to 30% as well as mild MR history of coronary artery disease with previous PCI/stent History of hyperlipidemia History of hypertension Plan: Patient will be transferred to the intensive care unit for monitoring Patient was evaluated by trauma surgery, no immediate surgical intervention was recommended. Patient currently receiving third unit of packed red blood cells Despite this, Blood pressure remains hypotensive, currently being started on norepinephrine for blood pressure support in the interim. Did receive DDAVP and TXA Continue to monitor H&H and transfuse for hemoglobin less than 7 g/dL Patient covered on IV Zosyn for possible aspiration Patient was given 80 mg of IV Lasix, however, patient is anuric Nephrology consulted for urgent hemodialysis Patient's condition is critical and will be monitored in the intensive care unit. No on-call interventional radiology. Recommended patient be transferred to tertiary [facility] center for IR embolization. Called and spoke to my supervising physician who agrees with current management. I have personally seen and examined the patient, performed the documentation and the assessment and plan as written. Number of minutes spent on the visit:20 Joint evaluation that was done along with the nurse practitioner. The patient was in hemorrhagic shock, hypotensive following a traumatic fall and intramuscular hematoma involving the abdominal wall. Trauma surgery was involved. The patient was tested with blood products and the patient also received TXA and DDAVP. Ultimately, it was decided for this patient to be transferred to [facility] to be evaluated by interventional radiology for possible embolization to control the bleed. The patient has multiple comorbidities including CAD, cardiomyopathy with impaired LV function with an ejection fraction of 25 to 30%, hypertension hyperlipidemia and the patient also has incisional disease on hemodialysis.At the time of discharge, the patient was maintaining his blood pressure. He was already given a total of 3 units of packed RBC and the most recent hemoglobin was at 7.7. To be transferred to [facility]. Time with Patient: Greater than 30
[2024-08-20] MEDS: NOREPINEPHRINE 8 MG in SODIUM CHLORIDE 0.9% 250 ML IV SCH (07:51)
== END 2024-08-20 06:20 | disposition short-term general hospital (02) | DRG 811 ==
LOC: EC 08:15 → 3SCARD 12:11 → 2SICU 08-20 00:08
PROVIDERS: ADMIT Surgery; ATTEND Surgery
PROC: 30233N1 Transfusion of Nonautologous Red Blood Cells into Peripheral Vein, Percutaneous Approach (ICD-10-PCS; 2024-08-19)
PROC: 3E033XZ Introduction of Vasopressor into Peripheral Vein, Percutaneous Approach (ICD-10-PCS; principal; 2024-08-20)
DX: D62 Acute posthemorrhagic anemia (principal); J96.01 Acute respiratory failure with hypoxia; N18.6 End stage renal disease; R57.8 Other shock; R57.1 Hypovolemic shock; R18.8 Other ascites; I12.0 Hypertensive chronic kidney disease with stage 5 chronic kidney disease or end stage renal disease; Z99.2 Dependence on renal dialysis; K74.60 Unspecified cirrhosis of liver; E11.22 Type 2 diabetes mellitus with diabetic chronic kidney disease; Z95.820 Peripheral vascular angioplasty status with implants and grafts; E87.1 Hypo-osmolality and hyponatremia; T80.818A Extravasation of other vesicant agent, initial encounter; E11.51 Type 2 diabetes mellitus with diabetic peripheral angiopathy without gangrene; E78.5 Hyperlipidemia, unspecified; E86.1 Hypovolemia; I87.8 Other specified disorders of veins; T17.918A Gastric contents in respiratory tract, part unspecified causing other injury, initial encounter; K80.20 Calculus of gallbladder without cholecystitis without obstruction; I25.10 Atherosclerotic heart disease of native coronary artery without angina pectoris; S30.1XXA Contusion of abdominal wall, initial encounter; W01.0XXA Fall on same level from slipping, tripping and stumbling without subsequent striking against object, initial encounter; Z79.84 Long term (current) use of oral hypoglycemic drugs; I25.2 Old myocardial infarction; Z95.5 Presence of coronary angioplasty implant and graft; Z87.891 Personal history of nicotine dependence; Z79.899 Other long term (current) drug therapy; Y92.531 Health care provider office as the place of occurrence of the external cause; W22.8XXA Striking against or struck by other objects, initial encounter
CPT/HCPCS: 36415; 36430; 71045; 74177; 80048; 80053; 83605; 83690; 85025; 85610; 85730; 86850; 86900; 86901; 86920; 93005; 96365; 96366; 96367; 96375; 96376; 99291